=== PATIENT | male | born 1945 | race Caucasian/White ===

== ENCOUNTER 2021-12-12 13:26 | Outpatient (CLI) | payer BC, SELFPAY ==
--- OUTSIDE RECORDS SUMMARY | 2021-12-12 13:30 | XMS_ITS | Encounter Summary ---
:1945 Author Organization [facility] Address [address] [place] [address] Care Team Providers Name Role Phone Unavailable Primary Care Provider Unavailable Reason for Visit Reason Comments Triage Encounter Details Date Type Department Care Team Description 05/30/2020 Clinical Communication Division of General [facility] in [place], [place] [address] [facility] [address] [place] [id number] [phone] Social History Tobacco Use Types Packs/Day Years Used Date Smoking Tobacco: Never Assessed Sex Assigned at Date Recorded Not on file documented as of this encounter Miscellaneous Notes Telephone Encounter - Enzo Barnes M.D. - 05/30/2020 10:24 AM CDT GI CONSULTATIVE MEDICINE TRIAGE Decision: Deny - Patient not here. Reason: Very likely not able to meet patient expectations. Lack of Downstream Appointment Access. Subspecialty GI Triage does not establish a relationship with the patient. For any questions, please contact the patient's primary provider or the [facility]. [id number] Telephone Encounter - Marsha Castillo - 05/30/2020 8:52 AM CDT CATHERINE VALDOVINOS 1945 [id number] years Gender: Male Who filled out ARF: Patient?? Request: I have medical symptoms without a clear diagnosis TOP THREE SYMPTOMS: MAIN SYMPTOM debilitating pain in upper stomach. Dizzy,nausea. Description: sharp pain in upper stomach, comes and goes. Dizziness. Nausea Duration: 6 to 12 months Previous Eval: Yes Institution: [facility] Have had: Images (X-Rays, CT scan, MRI scan, etc.), Blood or urine tests Diagnosis: Outcome: no diagnoses Expectations: treat medical problems I have. ADDITIONAL - 1 Description: Duration: Previous Eval: Institution: Have had: Diagnosis: Outcome: Expectations: ADDITIONAL - 2 Description: Duration: Previous Eval: Institution: Have had: Diagnosis: Outcome: Expectations: ADDITIONAL - 3 Description: Duration: Previous Eval: Institution: Have had: Diagnosis: Outcome: Expectations: ADDITIONAL - 4 Description: Duration: Previous Eval: Institution: Have had: Diagnosis: Outcome: Expectations: ADDITIONAL CONCERNS: ? CONDITIONS: Depression, Anxiety, Pain, Fatigue BOTHERED BY: Feeling nervous, anxious or on edge - Several days Not being able to control or stop worrying - Not at all Little interest or pleasure in doing things - Several days Feeling down, depressed, or helpless - Not at all Willing to speak to a mental health professional - PAIN LONGER THAN 3 MONTHS: Yes CARE PROVIDERS TO DATE: 1 LOWEST PAIN LAST 7 DAYS (0 to 10): 2 PAIN INTERFERENCE PAST 3 MONTHS (0 to 10): 0 - Not at all PAIN AREAS: NECK, ABDOMEN, Lower BACK FATIGUE A MAIN REASON FOR VISIT: Yes FATIGUE/HOW LON to 12 months PROBLEMS WITH SLEEP: No SLEEP PROBLEMS LAST 2 WEEKS: SLEEP APNEA DIAGNOSIS: No Willing to attend [facility] or [facility] appointments - Definitely not DAILY MEDS: 7 OPIOIDS: No CURRENT DIALYSIS: No CURRENT HEALTH/PAST YEAR: Fair CONFIDENCE: Agree NOT AVAILABLE: I AM AVAILABLE ANY TIME PHONE: [phone] documented in this encounter Plan of Treatment Not on filedocumented as of this encounter Visit Diagnoses Not on filedocumented in this encounter
--- OUTSIDE RECORDS SUMMARY | 2021-12-12 13:30 | XMS_ITS | Clinical Summary ---
:1945 Author Organization [facility] Address [address] [place] [address] Care Team Providers Name Role Phone Unavailable Primary Care Provider Unavailable Source Comments Patient records contain information from all sites at [facility]. For routine questions regarding patient records, call [phone] during business hours, M-F 8:00 AM - 5:00 PM Central Time. Record requests for emergency care only can be directed to [phone] at any time.[facility] Immunizations Name Administration Dates Next Due Influenza Split 01/09/2001 Td, (Adult) Unspecified 03/11/1997 Social History Tobacco Use Types Packs/Day Years Used Date Smoking Tobacco: Never Assessed Sex Assigned at Date Recorded Not on file Plan of Treatment Health Maintenance Due Date Last Done Comments CT Colonography 1945 Cologuard 1945 Colonoscopy 1945 Colorectal Cancer Screening 1945 FIT 1945 Hepatitis C Screening 1945 Zoster Vaccines (2 of 3) 04/08/2008 02/12/2008 DTaP,Tdap,and Td Vaccines (2 - Td 04/11/2019 04/11/2009, , or Tdap) 03/11/1997 Depression Screening (Annual 03/11/2021 PHQ-2) Fall Risk Screen (Annual) 03/11/2021 COVID-19 Vaccine (4 - Booster for 03/22/2021 01/25/2021, , Pfizer series) 05/07/2020 Fasting Glucose for Diabetes 10/14/2021 10/14/2018, 019, Screening 06/24/2018, Additional history exists Influenza Vaccine (#1) 2021 12/22/2020, 11/30/2019, 12/24/2017, Additional history exists Pneumococcal vaccine (65+ years) Completed 04/28/2019, , 01/24/2012, Additional history exists Insurance Payer Benefit Plan / Subscriber ID Effective Dates Phone Addre ss Type Group BLUE CROSS [facility] [id number] 2017-Janessa [phone] [address] [facility] [address] [facility] [place] [address]
--- OUTSIDE RECORDS SUMMARY | 2021-12-12 13:30 | XMS_ITS | Clinical Summary ---
:1945 Author Organization [facility] [place] [address] Care Team Providers Name Role Phone Magan Verdugo MD Primary Care Provider [phone] Allergies Active Allergy Reactions Severity Noted Date Comments Iodinated Contrast Media Hives Medium 09/04/2018 Diatrizoate Meglumine (Iv Contrast Dye) Hives 0 06/09/2018 Medications Medication Sig Dispensed Refills Start Date End Date Status lisinopril (PRINIVIL; Take 1 tablet by 90 tablet 3 12/24/2017 Active ZESTRIL) 20 mg mouth once daily. tabletIndications: Hypertension, unspecified type FLUoxetine (PROZAC) Take 1 capsule by 90 capsule 3 06/24/2018 Active 40 mg mouth every capsuleIndications: morning. Anxiety states metFORMIN (GLUCOPHAGE Take 1 tablet by 90 tablet 3 06/24/2018 Active XR) 500 mg mouth once daily Extended-Release with evening meal. tabletIndications: Diabetes mellitus without complication (HC) cholecalciferol Take 400 Units by 0 Active (VITAMIN D-3) 400 mouth once daily. unit tablet atorvastatin Take 40 mg by mouth 0 Active (LIPITOR) 40 mg at bedtime. tablet omeprazole (PRILOSEC) Take 20 mg by mouth 0 Active 20 mg Delayed-Release 2 times daily if capsule needed. oxyCODONE-acetaminoph Take 1-2 tablets by 30 tablet 0 10/15/19 19 Active en, 5-325 mg, mouth every 4 hours (PERCOCET) 5-325 mg if needed for Pain per (For moderate to tabletIndications: severe pain.) Max Prostate cancer (HC) acetaminophen dose: 4000mg in 24 hrs. Active Problems Problem Noted Date Prostate cancer 10/13/2018 Peptic ulcer disease 2017 Pain management contract terminated 05/14/2017 Overview: Patient no longer taking pain medication chronically. 05/14/17 Chronic ITP (idiopathic thrombocytopenia) 11/11/2015 Overview: Has seen Hematology. Monitoring labs. St able. Gastric ulcer 07/02/2014 Overview: EGD 06/2014 superficial gastric ulcer sec ondary to NSAIDs Benign paroxysmal positional vertigo 12/17/2011 Back pain 10/02/2010 S/P colonoscopy 04/20/2010 Overview: Normal in 2004: due again in 2014 Vitamin D deficiency 02/03/2010 Alcohol abuse, unspecified 08/05/2009 Cataracts, bilateral 08/05/2009 Arthritis 02/23/2008 Neck pain 02/23/2008 Overview: DDD with radiculitis - Responds to predn isone. Fatty liver 02/12/2008 Sensorineural hearing loss, bilateral 01/14/2008 Type II or unspecified type diabetes mellitus without mention of 02/07/2006 complication, not stated as uncontrolled Pure hypercholesterolemia 02/07/2006 Unspecified essential hypertension 02/07/2006 Anxiety state, unspecified 02/07/2006 Resolved Problems Problem Noted Date Resolved Date Pain medication agreement signed 09/08/2011 018 Overview: Controlled substance contract signed 03/[address] Tenorio. Patient takes about 10 per month for chr onic body pain. Toxasure 05/26/15 Last Assessment & Plan: Controlled substance agreement signed 04/19/14 Issue of repeat prescriptions 08/29/2010 05/14/2017 Overview: Vicodin for neck and back pain Encounters Date Type Specialty Care Team Description 10/19/2021 Office Visit [facility], [facility] (Check) 10/19/2021 Travel 09/28/2021 Office Visit Black [facility]gett, [facility] 09/28/2021 Travel from Last 3 Months Immunizations Name Administration Dates Next Due Amb Influenza, Inact (High-dose) (Flu 12/24/2013 Clinic Only) Influenza A (H1N1), Inactivated (Age 0204/11/2009 >=3 Years) Influenza, High-dose Inactivated 11/11/2015, 12/22/2014 Influenza, IIV3 (Age >=3 years) 12/17/2012, 12/12/2011, 04/2010, 01/02/2010, 04/11/2009 Influenza, Inactivated IIV3 (Age 65+ 12/24/2017, 01/08/2017 Years) Preserv Free Pneumococcal Poly,23-Valent 01/24/2012, 04/11/2009 (Pneumovax) Pneumococcal conj 13-Valent (Prevnar 05/26/2015 13) Td (Age >=7 Years) 01/25/1999 Tdap 04/11/2009 Zoster (Zostavax-ZVL, live) 02/12/2008 Family History Medical History Relation Name Comments Hypertension Brother 2 Other Father colon polyps Stroke Father Cancer-breast Mother Diabetes Mother Psychiatric illness Mother Dementia Other Sister 2 Obesity Relation Name Status Comments Brother 1 Alive diabetes Brother 2 Child Jessica Alive Daughter Maile Alive Father (Age 90) stroke Mother (Age 87) Sister 1 Alive Diabetes,Alhz. Sister 2 Son Zacarias Alive Social History Tobacco Use Types Packs/Day Years Used Date Former Smoker Cigarettes, Cigars 0.5 20 Quit: Smokeless Tobacco: Current User Chew Tobacco Cessation: Ready to Quit: No; Co unseling Given: Yes Alcohol Use Standard Drinks/Week Comments Yes 0 (1 standard drink = 0.6 oz pure alcoho l) Happy hour Every other Day Alcohol Habits Answer Date Recorded How often do you have a drink containing 2-3 times a week 06/24/2018 alcohol? How many drinks containing alcohol do you 3 or 4 06/24/2018 have on a typical day when you are drinking? How often do you have six or more drinks on Weekly 06/24/2018 one occasion? Comment: Happy hour Every other Day 12/24/2017 Sex Assigned at Date Recorded Not on file Obstetrics History Last Filed Vital Signs Vital Sign Reading Time Taken Comments Blood Pressure 162/94 07/26/2021 12:26 PM CDT Pulse 74 07/26/2021 3:14 PM CDT Temperature 37.2 ??C (98.9 ??F) 07/26/2021 12:26 PM CDT Respiratory Rate 18 07/26/2021 12:26 PM CDT Oxygen Saturation 97% 07/26/2021 3:14 PM CDT Inhaled Oxygen Concentration - - Weight 96.5 kg (212 lb 11.9 oz) 07/26/2021 12:29 PM CDT Height 177.8 cm (5' 10) 07/26/2021 12:29 PM CDT Body Mass Index 30.53 07/26/2021 12:29 PM CDT Plan of Treatment Upcoming Encounters Date Type Specialty Care Team Description 12/12/2021 Orders Only Health Maintenance Due Date Last Done Comments Zoster (shingles) series for age 0104/08/2008 02/12/2008 50+ (2 of 3) Depression screening for age 12+ 12/26/2018 12/26/2017, , 04/23/2017, Additional history exists Tetanus booster 04/11/2019 04/11/2009, 01/25/1999 BMI (ht and wt on same day) for 06/25/2019 06/24/2018, 0403/2018, age 18+ 03/10/2018, Additional history exists COVID-19 vaccine series (4 - 03/22/2021 01/25/2021, 021, Booster for Pfizer series) 05/07/2020 Colonoscopy through age 75 08/23/2021 08/23/2016, 7, 08/23/2016, Additional history exists Influenza for age 65+ 11/09/2021 12/24/2017, 01/08/2017, 11/11/2015, Additional history exists Lipids for age 45-75 12/24/2022 12/24/2017, 06/10/2017, 05/10/2016, Additional history exists Tdap Completed 04/11/2009 Pneumococcal series for age 65+ Completed 05/26/2015, 01/09, 04/11/2009 Hepatitis C screening for age Completed 12/16/2015, 2004 18-79 Results Not on filefrom Last 3 Months Insurance Payer Benefit Plan / Subscriber ID Effective Dates Phone Addre ss Type Group MEDICARE PART A MEDICARE PART A [id number] 2011-Presen ATTN: CLAIMS - HB USE ONLY HB ONLY t [address] [place] [address] MEDICARE PART A MEDICARE PART A [id number] 2011-Presen ATTN: CLAIMS - HB USE ONLY HB ONLY t [address] [place] [address] PREFERRED ONE PREFERRED [id number] 2015-Presen [address] [place] [address] BLUE CROSS BLUE [employer] [id number] 2017-Presen [address] [place] [address] Edison Valdovinos Personal/Family Self 1945 [address] (Home) [place] [id number] Advance Directives Latest Code Status on File Code Status Date Activated Date Inactivated Comments Full Code 10/13/2018 8:46 AM 10/14/2018 3:18 PM Full Code 09/08/2018 10:16 AM 09/08/2018 5:17 PM Care Teams Silk [employer] Frame Assembler Relationship Specialty Start Date End Date Magan Verdugo MD PCP - General Family Practice 09/04/181999 [place] [address]
--- OUTSIDE RECORDS SUMMARY | 2021-12-12 13:30 | XMS_ITS | Encounter Summary ---
:1945 Author Organization [facility] Address [address] [place] [address] Care Team Providers Name Role Phone Unavailable Primary Care Provider Unavailable Encounter Details Date Type Department Care Team Description 01/19/2021 Orders Only [facility] Sa antwon Sivlerman M.D. [address] [place], [place] [phone] (Wo rk) Social History Tobacco Use Types Packs/Day Years Used Date Smoking Tobacco: Never Assessed Sex Assigned at Date Recorded Not on file documented as of this encounter Plan of Treatment Not on filedocumented as of this encounter Visit Diagnoses Not on filedocumented in this encounter
--- OUTSIDE RECORDS SUMMARY | 2021-12-12 13:31 | XMS_ITS | Encounter Summary ---
:1945 Author Care Team Providers Name Role Phone Magan Verdugo MD Primary Care Provider [phone] Magan Verdugo MD Referring Provider [phone] Reason for Visit Lab/Nursing Visit Assessment and Plan 1. 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 did not get adjuvant rT rising PSA and ? retroperitoneal hayley d isease on monthly firmagon now w good results continue monthly aubrey Would do foundation testing/liquid biops y in future when psa rises again - but he prefers to wait on taking any additional meds given side effects w/ previous meds cont. monthly Firmagon ? PSA, total, serum or plasma ? testosterone, total, serum Discussion Note: None recorded.Patient educational handouts: No information available. Plan of Care Reminders Provider Appointments Return to Office on or around Corey Beyer, 06/11/2022 Lab PSA, Total, Serum or 12/04/2021 [facility] ? Testosterone, Total, 12/04/2021 [facility] Referral None recorded. ? ? Procedures None recorded. ? ? Surgeries None recorded. ? ? Imaging None recorded. ? ? Medications Name Start Date ? ? Accu-Chek Guide Me Glucose Meter ? TEST DIRECTED Accu-Chek Guide test strips ? TEST ONCE DAILY Accu-Chek Softclix Lancets ? TEST ONCE DAILY amlodipine 5 mg tablet ? TAKE 1 TABLET BY MOUTH DAILY atorvastatin 40 mg tablet ? TAKE 1 TABLET BY MOUTH AT BEDTIME azithromycin 250 mg tablet ? BinaxNOW COVID-19 Ag Self Test kit ? TEST DIRECTED TODAY bupropion HCl XL 150 mg 24 hr tablet, extended release ? TAKE 1 TABLET BY MOUTH DAILY duloxetine 30 mg capsule,delayed release ? TAKE ONE CAPSULE BY MOUTH DAILY duloxetine 60 mg capsule,delayed release ? TAKE 1 CAPSULE BY MOUTH EVERY DAY Eligard 30 mg (4 month) subcutaneous syringe ? Inject 30 mg by subcutaneous route. Erleada 60 mg tablet ? Take 4 tablets daily famotidine 20 mg tablet ? TAKE 1 TABLET BY MOUTH TWICE DAILY Firmagon kit with diluent syringe 80 mg subcutaneous s olution ? Inject 80 mg by subcutaneous route. fluoxetine 40 mg capsule ? TAKE 1 CAPSULE BY MOUTH DAILY hydrocodone 5 mg-acetaminophen 325 mg tablet ? TAKE 1 TABLET BY MOUTH EVERY 6 HOURS NEEDED FOR PA IN lisinopril 40 mg tablet ? TAKE 1 TABLET BY MOUTH DAILY lorazepam 1 mg tablet ? TAKE 1 TABLET BY MOUTH TWICE DAILY NEEDED FOR ANXI ETY metformin ER 500 mg tablet,extended release 24 hr ? TAKE 3 TABLETS BY MOUTH DAILY metoprolol succinate ER 50 mg tablet,extended release 24 hr ? TAKE 1 TABLET BY MOUTH DAILY omeprazole 20 mg capsule,delayed release ? TK 1 C PO BID Orgovyx 120 mg tablet ? Take 1 tablet every day by oral route. prednisone 20 mg tablet ? TAKE 1 TABLET BY MOUTH EVERY DAY prednisone 5 mg tablet ? Take 1 tablet every day by oral route. prednisone 50 mg tablet ? TAKE 1 TABLET BY MOUTH EVERY DAY valacyclovir 1 gram tablet ? TK 1 T PO TID Xtandi 40 mg tablet ? Take 4 tablets every day by oral route. Medications Administered None recorded. Vitals None recorded. Results Lab Results Date Name Specimen Result Interpretation Description Value Range Status Address ? 12/04/2021 PSA, BLDV ? PSA, Total <0.10 <4.[address] [facility] Total, NG/mL NG/mL [facility] - Serum or [facility]: Plasma [address] 12/04/2021 Testostero BLDV ? Testosterone <10 [phone] [facility] ne, Total, NG/dL NG/dL Urolog [facility] - [facility] [place]: [address] Allergies Code Code System Name Reaction Severity Onset NKDA ? ? ? Problems Name Status Onset Date Source ? Raised Prostate Specific Antigen Active 06/26/2018 History Malignant Tumor of Prostate Active 08/20/2018 Hist ory Procedures Date Name Performed by ? 10/13/2018 Laparo Radical Prostatectomy Information not available Notes: 10/13/2018 - LAPARO RADICAL PRO STATECTOMY 07/29/2018 Biopsy of Prostate Information not doyle valenzuela Notes: 07/29/2018 - BIOPSY OF PROSTATE 07/29/2018 N Block Other Peripheral Information not available Notes: 07/29/2018 - N BLOCK OTHER CONY PHERAL 01/29/2017 Colonoscopy Thru [facility] Spx Information n ot available Notes: 01/29/2017 - COLONOSCOPY THRU S [facility] SPX ? Removal of Prostate Information not avai lable Notes: Prostate Removal ? Removal of Sperm Duct(s) Information not available Notes: Vasectomy Notes: Other surgeries: Laparo radical prostatectomy, Biopsy of prostate, N block other peripheral and Colonoscopy thru [facility] spx Vaccine List Vaccine Type COVID-19 (SARS-COV-2) vaccine, unspecifi ed 07/24/2019 07/20/2020 01/25/2021 COVID-19, mRNA, LNP-S, PF, 30 mcg/0.3 mL dose (RocketPlay) 05/07/2020 05/28/2020 01/25/2021 influenza, high dose seasonal 12/24/2013 12/22/2014 11/11/2015 influenza, high-dose, quadrivalent 12/22/2020 influenza, seasonal, injectable 01/09/2001 01/26/2003 01/16/2005 01/02/2010 12/12/2011 12/17/2012 influenza, seasonal, injectable, preserv ative free 04/11/2009 01/10/2011 11/30/2019 influenza, trivalent, adjuvanted 01/08/2017 12/24/2017 influenza, unspecified formulation 12/20/2020 12/30/2020 novel [id number], all formulation s 04/11/2009 pneumococcal conjugate PCV 13 05/26/2015 pneumococcal polysaccharide [id number] 04/11/2009 01/24/2012 04/28/2019 pneumococcal, unspecified formulation 03/11/2018 03/12/2019 11/23/2020 Td (adult), adsorbed 03/11/1997 Tdap 04/11/2009 zoster live 02/12/2008 Social History Tobacco Smoking Status Never Smoker Marital status Has tobacco cessation counseling N been provided? Could you be ? N Preferred Language Citizen Of [place] How much tobacco do you chew? 1/day What was the date of your most 12/11/2021 recent tobacco screening? Do you or have you ever used Never used electronic e-cigarettes or vape? cigarettes Have you or anyone in your house N been exposed to COVID-19 in the past 14 days? Do you use any illicit or Y recreational drugs? Have you or anyone in your house N tested positive for COVID-19 in the past 14 days? When did you quit smoking? 1-5yearssincelastcigarette How many years have you smoked 10 tobacco? What is your relationship status? What is your level of alcohol Heavy consumption? Have you or anyone in your home N experienced symptoms of COVID 19 such as fever >100.4, shortness of breath, difficulty breathing, or a cough? Do you or have you ever used Former smokeless tobacco user smokeless tobacco? Which illicit or recreational marijuanna Notes: o nce in a while drugs have you used? Have you traveled outside of [facility] [place] in the past 30 days? What is your level of caffeine Moderate consumption? Do you or have you ever used any Y other forms of tobacco or nicotine? Race White Recreational Drug Use Y Family History Relation Problem Onset Age of Age Notes Unspecified Relation Family history of (No N/A (N o Notes) Hypertension Information) Functional Status Unknown. Past Encounters 12/04/2021 Malignant Tumor of Prostate Corey Beyer MD: [address], [address] [address], Ph. 11/09/2021 Malignant Tumor of Prostate Corey Beyer MD: [address], [address], [place] [address], Ph. History of Present Illness None recorded. Review of Systems None recorded. Physical Exam None recorded.
--- OUTSIDE RECORDS SUMMARY | 2021-12-12 13:31 | XMS_ITS | Encounter Summary ---
:1945 Author Care Team Providers Name Role Phone Magan Verdugo MD Primary Care Provider [phone] Magan Verdugo MD Referring Provider [phone] Reason for Visit None recorded. Assessment and Plan 1. Malignant tumor of [...] effects w/ previous meds cont. monthly Firmagon -05-30 PATIENT WITH HORMONE SENSITIVE PROSTATE CANCER PSA IS UNDETECTABLE TAKES MONTHLY FIRMAGON HAD PSMA SCAN LAST YEAR WHICH SHOWED JUS T SMALL ? RP NODES CONTINUE FIRMAGON CHECK PSA IN 3MONTHS COULDN'T TOLERATE XTANDI OR ORAL ANTIAND ROGENS GIVEN SIDE EFFECTS. Discussion Note: None recorded.Patient educational handouts: No information available. Plan of Care Reminders Provider Appointments Return to Office on or around 06/11/2022 Jose Beyer MD Lab None recorded. ? ? Referral None recorded. ? ? Procedures None [...] oral route. Medications Administered None recorded. Vitals Height Weight BMI 6 ft 209 lbs 28.3 kg/m2 Results Lab Results None recorded. Allergies Code Code System Name Reaction Severity Onset NKDA ? ? ? Problems Name Status Onset Date Source ? Raised Prostate Specific Antigen Active 06/26/2018 History Malignant Tumor of Prostate Active 08/20/2018 Hist ory Procedures Date Name Performed by ? 10/13/2018 [facility] Radical Prostatectomy Information not available Notes: 10/13/2018 - LAPARO RADICAL PRO STATECTOMY 07/29/2018 Biopsy of Prostate Information not avai lable Notes: 07/29/2018 - BIOPSY OF PROSTATE 07/29/2018 [...] mRNA, LNP-S, PF, 30 mcg/0.3 mL dose (House Party) 05/07/2020 05/28/2020 01/25/2021 influenza, high dose seasonal 12/24/2013 12/22/2014 11/11/2015 influenza, high-dose, quadrivalent 12/22/2020 influenza, seasonal, injectable 01/09/2001 01/26/2003 01/16/2005 01/02/2010 12/12/2011 12/17/2012 influenza, seasonal, injectable, preserv ative free 04/11/2009 01/10/2011 11/30/2019 influenza, trivalent, adjuvanted 01/08/2017 12/24/2017 influenza, unspecified formulation 12/20/2020 12/30/2020 novel [id number], all formulation s 04/11/2009 pneumococcal conjugate PCV 13 05/26/2015 pneumococcal polysaccharide [id number] 04/11/2009 01/24/2012 04/28/2019 pneumococcal, unspecified formulation 03/11/2018 03/12/2019 11/23/2020 Td (adult), adsorbed 03/11/1997 Tdap 04/11/2009 zoster live 02/12/2008 Social History Tobacco Smoking Status Never Smoker Marital status Has tobacco cessation counseling N been provided? Could you be ? N Preferred Language Iraqi How much tobacco do you chew? 1/day [...] you used? Have you traveled outside of [facility] in the past 30 days? What is your level of caffeine Moderate consumption? Do you or have you ever used any Y other forms of tobacco or nicotine? Race White Recreational Drug Use Y Family History Relation Problem Onset Age of Age Notes Unspecified Relation Family history of (No N/A (N o Notes) Hypertension Information) Functional Status Unknown. Past Encounters 12/11/2021 Malignant Tumor of Prostate Corey Beyer MD: [id number], [address] [address], Ph. 12/04/2021 Malignant Tumor of Prostate Corey Beyer MD: [id number], [address], [place] [address], Ph. History of Present Illness Note: <div>patient here for prostate cancer</div><div>s/p prostatectomy in 2019</div>Review of Systems: ROS as noted in the HPI Review of Systems ? Comprehensive General Adult ROS Reported By: Patient Cardiovascular: Cardiovascular: no chest mine n, no palpitations Respiratory: Respiratory: no cough, no sh ortness of breath Gastrointestinal: Gastrointestinal: no vomitin g, no constipation, no GERD, abdominal pain, nausea; no frequent di arrhea, Genitourinary: Genitourinary: no incontinen ce, no difficulty urinating; no testicular: pain, no testicu lar: lump, no penile: lesion, no dysuria, no change in urinar y stream, no hematuria Physical Exam None recorded.
--- OUTSIDE RECORDS SUMMARY | 2021-12-12 13:31 | XMS_ITS | Encounter Summary ---
:1945 Author Organization [facility] Address [address] [place] [id number] Care Team Providers Name Role Phone Unavailable Primary Care Provider Unavailable Encounter Details Date Type Department Care Team Description 02/25/2020 Admin Visit Department of Family Medicine, [address] [address] [facility] [phone] Social History Tobacco Use Types Packs/Day Years Used Date Smoking Tobacco: Never Assessed Sex Assigned at Date Recorded Not on file documented as of this encounter Plan of Treatment Not on filedocumented as of this encounter Visit Diagnoses Not on filedocumented in this encounter Additional Health Concerns Infection Onset Date Last Indicated Resolved Time COVID19 Pending 02/25/2020 02/25/2020 02/26/2020 3:05 AM [employer] documented as of this encounter
--- OUTSIDE RECORDS SUMMARY | 2021-12-12 13:31 | XMS_ITS | Encounter Summary ---
:1945 Author Organization [facility] Address [address] [place] [address] Care Team Providers Name Role Phone Unavailable Primary Care Provider Unavailable Reason for Visit Reason Onset Date Comments Testing For Upper Respiratory Virus Symptoms 02/25/2020 Encounter Details Date Type Department Care Team Description 02/25/2020 External Outreach Department of Kevin Cadena [facility] Medicine, [facility] Eneida Ramos Respiratory (Primary Building, in [address] [place], [place] [address] [facility] [address] [place], [place] [phone] [address] (Work) [phone] Social History Tobacco Use Types Packs/Day Years Used Date Smoking Tobacco: Never Assessed Sex Assigned at Date Recorded Not on file documented as of this encounter Progress Notes Nila Garza R.N. - 02/25/2020 11:33 AM CST Encounter created for symptomatic infectious disease screening with possible COVID, Influenza, and RSV testing. PATIONAL THERAPY ASSIST documented in this encounter Plan of Treatment Not on filedocumented as of this encounter Procedures Procedure Name Priority Date/Time Associated Diagnosis Comme nts INFLUENZA A/B AND Routine 02/25/2020 1:02 PM Infection Upper R esults for this RSV, PCR, VARIES OCCUPATIONAL THERAPY ASSIST Respiratory procedure a re in the results section. SARS CORONAVIRUS-2 Routine 02/25/2020 1:02 PM Infection Upper Results for this RNA, V OCCUPATIONAL THERAPY ASSIST Respiratory procedure are i n the results section. documented in this encounter Results Influenza A/B and RSV, PCR, Varies (02/25/2020 1:02 PM OCCUPATIONAL THERAPY ASSIST) [facility] Method Time Signature Influenza A/B Swab, 02/26/2020 DTL and RSV, Nasopharynx 2:10 PM OCCUPATIONAL THERAPY ASSIST Source Influenza A, Undetected Undetected 02/26/2020 DTL PCR 2:10 PM OCCUPATIONAL THERAPY ASSIST Comment: Influenza A RNA absent. Influenza B, PCR Undetected Undetected 02/26/2020 2:10 PM CS T DTL Comment: Influenza B RNA absent. Respiratory Syncytial Virus, PCR Undetected Undetected 2:10 PM OCCUPATIONAL THERAPY ASSIST DTL Comment: RSV RNA absent. ----ADDITIONAL INFORMATION---- This test has been modified from the man ufacturer's instructions. Its performance characteristics were determi dylan by [facility] in a manner consistent with CLIA requirements. This test has not been cleared or approved by the U.S. Food and Drug Administration . Specimen Anatomical Collection Method Collection Time Receive d Time (Source) Location / / Volume Laterality Varies 02/25/2020 1:02 PM 0 7:12 (Nasopharynx) OCCUPATIONAL THERAPY ASSIST AM OCCUPATIONAL THERAPY ASSIST Kevin Worley D.O. LAB MICROBIOLOGY - GENERAL O RDERABLES Performing Organization Address City/State/ZIP Code Phon e Number [facility] - [address] [place] [phone] [facility] [place] [address] [facility] [address] [facility] SARS Coronavirus-2 RNA, V Symptomatic (02/25/2020 1:02 PM OCCUPATIONAL THERAPY ASSIST) [facility] Method Time Signature SARS-CoV-2 Swab, 02/26/2020 [facility] Specimen Nasopharynx 3:04 AM OCCUPATIONAL THERAPY ASSIST Source SARS CoV-2 Undetected Undetected 02/26/2020 [facility] RNA, TMA 3:04 AM OCCUPATIONAL THERAPY ASSIST Comment: SARS-CoV-2 RNA absent. This result does not rule out COVID-19 in the patient, as the sensitivity of the test depends o n the timing of the specimen collection and the quality of the specim en. Result should be correlated with patient's history and clinical presentat ion. ----ADDITIONAL INFORMATION---- This test is performed using the Aptima SARS-CoV-2 assay ([employer] which has received Emergency Use Authori zation (EUA) by the U.S. Food and Drug Administration. Fact sheets for this Emergency Use Autho rization (EUA) assay can be found at the following links: For Healthcare Providers: https://www.fd a.gov/media/388063/download For Patients: https://www.fda.gov/media/ 249439/download Specimen Anatomical Collection Method Collection Time Receive d Time (Source) Location / / Volume Laterality Varies 02/25/2020 1:02 PM 0 9:46 (Nasopharynx) OCCUPATIONAL THERAPY ASSIST PM OCCUPATIONAL THERAPY ASSIST Kevin Worley D.O. LAB MICROBIOLOGY - GENERAL O RDERABLES Performing Organization Address City/State/[facility] Code Phon e Number [facility]- [address] [place] [address] [place] [address] [address] documented in this encounter Visit Diagnoses Diagnosis Infection Upper Respiratory - Primary documented in this encounter Additional Health Concerns Infection Onset Date Last Indicated Resolved Time COVID19 Pending 02/25/2020 02/25/2020 02/26/2020 3:05 AM OCCUPATIONAL THERAPY ASSIST documented as of this encounter
--- OUTSIDE RECORDS SUMMARY | 2021-12-12 13:31 | XMS_ITS ---
:1945 Author Care Team Providers Name Role Phone ARTURO WHITEHEAD MD Primary Care Provider [phone] ARTURO WHITEHEAD MD Referring Provider [phone] Allergies Code Code System Name Reaction Severity Status Onset NKDA ? Medications Name Status Start Date Stop Date ? ? abiraterone 250 mg tablet Completed ? 2021 Accu-Chek Guide Me Glucose Meter Active ? Not available TEST DIRECTED Accu-Chek Guide test strips Active ? Not available TEST ONCE DAILY Accu-Chek Softclix Lancets Active ? Not a vailable TEST ONCE DAILY amlodipine 5 mg tablet Active ? Not avail able TAKE 1 TABLET BY MOUTH DAILY atorvastatin 40 mg tablet Active ? Not av ailable TAKE 1 TABLET BY MOUTH AT BEDTIME azithromycin 250 mg tablet Active ? Not a vailable BinaxNOW COVID-19 Ag Self Test kit Active ? Not available TEST DIRECTED TODAY bupropion HCl XL 150 mg 24 hr tablet, extended release Active ? Not available TAKE 1 TABLET BY MOUTH DAILY bupropion HCl XL 300 mg 24 hr tablet, extended release Completed ? 11/10/2020 TAKE 1 TABLET BY MOUTH DAILY duloxetine 30 mg capsule,delayed release Active ? Not available TAKE ONE CAPSULE BY MOUTH DAILY duloxetine 60 mg capsule,delayed release Active ? Not available TAKE 1 CAPSULE BY MOUTH EVERY DAY Eligard 30 mg (4 month) subcutaneous syringe Active ? Not available Inject 30 mg by subcutaneous route. Erleada 60 mg tablet Active ? Not availab le famotidine 20 mg tablet Active ? Not avai lable TAKE 1 TABLET BY MOUTH TWICE DAILY Firmagon kit with diluent syringe 80 mg subcutaneous solution Ac tive ? Not available Inject 80 mg by subcutaneous route. fluoxetine 40 mg capsule Active ? Not krysta ilable TAKE 1 CAPSULE BY MOUTH DAILY hydrocodone 5 mg-acetaminophen 325 mg tablet Active ? Not available TAKE 1 TABLET BY MOUTH EVERY 6 HOURS NEEDED FOR PAIN lisinopril 40 mg tablet Active ? Not avai lable TAKE 1 TABLET BY MOUTH DAILY lorazepam 1 mg tablet Active ? Not availa ble TAKE 1 TABLET BY MOUTH TWICE DAILY NEEDED FOR ANXIETY metformin ER 500 mg tablet,extended release 24 hr Active ? Not available TAKE 3 TABLETS BY MOUTH DAILY metoprolol succinate ER 50 mg tablet,extended release 24 hr Acti ve ? Not available TAKE 1 TABLET BY MOUTH DAILY omeprazole 20 mg capsule,delayed release Active ? Not available TK 1 C PO BID Orgovyx 120 mg tablet Active ? Not availa ble Take 1 tablet every day by oral route. prednisone 20 mg tablet Active ? Not avai lable TAKE 1 TABLET BY MOUTH EVERY DAY prednisone 5 mg tablet Active ? Not avail able prednisone 50 mg tablet Active ? Not avai lable TAKE 1 TABLET BY MOUTH EVERY DAY valacyclovir 1 gram tablet Active ? Not a vailable TK 1 T PO TID Xtandi 40 mg tablet Active ? Not availabl e Problems Name Status Onset Date Source ? [...] peripheral and Colonoscopy thru st [facility] spx Results Lab Results Date Name Specimen Result Interpretation Description Value Range Status Address ? 12/04/2021 PSA, Total, BLDV ? PSA, Total <0.10 <4.0 Fin al [place] Serum or NG/mL NG/mL [facility] - [facility]: [address] 12/04/2021 Testosteron BLDV ? Testosterone <10 175-781 [facility] e, Total, NG/dL NG/dL [facility]rology - Serum [facility]: [address] [facility] [address], [place] 06/23/2021 PSA, Total, BLDV ? PSA, Total <0.10 <4.0 Fin [facility] Serum or NG/mL NG/mL Urology - Plasma [facility]: [address] [place] [address] 04/06/2021 PSA, Total, BLDV ? PSA, Total <0.10 <4.0 Fin heather [place] Serum or NG/mL NG/mL [facility]rology - Plasma [facility]: [address] [place] [address] 04/06/2021 Testosteron BLDV Low Testosterone 23.72 175.00- Final [place] e, Total, NG/dL 781.00 Urology - Serum NG/dL [facility]: [address] [place] [address] 02/06/2021 BMP, Serum BLDV High Glu 122.40 70.00-1 Final [place] or Plasma mg/dL 05.00 Urology - mg/dL [facility]: [address] [place] [address] ? ? BLDV ? Ca 8.8 8.4-10. Final [place] mg/dL 2 mg/dL [facility] - [facility]: [address] [place] [address] ? ? BLDV ? Na 135.0 135.0-1 Final [place] mmol/L 45.0 Urology - mmol/L [facility]: [address] [place] [address] ? ? BLDV ? Potassium 4.3 3.6-5.0 Final [place] mmol/L mmol/L [facility] - [facility]: [address] [place] [address] ? ? 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 ? BLDV ? Co2 25.0 21.0-31 Final [place] mmol/L .0 Urology - mmol/L [facility]: [address] [place] [address] ? ? BLDV ? Aniongap 11.00 0.00-16 Final [place] operator .00 [facility]rology - [facility]: [address] [place] [address] ? ? BLDV ? Bun 15.0 7.0-18. Final [place] mg/dL 0 mg/dL [facility] - [facility]: [address] [place] [address] ? ? BLDV ? BUN/creat 15.3 9.0-20. Final [place] ratio 0 ratio [facility]rology - [facility]: [address], [place] ? ? BLDV ? Creatinine 1.0 0.6-1.3 Final [place] mg/dL mg/dL [facility] - [facility]: [address], [place] ? ? BLDV ? Egfr >60 90-120 Final [place] mL/min mL/min [facility]rology - per per [facility] 1.73 1.73 [facility]: [address], [place] 02/01/2021 CBC W/ Diff BLDV ? Wbc 6.00 3.80-10 Final [place] 10*3/uL .80 Urology - 10*3/uL [facility]: [address] [facility] [address], [place] ? ? BLDV ? Ne% 49.50 % 42.00-8 Final [place] 2.00 % [facility]rology - [facility]: [address] [facility] [address], [place] ? ? BLDV High Ly% 36.00 % 15.00-3 Final [place] 5.00 % [facility]rology - [facility]: [address] [facility] [address], [place] ? ? BLDV ? Mo% 10.20 % 4.00-12 Final [place] .00 % [facility] - [facility]: [address] [facility] [address], [place] ? ? BLDV ? Eo% 3.40 % 1.00-6. Final [place] 00 % [facility] - [facility]: [address] [facility] [address], [place] ? ? BLDV ? Ba% 0.90 % 0.00-2. Final [place] 00 % [facility] - [facility]: [address] [facility] [address], [place] ? ? BLDV ? Ne# 3.00 1.50-7. Final [place] 10*3/uL 80 Urology - 10*3/uL [facility]: [address] [facility] [address], [place] ? ? BLDV ? Ly# 2.20 0.85-3. Final [place] 10*3/uL 90 Urology - 10*3/uL [facility]: [address] [facility] [address], [place] ? ? BLDV ? Mo# 0.60 0.20-0. Final [place] 10*3/uL 95 Urology - 10*3/uL [facility]: [address], [place] ? ? BLDV ? Eo# 0.20 0.02-0. Final [place] 10*3/uL 50 Urology - 10*3/uL [facility]: [address], [place] ? ? BLDV ? Ba# 0.10 0.00-0. Final [place] 10*3/uL 20 Urology - 10*3/uL [facility]: [address], [place] ? ? BLDV ? Rbc 4.64 4.20-5. Final [place] 10*6/uL 80 Urology - 10*6/uL [facility]: [address], [place] ? ? BLDV ? Hgb 14.20 13.20-1 Final [place] g/dL 7.10 [facility]rology - g/dL [facility]: [address], [place] ? ? BLDV ? Hct 42.30 % 38.50-5 Final [place] 0.00 % [facility]rology - [facility]: [address], [place] ? ? BLDV ? Mcv 91.20 80.00-1 Final [place] fL 00.00 Urology - PR [facility]: [address], [place] ? ? BLDV ? Mch 30.60 27.00-3 Final [place] pg 3.00 pg [facility] - [facility]: [address], [place] ? ? BLDV ? Mchc 33.50 32.00-3 Final [place] g/dL 6.00 [facility]rology - g/dL [facility]: [address], [place] ? ? BLDV ? Rdw 13.70 % 11.00-1 Final [place] 5.00 % [facility]rology - [facility]: [address], [place] ? ? BLDV Low Plt 54.00 140.00- Final [place] 10*3/uL 400.00 Urology - 10*3/uL [facility]: [address], [place] ? ? BLDV ? Mpv 10.70 ? Final [facility] Urology - [facility]: [address], [place] 02/01/2021 Hepatic BLDV ? Albumin-olympu 4.4 3.5-5.0 Fi nal [place] Function s g/dL g/dL Urology - Panel, [facility]: [address] [place] [address] ? ? BLDV ? ALP-olympus 48.0 24.0-10 Final [place] [IU]/L 6.0 Urology - [IU]/L [facility]: [address] [place] [address], [place] ? ? BLDV ? ALT-olympus 32.0 10.0-40 Final [place] IU/L .0 IU/L [facility] - [facility]: [address] [place] [address], [place] ? ? BLDV ? AST-olympus 37.0 10.0-42 Final [place] IU/L .0 IU/L [facility] - [facility]: [address] [place] [address], [place] ? ? BLDV ? D 0.1 0.0-0.2 Final [place] Bilirubin-olymp mg/dL mg/dL U [facility]: [address] [place] [address] ? ? BLDV ? T 0.5 0.2-1.0 Final [place] Bilirubin-olymp mg/dL mg/dL U [facility]: [address] [place] [address] ? ? BLDV ? T 7.0 6.5-8.1 Final [place] Protein-olympus g/dL [facility] [address] [place] [address] 02/01/2021 BMP, Serum BLDV High Glu 134.50 70.00-1 Final [place] or Plasma mg/dL 05.00 Urology - mg/dL [facility]: [address] [place] [address] ? ? BLDV ? Ca 9.1 8.4-10. Final [place] mg/dL 2 mg/dL [facility] - [facility]: [address] [place] [address] ? ? BLDV Low Na 134.0 135.0-1 Final [place] mmol/L 45.0 Urology - mmol/L [facility]: [address] [place] [address] ? ? BLDV High Potassium 5.5 3.6-5.0 Final [place] mmol/L mmol/L [facility] - [facility]: [address] [place] [address] ? ? BLDV Low Chloride 99.0 101.0-1 Final [place] mmol/L 11.0 Urology - mmol/L [facility]: [address] [place] [address] [address], [place] ? ? BLDV ? Co2 25.0 21.0-31 Final [place] mmol/L .0 Urology - mmol/L [facility]: [address] [place] [address], [place] ? ? BLDV ? Aniongap 10.00 0.00-16 Final [place] .00 [facility] - [facility]: [address] [place] [address] [address], [place] ? ? BLDV ? Bun 16.0 7.0-18. Final [place] mg/dL 0 mg/dL [facility] - [facility]: [address] [place] [address], [place] ? ? BLDV ? BUN/creat 15.0 9.0-20. Final [place] ratio 0 ratio [facility] - [facility]: [address] [place] [address], [place] ? ? BLDV ? Creatinine 1.1 0.6-1.3 Final [place] mg/dL mg/dL [facility] - [facility]: [address] [place] [address], [place] ? ? BLDV ? Egfr >60 90-120 Final [place] mL/min mL/min Urology - per per [facility] 1.73 1.73 Lab: [address] [place] [address] 02/01/2021 Testosteron BLDV ? Testosterone 494.96 175.00- Final [place] e, Total, NG/dL 781.00 Urology - Serum NG/dL [facility]: [address] [place] [address] 02/01/2021 PSA, Total, BLDV ? PSA, Total <0.10 <4.0 Fin al [place] Serum or NG/mL NG/mL [facility]rology - Plasma [facility]: [address] [place] [address] 11/10/2020 PSA, Total, BLDV ? PSA, Total 0.55 0.00-4. Fi nal [place] Serum or NG/mL 00 Urology - Plasma NG/mL [facility]: [address] [place] [address] Past Encounters 12/11/2021 Malignant Tumor of Prostate Corey Beyer MD: [address] [facility], [address], [place] [address], Ph. 12/04/2021 Malignant Tumor of Prostate Corey Wilburn MD Kayleen: [address] [place] [address] [address], [address], [place] [address], Ph. 11/09/2021 Malignant Tumor of Prostate Corey Wilburn MD Kayleen: [address] [place] [address] [address], [address], [place] [address], Ph. 10/09/2021 Malignant Tumor of Prostate Corey Wilburn MD Kayleen: [address] [place] [address] [address], [address], [place] [address], Ph. 09/07/2021 Malignant Tumor of Prostate Corey Wilburn MD Kayleen: [address] [place] [address] [address], [address], [place] [address], Ph. 08/08/2021 Malignant Tumor of Prostate Corey Millantoni Beyer MD: [address] [place] [address] [address], [address], [place] [address], Ph. 06/23/2021 Malignant Tumor of Prostate Yaneth Janice Velez, PA: [address] [place] [address], [address] [address], Ph. 05/22/2021 Malignant Tumor of Prostate Yaneth Janice Velez, PA: [address] [place] [address], [address] [address], Ph. 04/18/2021 Malignant Tumor of Prostate Corey Wilburn MD Kayleen: [address] [place] [address] [address] , [address], [place] [address], Ph. 04/06/2021 Malignant Tumor of Prostate Walt Morfin MD: [address] [place] [address], [address], [place] [address], Ph. 02/09/2021 Malignant Tumor of Prostate Walt Morfin MD: [address] [place] [address], [place] [address], [place] [address], Ph. 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 02/01/2021 Malignant Tumor of Prostate Walt Morfin MD: [address] [facility], [place] [address], [place] [address], Ph. 12/13/2020 Malignant Tumor of Prostate Walt Morfin MD: [address] [facility], [address], [place] [address], Ph. 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 Social History Tobacco Smoking Status Never Smoker Vaccine List Vaccine Type COVID-19 (SARS-COV-2) vaccine, unspecifi ed 07/24/2019 07/20/2020 01/25/2021 COVID-19, mRNA, LNP-S, PF, 30 mcg/0.3 mL dose (GenAudio) 05/07/2020 05/28/2020 01/25/2021 influenza, high dose seasonal 12/24/2013 12/22/2014 11/11/2015 influenza, high-dose, quadrivalent 12/22/2020 influenza, seasonal, injectable 01/09/2001 01/26/2003 01/16/2005 01/02/2010 12/12/2011 12/17/2012 influenza, seasonal, injectable, preserv ative free 04/11/2009 01/10/2011 11/30/2019 influenza, trivalent, adjuvanted 01/08/2017 12/24/2017 influenza, unspecified formulation 12/20/2020 12/30/2020 novel [id number], all formulation s 04/11/2009 pneumococcal conjugate PCV 13 05/26/2015 pneumococcal polysaccharide [id number] 04/11/2009 01/24/2012 04/28/2019 pneumococcal, unspecified formulation 03/11/2018 03/12/2019 11/23/2020 Td (adult), adsorbed 03/11/1997 Tdap 04/11/2009 zoster live 02/12/2008 Plan of Care Reminders Provider Appointments None recorded. ? ? Lab None recorded. ? ? Referral None recorded. ? ? Procedures None recorded. ? ? Surgeries None recorded. ? ? Imaging None recorded. ? ? Vitals 12/11/2021 11:25AM ESTABLISHED 15 Height Weight BMI 6 ft 209 lbs 28.3 kg/m2 08/08/2021 10:10AM ESTABLISHED 15 Height Weight BMI 6 ft 209 lbs 28.3 kg/m2 06/23/2021 10:00AM ESTABLISHED 30 Height Weight BMI 6 ft 219 lbs 29.7 kg/m2 05/22/2021 02:30PM ESTABLISHED 30 Height Weight BMI (1) 6 ft 219 lbs 29.7 kg/m2 (2) 6 ft 02/09/2021 02:40PM ESTABLISHED 10 Height Weight BMI 6 ft 219 lbs 29.7 kg/m2 12/13/2020 09:10AM ESTABLISHED 10 Height Weight BMI 6 ft 224 lbs 30.4 kg/m2 11/10/2020 11:05AM ESTABLISHED 10 Height Weight BMI 6 ft 220 lbs 29.8 kg/m2
--- OUTSIDE RECORDS SUMMARY | 2021-12-12 13:31 | XMS_ITS | Encounter Summary ---
:1945 Author Organization [facility] Address [address] [place] [address] Care Team Providers Name Role Phone Unavailable Primary Care Provider Unavailable Reason for Visit Reason Comments PUSH[facility] Nurse Line Encounter Details Date Type Department Care Team Description 05/04/2020 Clinical Communication Division of Regla Smith Nurse [facility] [phone] [facility] [place] (Work) [place], [place] [address] [place] [address] Social History Tobacco Use Types Packs/Day Years Used Date Smoking Tobacco: Never Assessed Sex Assigned at Date Recorded Not on file documented as of this encounter Miscellaneous Notes Telephone Encounter - Regla Smith, R.NTrace - 05/04/2020 9:16 AM CST fCOVID-19 Nurse Line Screening Patient did not want to speak with triage nurse he has a doctors appointment on saturday ASSESSMENT Patient did not want to talk to triage regarding chest pain. Knows to go to ER if symptoms gets worse has a Drs appointment on saturday Region Select appropriate region: : [place] Age Pathway Select approprite pathway: : Adult Have you had close contact* with a person who has a LABORATORY CONFIRMED case of COVID-19 in the past 14 days?: No (Continue Screening) In the last 48 hours, have you had a fever* OR symptoms that are unrelated to a preexisting illness?: Fever, New headache, New sore throat, New nausea, New diarrhea, New muscle aches, New loss of smell, New change or loss of taste sensation Have you received a COVID-19 vaccine in the last 72 hours? : No vaccine received (Continue Screening) Do you have any of the following urgent symptoms?: Pain, pressure or tightness unrelated to coughingin chest, jaw, or arm. Have you tested positive for COVID-19 in the last 45 days?: No (Continue Screening) Are ALL the following criteria met: age between 18 to 75 yrs, main symptom is a sore throat with duration of 24 hrs to 7 days, onset of sore throat not associated with new upper respiratory symptoms*? : Yes, COVID + Strep testing is recommended (End Screening) Symptom Onset Date of symptom onset: 05/01/20 Testing Recommendation Endpoint Is testing recommended? : Recommended to test PLAN Endpoint recommendation: Screening positive, testing indicated, advised to be swabbed for COVID-19 and Group A Strep (age 3 - 75 only), sent to [facility] located at [address] [place] [address]. The entrance is on the north side of the building. You must call [phone] during the hours of 7am to 6 pm (M-F) or 8am to 4 pm (Sat and Sun) for an appointment time. You can also schedule via your Patient Online Services account. Testing hours are 9 am to 5 pm (M-F) and 9 am to 1 pm (Sat and Sun).When you arrive at the testing site: Remain in your vehicle and check-in by calling the number listed on the signage at the testing site or provided to you at the time you schedule your testing appointment. and Please avoid using public transportation per CDC recommendation. If you do not have personal transportation please self-quarantine until a personal transportation option is available. Care Points: -Wash hands frequently with soap and water for at least 20 seconds -If soap and water are not available, use a hand manager code -Avoid touching your eyes, nose and mouth. -Clean and disinfect high-touch surfaces routinely. -Wear a mask over your nose and mouth. A cloth face cover is not a substitute for social distancing -Continue to keep about 6 feet between yourself and others. -Avoid public areas and public transportation. -Find new ways to connect with family and friends, get support and share feelings. -Seek emergent care if any of the following occur Trouble breathing Bluish lips or face Persistent pain or pressure in the chest New confusion or inability to rouse. -Notify your regular care provider of any new or worsening symptoms. Symptomatic Carepoints: Separate yourself from others and stay in a specific sick room if able. Avoid sharing personal or household items. Rest. Hydrate. Take Acetaminophen/Ibuprofen as needed to control fever and muscles aches. Use over the counter medications as needed for other symptoms. Education: Patient/caregiver able to teach back Patient agreeable to plan of care: Yes The following references were used: [facility] novel coronavirus (COVID- 19) resources COVID-19Nurse Line Screening ASSESSMENT Region Select appropriate region: : [place] Age Pathway Select approprite pathway: : Adult Have you had close contact* with a person who has a LABORATORY CONFIRMED case of COVID-19 in the past 14 days?: No (Continue Screening) In the last 48 hours, have you had a fever* OR symptoms that are unrelated to a preexisting illness?: Fever, New headache, New sore throat, New nausea, New diarrhea, New muscle aches, New loss of smell, New change or loss of taste sensation Have you received a COVID-19 vaccine in the last 72 hours? : No vaccine received (Continue Screening) Do you have any of the following urgent symptoms?: Pain, pressure or tightness unrelated to coughingin chest, jaw, or arm. Have you tested positive for COVID-19 in the last 45 days?: No (Continue Screening) Are ALL the following criteria met: age between 18 to 75 yrs, main symptom is a sore throat with duration of 24 hrs to 7 days, onset of sore throat not associated with new upper respiratory symptoms*? : Yes, COVID + Strep testing is recommended (End Screening) Symptom Onset Date of symptom onset: 05/01/20 Testing Recommendation Endpoint Is testing recommended? : Recommended to test PLAN Endpoint recommendation: Screening positive, testing indicated, advised to be swabbed for COVID-19 and Group A Strep (age 3 - 75 only), sent to [facility] located at [address] [place] [address]. The entrance is on the north side of the building. You must call [phone] during the hours of 7am to 6 pm (M-F) or 8am to 4 pm (Sat and Sun) for an appointment time. You can also schedule via your Patient Online Services account. Testing hours are 9 am to 5 pm (M-F) and 9 am to 1 pm (Sat and Sun).When you arrive at the testing site: Remain in your vehicle and check-in by calling the number listed on the signage at the testing site or provided to you at the time you schedule your testing appointment. and Please avoid using public transportation per CDC recommendation. If you do not have personal transportation please self-quarantine until a personal transportation option is available. Care Points: -Wash hands frequently with soap and water for at least 20 seconds -If soap and water are not available, use a hand manager code -Avoid touching your eyes, nose and mouth. -Clean and disinfect high-touch surfaces routinely. -Wear a mask over your nose and mouth. A cloth face cover is not a substitute for social distancing -Continue to keep about 6 feet between yourself and others. -Avoid public areas and public transportation. -Find new ways to connect with family and friends, get support and share feelings. -Seek emergent care if any of the following occur Trouble breathing Bluish lips or face Persistent pain or pressure in the chest New confusion or inability to rouse. -Notify your regular care provider of any new or worsening symptoms. Symptomatic Carepoints: Separate yourself from others and stay in a specific sick room if able. Avoid sharing personal or household items. Rest. Hydrate. Take Acetaminophen/Ibuprofen as needed to control fever and muscles aches. Use over the counter medications as needed for other symptoms. Education: Patient/caregiver able to teach back Patient agreeable to plan of care: Yes The following references were used: [facility] novel coronavirus (COVID- 19) resources Nursing judgement WORKER documented in this encounter Plan of Treatment Not on filedocumented as of this encounter Visit Diagnoses Not on filedocumented in this encounter
--- OUTSIDE RECORDS SUMMARY | 2021-12-12 13:31 | XMS_ITS | Encounter Summary ---
:1945 Author Care Team Providers Name Role Phone Magan Verdugo MD Primary Care Provider [phone] Magan Verdugo MD Referring Provider [phone] Reason for Visit Injection Assessment and Plan 1. 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 did not get adjuvant rT rising PSA and ? retroperitoneal hayley d isease on monthly firmagon now w good results continue monthly neftalymariela Would do foundation testing/liquid biops y in future when psa rises again - but he prefers to wait on taking any additional meds given side effects w/ previous meds cont. monthly Firmagon ? Firmagon kit with diluent syringe 80 mg subcutaneous solution Discussion Note: None recorded.Patient educational handouts: No [...] every day by oral route. Medications Administered Name Date ? ? Firmagon kit with diluent syringe 80 mg subcutaneous solution [id number] Inject 80 mg by subcutaneous route. Vitals None recorded. Results Lab Results None recorded. Allergies Code [...] mRNA, LNP-S, PF, 30 mcg/0.3 mL dose ([employer]ia) 05/07/2020 05/28/2020 01/25/2021 influenza, high dose seasonal 12/24/2013 12/22/2014 11/11/2015 influenza, high-dose, quadrivalent 12/22/2020 influenza, seasonal, injectable 01/09/2001 01/26/2003 01/16/2005 01/02/2010 12/12/2011 12/17/2012 influenza, seasonal, injectable, preserv ative free 04/11/2009 01/10/2011 11/30/2019 influenza, trivalent, adjuvanted 01/08/2017 12/24/2017 influenza, unspecified formulation 12/20/2020 12/30/2020 novel [id number], all formulation s 04/11/2009 pneumococcal conjugate PCV 13 05/26/2015 pneumococcal polysaccharide [id number] 04/11/2009 01/24/2012 04/28/2019 pneumococcal, unspecified formulation 03/11/2018 03/12/2019 11/23/2020 Td (adult), adsorbed 03/11/1997 Tdap 04/11/2009 zoster live 02/12/2008 Social History Tobacco Smoking Status Never Smoker Marital status Has tobacco cessation counseling N been provided? Could you be ? N Preferred Language Wallisian How much tobacco do you chew? 1/day [...] you used? Have you traveled outside of [facility] in the past 30 days? What is your level of caffeine Moderate consumption? Do you or have you ever used any Y other forms of tobacco or nicotine? Race White Recreational Drug Use Y Family History Relation Problem Onset Age of Age Notes Unspecified Relation Family history of (No N/A (N o Notes) Hypertension Information) Functional Status Unknown. Past Encounters 11/09/2021 Malignant Tumor of Prostate Corey Beyer MD: [id number], [address] [address], Ph. 10/09/2021 Malignant Tumor of Prostate Corey Beyer MD: [id number], [address], [place] [address], Ph. History of Present Illness None recorded. Review of Systems None recorded. Physical Exam None recorded.
--- OUTSIDE RECORDS SUMMARY | 2021-12-12 13:31 | XMS_ITS | Encounter Summary ---
:1945 Author Organization [facility] Address [address] [place] [address] Care Team Providers Name Role Phone Unavailable Primary Care Provider Unavailable Encounter Details Date Type Department Care Team Description 05/04/2020 Admin Visit Department of Family Medicine, [address] [address] [facility] [phone] Social History Tobacco Use Types Packs/Day Years Used Date Smoking Tobacco: Never Assessed Sex Assigned at Date Recorded Not on file documented as of this encounter Plan of Treatment Not on filedocumented as of this encounter Visit Diagnoses Not on filedocumented in this encounter Additional Health Concerns Infection Onset Date Last Indicated Resolved Time COVID19 Pending 05/04/2020 05/04/2020 05/04/2020 9:21 PM ONCOLOGY RN documented as of this encounter
--- OUTSIDE RECORDS SUMMARY | 2021-12-12 13:31 | XMS_ITS | Encounter Summary ---
:1945 Author Organization [facility] Address [address] [place] [address] Care Team Providers Name Role Phone Unavailable Primary Care Provider Unavailable Reason for Visit Reason Comments [facility] Nurse Angela Encounter Details Date Type Department Care Team Description 05/04/2020 Clinical Communication Division of [facility] [place] Nurse Angela [facility] Emy Babin R.N. [facility] [phone] [facility], in (Work) [place], [place] [address] [place] [address] Social History Tobacco Use Types Packs/Day Years Used Date Smoking Tobacco: Never Assessed Sex Assigned at Date Recorded Not on file documented as of this encounter Miscellaneous Notes Telephone Encounter - Emy Bradford R.N. - 05/04/2020 9:03 AM CST COVID-19 Nurse Line Screening ASSESSMENT Region Select appropriate region: : [place] Age Pathway Select approprite pathway: : Adult Have you had close contact* with a person who has a LABORATORY CONFIRMED case of COVID-19 in the past 14 days?: No (Continue Screening) In the last 48 hours, have you had a fever* OR symptoms that are unrelated to a preexisting illness?: New muscle aches, New nausea, New headache, New diarrhea Have you received a COVID-19 vaccine in the last 72 hours? : No vaccine received (Continue Screening) Do you have any of the following urgent symptoms?: No urgent symptoms noted (Continue Screening) Have you tested positive for COVID-19 in the last 45 days?: No (Continue Screening) Are ALL the following criteria met: age between 18 to 75 yrs, main symptom is a sore throat with duration of 24 hrs to 7 days, onset of sore throat not associated with new upper respiratory symptoms*? : No, COVID testing is recommended (End Screening) Symptom Onset Date of symptom onset: 05/01/20 Testing Recommendation Endpoint Is testing recommended? : Recommended to test PLAN Endpoint recommendation: Screening positive, testing indicated, advised to be swabbed for COVID-19 Only , sent to [facility] located at [address] [place] [address]. The entrance is on the north side of the building. You must call [phone] during the hours of 7am to 6 pm (M-F) or 8am to 4 pm (Sat and Sun) for an appointment time. You can also schedule via your Patient Online Services account. Testing hours are9 am to 5 pm (M-F) and 9 am to 1 pm (Sat and Sun).When you arrive at the testing site: Remain in your vehicle and check-in by calling the number listed on the signage at the testing site or provided toyou at the time you schedule your testing appointment. and Please avoid using public transportation per CDC recommendation. If you do not have personal transportation please self- quarantine until a personal transportation option is available. Care Points: -Wash hands frequently with soap and water for at least 20 seconds -If soap and water are not available, use a hand application packager -Avoid touching your eyes, nose and mouth. [...] care: Yes The following references were used: [facility] novel coronavirus (COVID- 19) resources CDC web site https://www.cdc.gov/coronavirus/2019-ncov/summary.html Nursing judgement ER AND TRIMMER documented in this encounter Plan of Treatment Not on filedocumented as of this encounter Visit Diagnoses Not on filedocumented in this encounter
--- OUTSIDE RECORDS SUMMARY | 2021-12-12 13:31 | XMS_ITS | Encounter Summary ---
:1945 Author Organization [facility] Address [address] [place] [address] Care Team Providers Name Role Phone Unavailable Primary Care Provider Unavailable Reason for Visit Reason Onset Date Comments Testing For Upper Respiratory Virus Symptoms 05/04/2020 Encounter Details Date Type Department Care Team Description 05/04/2020 External Outreach Department of [facility] Gerardosiddharthondina Kevin Contact With And (Suspected) Exposure To COVID-19; [facility] Eneida Ramos Infection Upper Respiratory [facility], in [address] [place], [place] [address] [facility] [address] [place], [place] [phone] [address] (Work) [phone] Social History Tobacco Use Types Packs/Day Years Used Date Smoking Tobacco: Never Assessed Sex Assigned at Date Recorded Not on file documented as of this encounter Progress Notes Jannet Dominguez R.N. - 05/04/2020 9:45 AM CST Encounter created for symptomatic infectious disease screening with possible COVID, Influenza, RSV, and/or Group A Strep testing. ULA MIXER documented in this encounter Plan of Treatment Not on filedocumented as of this encounter Procedures Procedure Name Priority Date/Time Associated Diagnosis Comme nts SARS CORONAVIRUS-2 Routine 05/04/2020 9:57 AM Contact With And Results for this RNA, V FORMULA MIXER (Suspected) Exposure procedu re are in To COVID-19 the results section. documented in this encounter Results SARS Coronavirus-2 RNA, V Symptomatic (05/04/2020 9:57 AM FORMULA MIXER) [facility] Method Time Signature SARS-CoV-2 Swab, 05/04/2020 MKTO Specimen Nasopharynx 9:20 PM FORMULA MIXER Source SARS CoV-2 Undetected Undetected 05/04/2020 MKTO RNA, TMA 9:20 PM FORMULA MIXER Comment: SARS-CoV-2 RNA absent. This result does not rule out COVID-19 in the patient, as the sensitivity of the test depends o n the timing of the specimen collection and the quality of the specim en. Result should be correlated with patient's history and clinical presentat ion. ----ADDITIONAL INFORMATION---- This molecular amplification test was pe rformed using the Aptima SARS-CoV-2 assay ([employer] on the [employer] tem under emergency use authorization (EUA) by the U.S. Food and Drug Administ ration. Fact sheets for this EUA assay can be fo und at the following links: For Healthcare Providers: https://www.Mirada a.gov/media/907310/download For Patients: https://www.fda.gov/media/ 852644/download Specimen Anatomical Collection Method Collection Time Receive d Time (Source) Location / / Volume Laterality Varies 05/04/2020 9:57 AM 3:22 (Nasopharynx) FORMULA MIXER PM FORMULA MIXER Kevin Worley D.O. LAB MICROBIOLOGY - GENERAL O RDERABLES Performing Organization Address City/State/ZIP Code Phon e Number [facility]- [address] [place] [address] [place] [address] [address] documented in this encounter Visit Diagnoses Diagnosis Contact With And (Suspected) Exposure To COVID-19 Infection Upper Respiratory documented in this encounter Additional Health Concerns Infection Onset Date Last Indicated Resolved Time COVID19 Pending 05/04/2020 05/04/2020 05/04/2020 9:21 PM FORMULA MIXER documented as of this encounter
--- OUTSIDE RECORDS SUMMARY | 2021-12-12 13:31 | XMS_ITS | Encounter Summary ---
:1945 Author Care Team Providers Name Role Phone Magan Verdugo MD Primary Care Provider [phone] Magan Verdugo MD Referring Provider [phone] Reason for Visit Injection Assessment and Plan [...] with diluent syringe 80 mg subcutaneous solution [id number] Inject 80 mg by subcutaneous route. Vitals [...] mRNA, LNP-S, PF, 30 mcg/0.3 mL dose ([employer]brain) 05/07/2020 05/28/2020 01/25/2021 influenza, high dose seasonal 12/24/2013 12/22/2014 11/11/2015 influenza, high-dose, quadrivalent 12/22/2020 influenza, seasonal, injectable 01/09/2001 01/26/2003 01/16/2005 01/02/2010 12/12/2011 12/17/2012 influenza, seasonal, injectable, preserv ative free 04/11/2009 01/10/2011 11/30/2019 influenza, trivalent, adjuvanted 01/08/2017 12/24/2017 influenza, unspecified formulation 12/20/2020 12/30/2020 novel [id number], all formulation s 04/11/2009 pneumococcal conjugate PCV 13 05/26/2015 pneumococcal polysaccharide PPV23 04/11/2009 01/24/2012 04/28/2019 pneumococcal, unspecified formulation 03/11/2018 03/12/2019 11/23/2020 Td (adult), adsorbed 03/11/1997 Tdap 04/11/2009 zoster live 02/12/2008 Social History Tobacco Smoking Status Never Smoker Marital status Could you be ? N How much tobacco do you chew? 1/day Have you or anyone in your house N tested positive for COVID-19 in the past 14 days? What is your relationship status? What is your level of alcohol Heavy consumption? Have you or anyone in your home N experienced symptoms of COVID 19 such as fever >100.4, shortness of breath, difficulty breathing, or a cough? Which illicit or recreational [facility] Notes: o nce in a while drugs have you used? Have you traveled outside of [facility] in the past 30 days? Do you or have you ever used any Y other forms of tobacco or nicotine? Has tobacco cessation counseling N been provided? Preferred Language East Timorese What was the date of your most 12/11/2021 recent tobacco screening? Do you or have you ever used Never used electronic e-cigarettes or vape? cigarettes Have you or anyone in your house N been exposed to COVID-19 in the past 14 days? Do you use any illicit or Y recreational drugs? When did you quit smoking? 1-5yearssincelastcigarette How many years have you smoked 10 tobacco? Do you or have you ever used Former smokeless tobacco user smokeless tobacco? What is your level of caffeine Moderate consumption? Race White Recreational Drug Use Y Family History Relation Problem Onset Age of Age Notes Unspecified Relation Family history of (No N/A (N o Notes) Hypertension Information) Functional Status Unknown. Past Encounters 10/09/2021 Malignant Tumor of Prostate Corey Beyer MD: [id number] [facility], [address], [place] [address], Ph. History of Present Illness None recorded. Review of Systems None recorded. Physical Exam None recorded.
--- OUTSIDE RECORDS SUMMARY | 2021-12-12 13:31 | XMS_ITS | Encounter Summary ---
:1945 Author Organization [facility] Address [address] [place] [address] Care Team Providers Name Role Phone Unavailable Primary Care Provider Unavailable Reason for Visit Reason Comments COVID Inquiry Encounter Details Date Type Department Care Team Description 05/04/2020 Clinical Communication Department of [facility], COVID Inquiry [facility], [facility], in [address] [address] Social History Tobacco Use Types Packs/Day Years Used Date Smoking Tobacco: Never Assessed Sex Assigned at Date Recorded Not on file documented as of this encounter Miscellaneous Notes Telephone Encounter - Prema Hernandez - 05/04/2020 8:58 AM CST What is the purpose of the call?: Symptomatic (Calling PCP Office) Calling [employer] PCP Office What region is the patient calling from? : [place] Have you tested positive for COVID-19 in the last 20 days? : No In the past 14 days are any of the following symptoms new to you and not related to an existing health condition?: New headache, New cough, New diarrhea, New nausea, New chills, New myalgias (muscle aches), New loss of smell, New change or loss of taste sensation Because of symptoms, transfer patient to: : [place] COVID Nurse Line (End Screening) Symptom Onset Date of symptom onset: 05/01/20 Testing Recommendation Endpoint Is testing recommended? : Transferred to nursing call line Plan: Endpoint recommendation: Transferred to Nursing/COVID Line/Care Team *Reminder if sending patient for testing in [facility] or [facility], route encounter to the correct testing pool. [employer] documented in this encounter Plan of Treatment Not on filedocumented as of this encounter Visit Diagnoses Not on filedocumented in this encounter
--- OUTSIDE RECORDS SUMMARY | 2021-12-12 13:31 | XMS_ITS | Encounter Summary ---
:1945 Author Organization [facility] Address [address] [place] [address] Care Team Providers Name Role Phone Unavailable Primary Care Provider Unavailable Reason for Visit Reason Comments COVID Inquiry Encounter Details Date Type Department Care Team Description 02/25/2020 Clinical Communication Central Appointment [facility] in [facility] [address] [place], [place] [id number] Social History Tobacco Use Types Packs/Day Years Used Date Smoking Tobacco: Never Assessed Sex Assigned at Date Recorded Not on file documented as of this encounter Miscellaneous Notes Telephone Encounter - Valentine Morris Alex - 02/25/2020 11:13 AM CST COVID-19 Nurse Line Screening ASSESSMENT Combo COVID + Upper Respiratory Infection (URI) Screening Select the most appropriate pathway: : Adult Have you had close contact* with a person who has a LABORATORY CONFIRMED case of COVID-19 in the past 14 days?: No (Continue Screening) In the last 48 hours, have you had a fever* OR symptoms that are unrelated to a preexisting illness?: New nausea Do you have any of the following urgent symptoms?: No urgent symptoms noted (Continue Screening) Do you have any of the following respiratory syntonical virus (RSV) complications? : No complications noted (Continue Screening) Are all the following symptoms present: temperature of 100.0 degrees Fahrenheit or greater, muscle aches or headache AND a cough?: No all symptoms are not present (End Screening) PLAN Endpoint recommendation: Screening positive, testing indicated, advised to be swabbed for COVID-19 and Influenza, sent to [facility] located at [address] [place] [address]. The entrance is on the north side of the building. You must call [phone] for an appointment time.Testing hours are Daily 9 am to 7 pm.When you arrive at the testing site: Remain in your vehicle and check-in by phone using the same appointment line number. and Please avoid using public transportation per CDC recommendation. If you do not have personal transportation please self-quarantine until a personal transportation option is available. Care Points: -Wash hands frequently with soap and water for at least 20 seconds -If soap and water are not available, use a hand grocery sacker -Avoid touching your eyes, nose and mouth. [...] medications as needed for other symptoms. Education: Not applicable Patient agreeable to plan of care: Yes The following references were used: [facility] novel coronavirus (COVID- 19) resources ER PRINTER documented in this encounter Plan of Treatment Not on filedocumented as of this encounter Visit Diagnoses Not on filedocumented in this encounter
[2021-12-12] MEDS: PERFLUTREN LIPID MICROSPHERES 2 ML VIAL IV (14:49)
[2021-12-12 15:23] VITALS: BP 149/82; PULSE 99
--- NOTE | 2021-12-12 17:12 | P.STN_ITS ---
Stress Test Note Date Date Seen: 12/12/21 Date of test: 12/12/21 Providers Referring provider: Guerrero Viear Primary care provider: Magan Verdugo Stress test physician: Cordell Soriano Stress Test Note Stress test ordered: Stress Echo Indication for test: Dyspnea on exertion Stress test medicine: Definity Results discussion: Patient is a very nice gentleman is seen for the above test after discussion the risks benefits side effects he would like to proceed, cardiac stress test medical history form is reviewed, pretest EKG shows normal sinus rhythm with a ventricular rate of 82, his right bundle branch block configuration, some ST wave changes noted the across the precordium. Standard Carlos protocol is employed over a time course of 5 minutes 40 seconds, achieved a metabolic equivalent of 7.1 Mets, with a maximum heart rate of 142, which is 115% of the t arget, is terminated because of fulfillment of protocol, during this test there was no appreciable ST wave changes suggestive of ischemia, he recovered normally in the recovery period. Impression: Negative electrographic portion of stress echo Follow up suggested: Await echo images clinical correlation with these will be needed, patient exercised to a good level, and left this testing facility in excellent condition. At baseline.
--- NOTE | 2021-12-12 17:15 | PM.ST ---
Stress Test Note Date Date Seen: 12/12/21 Date of test: 12/12/21 Providers Referring provider: Gina Worthington Primary care provider: Magan Verdugo Stress test physician: Cordell Soriano Stress Test Note Stress test ordered: Stress Echo Indication for test: Chest pain Stress test medicine: Definity Results discussion: Patient is a very nice 57-year-old gentleman who presents for the above test after discussion the risks benefits and side effects he would like to proceed pretest EKG shows normal sinus rhythm, there is no acute ST wave changes in the ventricular rate is 74. Blood pressure is 145/93. X-rays test medical history form is reviewed. Following standard Carlos protocol patient is exercised for a total time of 8 minutes 2nd and achieved a metabolic equivalent of 9.7 Mets, his maximum heart rate was 145 which is 104% of the target. Test is terminated because of fulfillment of protocol, and fatigue. During this test there is no dysrhythmias, there is no ST wave changes suggestive of ischemia, should be noted the computer did think that there was. But I disagree. Impression: Impression negative electrographic portion of stress echo Follow up suggested: Await echo images clinical correlation with these will be needed, patient left this testing facility entirely back to baseline, did not have any anginal equivalents, during the test,.
== END 2021-12-12 13:27 | disposition home or self-care (01) ==
PROVIDERS: PCP Family Medicine; Visit Provider Family Medicine
DX: R06.09 Other forms of dyspnea (principal)
CPT/HCPCS: 93016; 93325; 93351; Q9957

== ENCOUNTER 2022-01-15 10:01 | Outpatient (CLI) | payer BC, SELFPAY ==
--- OUTSIDE RECORDS SUMMARY | 2022-01-15 10:05 | XMS_ITS | Continuity of Care Document ---
:1945 Author Organization [facility] Address [address] [address] [place] [address] Phone Care Team Providers Name Role Phone No Information Unavailable Unavailable Advance Directives Directive Yes / No Effective Date File Name No Information Encounters Encounter Practice Location Reason(s) Diagnoses Date Provider Provide rs Description For Visit Copied on Encounter [facility] No No Referring Digestive Information Information Provid er: Magan Kern [address] Kartik Balbuena MD, [address] [place] [id number] [id number]. tel:[phone] tel:[phone] Family History Family Member Type Diagnosis Age At Onset No Information Payers Payer name Insurance type Covered green party ID Authorization(s ) No Information Social History Type Description Quantity Date Captured Comments Sex Male Smoking Status No Information Chief Complaint And Reason For Visit No Information Reason For Referral Reason For Referral No Information Plan Of Treatment Date Type Action Status No Information History Of Present Illness Encounter Date Complaint History Of Present I llness No Information Functional Status Date Functional Assessment No Information Instructions Date Instruction Additional Informati on No Information Assessments Type Assessment Date No Information Patient Care Teams Name Effective Dates (start - stop) Status M embers No Information
--- OUTSIDE RECORDS SUMMARY | 2022-01-15 10:05 | XMS_ITS | Clinical Summary ---
:1945 Author Organization [employer] [facility] [employer] [facility] [place] [address] Care Team Providers Name Role Phone Magan Verdugo MD Primary Care Provider [phone] Allergies Active Allergy Reactions Severity Noted [...] 24 hrs. 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 Prostate cancer 10/13/2018 Peptic ulcer disease 2017 [...] Encounters Date Type Specialty Care Team Description 01/03/[address]use AuD Hearing d (Consultation) 01/03/2022 Travel 12/29/2021 Office Visit [facility] Hearing Aid (Drop Off) 12/12/2021 Orders Only <No scans attac hed> 10/19/2021 Office Visit [facility] Hearing [facility] (Check) 10/19/2021 Travel from Last 3 Months Immunizations Name [...] Assigned at Date Recorded Not on file COVID-19 Exposure Response Date Recorded In the last 10 days, have you been in contact No / Unsure 01/03/2022 10:28 AM CDT with someone who was confirmed or suspected to have Coronavirus/COVID-19? Obstetrics History Last Filed Vital Signs Vital [...] Encounters Date Type Specialty Care Team Description 01/24/[address] Krause, Au D [address] [place], [place] [address] (Wo rk) 02/05/2022 Office Visit Black Padgett, AuD [address] [place], [place] [phone] (Wo rk) Health Maintenance Due Date Last Done Comments Zoster (shingles) series for age 0104/08/2008 02/12/2008 50+ (2 of 3) Depression screening for age 12+ 12/26/2018 12/26/2017, , 04/23/2017, Additional history exists Tetanus booster 04/11/2019 04/11/2009, 01/25/1999 BMI (ht and wt on same day) for 06/25/2019 06/24/2018, 0403/2018, age 18+ 03/10/2018, Additional history exists Colonoscopy through age 75 08/23/2021 08/23/2016, 7, 08/23/2016, Additional history exists Influenza for age 65+ 11/09/2021 12/24/2017, 01/08/2017, 11/11/2015, Additional history exists Lipids for age 45-75 12/24/2022 12/24/2017, 06/10/2017, 05/10/2016, Additional history exists Tdap Completed 04/11/2009 Pneumococcal series for age 65+ Completed 05/26/2015, 01/09, 04/11/2009 Hepatitis C screening for age Completed 12/16/2015, 2004 18-79 COVID-19 vaccine series Completed 12/18/2021, 01/25/2021, 05/28/2020, Additional history exists Procedures Procedure Name Priority Date/Time Associated Diagnosis Comme nts ECHO STRESS W Routine 12/12/2021 3:20 PM SHAH (dyspnea on Resul ts for this CONTRAST CDT exertion) procedure are i n the results section. from Last 3 Months Results ECHO STRESS W CONTRAST (12/12/2021 3:20 PM CDT) P athologist Signature AORTIC VALVE 2 mmHg MEAN PG LVEDD 4.2 cm EJECTION 55 - 60% FRACTION Anatomical Region Laterality Modality HEART Ultrasound Specimen (Source) Anatomical Collection Method Collection Time Re ceived Time Location / / Volume Laterality 12/12/2021 2:19 PM CDT Narrative 12/12/2021 3:53 PM CDT STRESS ECHOCARDIOGRAM CATHERINE TATUM ? Accessi on#: ?? [id number] : ?1945 76 years Study Date: ?? 12/12/2021 2:19:12 PM Gender: M ?BP: ? 127/77 mmHg Height: 178.00 cm ?BSA: ?2.14 m? ?? Weight: 96.00 kg ? Tech: ? MCK ? Referring MD: GUERRERO BARLOW Site: ? [facility] Reading Location: [place] Procedure: Stress Echo, Contrast, Color Doppler and Limited Spectral Doppler. Carlos stress echo. Indication for study: SHAH Cardiac Rhythm: Regular.Study quality: T echnically limited. Imaging limitations: This study was subj ect to imaging limitations due to a prominent lung artifact. Final Impressions: 1. Technically limited exam. 2. Negative stress echo for ischemia. 3. Post stress, decreased left ventricu lar size, increased global systolic function with an estimated EF of 65 to 70%. 4. Maximum stress test with 98.0% of ag e predicted maximum heart rate achieved. 5. Fair exercise duration and workload. 6. During stress exam the patient devel oped no significant symptoms. 7. The mitral valve is sclerotic, trace mitral regurgitation. 8. Echo contrast was administrered to e nhance visualization of all left ventricular segments. 9. See separate report for EKG interpre tation. Stress Data: ? HR ?Systolic Diastolic Time Duration Minutes Seconds Baseline 8 5 bpm ?127 ?77 mmHg ?5 :40 ? Peak ? 142 bpm ?? 145 ?88 mmHg Max Pred HR ?145 % of Max ? 98% ?? Reynoso Treadmill Score 6 Double Product Echo Findings:This is a negative stress echo test for ischemia. Post stress, decreased left ventricular size, increased global systolic function with an estimated EF of 65 to 70%. LV regional wall motion abnormalities are not present post exercise. EKG:See separate report for EKG interpre tation. Exam Protocol:The patient presents with no significant symptoms at baseline. The patient exercised 5 min 40 sec to stage II according to the Carlos stress echo protocol. Test terminated due to shortness of breath. 7.0 METS were achieved. The p atient achieved a heart rate of 142 bpm which is 98.0% of maximum predicted heart rate. Maximum systolic blood pressure was 145 [place] [address]. Maximum stress test with 98.0% of age predicted maximum heart rate achieved. The blood pressure response was normal. Exercise duration and workload were fair. The patient developed no signific ant symptoms during the stress exam. Low (less than 1% annual mortality rate) non invasive risk stratification. Exercise stress test Reynoso Treadmill Score of 6. Chamber Sizes and Function Normal left ventricular size, normal maury bal systolic function with an estimated EF of 55 - 60%. LV regional wall motion abnormalities are not present. Valves, RV Pressures and Diastolic Funct ion The aortic valve is not well visualized , no stenosis and no regurgitation. The mitral valve is sclerotic, trace mitral regurgitation. Mitral annular calcification is present. MEASUREMENTS AND CALCULATIONS 2-D Measurements and LV Function: LVID (d) 4.2 cm LV FS% (2D) ?? 37 % LVID (s) 2.6 cm LVOT diameter 2.5 cm IVS (d) ??1.4 cm HR ?85 bpm LVPW (d) 1.2 cm RV Max 4C (d) 3.5 cm Ao Sinus 3.6 cm Asc Ao ?? 3.8 cm LA ? 2.8 cm Diastology: Mitral E Peak 0.60 m/s A Peak 0.92 m/s E/A ?0.7 DT ? 328 msec Aortic Valve: Vmax ? 1.1 m/s ??DYLAN (V) ?? 4.70 cm? ?? VTI ?0.20 m ?? DYLAN (I) ?? 5.59 cm? ?? LVOT V max 1.0 m/s ??Max PG ?5 mmHg LVOT VTI ?? 0.23 m ?? Mean PG ?? 2 mmHg SV ? 114 ml ?? Dim Index 1.11 SV index ?? 53 ml/m? ?? Mitral Valve: MVA ?2.3 cm? ?? MV P 1/2 95 msec Contrast documentation: 4 ml diluted Def inity, lot #[id number], was administered peripherally to enhance visualization of all left ventricular segments. . This study [facility] interpreted [facility]. CC: [facility]. ??Final ?? Procedure Note Rosalva Talamantes MD - 12/12/2021 STRESS ECHOCARDIOGRAM CATHERINE TATUM : 1945 76 years Study Date: 12/12 2:19:12 PM Gender: M BP: 127/77 mmHg Height: 178.00 cm BSA: 2.14 m? ?? Weight: 96.00 kg Tech: JOE Referring MD: GUERRERO BARLOW Site: [facility] Reading Location: [place] Procedure: Stress Echo, Contrast, Color Doppler and Limited Spectral Doppler. Carlos stress echo. Indication for study: SHAH Cardiac Rhythm: Regular.Study quality: T echnically limited. Imaging limitations: This study was subj ect to imaging limitations due to a prominent lung artifact. Final Impressions: 1. Technically limited exam. 2. Negative stress echo for ischemia. 3. Post stress, decreased left ventricu lar size, increased global systolic function with an estimated EF of 65 to 70%. 4. Maximum stress test with 98.0% of ag e predicted maximum heart rate achieved. 5. Fair exercise duration and workload. 6. During stress exam the patient devel oped no significant symptoms. 7. The mitral valve is sclerotic, trace mitral regurgitation. 8. Echo contrast was administrered to e nhance visualization of all left ventricular segments. 9. See separate report for EKG interpre tation. Stress Data: HR Systolic Diastolic Time Duration Minutes Seconds Baseline 8 5 bpm 127 77 mmHg 5 :40 Peak 142 bpm 145 88 mmHg Max Pred HR 145 % of Max 98% Reynoso Treadmill Score 6 Double Product Echo Findings:This is a negative stress echo test for ischemia. Post stress, decreased left ventricular size, increased global systolic function with an estimated EF of 65 to 70%. LV regional wall motion abnormalities are not present post exercise. EKG:See separate report for EKG interpre tation. Exam Protocol:The patient presents with no significant symptoms at baseline. The patient exercised 5 min 40 sec to stage II according to the Carlos stress echo protocol. Test terminated due to shortness of breath. 7.0 METS were achieved. The patient achi eved a heart rate of 142 bpm which is 98.0% of maximum predicted heart rate. Maximum systolic blood pressure was 145 mmHg [place] [address]. Maximum stress test with 98.0% of age predicted maximum hear t rate achieved. The blood pressure response was normal. Exercise duration and workload were fair. The patient developed no significant symptoms during the stress exam. Low (less than 1% annual mortality rate) non invasive risk stratification. Exercise stress test Reynoso Treadmill Score of 6. Chamber Sizes and Function Normal left ventricular size, normal maury bal systolic function with an estimated EF of 55 - 60%. LV regional wall motion abnormalities are not present. Valves, RV Pressures and Diastolic Funct ion The aortic valve is not well visualized , no stenosis and no regurgitation. The mitral valve is sclerotic, trace mitral regurgitation. Mitral annular calcification is present. MEASUREMENTS AND CALCULATIONS 2-D Measurements and LV Function: LVID (d) 4.2 cm LV FS% (2D) 37 % LVID (s) 2.6 cm LVOT diameter 2.5 cm IVS (d) 1.4 cm HR 85 bpm LVPW (d) 1.2 cm RV Max 4C (d) 3.5 cm Ao Sinus 3.6 cm Asc Ao 3.8 cm LA 2.8 cm Diastology: Mitral E Peak 0.60 m/s A Peak 0.92 m/s E/A 0.7 DT 328 msec Aortic Valve: Vmax 1.1 m/s DYLAN (V) 4.70 cm? ?? VTI 0.20 m DYLAN (I) 5.59 cm? ?? LVOT V max 1.0 m/s Max PG 5 mmHg LVOT VTI 0.23 m Mean PG 2 mmHg SV 114 ml Dim Index 1.11 SV index 53 ml/m? ?? Mitral Valve: MVA 2.3 cm? ?? MV P 1/2 95 msec Contrast documentation: 4 ml diluted Def inity, lot #[id number], was administered peripherally to enhance visualization of all left ventricular segments. . This study was interpreted by an [facility] acc redited facility. CC: [facility]. Final Guerrero Barlow MD ECHO ORD from Last 3 Months Insurance Payer Benefit Plan / Subscriber ID Effective Dates Phone Addre ss Type Group MEDICARE PART A MEDICARE PART A [id number] 2011-Presen ATTN: CLAIMS - HB USE ONLY HB ONLY t [address] [place] [address] MEDICARE PART A MEDICARE PART A [id number] 2011-Presen ATTN: CLAIMS - HB USE ONLY HB ONLY t [address] [place] [address] PREFERRED ONE PREFERRED [id number] 2015-Presen [address] [place] [address] [place] [id number] 2017-Presen [address] [place] [address] Catherine Tatum Personal/Family Self 1945 [address] [place] (Home) [place] [address] Advance Directives Latest Code Status on File Code Status Date Activated Date Inactivated Comments Full Code 10/13/2018 8:46 AM 10/14/2018 3:18 PM Full Code 09/08/2018 10:16 AM 09/08/2018 5:17 PM 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
--- OUTSIDE RECORDS SUMMARY | 2022-01-15 10:06 | XMS_ITS | Encounter Summary ---
:1945 Author Organization [facility] Address [address] [place] [address] Care Team Providers Name Role Phone Unavailable Primary Care Provider Unavailable Encounter Details Date Type Department Care Team Description 01/19/2021 Orders Only [facility] PCP TH Sa antwon Silverman M.D. [address] [place], [place] [phone] (Wo rk) Social History Tobacco Use Types Packs/Day Years Used Date Smoking Tobacco: Never Assessed Sex Assigned at Date Recorded Not on file documented as of this encounter Plan of Treatment Not on filedocumented as of this encounter Visit Diagnoses Not on filedocumented in this encounter
--- OUTSIDE RECORDS SUMMARY | 2022-01-15 10:06 | XMS_ITS | Encounter Summary ---
:1945 Author Organization [facility] Address [address] [place] [address] Care Team Providers Name Role Phone Unavailable Primary Care Provider Unavailable Encounter Details Date Type Department Care Team Description 02/25/2020 Admin Visit Department of Family Medicine, [address] [address] [facility] [phone] Social History Tobacco Use Types Packs/Day Years Used Date Smoking Tobacco: Never Assessed Sex Assigned at Date Recorded Not on file documented as of this encounter Plan of Treatment Not on filedocumented as of this encounter Visit Diagnoses Not on filedocumented in this encounter Additional Health Concerns Infection Onset Date Last Indicated Resolved Time COVID19 Pending 02/25/2020 02/25/2020 02/26/2020 3:05 AM STUDIO GRIP documented as of this encounter
--- OUTSIDE RECORDS SUMMARY | 2022-01-15 10:06 | XMS_ITS | Clinical Summary ---
:1945 Author Organization [facility] Address [address] [place] [address] Care Team Providers Name Role Phone Unavailable Primary Care Provider Unavailable Source Comments Patient records contain information from all sites at [facility]. For routine questions regarding patient records, call [phone] during business hours, M-F 8:00 AM - 5:00 PM Central Time. Record requests for emergency care only can be directed to [phone] at any time.[facility] Immunizations Name Administration Dates Next Due Influenza [...] 03/11/2021 PHQ-2) Fall Risk Screen (Annual) 03/11/2021 Fasting Glucose for Diabetes 10/14/2021 10/14/2018, 019, Screening 06/24/2018, Additional history exists Influenza Vaccine (#1) 2021 12/22/2020, 11/30/2019, 12/24/2017, Additional history exists Abdominal Aortic Aneurysm (AAA) Discontinued 03/13/2001 Screen Pneumococcal vaccine (65+ years) Completed 04/28/2019, , 01/24/2012, Additional history exists COVID-19 Vaccine Completed 12/18/2021, 01/25/2021, 05/28/2020, Additional history exists Insurance Payer Benefit Plan / Subscriber ID Effective Dates Phone Addre ss Type Group [employer] [facility] [id number] 2017-Janessa [phone] [id number] [facility] t [address] [facility] [place] [address]
--- OUTSIDE RECORDS SUMMARY | 2022-01-15 10:06 | XMS_ITS | Encounter Summary ---
:1945 Author Organization [facility] Address [address] [place] [address] Care Team Providers Name Role Phone Unavailable Primary Care Provider Unavailable Reason for Visit Reason Comments Triage Encounter Details Date Type Department Care Team Description 05/30/2020 Clinical Communication Division of General [facility] in [place], [place] [address] [facility] [address] [place] [phone] [phone] Social History Tobacco Use Types Packs/Day Years [...] contact the patient's primary provider or the [facility]. [id number] Telephone Encounter - Marsha Castillo - 05/30/2020 8:52 AM CDT CATHERINE VALDOVINOS 1945 [id number] years Gender: Male Who filled out ARF: Patient?? Request: I have medical symptoms without a clear diagnosis TOP THREE SYMPTOMS: MAIN SYMPTOM debilitating pain in upper stomach. Dizzy,nausea. Description: sharp pain in upper stomach, comes and goes. Dizziness. Nausea Duration: 6 to 12 months Previous Eval: Yes Institution: [facility] Have had: Images (X-Rays, CT scan, MRI [...] DIAGNOSIS: No Willing to attend [facility] or [facility] appointments - Definitely not DAILY MEDS: 7 OPIOIDS: No CURRENT DIALYSIS: No CURRENT HEALTH/PAST YEAR: Fair CONFIDENCE: Agree NOT AVAILABLE: I AM AVAILABLE ANY TIME PHONE: [phone] documented in this encounter Plan of Treatment Not on filedocumented as of this encounter Visit Diagnoses Not on filedocumented in this encounter
--- OUTSIDE RECORDS SUMMARY | 2022-01-15 10:06 | XMS_ITS | Encounter Summary ---
:1945 Author Care Team Providers Name Role Phone Magan Verdugo MD Primary Care Provider [phone] Magan Verdugo MD Referring Provider [phone] Reason for Visit None recorded. Assessment and [...] effects w/ previous meds cont. 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 RP NODES CONTINUE FIRMAGON CHECK PSA IN 3MONTHS COULDN'T TOLERATE XTANDI OR ORAL ANTIAND ROGENS GIVEN SIDE EFFECTS. Discussion Note: None recorded.Patient educational handouts: No information available. Plan of Care Reminders Provider Appointments Lab Injection 01/18/2022 2:40PM [facility] ? Return to Office on or around 06/11/2022 [...] Procedures Date Name Performed by ? 10/13/2018 [facility] [id number] Rpbic Rad Information not available Notes: 10/13/2018 - LAPARO [...] mRNA, LNP-S, PF, 30 mcg/0.3 mL dose (Entrec) 05/07/2020 05/28/2020 01/25/2021 influenza, high dose seasonal 12/24/2013 12/22/2014 11/11/2015 influenza, high-dose, quadrivalent 12/22/2020 influenza, seasonal, injectable 01/09/2001 01/26/2003 01/16/2005 01/02/2010 12/12/2011 12/17/2012 influenza, seasonal, injectable, preserv ative free 04/11/2009 01/10/2011 11/30/2019 influenza, trivalent, adjuvanted 01/08/2017 12/24/2017 influenza, unspecified formulation 12/20/2020 12/30/2020 novel [id number], all formulation s 04/11/2009 pneumococcal conjugate PCV 13 05/26/2015 pneumococcal polysaccharide [id number] 04/11/2009 01/24/2012 04/28/2019 pneumococcal, unspecified formulation 03/11/2018 03/12/2019 11/23/2020 Td (adult), adsorbed 03/11/1997 Tdap 04/11/2009 zoster live 02/12/2008 Social History Tobacco Smoking Status Never Smoker Marital status Has tobacco cessation counseling N been provided? Could you be ? N Preferred Language [place] How much tobacco do you chew? 1/day [...] you used? Have you traveled outside of [facility] in the past 30 days? [...] Prostate Corey Beyer MD: [address], [facility] [address], [place] [address], Ph. 12/04/2021 Malignant Tumor of Prostate Corey Beyer MD: [address], [address], [place] [address], Ph. History of Present Illness Note: <div>patient [...]
--- OUTSIDE RECORDS SUMMARY | 2022-01-15 10:06 | XMS_ITS | Encounter Summary ---
:1945 Author Organization [facility] Address [address] [place] [address] Care Team Providers Name Role Phone Unavailable Primary Care Provider Unavailable Encounter Details Date Type Department Care Team Description 05/04/2020 Admin Visit Department of Family Medicine, [address] [address] [facility] [phone] Social History Tobacco Use Types Packs/Day Years Used Date Smoking Tobacco: Never Assessed Sex Assigned at Date Recorded Not on file documented as of this encounter Plan of Treatment Not on filedocumented as of this encounter Visit Diagnoses Not on filedocumented in this encounter Additional Health Concerns Infection Onset Date Last Indicated Resolved Time COVID19 Pending 05/04/2020 05/04/2020 05/04/2020 9:21 PM BOBBIN WASHER documented as of this encounter
--- OUTSIDE RECORDS SUMMARY | 2022-01-15 10:06 | XMS_ITS | Encounter Summary ---
:1945 Author Organization [facility] Address [address] [place] [address] Care Team Providers Name Role Phone Unavailable Primary Care Provider Unavailable Reason for Visit Reason Comments COVID Inquiry Encounter Details Date Type Department Care Team Description 05/04/2020 Clinical Communication Department of [facility] Presched abril, COVID Inquiry Medicine, [facility], in [address] [address] Social History Tobacco Use Types Packs/Day Years Used Date Smoking Tobacco: Never Assessed Sex Assigned at Date Recorded Not on file documented as of this encounter Miscellaneous Notes Telephone Encounter - Prema Hernandez - 05/04/2020 8:58 AM CST What is the purpose of the call?: Symptomatic (Calling PCP Office) Calling [facility] PCP Office What region is the patient calling from? : [place] Have you tested positive for COVID-19 in [...] Because of symptoms, transfer patient to: : [place] COVID Nurse Line (End Screening) Symptom Onset Date of symptom onset: 05/01/20 Testing Recommendation Endpoint Is testing recommended? : Transferred to nursing call line Plan: Endpoint recommendation: Transferred to Nursing/COVID Line/Care Team *Reminder if sending patient for testing in [facility] or [facility], route encounter to the correct testing pool. CARE AIDE documented in this encounter Plan of Treatment Not on filedocumented as of this encounter Visit Diagnoses Not on filedocumented in this encounter
--- OUTSIDE RECORDS SUMMARY | 2022-01-15 10:06 | XMS_ITS | Encounter Summary ---
:1945 Author Care Team Providers Name Role Phone Magan Verdugo MD Primary Care Provider [phone] Magan Verdugo MD Referring Provider [phone] Reason for Visit Lab/Nursing Visit Assessment and [...] Reminders Provider Appointments Lab Injection 01/18/2022 2:40PM [facility] ? Return to Office on or around Corey Beyer, 06/11/2022 Lab PSA, Total, Serum or 12/04/2021 [facility] ? Testosterone, Total, 12/04/2021 [facility] Referral None [...] BLDV ? PSA, Total <0.10 <4.0 Final [facility] Total, NG/mL NG/mL Urology - Serum or [facility]: Plasma [address] 12/04/2021 [facility] BLDV ? Testosterone <10 [phone] [facility] ne, Total, NG/dL NG/dL Urolog y - Serum [facility]: 60[address] [facility] 200, [place] Allergies Code Code System Name Reaction Severity Onset NKDA ? ? ? Problems Name Status Onset Date Source ? Raised Prostate Specific Antigen Active 06/26/2018 History Malignant Tumor of Prostate Active 08/20/2018 Hist ory Procedures Date Name Performed by ? 10/13/2018 [facility] [id number] Rpbic Rad Information not available Notes: 10/13/2018 [...] mRNA, LNP-S, PF, 30 mcg/0.3 mL dose ([employer]) 05/07/2020 05/28/2020 01/25/2021 influenza, high dose seasonal 12/24/2013 12/22/2014 11/11/2015 influenza, high-dose, quadrivalent 12/22/2020 influenza, seasonal, injectable 01/09/2001 01/26/2003 01/16/2005 01/02/2010 12/12/2011 12/17/2012 influenza, seasonal, injectable, preserv ative free 04/11/2009 01/10/2011 11/30/2019 influenza, trivalent, adjuvanted 01/08/2017 12/24/2017 influenza, unspecified formulation 12/20/2020 12/30/2020 novel [id number], all formulation s 04/11/2009 pneumococcal conjugate PCV 13 05/26/2015 pneumococcal polysaccharide [id number] 04/11/2009 01/24/2012 04/28/2019 pneumococcal, unspecified formulation 03/11/2018 03/12/2019 11/23/2020 Td (adult), adsorbed 03/11/1997 Tdap 04/11/2009 zoster live 02/12/2008 Social History Tobacco Smoking Status Never Smoker Marital status Has tobacco cessation counseling N been provided? Could you be ? N Preferred Language Colombian How much tobacco do you chew? 1/day [...] you used? Have you traveled outside of [facility] in the past 30 days? What is [...] Corey Beyer MD: [address], [address] [address], Ph. 11/09/2021 Malignant Tumor of Prostate Corey Beyer MD: [address], [address], [place] [address], Ph. History of Present Illness None recorded. Review of Systems None recorded. Physical Exam None recorded.
--- OUTSIDE RECORDS SUMMARY | 2022-01-15 10:06 | XMS_ITS ---
:1945 Author Care Team Providers Name Role Phone ARTURO WHITEHEAD MD Primary Care Provider [phone] ARTURO WHITEHEAD MD Referring Provider [phone] Allergies Code Code System Name Reaction Severity [...] Name Performed by ? 10/13/2018 L[facility] Surg [id number] Rpbic Rad Information not available Notes: 10/13/2018 [...] BLDV ? PSA, Total <0.10 <4.0 Fin [facility] Serum or NG/mL NG/mL [facility] - [facility]: [address] 12/04/2021 Testosteron BLDV ? Testosterone <10 175-781 Final [place] e, Total, NG/dL NG/dL Urology - Serum [facility]: [address] [facility] e 200, [place] 06/23/2021 PSA, Total, BLDV ? PSA, Total <0.10 <4.0 Fin [place] Serum or NG/mL NG/mL Urology - Plasma [facility]: [address] [place] [address] 04/06/2021 PSA, Total, BLDV ? PSA, Total <0.10 <4.0 Fin [place] Serum or NG/mL NG/mL Urology - [facility]: [address] [place] [address] 04/06/2021 Testosteron BLDV Low Testosterone 23.72 175.00- Final [place] e, Total, NG/dL 781.00 Urology - Serum NG/dL [facility]: [address] [place] [address] 02/06/2021 BMP, Serum BLDV High Glu 122.40 70.00-1 Final [place] or Plasma mg/dL 05.00 Urology - mg/dL [facility]: [address] [place] [address] ? ? BLDV ? Ca 8.8 8.4-10. Final [place] mg/dL 2 mg/dL [facility] - [facility]: [address] [place] [address] ? ? BLDV ? Na 135.0 135.0-1 Final [place] mmol/L 45.0 Urology - mmol/L [facility]: [address] [place] [address] ? ? BLDV ? Potassium 4.3 3.6-5.0 Final [place] mmol/L mmol/L [facility]rology - [facility]: [address] [place] [address] ? ? BLDV Low Chloride 99.0 101.0-1 Final [place] loader mmol/L 11.0 Urology - mmol/L [facility]: [address] [place] [address] ? ? BLDV ? Co2 25.0 21.0-31 Final [place] mmol/L .0 Urology - mmol/L [facility]: [address] [place] [address] ? ? BLDV ? Aniongap 11.00 0.00-16 Final [place] .00 Urology - [facility]: [address] [place] [address] ? ? BLDV ? Bun 15.0 7.0-18. Final [place] mg/dL 0 mg/dL [facility]rology - [facility]: [address] [place] [address] 200, [place] ? ? BLDV ? BUN/creat 15.3 9.0-20. Final [place] ratio 0 ratio [facility]rology - [facility]: [address], [place] ? ? BLDV ? Creatinine 1.0 0.6-1.[address] [facility] [place] mg/dL mg/dL Urology - [facility]: [address] [facility] [address] 200, [place] ? ? BLDV ? Egfr >60 90-120 Final [place] mL/min mL/min Urology - per per [facility] 1.73 1.73 Lab: [address] [facility] [address], [place] 02/01/2021 CBC W/ Diff BLDV ? Wbc 6.00 3.80-10 Final [place] 10*3/uL .80 Urology - 10*3/uL [facility]: [address] [facility] [address] 200, [place] ? ? BLDV ? Ne% 49.50 % 42.00-8 Final [place] 2.00 % Urology - [facility]: [address] [facility] [address] 200, [place] ? ? BLDV High Ly% 36.00 % 15.00-3 Final [place] 5.00 % Urology - [facility]: [address] [facility] [address] 200, [place] ? ? BLDV ? Mo% 10.20 % 4.00-12 Final [place] .00 % Urology - [facility]: [address] [facility] [address], [place] ? ? BLDV ? Eo% 3.40 % 1.00-6. Final [place] 00 % Urology - [facility]: [address] [facility] [address], [place] ? ? BLDV ? Ba% 0.90 % 0.00-2. Final [place] 00 % Urology - [facility]: [address] [facility] [address] 200, [place] ? ? BLDV ? Ne# 3.00 1.50-7. Final [place] 10*3/uL 80 Urology - 10*3/uL [facility]: [address] [facility] [address] 200, [place] ? ? BLDV ? Ly# 2.20 0.85-3. Final [place] 10*3/uL 90 Urology - 10*3/uL [facility]: [address] [facility] [address] 200, [place] ? ? BLDV ? Mo# 0.60 0.20-0. Final [place] 10*3/uL 95 Urology - 10*3/uL [facility]: [address], [place] ? ? BLDV ? Eo# 0.20 0.02-0. Final [place] 10*3/uL 50 Urology - 10*3/uL [facility]: [address], [place] ? ? BLDV ? Ba# 0.10 0.00-0. Final [place] 10*3/uL 20 Urology - 10*3/uL [facility]: [address], [place] ? ? BLDV ? Rbc 4.64 4.20-5. Final [place] 10*6/uL 80 Urology - 10*6/uL [facility]: [address], [place] ? ? BLDV ? Hgb 14.20 13.20-1 Final [place] g/dL 7.10 Urology - g/dL [facility]: [address] [facility] [address] 200, [place] ? ? BLDV ? Hct 42.30 % 38.50-5 Final [place] 0.00 % Urology - [facility]: [address] [facility] [address], [place] ? ? BLDV ? Mcv 91.20 80.00-1 Final [place] fL 00.00 Urology - fL [facility]: [address] [facility] [address] 200, [place] ? ? BLDV ? Mch 30.60 27.00-3 Final [place] pg 3.00 pg [facility]rology - [facility]: [address] [facility] [address], [place] ? ? BLDV ? Mchc 33.50 32.00-3 Final [place] g/dL 6.00 Urology - g/dL [facility]: [address] [facility] [address], [place] ? ? BLDV ? Rdw 13.70 % 11.00-1 Final [place] 5.00 % Urology - [facility]: [address] [facility] [address], [place] ? ? BLDV Low Plt 54.00 140.00- Final [place] 10*3/uL 400.00 Urology - 10*3/uL [facility]: [address] [facility] [address], [place] ? ? BLDV ? Mpv 10.70 ? Final [facility] Urology - [facility]: [address], [place] 02/01/2021 Hepatic BLDV ? Albumin-olympu 4.4 3.5-5.0 Fi nal [place] Function s g/dL g/dL Urology - Panel, [facility]: [address] [place] [address], [place] ? ? BLDV ? ALP-olympus 48.0 24.0-10 Final [place] [IU]/L 6.0 Urology - [IU]/L [facility]: [address] [place] [address] 200, [place] ? ? BLDV ? ALT-olympus 32.0 10.0-40 Final [place] IU/L .0 IU/L Urology - [facility]: [address] [place] [address], [place] ? ? BLDV ? AST-olympus 37.0 10.0-42 Final [place] IU/L .0 IU/L Urology - [facility]: [address] [place] [address], [place] ? ? BLDV ? D 0.1 0.0-0.2 Final [place] Bilirubin-olymp mg/dL mg/dL U [facility] - [facility]: [address] [place] [address] ? ? BLDV ? T 0.5 0.2-1.0 Final [place] Bilirubin-olymp mg/dL mg/dL U [facility]: [address] [place] [address] ? ? BLDV ? T 7.0 6.5-8.1 Final [place] Protein-olympus g/dL g/dL U [facility] - [facility]: [address] [place] [address] 02/01/2021 BMP, Serum BLDV High Glu 134.50 70.00-1 Final [place] or Plasma mg/dL 05.00 Urology - mg/dL [facility]: [address] [place] [address] ? ? BLDV ? Ca 9.1 8.4-10. Final [place] mg/dL 2 mg/dL Urology - [facility]: [address] [place] [address] ? ? BLDV Low Na 134.0 135.0-1 Final [place] mmol/L 45.0 Urology - mmol/L [facility]: [address] [place] [address], [place] ? ? BLDV High Potassium 5.5 3.6-5.0 Final [place] mmol/L mmol/L [facility] - [facility]: [address] [place] [address], [place] ? ? BLDV Low Chloride 99.0 101.0-1 Final [place] mmol/L 11.0 Urology - mmol/L [facility]: [address] [place] [address] 200, [place] ? ? BLDV ? Co2 25.0 21.0-31 Final [place] mmol/L .0 Urology - mmol/L [facility]: [address] [place] [address], [place] ? ? BLDV ? Aniongap 10.00 0.00-16 Final [place] .00 Urology - [facility]: [address] [place] [address], [place] ? ? BLDV ? Bun 16.0 7.0-18. Final [place] mg/dL 0 mg/dL [facility] - [facility]: [address] [place] [address], [place] ? ? BLDV ? BUN/creat 15.0 9.0-20. Final [place] ratio 0 ratio [facility]rology - [facility]: [address] [place] [address], [place] ? ? BLDV ? Creatinine 1.1 0.6-1.3 Final [place] mg/dL mg/dL [facility] - [facility]: [address] [place] [address], [place] ? ? BLDV ? Egfr >60 90-120 Final [place] mL/min mL/min Urology - per per [facility] 1.73 1.73 Lab: [address] [place] [address] 02/01/2021 Testosteron BLDV ? Testosterone 494.96 175.00- Final [place] e, Total, NG/dL 781.00 Urology - Serum NG/dL [facility]: [address] [place] [address] 02/01/2021 PSA, Total, BLDV ? PSA, Total <0.10 <4.0 Fin al [place] Serum or NG/mL NG/mL Urology - Plasma [facility]: [address] [place] [address] 11/10/2020 PSA, Total, BLDV ? PSA, Total 0.55 0.00-4. Fi nal [place] Serum or NG/mL 00 Urology - Plasma NG/mL [facility]: [address] [place] [address] Past Encounters 12/11/2021 Malignant Tumor of Prostate Corey Beyer MD: [address] [facility], [address] [address], Ph. 12/04/2021 Malignant Tumor of Prostate Corey Wilburn MD Kayleen: [address] [place] [address] [address], [address], [place] [address], Ph. 11/09/2021 Malignant Tumor of Prostate Corey Millantoni Beyer MD: [address] [place] [address] [address], [address], [place] [address], Ph. 10/09/2021 Malignant Tumor of Prostate Corey Wilburn MD Kayleen: [address] [place] [address] [address], [address], [place] [address], Ph. 09/07/2021 Malignant Tumor of Prostate Corey Wilburn MD Kayleen: [address] [place] [address] [address], [address], [place] [address], Ph. 08/08/2021 Malignant Tumor of Prostate Corey Millantoni Beyer MD: [address] [place] [address] [address], [address] [address], Ph. 06/23/2021 Malignant Tumor of Prostate Yaneth Janice Velez, PA: [address] [place] [address], [address] [address], Ph. 05/22/2021 Malignant Tumor of Prostate Yaneth Janice Velez, PA: [address] [place] [address], [address] [address], Ph. 04/18/2021 Malignant Tumor of Prostate Corey Wilburn MD Kayleen: [address] [place] [address] [address], [address] [address], Ph. 04/06/2021 Malignant Tumor of Prostate Walt Morfin MD: [address] [place] [address], [place] [address] [address], Ph. 02/09/2021 Malignant Tumor of Prostate Walt Morfin MD: [address] [place] [address], [place] [address] [address], Ph. 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 02/01/2021 Malignant Tumor of Prostate Walt Morfin MD: [address] [facility], [place], [place] [address], Ph. 12/13/2020 Malignant Tumor of Prostate Walt Morfin MD: [address] [facility] [address] [address], Ph. 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 Social History Tobacco Smoking Status Never Smoker Vaccine List Vaccine Type COVID-19 (SARS-COV-2) vaccine, unspecifi ed 07/24/2019 07/20/2020 01/25/2021 COVID-19, mRNA, LNP-S, PF, 30 mcg/0.3 mL dose ([facility]Channel) 05/07/2020 05/28/2020 01/25/2021 influenza, high dose seasonal 12/24/2013 12/22/2014 11/11/2015 influenza, high-dose, quadrivalent 12/22/2020 influenza, seasonal, injectable 01/09/2001 01/26/2003 01/16/2005 01/02/2010 12/12/2011 12/17/2012 influenza, seasonal, injectable, preserv ative free 04/11/2009 01/10/2011 11/30/2019 influenza, trivalent, adjuvanted 01/08/2017 12/24/2017 influenza, unspecified formulation 12/20/2020 12/30/2020 novel [id number], all formulation s 04/11/2009 pneumococcal conjugate PCV [...]
--- OUTSIDE RECORDS SUMMARY | 2022-01-15 10:06 | XMS_ITS | Encounter Summary ---
:1945 Author Organization [facility] Address [address] [place] [address] Care Team Providers Name Role Phone Unavailable Primary Care Provider Unavailable Reason for Visit Reason Comments COVID Inquiry Encounter Details Date Type Department Care Team Description 02/25/2020 Clinical Communication Central Appointment [facility] Office in [facility] [address] [place], [place] [id number] Social History Tobacco Use Types Packs/Day Years [...] swabbed for COVID-19 and Influenza, sent to [facility] located at [address] [place] [address]. The entrance is on the north side of the building. You must call [phone] for an appointment time.Testing hours are Daily [...] water are not available, use a hand ornamental rail installer -Avoid touching your eyes, nose and mouth. [...] care: Yes The following references were used: [facility] novel coronavirus (COVID- 19) resources ECTION TECHNICIAN documented in this encounter Plan of Treatment Not on filedocumented as of this encounter Visit Diagnoses Not on filedocumented in this encounter
--- OUTSIDE RECORDS SUMMARY | 2022-01-15 10:06 | XMS_ITS | Encounter Summary ---
:1945 Author Organization [facility] Address [address] [place] [address] Care Team Providers Name Role Phone Unavailable Primary Care Provider Unavailable Reason for Visit Reason Comments [facility] Nurse Line Encounter Details Date Type Department Care Team Description 05/04/2020 Clinical Communication Division of [facility] [place] Nurse Angela [facility] Internal Emy Babin R.N. [facility] [phone] [place], in (Work) [place], [place] [address] [place] [address] Social History Tobacco Use Types Packs/Day Years Used Date Smoking Tobacco: Never Assessed Sex Assigned at Date Recorded Not on file documented as of this encounter Miscellaneous Notes Telephone Encounter - Emy [place] R.N. - 05/04/2020 9:03 AM CST COVID-19 Nurse Line Screening ASSESSMENT Region Select appropriate region: : [place] Age Pathway Select approprite pathway: : Adult [...] swabbed for COVID-19 Only , sent to [facility] located at [address] [place] [address]. The entrance is on the north side of the building. You must call [phone] during the hours of 7am to 6 [...] water are not available, use a hand blood bank assistant -Avoid touching your eyes, nose and mouth. [...] The following references were used: [facility] novel coronavirus (COVID- 19) resources CDC web site https://www.cdc.gov/coronavirus/2019-ncov/summary.html Nursing judgement STITCHER documented in this encounter Plan of Treatment Not on filedocumented as of this encounter Visit Diagnoses Not on filedocumented in this encounter
--- OUTSIDE RECORDS SUMMARY | 2022-01-15 10:06 | XMS_ITS | Encounter Summary ---
:1945 Author Organization [facility] Address [address] [place] [address] Care Team Providers Name Role Phone Unavailable Primary Care Provider Unavailable Reason for Visit Reason Comments [facility] Nurse Line Encounter Details Date Type Department Care Team Description 05/04/2020 Clinical Communication Division of Regla Smith Nurse Angela [facility] Internal B, R.N. [place] [phone] [place], in (Work) [place], [place] [address] [place] [address] Social History Tobacco Use Types Packs/Day Years Used Date Smoking Tobacco: Never Assessed Sex Assigned at Date Recorded Not on file documented as of this encounter Miscellaneous Notes Telephone Encounter - Regla Smith, R.N. - 05/04/2020 9:16 AM CST fCOVID-19 Nurse Line Screening Patient did not want to speak with triage nurse he has a doctors appointment on saturday ASSESSMENT Patient did not want to talk to triage regarding chest pain. Knows to go to ER if symptoms gets worse has a Drs appointment on saturday Region Select appropriate region: : [place] Age Pathway Select approprite pathway: : Adult [...] (age 3 - 75 only), sent to [facility] located at [address] [place] [address]. The entrance is on the north side of the building. You must call [phone] during the hours of 7am to 6 [...] water are not available, use a hand enterostomal therapy nurse -Avoid touching your eyes, nose and mouth. [...] The following references were used: [facility] novel coronavirus (COVID- 19) resources COVID-19Nurse Line Screening ASSESSMENT Region Select appropriate region: : [place] Age Pathway Select approprite pathway: : Adult [...] (age 3 - 75 only), sent to [facility] located at [address] [place] [address]. The entrance is on the north side of the building. You must call [phone] during the hours of 7am to 6 [...] water are not available, use a hand enterostomal therapy nurse -Avoid touching your eyes, nose and mouth. [...] The following references were used: [facility] novel coronavirus (COVID- 19) resources Nursing judgement OR DOT NET DEVELOPER documented in this encounter Plan of Treatment Not on filedocumented as of this encounter Visit Diagnoses Not on filedocumented in this encounter
--- OUTSIDE RECORDS SUMMARY | 2022-01-15 10:06 | XMS_ITS | Encounter Summary ---
:1945 Author Care Team Providers Name Role Phone Mgaan Verdugo MD Primary Care Provider [phone] Magan Verdugo MD Referring Provider [phone] Reason for Visit Injection Assessment and Plan [...] Reminders Provider Appointments Lab Injection 01/18/2022 2:40PM [facility] ? Return to Office on or around [...] with diluent syringe 80 mg subcutaneous solution [id number] Inject 80 mg by subcutaneous route. Vitals None recorded. Results Lab Results None recorded. Allergies Code Code System Name Reaction Severity Onset NKDA ? ? ? Problems Name Status Onset Date Source ? Raised Prostate Specific Antigen Active 06/26/2018 History Malignant Tumor of Prostate Active 08/20/2018 Hist ory Procedures Date Name Performed by ? 10/13/2018 Laps Surg [id number] Rpbic Rad Information not available Notes: 10/13/2018 [...] mRNA, LNP-S, PF, 30 mcg/0.3 mL dose ([facility]) 05/07/2020 05/28/2020 01/25/2021 influenza, high dose seasonal 12/24/2013 12/22/2014 11/11/2015 influenza, high-dose, quadrivalent 12/22/2020 influenza, seasonal, injectable 01/09/2001 01/26/2003 01/16/2005 01/02/2010 12/12/2011 12/17/2012 influenza, seasonal, injectable, preserv ative free 04/11/2009 01/10/2011 11/30/2019 influenza, trivalent, adjuvanted 01/08/2017 12/24/2017 influenza, unspecified formulation 12/20/2020 12/30/2020 novel [id number], all formulation s 04/11/2009 pneumococcal conjugate PCV 13 05/26/2015 pneumococcal polysaccharide [id number] 04/11/2009 01/24/2012 04/28/2019 pneumococcal, unspecified formulation 03/11/2018 03/12/2019 11/23/2020 Td (adult), adsorbed 03/11/1997 Tdap 04/11/2009 zoster live 02/12/2008 Social History Tobacco Smoking Status Never Smoker Marital status Has tobacco cessation counseling N been provided? Could you be ? N Preferred Language Dutch How much tobacco do you chew? 1/day [...] you used? Have you traveled outside of [facility] in the past 30 days? What is [...] Corey Beyer MD: [address], [address] [address], Ph. 10/09/2021 Malignant Tumor of Prostate Corey Beyer MD: [address], [address], [place] [address], Ph. History of Present Illness None recorded. Review of Systems None recorded. Physical Exam None recorded.
[2022-01-15 13:54] LABS: Basophils Absolute Auto 0.05 K/uL (0.00-0.30); Eosinophils Absolute Auto 0.13 K/uL (0.00-0.50); Eosinophils Percent Auto 2.7 % (0.0-7.0); Hematocrit 27.8 % (37.0-53.0); Hemoglobin* 8.5 gm/dL (13.5-17.5); Immature Granulocytes Abs Auto 0.01 K/uL (0.00-0.30); Immature Granulocytes Pct Auto 0.2 %; Lymphocytes Percent Auto 24.9 % (20-44); Mean Corpuscular HGB Conc 31 gm/dL (32-36); Mean Corpuscular Hemoglobin 25 pg (26-34); Mean Corpuscular Volume 81 fL (80-100); Monocytes Percent Auto 9.5 % (0.0-11.0); Neutrophils Absolute Auto 2.97 K/uL (1.7-7.0); Neutrophils Percent Auto 61.7 % (42.0-72.0); Platelet Count* 63 K/uL (140-440); RDW Coefficient of Variation % 16.7 % (11.5-15.5); Red Blood Count 3.43 m/uL (4.30-5.90); White Blood Count* 4.82 K/uL (4.50-11.00)
[2022-01-15 14:04] LABS: Albumin* 4.2 g/dL (3.3-5.0); Chloride* 103 mmol/L (96-114); Sodium* 135 mmol/L (135-149)
[2022-01-15 14:07] LABS: Alanine Aminotransferase* 26 U/L (4-50); Alkaline Phosphatase* 54 U/L (40-150); Aspartate Amino Transferase* 32 U/L (12-35); Bilirubin Total* 0.3 mg/dL (0.1-1.5); Blood Urea Nitrogen* 12 mg/dL (7-30); Carbon Dioxide* 22 mmol/L (20-32); Creatinine* 0.8 mg/dL (0.5-1.5); Estimated Glomerular Filt Rate 92 ml/min; Glucose* 109 mg/dL (60-115); Lipase* 171 U/L (23-300); Potassium* 5.1 mmol/L (3.6-5.1); Total Protein* 6.3 g/dL (6.0-8.3)
[2022-01-15 14:08] LABS: Calcium* 8.7 mg/dL (8.4-10.6)
[2022-01-15 14:37] LABS: Slide Review Reflex No
[2022-01-18 10:02] LABS: Ferritin* 11.1 ng/mL (17.9-464.0)
== END 2022-01-15 10:02 | disposition home or self-care (01) ==
PROVIDERS: PCP Family Medicine; Visit Provider Family Medicine
DX: R10.9 Unspecified abdominal pain (principal); E78.00 Pure hypercholesterolemia, unspecified; I10 Essential (primary) hypertension; E11.9 Type 2 diabetes mellitus without complications; D69.3 Immune thrombocytopenic purpura
CPT/HCPCS: 80053; 82728; 83690; 84443; 85025

== ENCOUNTER 2022-01-24 15:40 | Outpatient (CLI) | payer BC, SELFPAY ==
--- OUTSIDE RECORDS SUMMARY | 2022-01-24 15:42 | XMS_ITS | Clinical Summary ---
:1945 Author Organization [facility] [place] [address] Care Team Providers Name Role Phone Magan Verdugo MD Primary Care Provider [phone] Allergies Active Allergy Reactions Severity Noted [...] 12/12/2021 Orders Only <No scans attac hed> from Last 3 Months Immunizations Name Administration [...] Encounters Date Type Specialty Care Team Description 02/05/2022 Office Visit [place], AuD [address] [place], [place] [address] (Wo rk) Health Maintenance [...] ECHOCARDIOGRAM CATHERINE TATUM ? Accessi on#: ?? [id number] : ?1945 76 years Study Date: ?? 12/12/2021 2:19:12 PM Gender: M ?BP: ? 127/77 mmHg Height: 178.00 cm ?BSA: ?2.14 m? ?? Weight: 96.00 kg ? Tech: ? MCK ? Referring MD: GUERRERO BARLOW Site: ? [facility] Reading Location: [facility] Procedure: Stress Echo, Contrast, [...] ?? Reynoso Treadmill Score 6 Double Product 78708 Echo Findings:This is a negative stress echo [...] [place] [address]. Maximum stress test with 98.0% of age [...] documentation: 4 ml diluted Def inity, lot #[id number], was administered peripherally to enhance visualization of all left ventricular segments. . This study was interpreted by an [facility] facility. CC: [facility] and [facility]. ??Final ?? Procedure Note Rosalva Talamantes MD - 12/12/2021 STRESS ECHOCARDIOGRAM CATHERINE TATUM : 1945 76 years Study Date: 12/12 2:19:12 PM Gender: M BP: 127/77 mmHg Height: 178.00 cm BSA: 2.14 m? ?? Weight: 96.00 kg Tech: [facility] Referring MD: GUERRERO BARLOW Site: [facility] Reading Location: [facility] Procedure: Stress Echo, Contrast, [...] 98% Reynoso Treadmill Score 6 Double Product 81200 Echo Findings:This is a negative stress echo [...] [place] [address]. Maximum stress test with 98.0% of age [...] . This study was interpreted by an [facility] facility. CC: [facility] and [facility]. Final Guerrero Barlow MD ECHO ORD from Last 3 Months Insurance Payer Benefit Plan / Subscriber ID Effective Dates Phone Addre ss Type Group MEDICARE PART A MEDICARE PART A [id number] 2011-Presen ATTN: CLAIMS - HB USE ONLY HB ONLY t [address] [place] [address] MEDICARE PART A MEDICARE PART A [id number] 2011-Presen ATTN: CLAIMS - HB USE ONLY HB ONLY t [address] [place] [address] PREFERRED ONE PREFERRED [id number] 2015-Presen [address] [place] [address] BLUE CROSS BLUE CROSS [place] [id number] 2017-Presen [address] [place] [address] Catherine Tatum Personal/Family Self 1945 [address] (Home) [place] [address] Advance Directives Latest Code Status on File Code Status Date Activated Date Inactivated Comments Full Code 10/13/2018 8:46 AM 10/14/2018 3:18 PM Full Code 09/08/2018 10:16 AM 09/08/2018 5:17 PM Care Teams Label Folder Relationship Specialty Start Date End Date Magan Verdugo MD PCP - General Family Practice 09/04/181999 [place] [address]
--- OUTSIDE RECORDS SUMMARY | 2022-01-24 15:43 | XMS_ITS | Encounter Summary ---
:1945 Author Care Team Providers Name Role Phone Magan Verdugo MD Primary Care Provider [phone] Magan Verdugo MD Referring Provider [phone] Reason for Visit Lab/Nursing Visit Assessment and [...] of Care Reminders Provider Appointments [facility] 02/25/20[facility] ? Lab Blood Draw & on or around [facility] Injection 03/28/2022 ? Lab Injection on or around [facility] 04/28/2022 ? Lab Injection [facility] 05/26/2022 ? Return to Office on or around Corey Beyer, 06/11/2022 ? Lab Blood Draw & [facility] Injection 06/26/2022 Lab PSA, Total, Serum or 12/04/2021 [facility] ? Testosterone, Total, 12/04/2021 [facility] Referral None [...] TAKE 1 TABLET BY MOUTH EVERY DAY lorazepam 1 mg tablet ? TAKE 1 [...] 1 tablet every day by oral route. pantoprazole 40 mg tablet,delayed release ? polyethylene glycol 3350 17 gram/dose oral powder ? prednisone 20 mg tablet ? TAKE 1 TABLET BY MOUTH EVERY DAY prednisone 5 mg tablet ? Take 1 tablet every day by oral route. prednisone 50 mg tablet ? TAKE 1 TABLET BY MOUTH EVERY DAY Stimulant Laxative Plus 8.6 mg-50 mg tablet ? valacyclovir 1 gram tablet ? TK 1 T PO TID Xtandi 40 mg tablet ? Take 4 tablets every day by oral route. Medications Administered None recorded. Vitals None recorded. Results Lab Results Date Name Specimen Result Interpretation Description Value Range Status Address ? 12/04/2021 PSA, BLDV ? PSA, Total <0.10 <4.0 Final M [place]ina Total, NG/mL NG/mL [facility] - Serum or [facility]: Plasma [address] 12/04/2021 Testostero BLDV ? Testosterone <10 [phone] Total, NG/dL NG/dL Urolog [facility] - [facility] b: [address] [address], [place] Allergies Code Code System Name Reaction Severity Onset NKDA ? ? ? Problems Name Status Onset Date Source ? Raised Prostate Specific Antigen Active 06/26/2018 History Malignant Tumor of Prostate Active 08/20/2018 Hist ory Procedures Date Name Performed by ? 10/13/2018 L[facility] Surg [id number] Rpbic Rad Information not available Notes: 10/13/2018 [...] mRNA, LNP-S, PF, 30 mcg/0.3 mL dose (ThermoAura) 05/07/2020 05/28/2020 01/25/2021 influenza, high dose seasonal 12/24/2013 12/22/2014 11/11/2015 influenza, high-dose, quadrivalent 12/22/2020 influenza, seasonal, injectable 01/09/2001 01/26/2003 01/16/2005 01/02/2010 12/12/2011 12/17/2012 influenza, seasonal, injectable, preserv ative free 04/11/2009 01/10/2011 11/30/2019 influenza, trivalent, adjuvanted 01/08/2017 12/24/2017 influenza, unspecified formulation 12/20/2020 12/30/2020 novel [id number], all formulation s 04/11/2009 pneumococcal conjugate PCV 13 05/26/2015 pneumococcal polysaccharide PPV23 04/11/2009 01/24/2012 04/28/2019 pneumococcal, unspecified formulation 03/11/2018 03/12/2019 11/23/2020 Td (adult), adsorbed 03/11/1997 Tdap 04/11/2009 zoster live 02/12/2008 Social History Tobacco Smoking Status Never Smoker Marital status Has tobacco cessation counseling N been provided? Could you be ? N Preferred Language Tuvaluan How much tobacco do you chew? 1/day [...] you used? Have you traveled outside of [facility] in the past 30 days? What [...] Corey Beyer MD: [address], [address] [address], Ph. 11/09/2021 Malignant Tumor of Prostate Corey Beyer MD: [address], [address], [place] [address], Ph. History of Present Illness None recorded. Review of Systems None recorded. Physical Exam None recorded.
--- OUTSIDE RECORDS SUMMARY | 2022-01-24 15:43 | XMS_ITS | Encounter Summary ---
:1945 Author Organization [facility] Address [address] [place] [address] Care Team Providers Name Role Phone Unavailable Primary Care Provider Unavailable Encounter Details Date Type Department Care Team Description 05/04/2020 Admin Visit Department of Family Medicine, [address] [address] [facility] Social History Tobacco Use Types Packs/Day Years Used Date Smoking Tobacco: Never Assessed Sex Assigned at Date Recorded Not on file documented as of this encounter Plan of Treatment Not on filedocumented as of this encounter Visit Diagnoses Not on filedocumented in this encounter Additional Health Concerns Infection Onset Date Last Indicated Resolved Time COVID19 Pending 05/04/2020 05/04/2020 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
--- OUTSIDE RECORDS SUMMARY | 2022-01-24 15:43 | XMS_ITS | Encounter Summary ---
:1945 Author Care Team Providers Name Role Phone Magan Verdugo MD Primary Care Provider [phone] Magan Verdugo MD Referring Provider [phone] Reason for Visit Injection Assessment and Plan 1. Malignant tumor of prostate ? Firmagon kit with diluent syringe 80 mg subcutaneous solution Discussion Note: None recorded.Patient educational handouts: No information available. Plan of Care Reminders Provider Appointments Lab Injection on or around [facility] 02/25/2022 ? Lab Blood Draw & on or around [facility] Injection 03/28/2022 ? Lab Injection on or around [facility] 04/28/2022 ? Lab Injection on or around [facility] 05/26/2022 ? Return to Office on or around Corey Beyer, 06/11/2022 ? Lab Blood Draw & on or around [facility] Injection 06/26/2022 Lab None recorded. ? ? Referral None [...] with diluent syringe 80 mg subcutaneous solution [id number] Inject 80 mg by subcutaneous route. Vitals None recorded. Results Lab Results None recorded. Allergies Code Code System Name Reaction Severity Onset NKDA ? ? ? Problems Name Status Onset Date Source ? Raised Prostate Specific Antigen Active 06/26/2018 History Malignant Tumor of Prostate Active 08/20/2018 Hist ory Procedures Date Name Performed by ? 10/13/2018 L[facility] Surg [id number] Rpbic Rad Information not available Notes: 10/13/2018 [...] mRNA, LNP-S, PF, 30 mcg/0.3 mL dose (VocoMD) 05/07/2020 05/28/2020 01/25/2021 influenza, high dose seasonal 12/24/2013 12/22/2014 11/11/2015 influenza, high-dose, quadrivalent 12/22/2020 influenza, seasonal, injectable 01/09/2001 01/26/2003 01/16/2005 01/02/2010 12/12/2011 12/17/2012 influenza, seasonal, injectable, preserv ative free 04/11/2009 01/10/2011 11/30/2019 influenza, trivalent, adjuvanted 01/08/2017 12/24/2017 influenza, unspecified formulation 12/20/2020 12/30/2020 novel [id number], all formulation s 04/11/2009 pneumococcal conjugate PCV 13 05/26/2015 pneumococcal polysaccharide PPV23 04/11/2009 01/24/2012 04/28/2019 pneumococcal, unspecified formulation 03/11/2018 03/12/2019 11/23/2020 Td (adult), adsorbed 03/11/1997 Tdap 04/11/2009 zoster live 02/12/2008 Social History Tobacco Smoking Status Never Smoker Marital status Has tobacco cessation counseling N been provided? Could you be ? N Preferred Language Malian How much tobacco do you chew? 1/day [...] you used? Have you traveled outside of [facility] in the past 30 days? What is your level of caffeine Moderate consumption? Do you or have you ever used any Y other forms of tobacco or nicotine? Race White Recreational Drug Use Y Family History Relation Problem Onset Age of Age Notes Unspecified Relation Family history of (No N/A (N o Notes) Hypertension Information) Functional Status Unknown. Past Encounters 01/24/2022 Malignant Tumor of Prostate Yaneth Velez, KACI: [address] [facility], [address], [place] [address], Ph. History of Present Illness None recorded. Review of Systems None recorded. Physical Exam None recorded.
--- OUTSIDE RECORDS SUMMARY | 2022-01-24 15:43 | XMS_ITS | Encounter Summary ---
:1945 Author Organization [facility] Address [address] [place] [address] Care Team Providers Name Role Phone Unavailable Primary Care Provider Unavailable Reason for Visit Reason Comments COVID Inquiry Encounter Details Date Type Department Care Team Description 05/04/2020 Clinical Communication Department of [facility] Presched abril, COVID Inquiry Medicine, [facility], in [address] [address] Social History Tobacco Use Types Packs/Day Years Used Date Smoking Tobacco: Never Assessed Sex Assigned at Date Recorded Not on file documented as of this encounter Miscellaneous Notes Telephone Encounter - Prema Hernandez - 05/04/2020 8:58 AM CST What is the purpose of the call?: Symptomatic (Calling PCP Office) Calling [place] [facility] What region is the patient calling from? : [place] Have you tested positive for COVID-19 in [...] Because of symptoms, transfer patient to: : [place] COVID Nurse Line (End Screening) Symptom Onset Date of symptom onset: 05/01/20 Testing Recommendation Endpoint Is testing recommended? : Transferred to nursing call line Plan: Endpoint recommendation: Transferred to Nursing/COVID Line/Care Team *Reminder if sending patient for testing in [facility] or [facility], route encounter to the correct testing pool. D & ADOLESCENT PSYCHIATRIST documented in this encounter Plan of Treatment Not on filedocumented as of this encounter Visit Diagnoses Not on filedocumented in this encounter
--- OUTSIDE RECORDS SUMMARY | 2022-01-24 15:43 | XMS_ITS | Encounter Summary ---
:1945 Author Organization [facility] Address [address] [place] [address] Care Team Providers Name Role Phone Unavailable Primary Care Provider Unavailable Encounter Details Date Type Department Care Team Description 02/25/2020 Admin Visit Department of Family Medicine, [address] [address] [facility] [phone] Social History Tobacco Use Types Packs/Day Years Used Date Smoking Tobacco: Never Assessed Sex Assigned at Date Recorded Not on file documented as of this encounter Plan of Treatment Not on filedocumented as of this encounter Visit Diagnoses Not on filedocumented in this encounter Additional Health Concerns Infection Onset Date Last Indicated Resolved Time COVID19 Pending 02/25/2020 02/25/2020 02/26/2020 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
--- OUTSIDE RECORDS SUMMARY | 2022-01-24 15:43 | XMS_ITS | Encounter Summary ---
:1945 Author Organization [facility] Address [address] [place] [address] Care Team Providers Name Role Phone Unavailable Primary Care Provider Unavailable Reason for Visit Reason Comments [facility] Nurse Line Encounter Details Date Type Department Care Team Description 05/04/2020 Clinical Communication Division of [facility] [place] Nurse Angela [facility] Internal Emy Babin R.N. [facility] [phone] [place], in (Work) [place], [place] [address] [place] [address] Social History Tobacco Use Types Packs/Day Years Used Date Smoking Tobacco: Never Assessed Sex Assigned at Date Recorded Not on file documented as of this encounter Miscellaneous Notes Telephone Encounter - Emy Bradford R.N. - 05/04/2020 9:03 AM CST COVID-19 Nurse Line Screening ASSESSMENT Region Select appropriate region: : [place] Age Pathway Select approprite pathway: : Adult [...] swabbed for COVID-19 Only , sent to [facility] located at [address] [place] [address]. The entrance is on the north side of the building. You must call [phone] during the hours of 7am to 6 [...] water are not available, use a hand information receptionist -Avoid touching your eyes, nose and mouth. 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
--- OUTSIDE RECORDS SUMMARY | 2022-01-24 15:43 | XMS_ITS | Encounter Summary ---
:[address] [facility] Address [address] [place] [address] Care Team Providers Name Role Phone Unavailable Primary Care Provider Unavailable Encounter Details Date Type Department Care Team Description 01/19/2021 Orders Only [facility] PCP TH Sa antwon Silverman M.D. [address] [place], [place] [phone] (Wo rk) Social History Tobacco Use Types Packs/Day Years Used Date Smoking Tobacco: Never Assessed Sex Assigned at Date Recorded Not on file documented as of this encounter Plan of Treatment Not on filedocumented as of this encounter Visit Diagnoses Not on filedocumented in this encounter
--- OUTSIDE RECORDS SUMMARY | 2022-01-24 15:43 | XMS_ITS | Encounter Summary ---
:1945 Author Organization [facility] Address [address] [place] [address] Care Team Providers Name Role Phone Unavailable Primary Care Provider Unavailable Reason for Visit Reason Comments [facility] Nurse Line Encounter Details Date Type Department Care Team Description 05/04/2020 Clinical Communication Division of [facility] Nurse Angela [facility] Internal B, R.N. [place] [phone] [place], in (Work) [place], [place] [address] [place] [address] Social History Tobacco Use Types Packs/Day Years [...] on saturday Region Select appropriate region: : [place] Age Pathway Select approprite pathway: : Adult [...] (age 3 - 75 only), sent to [facility] located at [address] [place] [address]. The entrance is on the north side of the building. You must call [phone] during the hours of 7am to 6 [...] water are not available, use a hand imposer -Avoid touching your eyes, nose and mouth. [...] care: Yes The following references were used: [facility] novel coronavirus (COVID- 19) resources COVID-19Nurse Line Screening ASSESSMENT Region Select appropriate region: : [place] Age Pathway Select approprite pathway: : Adult [...] (age 3 - 75 only), sent to [place] located at [address] [place] [address]. The entrance is on the north side of the building. You must call [phone] during the hours of 7am to 6 [...] water are not available, use a hand imposer -Avoid touching your eyes, nose and mouth. [...] care: Yes The following references were used: [facility] novel coronavirus (COVID- 19) resources Nursing judgement GER PRESENTATION documented in this encounter Plan of Treatment Not on filedocumented as of this encounter Visit Diagnoses Not on filedocumented in this encounter
--- OUTSIDE RECORDS SUMMARY | 2022-01-24 15:43 | XMS_ITS | Encounter Summary ---
:1945 Author Organization [facility] Address [address] [place] [address] Care Team Providers Name Role Phone Unavailable Primary Care Provider Unavailable Reason for Visit Reason Comments COVID Inquiry Encounter Details Date Type Department Care Team Description 02/25/2020 Clinical Communication Central Appointment [facility] in [facility] [address] [place], [place] [address] Social History Tobacco Use Types Packs/Day Years [...] swabbed for COVID-19 and Influenza, sent to [facility] located at [address] [place] [address]. The entrance is on the north side of the building. You must call [phone] for an appointment time.Testing hours are Daily [...] water are not available, use a hand launch steward -Avoid touching your eyes, nose and mouth. 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
--- OUTSIDE RECORDS SUMMARY | 2022-01-24 15:43 | XMS_ITS | Clinical Summary ---
:1945 Author Organization [facility] Address [address] [place] [address] Care Team Providers Name Role Phone Unavailable Primary Care Provider Unavailable Source Comments Patient records contain information from all sites at [facility]. For routine questions regarding patient records, call [phone] during business hours, M-F 8:00 AM - 5:00 PM Central Time. Record requests for emergency care only can be directed to [phone] at any time.[facility] Immunizations Name Administration Dates Next Due Influenza [...] Phone Addre ss Type Group [facility] [id number] 2017-Janessa [phone] [address] [address] [facility] [address] [place] [address]
--- OUTSIDE RECORDS SUMMARY | 2022-01-24 15:43 | XMS_ITS | Encounter Summary ---
:1945 Author Organization [facility] Address [address] [place] [address] Care Team Providers Name Role Phone Unavailable Primary Care Provider Unavailable Reason for Visit Reason Onset Date Comments Testing For Upper Respiratory Virus Symptoms 02/25/2020 Encounter Details Date Type Department Care Team Description 02/25/2020 External Outreach Department of [facility] Kevin Worley [facility] Medicine, [facility] Eneida Ramos Respiratory (Primary Building, in [address] [place], [place] [address] [facility] [address] [place], [place] [phone] [address] (Work) [phone] Social History Tobacco Use Types Packs/Day Years Used Date Smoking Tobacco: Never Assessed Sex Assigned at Date Recorded Not on file documented as of this encounter Progress Notes Nila Garza R.N. - 02/25/2020 11:33 AM CST Encounter created for symptomatic infectious disease screening with possible COVID, Influenza, and RSV testing. 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 SARS CORONAVIRUS-2 Routine 02/25/2020 1:02 PM Infection Upper Results for this RNA, V TUMBLING AND ROLLING SUPERVISOR Respiratory procedure are i n the results section. documented in this encounter Results Influenza A/B and RSV, PCR, Varies (02/25/2020 1:02 PM TUMBLING AND ROLLING SUPERVISOR) [facility] Method Time Signature Influenza A/B Swab, 02/26/2020 DTL and RSV, Nasopharynx 2:10 PM TUMBLING AND ROLLING SUPERVISOR Source Influenza A, Undetected Undetected 02/26/2020 DTL PCR 2:10 PM TUMBLING AND ROLLING SUPERVISOR Comment: Influenza A RNA absent. Influenza B, PCR Undetected Undetected 02/26/2020 2:10 PM CS T DTL Comment: Influenza B RNA absent. Respiratory Syncytial Virus, PCR Undetected Undetected 2:10 PM TUMBLING AND ROLLING SUPERVISOR DTL Comment: RSV RNA absent. ----ADDITIONAL INFORMATION---- This test has been modified from the man ufacturer's instructions. Its performance characteristics were determi dylan by [facility] in a manner consistent with CLIA requirements. This test has not been cleared or approved by the U.S. Food and Drug Administration . Specimen Anatomical Collection Method Collection Time Receive d Time (Source) Location / / Volume Laterality Varies 02/25/2020 1:02 PM 0 7:12 (Nasopharynx) TUMBLING AND ROLLING SUPERVISOR AM TUMBLING AND ROLLING SUPERVISOR Kevin Worley D.O. LAB MICROBIOLOGY - GENERAL O RDERABLES Performing Organization Address City/State/ZIP Code Phon e Number [facility] - [address] [place] [phone] [facility] [place] [address] Laboratories-[facility] [address] [facility] SARS Coronavirus-2 RNA, V Symptomatic (02/25/2020 1:02 PM TUMBLING AND ROLLING SUPERVISOR) [facility] Method Time Signature SARS-CoV-2 Swab, 02/26/2020 [facility] Specimen Nasopharynx 3:04 AM TUMBLING AND ROLLING SUPERVISOR Source SARS CoV-2 Undetected Undetected 02/26/2020 [facility] RNA, TMA 3:04 AM TUMBLING AND ROLLING SUPERVISOR Comment: SARS-CoV-2 RNA absent. This result does not rule out COVID-19 in the patient, as the sensitivity of the test depends o n the timing of the specimen collection and the quality of the specim en. Result should be correlated with patient's history and clinical presentat ion. ----ADDITIONAL INFORMATION---- This test is performed using the Aptima SARS-CoV-2 assay ([employer] which has received Emergency Use Authori zation (EUA) by the U.S. Food and Drug Administration. Fact sheets for this Emergency Use Autho rization (EUA) assay can be found at the following links: For Healthcare Providers: https://www.fd a.gov/media/147189/download For Patients: https://www.fda.gov/media/ 382031/download Specimen Anatomical Collection Method Collection Time Receive d Time (Source) Location / / Volume Laterality Varies 02/25/2020 1:02 PM 0 9:46 (Nasopharynx) TUMBLING AND ROLLING SUPERVISOR PM TUMBLING AND ROLLING SUPERVISOR Kevin Worley D.O. LAB MICROBIOLOGY - GENERAL O RDERABLES Performing Organization Address City/State/[facility] Code Phon e Number [facility]- [address] [place] [address] [place] [address] [address] documented in this encounter Visit Diagnoses Diagnosis Infection Upper Respiratory - Primary documented in this encounter Additional Health Concerns Infection Onset Date Last Indicated Resolved Time COVID19 Pending 02/25/2020 02/25/2020 02/26/2020 3:05 AM TUMBLING AND ROLLING SUPERVISOR documented as of this encounter
--- OUTSIDE RECORDS SUMMARY | 2022-01-24 15:43 | XMS_ITS | Encounter Summary ---
:1945 Author Care Team Providers Name Role Phone Magan Verdugo MD Primary Care Provider [phone] Magan Verdugo MD Referring Provider [phone] Reason for Visit None recorded. Assessment and [...] Provider Appointments [facility] ? Lab Blood Draw & on or around [facility] Injection 03/28/2022 ? Lab Injection on or around [facility] 04/28/2022 ? Lab Injection on or around [facility] 05/26/2022 ? Return to Office on or around Corey Beyer, 06/11/2022 ? Lab Blood Draw & on or around [facility] Injection 06/26/2022 Lab None recorded. ? ? [...] AT BEDTIME azithromycin 250 mg tablet ? Chana COVID-19 Ag Self Test kit ? TEST [...] Name Performed by ? 10/13/2018 L[facility] Surg [id number] Rpbic Rad Information not available Notes: 10/13/2018 [...] mRNA, LNP-S, PF, 30 mcg/0.3 mL dose (Q-go) 05/07/2020 05/28/2020 01/25/2021 influenza, high dose seasonal 12/24/2013 12/22/2014 11/11/2015 influenza, high-dose, quadrivalent 12/22/2020 influenza, seasonal, injectable 01/09/2001 01/26/2003 01/16/2005 01/02/2010 12/12/2011 12/17/2012 influenza, seasonal, injectable, preserv ative free 04/11/2009 01/10/2011 11/30/2019 influenza, trivalent, adjuvanted 01/08/2017 12/24/2017 influenza, unspecified formulation 12/20/2020 12/30/2020 novel [id number], all formulation s 04/11/2009 pneumococcal conjugate PCV 13 05/26/2015 pneumococcal polysaccharide PPV23 04/11/2009 01/24/2012 04/28/2019 pneumococcal, unspecified formulation 03/11/2018 03/12/2019 11/23/2020 Td (adult), adsorbed 03/11/1997 Tdap 04/11/2009 zoster live 02/12/2008 Social History Tobacco Smoking Status Never Smoker Marital status Has tobacco cessation counseling N been provided? Could you be ? N Preferred Language Yemeni How much tobacco do you chew? 1/day [...] you used? Have you traveled outside of [facility] in the past 30 days? [...] Corey Beyer MD: [address], [address], [place] [address], Ph. 12/04/2021 Malignant Tumor of Prostate Corey Beyer MD: [address], [address], [place] [address], Ph. History of Present Illness Note: <div>patient [...]
--- OUTSIDE RECORDS SUMMARY | 2022-01-24 15:43 | XMS_ITS | Encounter Summary ---
:1945 Author Organization [facility] Address [address] [place] [address] Care Team Providers Name Role Phone Unavailable Primary Care Provider Unavailable Reason for Visit Reason Comments Triage Encounter Details Date Type Department Care Team Description 05/30/2020 Clinical Communication Division of General [facility] in [place], [place] [address] [facility] [address] [place] [phone] [phone] Social History Tobacco Use Types Packs/Day Years [...] contact the patient's primary provider or the [facility]. [id number] Telephone Encounter - Marsha Castillo - 05/30/2020 8:52 AM CDT CATHERINE VALDOVINOS 1945 [id number] years Gender: Male Who filled out ARF: Patient?? Request: I have medical symptoms without a clear diagnosis TOP THREE SYMPTOMS: MAIN SYMPTOM debilitating pain in upper stomach. Dizzy,nausea. Description: sharp pain in upper stomach, comes and goes. Dizziness. Nausea Duration: 6 to 12 months Previous Eval: Yes Institution: [facility] Have had: Images (X-Rays, CT scan, MRI [...] DIAGNOSIS: No Willing to attend [facility] or [facility] appointments - Definitely not DAILY MEDS: 7 OPIOIDS: No CURRENT DIALYSIS: No CURRENT HEALTH/PAST YEAR: Fair CONFIDENCE: Agree NOT AVAILABLE: I AM AVAILABLE ANY TIME PHONE: [phone] documented in this encounter Plan of Treatment Not on filedocumented as of this encounter Visit Diagnoses Not on filedocumented in this encounter
--- OUTSIDE RECORDS SUMMARY | 2022-01-24 15:43 | XMS_ITS ---
:1945 Author Care Team Providers Name Role Phone ARTURO WHITEHEAD MD Primary Care Provider [phone] ARTURO WHITEHEAD MD Referring Provider [phone] Allergies Code Code System Name Reaction Severity [...] MOUTH EVERY DAY lorazepam 1 mg tablet Active ? Not availa ble TAKE 1 TABLET BY MOUTH TWICE DAILY NEEDED FOR ANXIETY metformin ER 500 mg tablet,extended release 24 hr Active ? Not available metoprolol succinate ER 50 mg tablet,extended release 24 hr Acti ve ? Not available TAKE 1 TABLET BY MOUTH DAILY omeprazole 20 mg capsule,delayed release Active ? Not available TK 1 C PO BID Orgovyx 120 mg tablet Active ? Not availa ble Take 1 tablet every day by oral route. pantoprazole 40 mg tablet,delayed release Active ? Not available polyethylene glycol 3350 17 gram/dose oral powder Active ? Not available prednisone 20 mg tablet Active ? Not avai lable TAKE 1 TABLET BY MOUTH EVERY DAY prednisone 5 mg tablet Active ? Not avail able prednisone 50 mg tablet Active ? Not avai lable TAKE 1 TABLET BY MOUTH EVERY DAY Stimulant Laxative Plus 8.6 mg-50 mg tablet Active ? Not available valacyclovir 1 gram tablet Active ? Not a vailable TK 1 T PO TID Xtandi 40 mg tablet Active ? Not availabl e Problems Name Status Onset Date Source ? Raised Prostate Specific Antigen Active 06/26/2018 History Malignant Tumor of Prostate Active 08/20/2018 Hist ory Procedures Date Name Performed by ? 10/13/2018 Laps Surg [id number] Rpbic Rad Information not available Notes: 10/13/2018 [...] BLDV ? PSA, Total <0.10 <4.0 Fin [facility] Serum or NG/mL NG/mL Urology - [facility]: [address] 12/04/2021 Testosteron BLDV ? Testosterone <10 175-781 Final [place] e, Total, NG/dL NG/dL Urology - Serum [facility]: [address] [place] [address] 06/23/2021 PSA, Total, BLDV ? PSA, Total <0.10 <4.0 [facility] Serum or NG/mL NG/mL Urology - Plasma [facility]: [address] [place] [address] 04/06/2021 PSA, Total, BLDV ? PSA, Total <0.[address] [facility] heather [place] Serum or NG/mL NG/mL Urology - Plasma [facility]: [address] [place] [address] 04/06/2021 Testosteron BLDV Low Testosterone 23.72 175.00- Final [place] e, Total, NG/dL 781.00 Urology - Serum NG/dL [facility]: [address] [place] [address] 02/06/2021 BMP, Serum BLDV High Glu 122.40 70.00-1 Final [place] or Plasma mg/dL 05.00 Urology - mg/dL [facility]: [address] [place] [address] ? ? BLDV ? Ca 8.8 8.4-10. Final [place] mg/dL 2 mg/dL [facility]rology - [facility]: [address] [place] [address] ? ? BLDV ? Na 135.0 135.0-1 Final [place] mmol/L 45.0 Urology - mmol/L [facility]: [address] [place] [address] ? ? BLDV ? Potassium 4.3 3.6-5.0 Final [place] mmol/L mmol/L Urology - [facility]: [address] [place] [address] ? ? BLDV Low Chloride 99.0 101.0-1 Final [place] mmol/L 11.0 Urology - mmol/L [facility]: [address] [place] [address] ? ? BLDV ? Co2 25.0 21.0-31 Final [place] mmol/L .0 Urology - mmol/L [facility]: [address] [place] [address] ? ? BLDV ? Aniongap 11.00 0.00-16 Final [place] videotape sales representative .00 Urology - [facility]: [address] [place], [place] [address] ? ? BLDV ? Bun 15.0 7.0-18. Final [place] mg/dL 0 mg/dL Urology - [facility]: [address] [facility] e 200, [place] ? ? BLDV ? BUN/creat 15.3 9.0-20. Final [facility] sota ratio 0 ratio Urology - [facility]: [address] [facility] [address] e [address], [place] ? ? BLDV ? Creatinine 1.0 0.6-1.3 Final [place] mg/dL mg/dL Urology - [facility]: [address] [facility] [address], [place] ? ? BLDV ? Egfr >60 90-120 Final [place] mL/min mL/min Urology - per per [facility] 1.73 1.73 Lab: [address] [place] [address] St e [address], [place] 02/01/2021 CBC W/ Diff BLDV ? Wbc 6.00 3.80-10 Final [place] 10*3/uL .80 Urology - 10*3/uL [facility]: 60[address] [facility] 200, [place] ? ? BLDV ? Ne% 49.50 % 42.00-8 Final [place] 2.00 % Urology - [facility]: [address] [place] [address] 200, [place] ? ? BLDV High Ly% 36.00 % 15.00-3 Final [place] 5.00 % Urology - [facility]: 60[address] [facility] 200, [place] ? ? BLDV ? Mo% 10.20 % 4.00-12 Final [place] .00 % Urology - [facility]: 25 [facility] 200, [place] ? ? BLDV ? Eo% 3.40 % 1.00-6. Final [place] 00 % Urology - [facility]: 60[address] [facility] 200, [place] ? ? BLDV ? Ba% 0.90 % 0.00-2. Final [place] 00 % Urology - [facility]: 60[address] [facility] 200, [place] ? ? BLDV ? Ne# 3.00 1.50-7. Final [place] 10*3/uL 80 Urology - 10*3/uL [facility]: 60[address] [facility] 200, [place] ? ? BLDV ? Ly# 2.20 0.85-3. Final [place] 10*3/uL 90 Urology - 10*3/uL [facility]: [address], [place] ? ? BLDV ? Mo# 0.60 0.20-0. Final [place] 10*3/uL 95 Urology - 10*3/uL [facility]: [address], [place] ? ? BLDV ? Eo# 0.20 0.02-0. Final [place] 10*3/uL 50 Urology - 10*3/uL [facility]: [address], [place] ? ? BLDV ? Ba# 0.10 0.00-0. Final [place] 10*3/uL 20 Urology - 10*3/uL [facility]: [address], [place] ? ? BLDV ? Rbc 4.64 4.20-5. Final [place] 10*6/uL 80 Urology - 10*6/uL [facility]: [address], [place] ? ? BLDV ? Hgb 14.20 13.20-1 Final [place] g/dL 7.10 Urology - g/dL [facility]: [address], [place] ? ? BLDV ? Hct 42.30 % 38.50-5 Final [place] 0.00 % Urology - [facility]: [address], [place] ? ? BLDV ? Mcv 91.20 80.00-1 Final [place] fL 00.00 Urology - fL [facility]: [address], [place] ? ? BLDV ? Mch 30.60 27.00-3 Final [place] pg 3.00 pg [facility]rology - [facility]: [address], [place] ? ? BLDV ? Mchc 33.50 32.00-3 Final [place] g/dL 6.00 Urology - g/dL [facility]: [address], [place] ? ? BLDV ? Rdw 13.70 % 11.00-1 Final [place] 5.00 % Urology - [facility]: [address], [place] ? ? BLDV Low Plt 54.00 140.00- Final [place] 10*3/uL 400.00 Urology - 10*3/uL [facility]: [address], [place] ? ? BLDV ? Mpv 10.70 ? Final [place] fL Urology - [facility]: 60[address] [facility] 200, [place] 02/01/2021 Hepatic BLDV ? Albumin-olympu 4.4 3.5-5.0 Fi nal [place] Function s g/dL g/dL Urology - Panel, [facility]: 60[address] [facility] 200, [place] ? ? BLDV ? ALP-olympus 48.0 24.0-10 Final [place] [IU]/L 6.0 Urology - [IU]/L [facility]: 60[address] [facility] 200, [place] ? ? BLDV ? ALT-olympus 32.0 10.0-40 Final [place] IU/L .0 IU/L Urology - [facility]: [address] [place] [address], [place] ? ? BLDV ? AST-olympus 37.0 10.0-42 Final [place] IU/L .0 IU/L Urology - [facility]: [address] [place] [address], [place] ? ? BLDV ? D 0.1 0.0-0.2 Final [place] Bilirubin-olymp mg/dL mg/dL U [facility] - [facility]: [address] [place] [address], [place] ? ? BLDV ? T 0.5 0.2-1.0 Final [place] Bilirubin-olymp mg/dL mg/dL U [facility]: [address] [place] [address], [place] ? ? BLDV ? T 7.0 6.5-8.1 Final [place] Protein-olympus g/dL g/dL [facility]: 60[address] [facility] 200, [place] 02/01/2021 BMP, Serum BLDV High Glu 134.50 70.00-1 Final [place] or Plasma mg/dL 05.00 Urology - mg/dL [facility]: [address] ? ? BLDV ? Ca 9.1 8.4-10. Final [place] mg/dL 2 mg/dL Urology - [facility]: [address] [place] [address], [place] ? ? BLDV Low Na 134.0 135.0-1 Final [place] mmol/L 45.0 Urology - mmol/L [facility]: 60[address] [facility] 200, [place] ? ? BLDV High Potassium 5.5 3.6-5.0 Final [place] mmol/L mmol/L Urology - [facility]: 60[address] [facility] 200, [place] ? ? BLDV Low Chloride 99.0 101.0-1 Final [place] videotape sales representative mmol/L 11.0 Urology - mmol/L [facility]: [address] [place] [address], [place] ? ? BLDV ? Co2 25.0 21.0-31 Final [place] mmol/L .0 Urology - mmol/L [facility]: [address] [place] [address], [place] ? ? BLDV ? Aniongap 10.00 0.00-16 Final [place] videot[place] sales representative .00 Urology - [facility]: [address] [place] [address], [place] ? ? BLDV ? Bun 16.0 7.0-18. Final [place] mg/dL 0 mg/dL Urology - [facility]: [address] [place] [address], [place] ? ? BLDV ? BUN/creat 15.0 9.0-20. Final [place] ratio 0 ratio Urology - [facility]: [address] [place] [address], [place] ? ? BLDV ? Creatinine 1.1 0.6-1.3 Final [place] mg/dL mg/dL [facility]rology - [facility]: [address] [place] [address], [place] ? ? BLDV ? Egfr >60 90-120 Final [place] mL/min mL/min Urology - per per [facility] 1.73 1.73 Lab: [address] [place] [address] 02/01/2021 Testosteron BLDV ? Testosterone 494.96 175.00- Final [place] e, Total, NG/dL 781.00 Urology - Serum NG/dL [facility]: [address] [place] [address] 02/01/2021 PSA, Total, BLDV ? PSA, Total <0.10 <4.0 Fin al [place] Serum or NG/mL NG/mL [facility]rology - Plasma [facility]: [address] [place] [address] 11/10/2020 PSA, Total, BLDV ? PSA, Total 0.55 0.00-4. Fi nal [place] Serum or NG/mL 00 Urology - Plasma NG/mL [facility]: [address] [place] [address] Past Encounters 01/24/2022 Malignant Tumor of Prostate Yaneth Janice Velez, PA: [address] [place] [address], [address] [address], Ph. 12/11/2021 Malignant Tumor of Prostate Corey Wilburn Kayleen, : [address], [address], [place] [address], Ph. 12/04/2021 Malignant Tumor of Prostate Corey Millantoni Beyer MD: [address], [address], [place] [address], Ph. 11/09/2021 Malignant Tumor of Prostate Corey Wilburn MD Kayleen: [address], [facility] [address], [place] [address], Ph. 10/09/2021 Malignant Tumor of Prostate Corey Millantoni Beyer MD: [address], [facility] [address], [place] [address], Ph. 09/07/2021 Malignant Tumor of Prostate Corey Millantoni Beyer MD: [address], [address] [place] [address], Ph. 08/08/2021 Malignant Tumor of Prostate Corey Wilburn MD Kayleen: [address], [address], [place] [address], Ph. 06/23/2021 Malignant Tumor of Prostate Yaneth Janice Velez, PA: [address] [facility], [facility] [address], [place] [address], Ph. 05/22/2021 Malignant Tumor of Prostate Yaneth Janice Velez, PA: [address] [place] [address], [facility] [address], [place] [address], Ph. 04/18/2021 Malignant Tumor of Prostate Corey Wilburn MD Kayleen: [address], [place] [address], Ph. 04/06/2021 Malignant Tumor of Prostate Walt Mrofin MD: [address] [facility], [address], [place] [address], Ph. 02/09/2021 Malignant Tumor of Prostate Walt Morfin MD: [address] [place] [address], [place] [address], [place] [address], Ph. 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 02/01/2021 Malignant Tumor of Prostate Walt Morfin MD: [address] [place] [address], [address], [place] [address], Ph. 12/13/2020 Malignant Tumor of Prostate Walt Morfin MD: [address] [facility], [address] [address], Ph. 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 Social History Tobacco Smoking Status Never Smoker Vaccine List Vaccine Type COVID-19 (SARS-COV-2) vaccine, unspecifi ed 07/24/2019 07/20/2020 01/25/2021 COVID-19, mRNA, LNP-S, PF, 30 mcg/0.3 mL dose ([facility]) 05/07/2020 05/28/2020 01/25/2021 influenza, high dose seasonal 12/24/2013 12/22/2014 11/11/2015 influenza, high-dose, quadrivalent 12/22/2020 influenza, seasonal, injectable 01/09/2001 01/26/2003 01/16/2005 01/02/2010 12/12/2011 12/17/2012 influenza, seasonal, injectable, preserv ative free 04/11/2009 01/10/2011 11/30/2019 influenza, trivalent, adjuvanted 01/08/2017 12/24/2017 influenza, unspecified formulation 12/20/2020 12/30/2020 novel [id number], all formulation s 04/11/2009 pneumococcal conjugate PCV [...]
--- OUTSIDE RECORDS SUMMARY | 2022-01-24 15:43 | XMS_ITS | Encounter Summary ---
:1945 [facility] Address [address] [place] [address] Care Team Providers Name Role Phone Unavailable Primary Care Provider Unavailable Reason for Visit Reason Onset Date Comments Testing For Upper Respiratory Virus Symptoms 05/04/2020 Encounter Details Date Type Department Care Team Description 05/04/2020 External Outreach Department of [facility] Savannaaideedarrius Kevin Contact With And (Suspected) Exposure To COVID-19; Medicine, [facility] Eneida Ramos Infection Upper Respiratory [facility], in [address] [address] [place], [place] [phone] [address] (Work) [phone] Social History Tobacco Use Types Packs/Day Years Used Date Smoking Tobacco: Never Assessed Sex Assigned at Date Recorded Not on file documented as of this encounter Progress Notes Jannet Dominguez R.N. - 05/04/2020 9:45 AM CST Encounter created for symptomatic infectious disease screening with possible COVID, Influenza, RSV, and/or Group A Strep testing. TH INFORMATION DIRECTOR documented in this encounter Plan of Treatment Not on filedocumented as of this encounter Procedures Procedure Name Priority Date/Time Associated Diagnosis Comme nts SARS CORONAVIRUS-2 Routine 05/04/2020 9:57 AM Contact With And Results for this RNA, V HEALTH INFORMATION DIRECTOR (Suspected) Exposure procedu re are in To COVID-19 the results section. documented in this encounter Results SARS Coronavirus-2 RNA, V Symptomatic (05/04/2020 9:57 AM HEALTH INFORMATION DIRECTOR) [facility] Method Time Signature SARS-CoV-2 Swab, 05/04/2020 MKTO Specimen Nasopharynx 9:20 PM HEALTH INFORMATION DIRECTOR Source SARS CoV-2 Undetected Undetected 05/04/2020 MKTO RNA, TMA 9:20 PM HEALTH INFORMATION DIRECTOR Comment: SARS-CoV-2 RNA absent. This result does not rule out COVID-19 in the patient, as the sensitivity of the test depends o n the timing of the specimen collection and the quality of the specim en. Result should be correlated with patient's history and clinical presentat ion. ----ADDITIONAL INFORMATION---- This molecular amplification test was pe rformed using the Aptima SARS-CoV-2 assay ([employer] on the Interactive Fates tem under emergency use authorization (EUA) by the U.S. Food and Drug Administ ration. Fact sheets for this EUA assay can be fo und at the following links: For Healthcare Providers: https://www.TUNJI a.gov/media/277990/download For Patients: https://www.fda.gov/media/ 052645/download Specimen Anatomical Collection Method Collection Time Receive d Time (Source) Location / / Volume Laterality Varies 05/04/2020 9:57 AM 3:22 (Nasopharynx) HEALTH INFORMATION DIRECTOR PM HEALTH INFORMATION DIRECTOR Kevin Worley D.O. LAB MICROBIOLOGY - GENERAL O GABRIELA Performing Organization Address City/State/ZIP Code Phon e Number [facility]- [address] [place] [address] [address] [place] [address] [address] documented in this encounter Visit Diagnoses Diagnosis Contact With And (Suspected) Exposure To COVID-19 Infection Upper Respiratory documented in this encounter Additional Health Concerns Infection Onset Date Last Indicated Resolved Time COVID19 Pending 05/04/2020 05/04/2020 05/04/2020 9:21 PM HEALTH INFORMATION DIRECTOR documented as of this encounter
--- OUTSIDE RECORDS SUMMARY | 2022-01-24 15:43 | XMS_ITS | Encounter Summary ---
:1945 Author Care Team Providers Name Role Phone Magan Verdugo MD Primary Care Provider [phone] Magan Verdugo MD Referring Provider [phone] Reason for Visit Injection Assessment and Plan [...] Provider Appointments Lab Injection on or around [facility] 02/25/2022 ? Lab Blood Draw & on or around [facility] Injection 03/28/2022 ? Lab Injection on or around [facility] 04/28/2022 ? Lab Injection on or around [facility] 05/26/2022 ? Return to Office on or around Corey Beyer, 06/11/2022 ? Lab Blood Draw & on or around [facility] Injection 06/26/2022 Lab None recorded. ? ? [...] with diluent syringe 80 mg subcutaneous solution [id number] Inject 80 mg by subcutaneous route. Vitals None recorded. Results Lab Results None recorded. Allergies Code Code System Name Reaction Severity Onset NKDA ? ? ? Problems Name Status Onset Date Source ? Raised Prostate Specific Antigen Active 06/26/2018 History Malignant Tumor of Prostate Active 08/20/2018 Hist ory Procedures Date Name Performed by ? 10/13/2018 Laps Surg [id number] Rpbic Rad Information not available Notes: 10/13/2018 [...] mRNA, LNP-S, PF, 30 mcg/0.3 mL dose ([employer]) 05/07/2020 05/28/2020 01/25/2021 influenza, high dose seasonal 12/24/2013 12/22/2014 11/11/2015 influenza, high-dose, quadrivalent 12/22/2020 influenza, seasonal, injectable 01/09/2001 01/26/2003 01/16/2005 01/02/2010 12/12/2011 12/17/2012 influenza, seasonal, injectable, preserv ative free 04/11/2009 01/10/2011 11/30/2019 influenza, trivalent, adjuvanted 01/08/2017 12/24/2017 influenza, unspecified formulation 12/20/2020 12/30/2020 novel [id number], all formulation s 04/11/2009 pneumococcal conjugate PCV 13 05/26/2015 pneumococcal polysaccharide [id number] 04/11/2009 01/24/2012 04/28/2019 pneumococcal, unspecified formulation 03/11/2018 03/12/2019 11/23/2020 Td (adult), adsorbed 03/11/1997 Tdap 04/11/2009 zoster live 02/12/2008 Social History Tobacco Smoking Status Never Smoker Marital status Has tobacco cessation counseling N been provided? Could you be ? N Preferred Language Nauruan How much tobacco do you chew? 1/day [...] user smokeless tobacco? Which illicit or recreational marijuakron Notes: o nce in a while drugs have you used? Have you traveled outside of [facility] in the past 30 days? [...] Corey Beyer MD: [address], [place] [address], Ph. 10/09/2021 Malignant Tumor of Prostate Corey Beyer MD: [address], [address], [place] [address], Ph. History of Present Illness None recorded. Review of Systems None recorded. Physical Exam None recorded.
--- NOTE | 2022-01-24 16:00 | CRLHL7_ITS ---
For Patients: As a result of the Century Cures Act, medical imaging exams and procedure reports are released immediately into your electronic medical record. You may view this report before your referring provider. If you have questions, please contact your health care provider. INDICATION: Abdominal pain. History of diverticulitis. Prior prostatectomy. TECHNIQUE: Noncontrast CT of the abdomen and pelvis. COMPARISON: October 28, 2020. FINDINGS: Pleural plaques with calcification at the lung bases. No pulmonary nodules, pleural, or pericardial effusions at either lung base. Coronary artery calcifications. Nonobstructing 4 mm stone right renal collecting system image 54 series 2 unchanged. No left renal stones. No hydronephrosis or hydroureter. The unenhanced liver, spleen, pancreas, gallbladder, and adrenal glands are normal. Vascular calcification within a normal caliber abdominal aorta and iliac arteries. Normal appendix. Sigmoid diverticulosis without diverticulitis. The urinary bladder is unremarkable. Surgically absent prostate gland and seminal vesicles. Small left santo pelvic lymphocele measuring 2.4 x 2.0 cm previously 3.2 x 2.8 cm. No ascites. No abdominopelvic or inguinal lymphadenopathy. The stomach is grossly unremarkable. Incidental note is made of increased attenuation of fat within the right mid to lower abdominal wall with few small dots of air, see for example image 10 series 4 and image 96 series 2. This could reflect a localized panniculitis. The small dots of air could reflect a gas forming organism in the absence of any recent interventional procedure such as incision and drainage for hernia repair. Please correlate clinically regarding any new or ongoing infection. Degenerative and hypertrophic change of the included spine with a lumbar curve convex towards the left. Multilevel degenerative disc disease. Exuberant hypertrophic spurring of the lower thoracic and lumbar spine. IMPRESSION: 1. New increased attenuation of subcutaneous fat with a few small dots of air in the subcutaneous fat within the right lower quadrant near the umbilicus. This may explain the patient`s pain. Please correlate with any history of interventional procedure or known infection. 2. Sigmoid diverticulosis without diverticulitis. 3. Surgically absent prostate gland and seminal vesicles. Small decrease in the size of the left santo pelvic lymphocele. 4. Stable 4 mm nonobstructing right renal stone. Please note that all CT scans at this facility use dose modulation, iterative reconstruction, and/or weight-based dosing when appropriate to reduce radiation dose to as low as reasonably achievable. Dictated by Young Aaron MD @ 01/25/2022 8:50:29 AM (Electronically Signed)
== END 2022-01-24 15:41 | disposition home or self-care (01) ==
LOC: CT 15:41
PROVIDERS: PCP Family Medicine; Visit Provider Family Medicine
DX: R10.9 Unspecified abdominal pain (principal); K57.30 Diverticulosis of large intestine without perforation or abscess without bleeding; N20.0 Calculus of kidney
CPT/HCPCS: 74176

== ENCOUNTER 2022-05-28 09:52 | Outpatient (CLI) | payer BC, SELFPAY ==
--- OUTSIDE RECORDS SUMMARY | 2022-05-29 19:57 | XMS_ITS | Continuity of Care Document ---
:1945 Author Organization [facility] Address [address] [address] [place] [address] Phone Care Team Providers Name Role Phone No Information Unavailable Unavailable Advance Directives Directive Yes / No Effective Date File Name No Information Encounters Encounter Practice Location Reason(s) Diagnoses Date Provider Provide rs Description For Visit Copied on Encounter [facility] No No Referring Digestive Information Information Provid er: Magan Kern [address] Kartik Balbuena MD, [address] [place] [id number] [id number]. tel:[phone] tel:[phone] Family History Family Member Type Diagnosis Age At Onset No Information Payers Payer name Insurance type Covered democrat ID Authorization(s ) No Information Social History [...]
== END 2022-05-28 09:53 | disposition home or self-care (01) ==
LOC: NFLDREF 05-29 19:55
PROVIDERS: PCP Family Medicine; Referring Provider Family Medicine; Visit Provider Family Medicine
DX: E11.9 Type 2 diabetes mellitus without complications (principal); C61 Malignant neoplasm of prostate
CPT/HCPCS: 84153

== ENCOUNTER 2022-11-05 08:43 | Outpatient (CLI) | payer BC, SELFPAY ==
[2022-11-05 13:49] LABS: Basophils Absolute Auto 0.03 K/uL (0.00-0.30); Basophils Percent Auto 0.4 % (0.0-3.0); Eosinophils Absolute Auto 0.18 K/uL (0.00-0.50); Eosinophils Percent Auto 2.2 % (0.0-7.0); Hematocrit 44.3 % (37.0-53.0); Hemoglobin* 15.2 gm/dL (13.5-17.5); Immature Granulocytes Abs Auto 0.02 K/uL (0.00-0.30); Immature Granulocytes Pct Auto 0.2 %; Lymphocytes Percent Auto 18.9 % (20-44); Mean Corpuscular HGB Conc 34 gm/dL (32-36); Mean Corpuscular Hemoglobin 32 pg (26-34); Mean Corpuscular Volume 94 fL (80-100); Monocytes Percent Auto 8.6 % (0.0-11.0); Neutrophils Absolute Auto 5.59 K/uL (1.7-7.0); Neutrophils Percent Auto 69.7 % (42.0-72.0); RDW Coefficient of Variation % 12.3 % (11.5-15.5); White Blood Count* 8.03 K/uL (4.50-11.00)
[2022-11-05 14:14] LABS: Slide Review Reflex Yes
[2022-11-05 15:00] LABS: Anion Gap 9 mEq/L (7-15); Blood Urea Nitrogen* 17 mg/dL (7-30); Carbon Dioxide* 27 mmol/L (20-32); Chloride* 99 mmol/L (96-114); Creatinine* 0.7 mg/dL (0.5-1.5); Estimated Glomerular Filt Rate 95 ml/min; Potassium* 4.6 mmol/L (3.6-5.1); Sodium* 135 mmol/L (135-149)
[2022-11-05 15:01] LABS: Alanine Aminotransferase* 52 U/L (4-50); Glucose* 151 mg/dL (60-115)
[2022-11-05 15:02] LABS: Cholesterol* 250 mg/dL (90-199); HDL Cholesterol* 50 mg/dL (>=40); LDL Cholesterol Calculated 64 mg/dL (<100); Triglycerides* 681 mg/dL (40-149)
[2022-11-05 15:24] LABS: Slide Review Acceptable Review (Acceptable)
[2022-11-05 15:25] LABS: Platelet Count* 60 K/uL (140-440)
== END 2022-11-05 08:44 | disposition home or self-care (01) ==
PROVIDERS: PCP Family Medicine; Visit Provider Family Medicine
DX: E78.5 Hyperlipidemia, unspecified (principal); I10 Essential (primary) hypertension; D50.9 Iron deficiency anemia, unspecified; E11.9 Type 2 diabetes mellitus without complications
CPT/HCPCS: 80048; 80061; 84460; 85025

== ENCOUNTER 2023-03-07 10:17 | Outpatient (CLI) | payer BC, SELFPAY | END 2023-03-07 10:18 | disposition home or self-care (01) | PROVIDERS: PCP Family Medicine; Visit Provider Family Medicine | DX: D50.9 Iron deficiency anemia, unspecified (principal); R25.1 Tremor, unspecified; E78.2 Mixed hyperlipidemia; E55.9 Vitamin D deficiency, unspecified; E11.9 Type 2 diabetes mellitus without complications | CPT/HCPCS: 80048; 82306; 82607; 82728; 84443; 85025 ==

== ENCOUNTER 2023-03-26 13:28 | Outpatient (CLI) | payer BC, SELFPAY ==
--- NOTE | 2023-03-26 13:45 | CRLHL7_ITS ---
For Patients: As a result of the Century Cures Act, medical imaging exams and procedure reports are released immediately into your electronic medical record. You may view this report before your referring provider. If you have questions, please contact your health care provider. Indication: Tremor. Technique: Multiplanar, multisequence MRI of the brain was performed without intravenous contrast. Comparison: MR brain 09/23/2019. Findings: Slight thinning of the corpus callosum. The pituitary gland and clivus appear intact. Moderate degenerative change visualized upper cervical spine. There is no restricted diffusion. No intracranial hemorrhage. The ventricles are proportionate to the cerebral sulci. The 4th ventricle appears midline. The basal cisterns appear patent. No abnormal extra-axial fluid collection identified. Mild parenchymal volume loss. Progressed [id number] T2 FLAIR hyperintense foci within the subcortical and periventricular white matter, favored to represent chronic ischemic microvascular disease. There is no intracranial mass, abnormal mass-effect or midline shift identified. Major intracranial vascular flow voids appear grossly intact. Thinning of the ocular lenses. Impression: 1. No acute/subacute infarct. 2. Progressed mild to moderate chronic ischemic microvascular disease. Dictated by Jacob Landon MD @ 03/26/2023 3:06:03 PM (Electronically Signed)
== END 2023-03-26 13:29 | disposition home or self-care (01) ==
PROVIDERS: PCP Family Medicine; Visit Provider Family Medicine
DX: R25.1 Tremor, unspecified (principal); I67.82 Cerebral ischemia
CPT/HCPCS: 70551

== ENCOUNTER 2023-06-23 11:30 | Emergency (ER) | payer BC, SELFPAY ==
[2023-06-23] VITALS (12 sets, daily range): BP systolic 122–145; BP diastolic 79–108; PULSE 68–78; RESP 16; TEMP 35.8; O2SAT 94–99; BMI 28.5
--- NOTE | 2023-06-23 12:11 | ED_ITS ---
HPI - General Adult General Chief complaint: Abdominal Pain Stated complaint: Hyperventilating, abdominal pain Time Seen by Provider: 06/23/23 11:33 History of Present Illness HPI narrative: This 77-year-old male comes in reporting intermittent abdominal discomfort with nausea but no vomiting. He also has a resting tremor suspicious for Parkinson disease. He has seen a neurologist and is in the process of diagnosis. He also has been to his primary physician about a month and half ago and had his Rexulti discontinued. He does report anxiety symptoms and states that he did take a tablet of his 's Ativan once in the past which brought significant relief of those symptoms. He comes in today stating that he has an appointment with his primary physician in a few days but could not wait any longer because of how miserable he was feeling. His tremor symptoms started about a month ago and have been progressively worsening through this time. He arrives here with normal vital signs and reports no abdominal pain. Related Data Home Medications Medication Instructions Recorded Confirmed cholecalciferol (vitamin D3) 25 1,000 unit PO DAILY 11/21/21 05/07/23 mcg (1,000 unit) tablet Marijuana inhalation 12/05/21 05/07/23 aspirin 81 mg tablet,delayed 81 mg PO QDAY 01/15/22 05/07/23 release psyllium seed (sugar) oral powder 1 tbsp PO QDAY 02/26/22 05/07/23 (Metamucil (sugar) oral powder) leuprolide (4 month) 30 mg (4 30 mg subcut [id number] 03/07/23 05/07/23 month) subcutaneous syringe (Stir) Previous Rx's Medication Instructions Recorded celecoxib 200 mg capsule (Celebrex) 200 mg PO BID #60 caps 05/07/22 sennosides 8.6 mg-docusate sodium 2 tab-cap (2 x 8.6-50 mg) PO QHS 06/11/22 50 mg tablet (Senna-S) #60 tabs pantoprazole 40 mg tablet,delayed 40 mg PO QDAY #90 tabs 11/09/22 release (Protonix) lisinopril 40 mg tablet 40 mg PO QDAY #90 tabs 01/11/23 clobetasol 0.05 % topical cream 1 applic topical BID #60 grams 03/07/23 metoprolol succinate 100 mg 100 mg PO QDAY #90 tabs 03/11/23 tablet,extended release 24 hr famotidine 20 mg tablet 20 mg PO BID #180 tabs 04/10/23 metformin 500 mg tablet,extended 1,500 mg (3 x 500 mg) PO QDAY #270 04/11/23 release 24 hr tabs atorvastatin 40 mg tablet 40 mg PO QPM #90 tabs 04/30/23 brexpiprazole 4 mg tablet 4 mg PO QDAY #30 tabs 05/03/23 fluoxetine 40 mg capsule (Prozac) 40 mg PO QDAY #90 caps 05/20/23 bupropion HCl 150 mg 24 hr tablet, 150 mg PO QAM #30 tabs 06/10/23 extended release (Wellbutrin XL) carbidopa 25 mg-levodopa 100 mg 1 tab PO TID #90 tabs 06/23/23 tablet (Sinemet) lorazepam 0.5 mg tablet (Ativan) 0.5 mg PO BID PRN #12 tabs 06/23/23 ondansetron HCl 4 mg tablet 4 mg PO Q6H #20 tabs 06/23/23 Allergies Allergy/AdvReac Type Severity Reaction Status Date / Time diatrizoate meglumine Allergy Severe Hives Verified 06/23/23 11:35 Iodinated Contrast Media Allergy Severe Hives Verified 06/23/23 11:35 Review of Systems Status of ROS: Reports: 10 or more systems reviewed and unremarkable except as noted in History and below Narrative: Constitutional: No fevers, no weight gain or loss. Eyes: No discharge. No vision changes. HENT: No congestion, no sore throat, no ear pain. Cardiovascular: No chest pain, no palpitations. Respiratory: No shortness of breath, no wheezes, no cough. Gastrointestinal: No abdominal pain, no vomiting, no diarrhea. He reports nausea symptoms intermittently. Genitourinary: No dysuria, no hematuria. Musculoskeletal: Normal range of motion. Skin: No rashes, no pruritis. Neurological: No dizziness, weakness, sensory change, speech change. Resting tremor involving the right upper extremity and lips primarily. He has not had any falls. Endo/Heme/Allergies: No bruising or bleeding. No polydipsia. Pysch: no suicidality, no insomnia. He does report some anxiety symptoms. All other systems reviewed and are negative. [facility] Medical History (Updated 06/23/23 @ 13:39 by Guerrero Michelle MD) Mixed hyperlipidemia ?E78.2 - Mixed hyperlipidemia (ICD-10) Psoriasis ?L40.9 - Psoriasis, unspecified (ICD-10) Primary hypertension ?I10 - Essential (primary) hypertension (ICD-10) DJD (degenerative joint disease), lumbar ?M47.816 - Spondylosis without myelopathy or radiculopathy, lumbar region (ICD-10) Type 2 diabetes mellitus without complication, with no history of insulin use ?E11.9 - Type 2 diabetes mellitus without complications (ICD-10) Generalized anxiety disorder ?F41.1 - Generalized anxiety disorder (ICD-10) Iron deficiency anemia ?D50.9 - Iron deficiency anemia, unspecified (ICD-10) Chronic constipation ?K59.09 - Other constipation (ICD-10) COVID-19 virus infection ?U07.1 - COVID-19 (ICD-10) Sensorineural hearing loss (SNHL) of both ears ?H90.3 - Sensorineural hearing loss, bilateral (ICD-10) Malignant neoplasm of prostate ?C61 - Malignant neoplasm of prostate (ICD-10) History of vitamin D deficiency ?Z86.39 - Personal history of other endocrine, nutritional and metabolic disease (ICD-10) History of peptic ulcer ?Z87.11 - Personal history of peptic ulcer disease (ICD-10) History of diverticulitis ?Z87.19 - Personal history of other diseases of the digestive system (ICD-10) History of alcohol abuse ?F10.11 - Alcohol abuse, in remission (ICD-10) Herpes zoster (01/09/20) ?B02.9 - Zoster without complications (ICD-10) Gastroesophageal reflux disease with hiatal hernia ?K21.9 - Gastro-esophageal reflux disease without esophagitis (ICD-10) ?K44.9 - Diaphragmatic hernia without obstruction or gangrene (ICD-10) Chronic idiopathic thrombocytopenic purpura (2016) ?D69.3 - Immune thrombocytopenic purpura (ICD-10) Cataract of both eyes ?H26.9 - Unspecified cataract (ICD-10) Alcoholic fatty liver ?K70.0 - Alcoholic fatty liver (ICD-10) Chronic low back pain ?M54.50 - Low back pain, unspecified (ICD-10) ?G89.29 - Other chronic pain (ICD-10) Surgical History History of vasectomy ?Z98.52 - Vasectomy status (ICD-10) History of tonsillectomy and adenoidectomy ?Z90.89 - Acquired absence of other organs (ICD-10) History of radical prostatectomy (10/13/18) ?Z90.79 - Acquired absence of other genital organ(s) (ICD-10) History of hemorrhoidectomy (1993) ?Z98.890 - Other specified postprocedural states (ICD-10) History of esophagogastroduodenoscopy (EGD) (07/01/14) ?Z98.890 - Other specified postprocedural states (ICD-10) Family History Son Thyroid cancer Social History (Updated 03/08/23 @ 13:55 by Marion Montilla ~ [facility], [facility]) Narrative: - [place], two sons, THC, Moderate EtOH, 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 What is your current living situation?: I presently have a place to live Problems where you live: no known problems In the past 12 months, utilities in danger of being shut off: no In past 12 months, lack of transportation kept you from medical appts, meetings, work, or getting things needed for daily living: no In the past 12 mos, have been you worried that your food would run out before you had money to buy more?: never true In the past 12 mos, the food you bought just didn't last and you didn't have money to buy more?: never true Smoking Status: Current some day smoker How often do you have a drink containing alcohol: 2-3 times a week AUDIT-C Alcohol total score: 3 Non-prescribed substance use: marijuana (any form) How often does anyone, including family, friends and others, physically hurt you : never How often does anyone, including family, friends and others, insult or talk down to you: never How often does anyone, including family, friends and others, threaten you with harm: never How often does anyone, including family, friends and others, scream or curse at you: never Little interest or pleasure in doing things: several days Feeling down, depressed, or hopeless: not at all Exam Narrative: Exam Narrative: Constitutional: Well-developed, well-nourished, no acute distress. HEENT: Normocephalic, atraumatic. Neck: Normal range of motion. Nontender. Supple. Heart: Regular. No murmurs. Normal rate. Intact distal pulses. Lungs: Clear to auscultation. No chest discomfort. No wheezes, rhonchi, or rales. Abdomen: Normal bowel sounds. Nontender. No rebound tenderness. Genitalia: Deferred. Back: No midline tenderness. Normal range of motion. Extremities: Normal range of motion. No injury. Skin: Intact. No rash. Warm. No erythema or pallor. Neurologic: No altered sensation. No weakness. Alert and oriented. Resting tremor involving the mouth and right arm primarily. No cogwheel rigidity. Psychiatric: No suicidality. No anxiety or depression. No insomnia. Nursing notes and vitals signs are reviewed. Const: Vital Signs, click to edit/add: Vital Signs - 24 hr 06/23/23 11:35 06/23/23 11:49 06/23/23 12:00 Temperature 96.4 F L Pulse Rate 78 78 Pulse Rate [Pulse Oximeter] 76 Respiratory Rate 16 Blood Pressure Blood Pressure [Ri ght Upper Arm] 127/108 H Pulse Oximetry 99 98 97 Oxygen Delivery Me thod Room Air 06/23/23 12:02 06/23/23 12:30 06/23/23 12:31 Temperature Pulse Rate 78 70 72 Pulse Rate [Pulse Oximeter] Respiratory Rate Blood Pressure 141/79 H 144/89 H Blood Pressure [Ri ght Upper Arm] Pulse Oximetry 96 96 96 Oxygen Delivery Me thod 06/23/23 12:32 06/23/23 13:00 06/23/23 13:02 Temperature Pulse Rate 71 69 68 Pulse Rate [Pulse Oximeter] Respiratory Rate Blood Pressure 145/86 H Blood Pressure [Ri ght Upper Arm] Pulse Oximetry 96 97 97 Oxygen Delivery Me thod Course Vital Signs Vital signs: Initial Vital Signs Temperature 96.4 F L 06/23/23 11:35 Temperature Source Temporal Artery Scan 06/23/23 11:35 Pulse Rate 76 06/23/23 11:35 Respiratory Rate 16 06/23/23 11:35 Blood Pressure 127/108 H 06/23/23 11:35 Blood Pressure Mean 114 H 06/23/23 11:35 Blood Pressure Position Semi-Fowlers 06/23/23 11:35 Pulse Oximetry 99 06/23/23 11:35 Oxygen Delivery Method Room Air 06/23/23 11:35 Vital Signs Temperature 96.4 F L 06/23/23 11:35 Pulse Rate 76 06/23/23 11:35 Respiratory Rate 16 06/23/23 11:35 Blood Pressure 127/108 H 06/23/23 11:35 Pulse Oximetry 99 06/23/23 11:35 Oxygen Delivery Method Room Air 06/23/23 11:35 Temperature 96.4 F L 06/23/23 11:35 Pulse Rate 68 06/23/23 13:02 Respiratory Rate 16 06/23/23 11:35 Blood Pressure 145/86 H 06/23/23 13:02 Pulse Oximetry 97 06/23/23 13:02 Oxygen Delivery Method Room Air 06/23/23 11:35 Medications Administered Medications: Discontinued Medications Generic Name Dose Route Start Last Admin Trade Name Pastora PRN Reason Stop Dose Admin Lorazepam 1 mg 06/23/23 12:11 06/23/23 12:37 Lorazepam 1 Mg Tablet PO 06/23/23 12:12 1 mg ONCE ONE Administration Medical Decision Making MDM Narrative Medical decision making narrative: This patient has symptoms typical of Parkinson's disease but has not had an official established diagnosis of this. He also reports some anxiety and nausea symptoms. He was on Rexulti and had that discontinued but his symptoms are worsening. He arrives here with normal vital signs. He states that his anxiety seemed better just to be able to talk about his symptoms. I did prescribe a tablet of Ativan 1 mg to be given here and he states that this helped him feel better. He continues with his tremor involving the right upper extremity and his lips. I did speak with the neurologist on-call, Dr. Ferro, who was able to evaluate him by means of tele stroke. He did recommend starting a low dose of Sinemet 25/100 3 times daily and follow up with primary physician scheduled in 4 days. The patient has not had any hallucinations and is not showing signs of hypotension. He is taking antihypertensive medicines. I did provide prescription for Sinemet and stated if feeling lightheaded that he should continue with the Sinemet and it would be okay to hold blood pressure meds until that follow-up appointment. Discharge Plan Discharge Clinical Impression: Anxiety, Nausea, Parkinson's disease Patient Disposition: Home w/ Parent or Adult Condition: Stable Additional Instructions: Take medications as prescribed. Follow up with primary physician as scheduled. Return if worsening. Prescriptions: New ondansetron HCl 4 mg tablet 4 mg PO Q6H Qty: 20 0RF lorazepam [Ativan] 0.5 mg tablet 0.5 mg PO BID PRNQty: 12 0RF carbidopa-levodopa [Sinemet] 25-100 mg tablet 1 tab PO TID Qty: 90 2RF No Action aspirin 81 mg tablet,delayed release (DR/EC) 81 mg PO QDAY clobetasol 0.05 % cream 1 applic topical BID Qty: 60 1RF cholecalciferol (vitamin D3) 25 mcg (1,000 unit) tablet 1,000 unit PO DAILY Marijuana inhalation Metamucil (sugar) Powder 1 tbsp PO QDAY celecoxib [Celebrex] 200 mg capsule 200 mg PO BID Qty: 60 5RF sennosides-docusate sodium [Senna-S] 8.6-50 mg tablet 2 tab-cap PO QHS Qty: 60 5RF pantoprazole [Protonix] 40 mg tablet,delayed release (DR/EC) 40 mg PO QDAY Qty: 90 3RF lisinopril 40 mg tablet 40 mg PO QDAY Qty: 90 2RF Eligard (4 month) 30 mg syringe 30 mg subcut [id number] metoprolol succinate 100 mg tablet extended release 24 hr 100 mg PO QDAY Qty: 90 3RF famotidine 20 mg tablet 20 mg PO BID Qty: 180 0RF metformin 500 mg tablet extended release 24 hr 1,500 mg PO QDAY Qty: 270 3RF atorvastatin 40 mg tablet 40 mg PO QPM Qty: 90 0RF brexpiprazole 4 mg tablet 4 mg PO QDAY Qty: 30 1RF fluoxetine [Prozac] 40 mg capsule 40 mg PO QDAY Qty: 90 1RF bupropion HCl [Wellbutrin XL] 150 mg tablet extended release 24 hr 150 mg PO QAM Qty: 30 0RF Follow Up/Referrals: Magan Verdugo MD [Primary Care Provider] - Stand Alone Forms: [facility] Info Instructions
--- OUTSIDE RECORDS SUMMARY | 2023-06-23 12:20 | XMS_ITS | Data Portability ---
Author Name Unknown Address [address] [place] [address] Phone [phone] Organization [facility], [facility] Address [address] [place] [address] Care Team Providers Care Jewel Waxer Name Role Phone ARTURO WHITEHEAD Primary Care Provider [facility] (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 Morfin. He was initially treated with eligard, but this unfortunately did not improve his testosterone levels. He was transitioned to monthly Firmagon. He was also stared on Abiraterone Acetate and Prednisone. Unfortunelty, due to side effects (anxiety) he stopped taking this at the end of April 2021 [email or web address] Not available 05/22/2021 16:03:22 06/23/2021 06/23/2021 75 y/o male with metastic hormone sensitive prostate cancer who was previously followed by Dr. Morfin. [email or web address] Not available 06/23/2021 11:41:15 Plan of Treatment Reminders Order Date Submit Date Provider Last Modified By Organization Details Last Modified Time Details Appointments ESTABLISH ED 15 2023 12:45P Olaf Beyer MD Not available Not available Not available Lab PSA, total, serum or plasma 2023 024 [facility], [address], [place], [address], 04/16/2023 14:31:06 PSA, total, serum or plasma 2022 023 [facility], [address], [place], [address], 10/16/2022 16:36:06 PSA, total, serum or plasma 2022 023 [facility], [address], [place], [address], 03/28/2022 14:45:18 testoster one, total, serum 2022 023 [facility], [address], [place], [address], 03/28/2022 14:45:20 PSA, total, serum or plasma 2021 022 [facility], [address], [place], [address], 12/05/2021 11:45:16 testoster one, total, serum 2021 022 [facility], [address], [place], [address], 12/05/2021 11:45:31 PSA, total, serum or plasma 2021 022 [facility], [address], [place], [address], 06/23/2021 12:40:08 PSA, total, serum or plasma 2021 022 [facility], [address], [place], [address], 04/06/2021 11:39:34 testoster one, total, serum 2021 022 [facility], [address], [place], [address], 04/06/2021 11:39:36 BMP, serum or plasma 2020 [facility], [address], [place], [address], 02/06/2021 16:03:02 PSA, total, serum or plasma 2020 021 [facility], [address], [place], [address], 02/01/2021 14:45:50 testoster one, total, serum 2020 021 [facility], [address], [place], [address], 02/01/2021 13:18:44 BMP, serum or plasma 2020 021 [facility], [address], [place], [address], 02/01/2021 13:01:39 CBC w/ diff 2020 021 [facility], [address], [place], [address], 02/01/2021 11:59:22 hepatic function panel, serum 2020 021 [facility], [address], [place], [address], 02/01/2021 13:00:34 PSA, total, serum or plasma 2020 021 [facility], [address] [facility], [place], [address], 11/10/2020 15:35:35 Referral cancer support services 2020 022 [email or web address] Not available 03/13/2021 15:36:38 Procedures None recorded. Surgeries None recorded. Imaging None recorded. Medication Orders Eligard 45 mg (6 month) subcutane ous syringe 2022 023 API-685 [facility], [address], [place], [address], 05/26/2023 14:51:34 Firmagon kit with diluent syringe 80 mg subcutane ous solution 2022 023 [facility]77186, [address] [place], [place], [id number], 05/26/2023 14:51:34 Firmagon kit with diluent syringe 120 mg subcutane ous solution 2022 023 [facility]01258, [address] [place], [place], [id number], 05/26/2023 14:51:34 Firmagon kit with diluent syringe 80 mg subcutane ous solution 2022 023 [facility]12224, [address] [place], [place], [id number], 05/26/2023 14:51:34 Firmagon kit with diluent syringe 80 mg subcutane ous solution 2022 023 [facility]44264, [address] [place], [place], [id number], 05/26/2023 14:51:34 Firmagon kit with diluent syringe 80 mg subcutane ous solution 2022 023 API-685 [facility]25733, [address] , [place], [place], [id number], 05/26/2023 14:51:34 Firmagon kit with diluent syringe 80 mg subcutane ous solution 2022 023 API-685 [facility] #42858, [address], [place], [place], [id number], 05/26/2023 14:51:34 Firmagon kit with diluent syringe 80 mg subcutane ous solution 2022 023 API-685 [facility]17620, [address] , [place], [place], [id number], 05/26/2023 14:51:34 Firmagon kit with diluent syringe 80 mg subcutane ous solution 2021 022 API-685 [facility] #75671, [address] , [place], [place], [id number], 05/26/2023 14:51:34 Firmagon kit with diluent syringe 80 mg subcutane ous solution 2021 022 API-685 [facility] #69949, [address] [place], [place], [id number], 05/26/2023 14:51:34 Firmagon kit with diluent syringe 80 mg subcutane ous solution 2021 022 API-685 [facility] #33832, [address] [place], [place], [id number], 05/26/2023 14:51:34 Firmagon kit with diluent syringe 80 mg subcutane ous solution 2021 022 API-685 [facility] #54427, [address], [place], [place], [id number], 05/26/2023 14:51:34 Firmagon kit with diluent syringe 80 mg subcutane ous solution 2021 022 [facility], [address], [place], [place], [id number], 05/26/2023 14:51:34 Firmagon kit with diluent syringe 80 mg subcutane ous solution 2021 022 [facility], [address] , [place], [place], [id number], 05/26/2023 14:51:34 Firmagon kit with diluent syringe 80 mg subcutane ous solution 2021 022 [email or web address] Not available 05/26/2023 14:51:34 Xtandi 40 mg tablet 2021 022 API-[address], [address], 05/26/2023 14:51:34 Firmagon kit with diluent syringe 80 mg subcutane ous solution 2021 022 [facility], [address] , [place], [place], [id number], 05/26/2023 14:51:34 Firmagon kit with diluent syringe 80 mg subcutane ous solution 2021 022 [facility], [address] , [place], [place], [id number], 05/26/2023 14:51:34 Eligard 30 mg (4 month) subcutane ous syringe 2020 021 [email or web address] Not available 05/26/2023 14:51:34 Erleada 60 mg tablet [address] [facility], [address] [place] [address], [address], 05/26/2023 14:51:34 Patient TargetsNo targets recorded. 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 Morfin. - Due for PSA recheck today - Firmagon given today. Will continue getting this monthly - Plan to see Dr. Beyer in 1 month with firmagon injection - Pharmacy team continues to work on getting xtandi 40mg daily approved for him [email or web address] Not available 06/23/2021 11:42:14 Reason for Referral Cancer Support Services for Malignant tumor of prostate Referring Physician: Tawny Daugherty, Encounter Date: 11/10/2020 psa recurrence after prostat ectomy. Please contact patient to schedule at [phone]. Referring Physician: Tawny Daugherty, Encounter Date: 11/16/2020 Cancer Support Services for Malignant tumor of prostate abiraterone + prednisone lab protocol Referring Physician: Tawny Daugherty, Encounter Date: 03/13/2021 Cancer Support Services for History of malignant neoplasm of prostate Monthly Firmagon injection per Dr. Beyer Referring Physician: Kasey Cardozoy, Encounter Date: 06/25/2022 Authorization Request for Ma lignant tumor of prostate Referring Physician: Kasey Cardozoy, Encounter Date: 10/15/2022 Results Created Date Observation Date Name Description Value Unit Range Abnormal Flag LastModifiedBy Organization Detail LastModifiedTime 11/11/19 21 11/10/2020 PSA, TOTAL PSA, total 0.55 NG/mL 0.00-4 .00 Not Available [facility] [address] [place] [address] [address], [place], [address], 11/10/2020 15:35:35 02/02/20 21 02/01/2021 CBC AND DIFFE RENTI AL WBC 6.00 10*3/ uL 3.80-1 0.80 Not Available [facility] [address] [facility] [facility] [address], [place], [address], 02/01/2021 11:59:22 02/02/20 21 02/01/2021 CBC AND DIFFE RENTI AL ne% 49.50 % 42.00- 82.00 Not Available [facility] [address] [facility] [facility] [address], [place], [address], 02/01/2021 11:59:22 02/02/20 21 02/01/2021 CBC AND DIFFE RENTI AL ly% 36.00 % 15.00- 35.00 high Not Available [facility] [address] [facility] [address], [place], [address], 02/01/2021 11:59:22 02/02/20 21 02/01/2021 CBC AND DIFFE RENTI AL MO% 10.20 % 4.00-1 2.00 Not Available [facility] [address], [place], [address], 02/01/2021 11:59:22 02/02/20 21 02/01/2021 CBC AND DIFFE RENTI AL eo% 3.40 % 1.00-6 .00 Not Available [facility] [address] [facility], [place], [address], 02/01/2021 11:59:22 02/02/20 21 02/01/2021 CBC AND DIFFE RENTI AL ba% 0.90 % 0.00-2 .00 Not Available [facility] [address] [facility], [place], [address], 02/01/2021 11:59:22 02/02/20 21 02/01/2021 CBC AND DIFFE RENTI AL ne# 3.00 10*3/ uL 1.50-7 .80 Not Available [facility] [address] [facility] [address], [place], [address], 02/01/2021 11:59:22 02/02/20 21 02/01/2021 CBC AND DIFFE RENTI AL ly# 2.20 10*3/ uL 0.85-3 .90 Not Available [facility] [address] [facility] [address], [place], [address], 02/01/2021 11:59:22 02/02/20 21 02/01/2021 CBC AND DIFFE RENTI AL MO# 0.60 10*3/ uL 0.20-0 .95 Not Available [facility] [address] [facility] [address], [place], [address], 02/01/2021 11:59:22 02/02/20 21 02/01/2021 CBC AND DIFFE RENTI AL eo# 0.20 10*3/ uL 0.02-0 .50 Not Available [facility] [address] [facility] [address], [place], [address], 02/01/2021 11:59:22 02/02/20 21 02/01/2021 CBC AND DIFFE RENTI AL ba# 0.10 10*3/ uL 0.00-0 .20 Not Available [facility] [address] [place] [address] [address], [place], [address], 02/01/2021 11:59:22 02/02/20 21 02/01/2021 CBC AND DIFFE RENTI AL RBC 4.64 10*6/ uL 4.20-5 .80 Not Available [facility] [address] [place] [address] [address], [place], [address], 02/01/2021 11:59:22 02/02/20 21 02/01/2021 CBC AND DIFFE RENTI AL HGB 14.20 g/dL 13.20- 17.10 Not Available [facility] [address] [place] [address] [address], [place], [address], 02/01/2021 11:59:22 02/02/20 21 02/01/2021 CBC AND DIFFE RENTI AL HCT 42.30 % 38.50- 50.00 Not Available [facility] [address] [facility] [address], [place], [address], 02/01/2021 11:59:22 02/02/20 21 02/01/2021 CBC AND DIFFE RENTI AL MCV 91.20 fL 80.00- 100.00 Not Available [facility] [address] [facility] [address], [place], [address], 02/01/2021 11:59:22 02/02/20 21 02/01/2021 CBC AND DIFFE RENTI AL MCH 30.60 pg 27.00- 33.00 Not Available [facility] [address] [facility] [address], [place], [address], 02/01/2021 11:59:22 02/02/20 21 02/01/2021 CBC AND DIFFE RENTI AL MCHC 33.50 g/dL 32.00- 36.00 Not Available [facility] [address] [facility] [facility] [address], [place], [address], 02/01/2021 11:59:22 02/02/20 21 02/01/2021 CBC AND DIFFE RENTI AL RDW 13.70 % 11.00- 15.00 Not Available [facility] [address] [facility] [facility] [address], [place], [address], 02/01/2021 11:59:22 02/02/20 21 02/01/2021 CBC AND DIFFE RENTI AL plt 54.00 10*3/ uL 140.00 -400.0 0 low Not Available [facility] [address], [place], [address], 02/01/2021 11:59:22 02/02/20 21 02/01/2021 CBC AND DIFFE RENTI AL MPV 10.70 fL Not Available [facility] [address], [place], [address], 02/01/2021 11:59:22 02/02/20 21 02/01/2021 LIVER PANEL albumin-olym pus 4.4 g/dL 3.5-5. 0 Not Available [facility] [address] [place] [address] [address], [place], [address], 02/01/2021 13:00:34 02/02/20 21 02/01/2021 LIVER PANEL ALP-olympus 48.0 [IU]/ L 24.0-1 06.0 Not Available [facility] [address] [place] [address] [address], [place], [address], 02/01/2021 13:00:34 02/02/20 21 02/01/2021 LIVER PANEL ALT-olympus 32.0 IU/L 10.0-4 0.0 Not Available [facility] [address] [place] [address] [address], [place], [address], 02/01/2021 13:00:34 02/02/20 21 02/01/2021 LIVER PANEL AST-olympus 37.0 IU/L 10.0-4 2.0 Not Available [facility] [address] [place] [address], [place], [address], 02/01/2021 13:00:34 02/02/20 21 02/01/2021 LIVER PANEL D bilirubin-ol ympus 0.1 mg/dL 0.0-0. 2 Not Available [facility] [address] [place] [address], [place], [address], 02/01/2021 13:00:34 02/02/20 21 02/01/2021 LIVER PANEL T bilirubin-ol ympus 0.5 mg/dL 0.2-1. 0 Not Available [facility] [address] [place] [address], [place], [address], 02/01/2021 13:00:34 02/02/20 21 02/01/2021 LIVER PANEL T protein-olym pus 7.0 g/dL 6.5-8. 1 Not Available [facility] [address] [facility] [address], [place], [address], 02/01/2021 13:00:34 02/02/20 21 02/01/2021 CHEM 8 glu 134.50 mg/dL 70.00- 105.00 high Not Available [facility] [address] [facility] [address], [place], [address], 02/01/2021 13:01:39 02/02/20 21 02/01/2021 CHEM 8 Ca 9.1 mg/dL 8.4-10 .2 Not Available [facility] [address] [place] [address], [place], [address], 02/01/2021 13:01:39 02/02/20 21 02/01/2021 CHEM 8 Na 134.0 mmol/ L 135.0- 145.0 low Not Available [facility] [address] [facility] [address], [place], [address], 02/01/2021 13:01:39 02/02/20 21 02/01/2021 CHEM 8 potassium 5.5 mmol/ L 3.6-5. 0 high Not Available [facility] [address] [facility] [address], [place], [address], 02/01/2021 13:01:39 02/02/20 21 02/01/2021 CHEM 8 chloride 99.0 mmol/ L 101.0- 111.0 low Not Available [facility] [address] [place] [address], [place], [address], 02/01/2021 13:01:39 02/02/20 21 02/01/2021 CHEM 8 CO2 25.0 mmol/ L 21.0-3 1.0 Not Available [facility] [address] [place] [address], [place], [address], 02/01/2021 13:01:39 02/02/20 21 02/01/2021 CHEM 8 aniongap 10.00 0.00-1 6.00 Not Available [facility] [address] [facility] [address], [place], [address], 02/01/2021 13:01:39 02/02/20 21 02/01/2021 CHEM 8 BUN 16.0 mg/dL 7.0-18 .0 Not Available [facility] [address] [facility] [address], [place], [address], 02/01/2021 13:01:39 02/02/20 21 02/01/2021 CHEM 8 BUN/creat 15.0 ratio 9.0-20 .0 Not Available [facility] [address] [place] [address], [place], [address], 02/01/2021 13:01:39 02/02/20 21 02/01/2021 CHEM 8 creatinine 1.1 mg/dL 0.6-1. 3 Not Available [facility] [address] [place] [address], [place], [address], 02/01/2021 13:01:39 02/02/20 21 02/01/2021 CHEM 8 eGFR >60 mL/mi n_per _1.73 90-120 Not Available [facility] [address] [place] [address] [address], [place], [address], 02/01/2021 13:01:39 02/02/20 21 02/01/2021 TESTO STERO NE testosterone 494.96 NG/dL 175.00 -781.0 0 Not Available [facility] [address] [place] [address] [address], [place], [address], 02/01/2021 13:18:44 02/02/20 21 02/01/2021 PSA, TOTAL PSA, total <0.10 NG/mL <4.0 Not Available [facility] [address] [facility] [address], [place], [address], 02/01/2021 14:45:49 02/07/20 21 02/06/2021 CHEM 8 glu 122.40 mg/dL 70.00- 105.00 high Not Available [facility] [address] [place] [address] [address], [place], [address], 02/06/2021 16:03:01 02/07/20 21 02/06/2021 CHEM 8 Ca 8.8 mg/dL 8.4-10 .2 Not Available [facility] [address] [place] [address] [address], [place], [address], 02/06/2021 16:03:01 02/07/20 21 02/06/2021 CHEM 8 Na 135.0 mmol/ L 135.0- 145.0 Not Available [facility] [address] [place] [address] [address], [place], [address], 02/06/2021 16:03:01 02/07/20 21 02/06/2021 CHEM 8 potassium 4.3 mmol/ L 3.6-5. 0 Not Available [facility] [address] [place] [address] [address], [place], [address], 02/06/2021 16:03:01 02/07/20 21 02/06/2021 CHEM 8 chloride 99.0 mmol/ L 101.0- 111.0 low Not Available [facility] [address] [place] [address] [address], [place], [address], 02/06/2021 16:03:01 02/07/20 21 02/06/2021 CHEM 8 CO2 25.0 mmol/ L 21.0-3 1.0 Not Available [facility] [address] [place] [address] [address], [place], [address], 02/06/2021 16:03:01 02/07/20 21 02/06/2021 CHEM 8 aniongap 11.00 0.00-1 6.00 Not Available [facility] [address] [facility] [address], [place], [address], 02/06/2021 16:03:01 02/07/20 21 02/06/2021 CHEM 8 BUN 15.0 mg/dL 7.0-18 .0 Not Available [facility] [address] [place] [address] [address], [place], [address], 02/06/2021 16:03:01 02/07/20 21 02/06/2021 CHEM 8 BUN/creat 15.3 ratio 9.0-20 .0 Not Available [facility] [address] [place] [address] [address], [place], [address], 02/06/2021 16:03:01 02/07/20 21 02/06/2021 CHEM 8 creatinine 1.0 mg/dL 0.6-1. 3 Not Available [facility] [address] [place] [address] [address], [place], [address], 02/06/2021 16:03:01 02/07/20 21 02/06/2021 CHEM 8 eGFR >60 mL/mi n_per _1.73 90-120 Not Available [facility] [address] [place] [address], [place], [address], 02/06/2021 16:03:01 04/06/19 22 04/06/2021 PSA, TOTAL PSA, total <0.10 NG/mL <4.0 Not Available [facility] [address] [place] [address] [address], [place], [address], 04/06/2021 11:39:34 04/06/19 22 04/06/2021 TESTO STERO NE testosterone 23.72 NG/dL 175.00 -781.0 0 low Not Available [facility] [address] [place] [address] [address], [place], [address], 04/06/2021 11:39:36 06/24/19 22 06/23/2021 PSA, TOTAL PSA, total <0.10 NG/mL <4.0 Not Available [facility] [address] [place] [address] [address], [place], [address], 06/23/2021 12:40:08 12/05/19 22 12/04/2021 PSA, TOTAL PSA, total <0.10 NG/mL <4.0 Not Available [facility] [address] [place] [address] [address], [place], [address], 12/05/2021 11:45:15 12/05/19 22 12/04/2021 TESTO STERO NE testosterone <10 NG/dL 175-78 1 Not Available [facility] [address] [place] [address], [place], [address], 12/05/2021 11:45:31 03/28/19 23 03/28/2022 PSA, TOTAL PSA, total <0.10 NG/mL <4.0 Not Available [facility] [address] [place] [address] [address], [place], [address], 03/28/2022 14:45:18 03/28/19 23 03/28/2022 TESTO STERO NE testosterone <10 NG/dL 175-78 1 Not Available [facility] [address] [place] [address], [place], [address], 03/28/2022 14:45:20 10/16/19 23 10/15/2022 PSA, TOTAL PSA, total <0.10 NG/mL <4.0 Not Available [facility] [address] [place] [address] [address], [place], [address], 10/16/2022 16:36:06 04/16/19 24 04/16/2023 PSA, TOTAL PSA, total <0.10 NG/mL <4.0 Not Available [facility] [address] [place] [address], [place], [address], 04/16/2023 14:31:06 12/01/19 21 11/30/2020 PET-C T, whole body scan No observ ation record ed. [email or web address] Not Available 12/29/2020 19:15:33 Result Notes None recorded. Problems Name Status Onset Date Resolution Date Notes Provider Name and Address Organization Details Recorded Time Prostate specific antigen above reference range Active 06/27/19 19 R97.20 : Raised prostate specific antigen Not Available [facility] 08/19/2019 23:54:14 Malignant tumor of prostate Active 08/21/19 19 C61 : Malignant tumor of prostate Not Available [facility] 08/19/2019 23:54:14 Problem Notes None recorded. Procedures Surgical History Date Name Laterality Status Provider Name and Address Organization Details Recorded Time 04/16/19 24 Blood Draw/DIRECT CARE SUPERVISOR/PSA RESULTS completed Mery Christensen null, [facility] 04/16/2023 12:37:16 10/16/19 23 Blood Draw/DIRECT CARE SUPERVISOR/PSA RESULTS completed Arleen Segura null, [facility] 10/15/2022 12:46:25 10/16/19 23 Elimariela completed Arleen Segura null, [facility] 10/15/2022 12:46:56 09/28/19 23 Firmagon completed Bucky Roundup null, [facility] 09/27/2022 10:13:16 08/30/19 23 Firmagon completed Arleen Segura null, [facility] 08/29/2022 12:54:05 07/28/[address] [facility] null, [facility] 07/27/2022 10:58:45 06/29/19 23 Firmagon completed Bucky Roundup null, [facility] 06/28/2022 10:39:47 05/30/19 23 Firmagon completed Arleen Segura null, [facility] 05/29/2022 10:36:15 04/30/19 23 Firmagon completed Mery Christensen null, [facility] 04/30/2022 12:10:20 03/28/19 23 Blood Draw/DIRECT CARE SUPERVISOR/PSA RESULTS completed Mery Christensen null, [facility] 03/28/2022 11:34:37 03/28/19 23 Firmagon completed Mery Christensen null, [facility] 03/28/2022 11:35:59 02/24/20 22 Firmagon completed Lola Briceno null, [facility] 02/23/2022 13:06:57 01/25/20 22 Firmagon completed Mery Christensen null, [facility] 01/24/2022 10:21:06 12/05/19 22 Blood Draw/DIRECT CARE SUPERVISOR/PSA RESULTS completed Mery Christensen null, [facility] 12/04/2021 09:55:45 11/10/19 22 Firmagon completed Mery Christensen null, [facility] 11/09/2021 10:52:30 10/10/19 22 Firmagon completed Annette Martinong null, [facility] 10/09/2021 11:03:14 09/08/19 22 Firmagon completed Mery Christensen null, [facility] 09/07/2021 15:38:52 08/09/19 22 Firmagon completed Mery Christensen null, [facility] 08/08/2021 11:27:04 06/24/19 22 Bladder Scan completed Joshua Reyes null, [facility] 06/23/2021 11:13:27 06/24/19 22 Blood Draw/DIRECT CARE SUPERVISOR/PSA RESULTS completed Martha Ho null, [facility] 06/23/2021 11:38:51 06/24/19 22 Firmagon completed Martha Walker null, [facility] 06/23/2021 11:40:02 05/23/19 22 Firmagon completed Mery Christensen null, [facility] 05/22/2021 16:07:39 04/18/19 22 Firmagon completed Mery Christensen null, [facility] 04/18/2021 10:20:52 04/06/19 22 Blood Draw/DIRECT CARE SUPERVISOR/PSA RESULTS completed Emry Christensen null, [facility] 04/06/2021 09:47:08 02/07/20 21 Blood Draw/DIRECT CARE SUPERVISOR/PSA RESULTS completed Mery Christensen null, [facility] 02/06/2021 14:44:40 02/02/20 21 Blood Draw/DIRECT CARE SUPERVISOR/PSA RESULTS completed Martha Walker null, [facility] 02/01/2021 09:26:30 12/14/19 21 Faye completed Adelina Evelio null, [facility] 12/13/2020 11:29:12 11/11/19 21 Past Data Reviewed completed Walt Morfin null, [facility] 11/10/2020 12:30:43 11/11/19 21 Blood Draw/DIRECT CARE SUPERVISOR/PSA RESULTS completed Mery Christensen null, [facility] 11/10/2020 12:31:00 10/14/19 19 Laps surg [id number] rpbic rad completed Not Available Health Note 08/08/2021 09:59:19 07/30/19 19 Biopsy of prostate completed Not Available Health Note 08/08/2021 09:59:19 07/30/19 19 Njx aa&/strd other pn/branch completed Not Available Health Note 08/08/2021 09:59:19 01/30/20 17 Colonoscopy thru stoma spx completed Not Available Health Note 08/08/2021 09:59:19 Removal of prostate completed Not Available Health Note 08/08/2021 09:59:19 Removal of sperm duct(s) completed Not Available Health Note 08/08/2021 09:59:19 Imaging Results Imaging Date Name Status LastModified by Organiz ation Details LastModified Time 11/30/2020 PET-CT, whole body scan completed [facility] Information not available 12/29/2020 19:15:33 Procedure Notes None recorded. Medical Equipment None Reported. Allergies No known drug allergies Medications Name Sig Start Date Stop Date Status Note LastModified by Organization Details LastModified Time celecoxib 200 mg capsule TAKE 1 CAPSULE BY MOUTH TWICE DAILY active Not Available Not Available No t Available fluoxetin e 40 mg capsule TAKE 1 CAPSULE BY MOUTH EVERY DAY active Not Available Not Available No t Available atorvasta tin 40 mg tablet TAKE 1 TABLET BY MOUTH EVERY EVENING active Not Available Not Available No t Available azithromy taisha 250 mg tablet 04/16 completed Not Available Not Available Not Available metoprolo l succinate ER 50 mg tablet,ex tended release 24 hr TAKE 1 TABLET BY MOUTH DAILY active Not Available Not Available No t Available valacyclo vir 1 gram tablet TK 1 T PO TID active HN: Patient reports taking HN: Patient reports taking HN: Patient reports no longer taking Not Available Not Available Not Available hydrocodo ne 5 mg-acetam inophen 325 mg tablet TAKE 1 TABLET BY MOUTH EVERY 6 HOURS NEEDED FOR PAIN 04/16 completed Not Available Not Available Not Available prednison e 20 mg tablet TAKE 1 TABLET BY MOUTH EVERY DAY 04/16 completed Not Available Not Available Not Available metoprolo l succinate ER 100 mg tablet,ex tended release 24 hr TAKE 1 TABLET BY MOUTH EVERY DAY active Not Available Not Available No t Available prednison e 5 mg tablet Take 1 tablet every day by oral route. active Not Available Not Available No t Available clobetaso l 0.05 % topical cream APPLY TOPICALL Y TO THE AFFECTED AREA TWICE DAILY active HN: Patient reports no longer taking Not Available Not Available Not Available Accu-Chek Softclix Lancets TEST ONCE DAILY 04/16 completed Not Available Not Available Not Available amlodipin e 5 mg tablet TAKE 1 TABLET BY MOUTH DAILY active Not Available Not Available No t Available famotidin e 20 mg tablet TAKE 1 TABLET BY MOUTH TWICE DAILY active HN: Patient reports no longer taking Not Available Not Available Not Available pantopraz ole 40 mg tablet,de layed release TAKE 1 TABLET BY MOUTH EVERY DAY active Not Available Not Available No t Available prednison e 50 mg tablet TAKE 1 TABLET BY MOUTH EVERY DAY 04/16 completed Not Available Not Available Not Available omeprazol e 20 mg capsule,d elayed release TK 1 C PO BID active HN: Patient reports taking HN: Patient reports taking Not Available Not Available Not Available lorazepam 1 mg tablet TAKE 1 TABLET BY MOUTH TWICE DAILY NEEDED FOR ANXIETY active HN: Patient reports taking HN: Patient reports taking HN: Patient reports no longer taking Not Available Not Available Not Available polyethyl alejandra glycol 3350 17 gram/dose oral powder 04/16 completed Not Available Not Available Not Available lisinopri l 40 mg tablet TAKE 1 TABLET BY MOUTH EVERY DAY active HN: Patient reports no longer taking Not Available Not Available Not Available metformin ER 500 mg tablet,ex tended release 24 hr TAKE 3 TABLETS BY MOUTH EVERY DAY active Not Available Not Available No t Available Eligard 30 mg (4 month) subcutane ous syringe Inject 30 mg by subcutan eous route. 2020 active HN: Patient reports taking HN: Patient reports no longer taking Not Available Not Available Not Available bupropion HCl XL 300 mg 24 hr tablet, extended release TAKE 1 TABLET BY MOUTH DAILY 11/10 completed Not Available Not Available Not Available bupropion HCl XL 150 mg 24 hr tablet, extended release TAKE 1 TABLET BY MOUTH EVERY MORNING active Not Available Not Available No t Available duloxetin e 30 mg capsule,d elayed release TAKE 1 CAPSULE BY MOUTH EVERY DAY FOR 14 DAYS active HN: Patient reports no longer taking Not Available Not Available Not Available duloxetin e 60 mg capsule,d elayed release TAKE 1 CAPSULE BY MOUTH EVERY DAY active HN: Patient reports no longer taking Not Available Not Available Not Available Eligard 45 mg (6 month) subcutane ous syringe Inject 45 mg by subcutan eous route. 2022 active HN: Patient reports no longer taking Not Available Not Available Not Available abiratero ne 250 mg tablet Take 4 tablets every day by oral route. 06/23 completed Not Available Not Available Not Available Firmagon kit with diluent syringe 120 mg subcutane ous solution Inject 240 mg by subcutan eous route. 2022 active HN: Patient reports no longer taking Not Available Not Available Not Available Firmagon kit with diluent syringe 80 mg subcutane ous solution Inject 80 mg by subcutan eous route. 2022 active HN: Patient reports no longer taking Not Available Not Available Not Available Vitron-C 65 mg iron-125 mg tablet,de layed release TAKE 1 TABLET BY MOUTH ONCE A DAY active HN: Patient reports no longer taking Not Available Not Available Not Available Stimulant Laxative Plus 8.6 mg-50 mg tablet TAKE 2 TABLETS BY MOUTH EVERY NIGHT AT BEDTIME active Not Available Not Available No t Available Rexulti 4 mg tablet TAKE 1 TABLET BY MOUTH EVERY DAY active Not Available Not Available No t Available Rexulti 2 mg tablet TAKE 1 TABLET BY MOUTH EVERY DAY active Not Available Not Available No t Available Accu-Chek Guide test strips TEST ONCE DAILY 04/16 completed Not Available Not Available Not Available Erleada 60 mg tablet active Not Available Not Available Not Available Accu-Chek Guide Me Glucose Meter TEST DIRECTED 04/16 completed Not Available Not Available Not Available Orgovyx 120 mg tablet Take 1 tablet every day by oral route. 2020 active Not Available Not Available Not Avai lable Xtandi 40 mg tablet 4 tabs po daily 2022 active HN: Patient reports no longer taking Not Available Not Available Not Available BinaxNOW COVID-19 Ag Self Test kit TEST DIRECTED TODAY active HN: Patient reports no longer taking Not Available Not Available Not Available Vitals Date Recorded Body height Body mass index (BMI) Body weight Provider Name and Address Organization Details Last Updated DateTime 12/11/2021 182.88 cm 28.3 kg/m2 21783.81 g Thor bonilla [facility] 12/11/2021 12:22:03 Date Recorded Body height Body height Body mass index (BMI) Body weight Provider Name and Address Organization Details Last Updated DateTime 04/16/2022 182.88 cm 182.88 cm 28.3 kg/m2 83599.81 g Svetlana bonilla [facility] 04/16/2022 10:59:06 Date Recorded Body height Provider Name an d Address Organization Details Last Updated DateTime 07/27/2022 182.88 cm Arleen bonilla [facility] 07/27/2022 10:58:20 Date Recorded Body height Provider Name an d Address Organization Details Last Updated DateTime 10/15/2022 182.88 cm Thor Solorzano [facility] 10/15/2022 11:57:14 Date Recorded Body height Body mass index (BMI) Body weight Provider Name and Address Organization Details Last Updated DateTime 11/10/2020 182.88 cm 29.8 kg/m2 78584.32 g Elizabeth bonilla [facility] 11/10/2020 12:15:03 Date Recorded Body mass index (BMI) Body weight Body height Provider Name and Address Organization Details Last Updated DateTime 12/13/2020 30.4 kg/m2 568587.9443 17094 g 182.88 cm Not Available Health Note 12/13/2020 10:23:55 Date Recorded Body weight Body height Body mass index (BMI) Provider Name and Address Organization Details Last Updated DateTime 02/09/2021 84642.86679 66225 g 182.88 cm 29.7 kg/m2 Not Available Health Note 02/09/2021 15:31:09 Date Recorded Body height Body mass index (BMI) Body weight Body height Provider Name and Address Organization Details Last Updated DateTime 05/22/2021 182.88 cm 29.7 kg/m2 08481.73 g 182.88 cm Svetlana bonilla [facility] 05/22/2021 15:29:30 Date Recorded Body height Body mass index (BMI) Body weight Provider Name and Address Organization Details Last Updated DateTime 06/23/2021 182.88 cm 29.7 kg/m2 46175.73 g Sherlyn bonilla [facility] 06/23/2021 10:49:11 Date Recorded Body weight Body mass index (BMI) Body height Provider Name and Address Organization Details Last Updated DateTime 08/08/2021 54938.29877 87802 g 28.3 kg/m2 182.88 cm Not Available Health Note 08/08/2021 10:47:00 Social History Question Answer Notes LastModified by Organizat ion Details LastModified Time Tobacco Smoking Status Current Every Day Smoker Not Available Health Note 05/26/2023 14:51:31 What Is Your Level Of Alcohol Consumption? Occasional [email or web address] Information not available 05/26/2023 What Is Your Level Of Caffeine Consumption? Occasional [email or web address] Information not available 05/26/2023 How Much Tobacco Do You Chew? None [email or web address] Information not available 05/26/2023 Which Illicit Or Recreational Drugs Have You Used? Saul Once In A While Information not available 11/10/2020 Do You Or Have You Ever Used E-cigarettes Or Vape? Never Used Electronic Cigarettes [email or web address] Information not available 05/26/2023 When Did You Quit Smoking? 16+[email or web address] penn Information not available 11/09/2022 Have You Or Anyone In Your House Tested Positive For COVID-19 In The Past 14 Days? No [email or web address] Information not available 12/09/2020 Have You Or Anyone In Your House Been Exposed To COVID-19 In The Past 14 Days? No [email or web address] Information not available 08/08/2021 Have You Or Anyone In Your Home Experienced Symptoms Of COVID 19 Such As Fever >100.4, Shortness Of Breath, Difficulty Breathing, Or A Cough? No [email or web address] Information not available 12/09/2020 Have You Traveled Outside Of [place] In The Past 30 Days? No [email or web address] Information not available 12/09/2020 Race White Information n ot available 08/20/2019 Preferred Language Georgian Information not available 11/10/2020 Recreational Drug Use Yes Information not available 11/10/2020 Could You Be ? No Information not available 11/10/2020 Marital Status Informati on not available 08/20/2019 What Was The Date Of Your Most Recent Tobacco Screening? 05/27/2023 [email or web address] Information not available 05/26/2023 Have You Ever Been Counseled For Unhealthy Alcohol Use? Yes Information not available 11/09/2022 What Is Your Relationship Status? [email or web address] Information not available 05/26/2023 Are You Sexually Active? No [email or web address] Information not available 05/26/2023 Do You Or Have You Ever Used Smokeless Tobacco? Never Used Smokeless Tobacco [email or web address] Information not available 05/26/2023 How Much Tobacco Do You Smoke? 1 PPW [email or web address] Information not available 05/26/2023 Do You Use Any Illicit Or Recreational Drugs? Yes [email or web address] Information not available 05/26/2023 Has Tobacco Cessation Counseling Been Provided? Yes [email or web address] Information not available 04/16/2022 On What Date Was Tobacco Cessation Counseling Provided? 04/16/2022 [email or web address] Information not available 04/16/2022 How Many Years Have You Smoked Tobacco? 15 [email or web address] Information not available 05/26/2023 Do You Or Have You Ever Used Any Other Forms Of Tobacco Or Nicotine? Yes Information not available 11/10/2020 How Many Days In The Past Year Have You Consumed 5 Or More Drinks? 15 [email or web address] Information not available 05/26/2023 Sex: Male Functional Status None recorded. Mental Status None recorded. Family History Relationship Description Onset Age of this Age Resolved Age Notes Unspecified Relation Family history of Hypertension Notes:Unspecified Relation h as sister lung, liver cancer Medical History Condition Response Diabetes Y Sexually Transmitted Infection N Other N Bleeding Disorder N High Blood Pressure Y Kidney Stones N Cancer N Lung Disease N Depression N High Cholesterol Y GERD/Acid Reflux N Heart Disease N Immunizations Vaccine Type Date Status Provider Name and Address Organization Details Recorded Time SARS-COV-2 (COVID-19) vaccine, UNSPECIFIED 11/02/2022 completed Not Available Health Note 05/26/2023 14:51:35 influenza, unspecified formulation 2022 completed Not Available Health Note 05/26/2023 14:51:35 Influenza, seasonal, injectable 01/09/2001 completed Svetlana bonilla [facility] 05/22/2021 15:27:32 Influenza, seasonal, injectable, preservative free 04/11/2009 completed Svetlana bonilla [facility] 05/22/2021 15:27:32 Pneumococcal conjugate PCV 13 05/26/[facility] 15:27:32 COVID-19, mRNA, LNP-S, PF, 30 mcg/0.3 mL dose 01/25/2021 completed Svetlana bonilla [facility] 05/22/2021 15:27:32 Influenza, seasonal, injectable 01/26/2003 completed Svetlana bonilla [facility] 05/22/2021 15:27:32 influenza, high-dose, quadrivalent 12/22/2020 completed Svetlana bonilla [facility] 05/22/2021 15:27:32 zoster live 02/12/2008 completed Svetlana bonilla [facility] 05/22/2021 15:27:32 Influenza, high dose seasonal 12/22/2014 completed Svetlana bonilla [facility] 05/22/2021 15:27:32 influenza, trivalent, adjuvanted 12/24/2017 completed Svetlana Rodriguez null, [facility] 05/22/2021 15:27:32 Influenza, high dose seasonal 12/24/2013 completed Svetlana Rodriguez null, [facility] 05/22/2021 15:27:32 Influenza, high dose seasonal 11/11/2015 completed Svetlana Rodriguez null, [facility] 05/22/2021 15:27:32 Influenza, seasonal, injectable 12/17/2012 completed Svetlana Rodriguez null, [facility] 05/22/2021 15:27:32 Influenza, seasonal, injectable 01/02/2010 completed Svetlana Rodriguez null, [facility] 05/22/2021 15:27:32 Influenza, seasonal, injectable, preservative free 11/30/2019 completed Svetlana Rodriguez null, [facility] 05/22/2021 15:27:32 Influenza, seasonal, injectable 12/12/2011 completed Svetlana Rodriguez null, [facility] 05/22/2021 15:27:32 Influenza, seasonal, injectable 01/16/2005 completed Svetlana Rodriguez null, [facility] 05/22/2021 15:27:32 Td (adult), 2 Lf tetanus toxoid, preservative free, adsorbed 03/11/1997 completed Svetlana Rodriguez null, [facility] 05/22/2021 15:27:32 Novel [id number], all formulations 04/11/2009 completed Svetlana Rodriguez null, [facility] 05/22/2021 15:27:32 influenza, trivalent, adjuvanted 01/08/2017 completed Svetlana Rodriguez null, [facility] 05/22/2021 15:27:32 pneumococcal polysaccharide PPV23 04/28/2019 completed Svetlana Rodriguez null, [facility] 05/22/2021 15:27:32 COVID-19, mRNA, LNP-S, PF, 30 mcg/0.3 mL dose 05/28/2020 completed Svetlana Rodriguez null, [facility] 05/22/2021 15:27:32 Influenza, seasonal, injectable, preservative free 01/10/2011 completed Svetlana Rodriguez null, [facility] 05/22/2021 15:27:32 pneumococcal polysaccharide PPV23 04/11/2009 completed Svetlana Rodriguez null, [facility] 05/22/2021 15:27:32 pneumococcal polysaccharide PPV23 01/24/2012 completed Svetlana Rodriguez null, [facility] 05/22/2021 15:27:32 Tdap 04/11/2009 completed Svetlana Rodriguez null, [facility] 05/22/2021 15:27:32 COVID-19, mRNA, LNP-S, PF, 30 mcg/0.3 mL dose 05/07/2020 completed Svetlana Rodriguez null, [facility] 05/22/2021 15:27:32 influenza, unspecified formulation 12/20/2020 completed Not Available [facility] 12/11/2021 12:18:13 SARS-COV-2 (COVID-19) vaccine, UNSPECIFIED 07/20/2020 completed Not Available [facility] 12/11/2021 12:18:13 pneumococcal, unspecified formulation 11/23/2020 completed Not Available [facility] 12/11/2021 12:18:13 pneumococcal, unspecified formulation 03/11/2018 completed Not Available [facility] 12/11/2021 12:18:13 SARS-COV-2 (COVID-19) vaccine, UNSPECIFIED 07/24/2019 completed Not Available [facility] 12/11/2021 12:18:13 pneumococcal, unspecified formulation 03/12/2019 completed Not Available [facility] 12/11/2021 12:18:13 influenza, unspecified formulation 12/30/2020 completed Not Available [facility] 12/11/2021 12:18:13 SARS-COV-2 (COVID-19) vaccine, UNSPECIFIED 01/25/2021 completed Not Available [facility] 12/11/2021 12:18:13 Past Encounters Encounter ID Performer Location Encounter Start Date Encounter Closed Date Diagnosis/Indication Diagnosis SNOMED-CT Code [id number] Walt BalderasSha coto [address] [address] 11/10/2020 12:04:48 11/10/2020 12:36:45 Malignant tumor of prostate [id number] Stress inc ontinence after prostatectomy 739303943 Erectile d ysfunction following radical prostatectomy [id number] [facility] [address] [facility],[address] [place] [address] 12/13/2020 10:23:50 12/28/2020 14:26:30 Malignant tumor of prostate [id number] Martha coto [address] [facility],[address] [place] [address] 02/01/2021 09:00:51 02/01/2021 09:40:06 Malignant tumor of prostate [id number] Mery coto [address] [place] [address],[address] [place] [id number] 02/06/2021 14:41:54 02/06/2021 14:46:32 Idiopathic hypercalcemia [id number] Walt coto [address] [place] [address],[address] [place] [address] 02/09/2021 15:31:05 02/23/2021 15:38:20 Malignant tumor of prostate [id number] Mery coto [address] [place] [address],[address] [place] [phone] 04/06/2021 09:39:04 04/06/2021 09:50:27 Malignant tumor of prostate [id number] Mery coto [address] [place] [address],[address] [place] [id number] 04/18/2021 10:10:55 04/18/2021 10:24:01 Malignant tumor of prostate [id number] Mery coto [address] [place] [address],[address] [place] [address] 05/22/2021 15:21:45 05/24/2021 08:19:32 Malignant tumor of prostate [id number] KACI Hawk Ben coto [address] [place] [address],[address] [place] [address] 06/23/2021 10:31:42 06/23/2021 11:58:06 Malignant tumor of prostate [id number] Mery CerdaMyriam c[address] [address] 08/08/2021 10:46:55 08/08/2021 11:15:24 Malignant tumor of prostate [id number] Mery BalderasSha [address] [address] 09/07/2021 15:25:52 09/07/2021 15:51:02 Malignant tumor of prostate [id number] [facility] [address] [address] 10/09/2021 10:34:49 10/09/2021 11:12:35 Malignant tumor of prostate [id number] [facility] [address] 11/09/2021 10:46:13 11/09/2021 10:59:39 Malignant tumor of prostate [id number] [facility] [address] 12/04/2021 09:53:57 12/04/2021 09:57:04 Malignant tumor of prostate [id number] [facility] [address] [address] 12/11/2021 12:16:24 12/11/2021 13:29:55 Malignant tumor of prostate [id number] [facility] [address] 01/24/2022 10:14:24 01/24/2022 10:23:34 Malignant tumor of prostate [id number] Lola Briceno [address] [address] 02/23/2022 10:52:19 02/23/2022 13:13:54 Malignant tumor of prostate [id number] Mery Christensen [address] [address] 03/28/2022 11:23:22 03/28/2022 11:54:03 Malignant tumor of prostate [id number] Corey Beyer MD Ben evans [address] [place] [address],[address] [address] 04/16/2022 10:54:28 04/16/2022 12:06:38 Malignant tumor of prostate [id number] History of malignant neoplasm of prostate [id number] Mery evans [address] [place] [address],[address] [address] 04/30/2022 11:58:53 04/30/2022 12:11:37 Malignant tumor of prostate [id number] Arleen evans [address] [place] [id number] 05/29/2022 10:07:01 05/29/2022 10:42:18 Malignant tumor of prostate [id number] Bucky evans [address] [place] [id number] 06/28/2022 10:32:02 06/28/2022 10:40:15 Malignant tumor of prostate [id number] Arleen evans [address] [place] [address] 07/27/2022 10:29:49 07/27/2022 10:48:10 Malignant tumor of prostate [id number] Arleen evans [address] [place] [address] 08/29/2022 12:44:56 08/29/2022 12:59:00 Malignant tumor of prostate [id number] Bucky evans [address] [place] [address] 09/27/2022 10:08:55 09/27/2022 10:14:40 Malignant tumor of prostate [id number] Arleen coto[address] [address] 10/15/2022 11:49:42 10/15/2022 12:41:56 Malignant tumor of prostate [id number] Mery evans [address] [facility],[address] [place] [id number] 04/16/2023 12:35:06 04/16/2023 12:38:09 Malignant tumor of prostate [id number] Health Concerns Section Related Observation LastModified by Organization Detai ls LastModified Time None Recorded Concern Status LastModified by Organization Details LastModified Time None Recorded Advance Directives Directive None Recorded Payers Encounter Date Sequence Insurance Name Policy Number Policy Duff Covered Member ID Duff Member ID Guarantor Name 04/16/2023 1 [employer] [id number] Ruchi Babin Akemann [id number] Edison Olaf Akemann 10/15/2022 1 [employer] [id number] Ruchi Olaf Akemann [id number] Edison Babin Akemann 09/27/2022 1 [employer] [id number] Ruchi Babin Akemann [id number] Edison Olaf Akemann 08/29/2022 1 [employer] [id number] Ruchi Olaf Akemann [id number] Edison Babin Akemann 07/27/2022 1 [employer] [id number] Ruchi Olaf Akemann [id number] Edison Babin Akemann 06/28/2022 1 [employer] [id number] Ruchi Olaf Akemann [id number] Edison Babin Akemann 05/29/2022 1 [employer] [id number] Ruchi Olaf Akemann [id number] Edison Babin Akemann 04/30/2022 1 [employer] [id number] Ruchi M Akemann [id number] Edison Babin Akemann 04/16/2022 1 [employer] [id number] Ruchi M Akemann [id number] Edison Olaf Akemann 03/28/2022 1 [employer] [id number] Ruchi M Akemann [id number] Edison Olaf Akemann 02/23/2022 1 [employer] [id number] Ruchi Babin Akemann [id number] Edison Olaf Akemann 01/24/2022 1 [place] [id number] Ruchi Babin Akemann [id number] Edison Olaf Akemann 12/11/2021 1 [place] [id number] Ruchi Babin Akemann [id number] Edison Babin Akemann 12/04/2021 1 [place] [id number] Ruchi Babin Akemann [id number] Edison Babin Akemann 11/09/2021 1 [place] [id number] Ruchi Babin Akemann [id number] Edison Babin Akemann 10/09/2021 1 [place] [id number] Ruchi Babin Akemann [id number] Edison Babin Akemann 09/07/2021 1 [place] [id number] Ruchi Babin Akemann [id number] Edison Babin Akemann 08/08/2021 1 [place] [id number] Ruchi Babin Akemann [id number] Edison Babin Akemann 06/23/2021 1 [place] [id number] Ruchi Babin Akemann [id number] Edison Babin Akemann 05/22/2021 1 [place] [id number] Ruchi Babin Akemann [id number] Edison Babin Akemann 04/18/2021 1 [place] [id number] Ruchi Babin Akemann [id number] Edison Babin Akemann 04/06/2021 1 [place] [id number] Ruchi Babin Akemann [id number] Edison Babin Akemann 02/09/2021 1 [place] [id number] Ruchi Babin Akemann [id number] Edison Babin Akemann 02/06/2021 1 [place] [id number] Ruchi Babin Akemann [id number] Edison Babin Akemann 02/01/2021 1 [place] [id number] Ruchi Babin Akemann [id number] Edison Babin Akemann 12/13/2020 1 [place] [id number] Ruchi Babin Akemann [id number] Edison Babin Akemann 11/10/2020 1 [place] [id number] Ruchi Babin Akemann [id number] Edison Babin Akemann 11/10/2020 2 [place] [employer] Edison Carvajalquentin [id number] 1 Edison Olaf Aruna Notes Date Note Type Note Provider Name and Address Organization Details Recorded Time 11/10/2020 text/html HPI Notes: s/p prostatectomy t3b negative nodes negative margins tertiary 5 doing well occasional leak no erections ( not bothered Walt bonilla [facility] 11/10/2020 12:31:34 12/13/2020 text/html HPI Notes: Yancy nence Function Questionnaire: [1] Urinary control: Total control [2] Leaked urine: About once a week or less often [2] How big of a problem urinary function has been: Very small problem 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 here to discuss therapy not symptomatic his first psa was undetectable Walt bonilla [facility] 12/27/2020 18:34:34 02/09/2021 text/html HPI Notes: Yancy nence Function Questionnaire: [1] Urinary control: Total control [2] Leaked urine: About once a week or less often [2] How big of a problem urinary function has been: Very small problem 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 Morfin. He was initially treated with eligard, but this unfortunately did not improve his testosterone levels. He was transitioned to monthly Firmagon. He was also stared on Abiraterone Acetate and Prednisone. Unfortunelty, due to side effects (anxiety) he stopped taking this at the end of April 2021 Last testosterone - 23.72 (04/06/2021) Last PSA - <0.10 (04/06/2021) He denies any new symptoms such as bone pain or blood in his urine. Mery bonilla [facility] 05/22/2021 16:08:46 06/23/2021 text/html HPI Notes: 75 y/ o male with metastic hormone sensitive prostate cancer who was previously followed by Dr. Morfin. He was initially treated with eligard, but this unfortunately did not improve his testosterone levels. Current treatment plan: monthly Firmagon injections, Recommended to start xtandi 40 daily - currently working with his insurance to get this taken care of. Until then, he will continue monthly firmagon injections Last testosterone - 23.72 (04/06/2021) Last PSA - <0.10 (04/06/2021) KACI Da Silva [address] [place] [address],[address], [address], [facility] 06/23/2021 11:42:47 08/08/2021 text/html HPI Notes: patijoe nt w hormone sensitive prostate cancer. psa is undetecdtable had bad side effects from both Xtandi and zytiga currently on monthly Eligard Mery bonilla [facility] 08/09/2021 10:21:50 12/11/2021 text/html HPI Notes: candis nt here for prostate cancer s/p prostatectomy in 2019 Corey Beyer MD [address] [place] [address],[address], [place], [address], [facility] 12/11/2021 12:32:27 04/16/2022 text/html HPI Notes: candis nt w advanced prostate cancer Corey Beyer MD [address] [place] [address],[address], [place], [address], [facility] 04/16/2022 11:11:24 10/15/2022 text/html HPI Notes: candis nt with prostate cancer and hormone sensitive metastatic disease. due for psa today Arleen bonilla [facility] 10/15/2022 13:07:20
--- OUTSIDE RECORDS SUMMARY | 2023-06-23 12:20 | XMS_ITS | Continuity of Care Document ---
Author Name Unknown Organization [facility] Address [address] [address] [place] [address] Phone Care Team Providers Care Assisted Living Housekeeper Name Role Phone No Information Unavailable Unavailable Advance Directives Directive Yes / No Effective Date File Name No Information Encounters Encounter Description Practice Location Reason(s) For Visit Diagnoses Date Provider Providers Copied on Encounter [facility], [address] [address], [place], [place], [id number], tel:[phone] No Information No Information Referring Provider: Magan Verdugo MD, [address] [place], [address]. tel:[phone] Family History Family Member Type Diagnosis Age At Onset No Information Payers Payer name Insurance type Covered alliance party ID Authoriza tion(s) No Information Social History Type Description Quantity Date Captured Comments Sex Male Smoking Status No Information Chief Complaint And Reason For Visit No Information Reason For Referral Reason For Referral No Information History Of Present Illness Encounter Date Complaint History Of Prese nt Illness No Information Functional Status Date Functional Assessmen t No Information Instructions Date Instruction Additional Infor mation No Information Assessments Type Assessment Date No Information Patient Care Teams Name Effective Dates (start - stop) Status Members No Information
--- OUTSIDE RECORDS SUMMARY | 2023-06-23 12:20 | XMS_ITS | Continuity of Care Document ---
Author Name Unknown Address [address] [place] [address] Phone [phone] Organization [facility] [place] Address [address] [place] [address] Care Team Providers Care Alcoholic Counselor Name Role Phone ARTURO WHITEHEAD Primary Care Provider [phone] [facility] ([facility]) Referring Provider Assessment No assessment recorded. Plan of Treatment Reminders Order Date Submit Date Provider Last Modified By Organization Details Last Modified Time Details Appointments ESTABLISH ED 15 2023 12:45P Olaf Beyer MD Not available Not available Not available Lab PSA, total, serum or plasma 2023 024 [facility], [address], [place], [address], 04/16/2023 14:31:06 Referral None recorded. Procedures None recorded. Surgeries None recorded. Imaging None recorded. Medication Orders None recorded. Patient TargetsNo targets recorded. Patient InstructionsNo instructions recorded. Reason for Referral [facility] Support Services for Malignant tumor of prostate Referring Physician: Tawny Daugherty, Encounter Date: 11/10/2020 psa recurrence after prostat ectomy. Please contact patient to schedule at [phone]. Referring Physician: Tawny Daugherty, Encounter Date: 11/16/2020 [facility] for Malignant tumor of prostate abiraterone + prednisone lab protocol Referring Physician: Tawny Daugherty, Encounter Date: 03/13/2021 Cancer Support Services for History of malignant neoplasm of prostate Monthly Firmagon injection per Dr. Beyer Referring Physician: Corey Beyer [facility], Encounter Date: 06/25/2022 Authorization Request for Ma lignant tumor of prostate Referring Physician: Corey Beyer [facility], Encounter Date: 10/15/2022 Problems Name Status Onset Date Resolution Date Notes Provider Name and Address Organization Details Recorded Time Prostate specific antigen above reference range Active 06/27/19 19 R97.20 : Raised prostate specific antigen Not Available [facility] 08/19/2019 23:54:14 Malignant tumor of prostate Active 08/21/19 19 C61 : Malignant tumor of prostate Not Available [facility] 08/19/2019 23:54:14 Problem Notes None recorded. Procedures Surgical History Date Name Laterality Status Provider Name and Address Organization Details Recorded Time 04/16/19 24 Blood Draw/AGED OR DISABLED CARE WORKER/PSA RESULTS completed Mery Christensen null, [facility] 04/16/2023 12:37:16 10/16/19 23 Blood Draw/AGED OR DISABLED CARE WORKER/PSA RESULTS completed Arleen Segura null, [facility] 10/15/2022 12:46:25 10/16/19 23 Eligard completed Arleen Segura null, [facility] 10/15/2022 12:46:56 09/28/19 23 Firmagon completed Bucky Woods null, [facility] 09/27/2022 10:13:16 08/30/19 23 Firmagon completed Arleen Segura null, [facility] 08/29/2022 12:54:05 07/28/19 23 Firmagon completed Arleen Segura null, [facility] 07/27/2022 10:58:45 06/29/19 23 Firmagon completed Bucky Woods null, [facility] 06/28/2022 10:39:47 05/30/19 23 Firmagon completed Arleen Segura null, [facility] 05/29/2022 10:36:15 04/30/19 23 Firmagon completed Mery Christensen null, [facility] 04/30/2022 12:10:20 03/28/19 23 Blood Draw/AGED OR DISABLED CARE WORKER/PSA RESULTS completed Mery Christensen null, [facility] 03/28/2022 11:34:37 03/28/19 23 Firmagon completed Mery Christensen null, [facility] 03/28/2022 11:35:59 02/24/20 22 Firmagon completed Lola Briceno null, [facility] 02/23/2022 13:06:57 01/25/20 22 Firmagon completed Mery Christnesen null, [facility] 01/24/2022 10:21:06 12/05/19 22 Blood Draw/AGED OR DISABLED CARE WORKER/PSA RESULTS completed Mery Christensen null, [facility] 12/04/2021 09:55:45 11/10/19 22 Firmagon completed Mery Christensen null, [facility] 11/09/2021 10:52:30 10/10/19 22 Firmagon completed Annette Sanders null, [facility] 10/09/2021 11:03:14 09/08/19 22 Firmagon completed Mery Christensen null, [facility] 09/07/2021 15:38:52 08/09/19 22 Firmagon completed Mery Christensen null, [facility] 08/08/2021 11:27:04 06/24/19 22 Bladder Scan completed Joshua Reyes null, [facility] 06/23/2021 11:13:27 06/24/19 22 Blood Draw/AGED OR DISABLED CARE WORKER/PSA RESULTS completed Martha Ho null, [facility] 06/23/2021 11:38:51 06/24/19 22 Firmagon completed Martha Walker null, [facility] 06/23/2021 11:40:02 05/23/19 22 Firmagon completed Mery Christensen null, [facility] 05/22/2021 16:07:39 04/18/19 22 Firmagon completed Mery Christensen null, [facility] 04/18/2021 10:20:52 04/06/19 22 Blood Draw/AGED OR DISABLED CARE WORKER/PSA RESULTS completed Mery Christensen null, [facility] 04/06/2021 09:47:08 02/07/20 21 Blood Draw/AGED OR DISABLED CARE WORKER/PSA RESULTS completed [facility] null, [facility] 02/06/2021 14:44:40 02/02/20 21 Blood Draw/AGED OR DISABLED CARE WORKER/PSA RESULTS completed Martha Vic null, [facility] 02/01/2021 09:26:30 12/14/19 21 Faye completed Adelina Evelio null, [facility] 12/13/2020 11:29:12 11/11/19 21 Past Data Reviewed completed Walt Morfin null, [facility] 11/10/2020 12:30:43 11/11/19 21 Blood Draw/AGED OR DISABLED CARE WORKER/PSA RESULTS completed Mery Amparo null, [facility] 11/10/2020 12:31:00 10/14/19 19 Laps surg [id number] rpbic rad completed Not Available Health Note [...] Available Health Note 08/08/2021 09:59:19 Imaging Results None recorded. Procedure Notes None recorded. Medical Equipment None [...] Not Available Not Available Not Available Vitals None Recorded Social History Question Answer Notes LastModified by [...] Illicit Or Recreational Drugs Have You Used? Marijeb Once In A While Information not available 11/10/2020 Do You Or Have You Ever Used E-cigarettes Or Vape? Never Used Electronic Cigarettes [email or web address] Information not available 05/26/2023 When Did You Quit Smoking? 16+yearssincel isamar [email or web address] Information not available 11/09/2022 Have You Or [...] available 12/09/2020 Have You Traveled Outside Of [place] In The Past 30 Days? No [email or web address] Information not available 12/09/2020 Race White [email or web address] Information n ot available 08/20/2019 Preferred Language Belarusian Information not available 11/10/2020 Recreational Drug Use Yes Information not available 11/10/2020 Could You Be ? No Information not available 11/10/2020 Marital Status [email or web address] Informati on not available 08/20/2019 What Was [...] Has Tobacco Cessation Counseling Been Provided? Yes [email or web address] Information not available 04/16/2022 On What Date Was Tobacco Cessation Counseling Provided? 04/16/2022 [email or web address] Information not available 04/16/2022 How Many Years [...] lung, liver cancer Medical History Condition Response Other N High Blood Pressure Y Kidney Stones N Depression N Lung Disease N GERD/Acid Reflux N Sexually Transmitted Infection N Cancer N High Cholesterol Y Diabetes Y Bleeding Disorder N Heart Disease N Immunizations Vaccine Type Date Status Provider Name and Address Organization Details Recorded Time SARS-COV-2 (COVID-19) vaccine, UNSPECIFIED 11/02/2022 completed Not Available Health Note 05/26/2023 14:51:35 influenza, unspecified formulation 2022 completed Not Available Health Note 05/26/2023 14:51:35 Influenza, seasonal, injectable [facility]/09/2001 [facility] 15:27:32 Influenza, seasonal, injectable, preservative free 04/11/2009 [facility] 15:27:32 Pneumococcal conjugate PCV 13 05/26/2015 [facility] 15:27:32 COVID-19, mRNA, LNP-S, PF, 30 mcg/0.3 mL dose 01/25/2021 [facility] 15:27:32 Influenza, seasonal, injectable 01/26/2003 [facility] 15:27:32 influenza, high-dose, quadrivalent 12/22/2020 [facility] 15:27:32 zoster live 02/12/2008 [facility] 15:27:32 Influenza, high dose seasonal 12/22/2014 [facility] 15:27:32 influenza, trivalent, adjuvanted 12/24/2017 [facility] 15:27:32 Influenza, high dose seasonal 12/24/2013 [facility] 15:27:32 Influenza, high dose seasonal 11/11/2015 [facility] 15:27:32 Influenza, seasonal, injectable 12/17/2012 [facility] 15:27:32 Influenza, seasonal, injectable 01/02/2010 completed Svetlana Rodriguez null, [facility] 05/22/2021 15:27:32 Influenza, seasonal, injectable, preservative free 11/30/2019 completed Svetlana Rodriguez null, [facility] 05/22/2021 15:27:32 Influenza, seasonal, injectable 12/12/2011 completed Svetlana Rodriguez null, [facility] 05/22/2021 15:27:32 Influenza, seasonal, injectable 01/16/2005 completed Svetlana Rodriguez null, [facility] 05/22/2021 15:27:32 Td (adult), 2 Lf tetanus toxoid, preservative free, adsorbed 03/11/1997 completed Svetlana Rodriguez null, [facility] 05/22/2021 15:27:32 Novel [id number], all formulations 04/11/2009 completed Svetlana Rodriguez null, [facility] 05/22/2021 15:27:32 influenza, trivalent, adjuvanted 01/08/2017 completed Svetlana Rodriguez null, [facility] 05/22/2021 15:27:32 pneumococcal polysaccharide PPV23 04/28/2019 completed Svetlana Rodriguez null, [facility] 05/22/2021 15:27:32 COVID-19, mRNA, LNP-S, PF, 30 mcg/0.3 mL dose 05/28/2020 completed Svetlana Rodriguez null, [facility] 05/22/2021 15:27:32 Influenza, seasonal, injectable, preservative free 01/10/2011 completed Svetlana Rodriguez null, [facility] 05/22/2021 15:27:32 pneumococcal polysaccharide PPV23 04/11/2009 completed Svetlana Rodriguez null, [facility] 05/22/2021 15:27:32 pneumococcal polysaccharide PPV23 01/24/2012 completed Svetlana Rodriguez null, [facility] 05/22/2021 15:27:32 Tdap 04/11/2009 completed Svetlana Rodriguez null, [facility] 05/22/2021 15:27:32 COVID-19, mRNA, LNP-S, PF, 30 mcg/0.3 mL dose 05/07/2020 completed [facility] 05/22/2021 15:27:32 influenza, unspecified formulation 12/20/2020 completed Not Available [facility] 12/11/2021 12:18:13 SARS-COV-2 (COVID-19) vaccine, UNSPECIFIED 07/20/2020 completed Not Available [facility] 12/11/2021 12:18:13 pneumococcal, unspecified formulation 11/23/2020 completed Not Available [facility] 12/11/2021 12:18:13 pneumococcal, unspecified formulation 03/11/2018 completed Not Available [facility] 12/11/2021 12:18:13 SARS-COV-2 (COVID-19) vaccine, UNSPECIFIED 07/24/2019 completed Not Available [facility] 12/11/2021 12:18:13 pneumococcal, unspecified formulation 03/12/2019 completed Not Available [facility] 12/11/2021 12:18:13 influenza, unspecified formulation 12/30/2020 completed Not Available [facility] 12/11/2021 12:18:13 SARS-COV-2 (COVID-19) vaccine, UNSPECIFIED 01/25/2021 completed Not Available [facility] 12/11/2021 12:18:13 Past Encounters Encounter ID Performer Location Encounter Start Date Encounter Closed Date Diagnosis/Indication Diagnosis SNOMED-CT Code [id number] Mery Christensen [address] [address] 04/16/2023 12:35:06 04/16/2023 12:38:09 Malignant tumor of prostate [id number] Health Concerns Section Related Observation LastModified by Organization Detai ls LastModified Time None Recorded Concern Status LastModified by Organization Details LastModified Time None Recorded Payers Encounter Date Sequence Insurance Name Policy Number Policy Duff Covered Member ID Duff Member ID Guarantor Name 04/16/2023 1 [facility] [id number] Ruchi Valdovinos [id number] Edison Valdovinos
--- OUTSIDE RECORDS SUMMARY | 2023-06-23 12:20 | XMS_ITS | Clinical Summary ---
Author Name Unknown Organization [facility] Address [place], [place] [address] Care Team Providers Care Supervisor Machining Name Role Phone Magan Verdugo MD Primary Care Provider + Allergies Active Allergy Reactions Criticality Noted Date Comments Iodinated Contrast Media Hives Medium 09/04/2018 Diatrizoate Allergen Hives 06/09/2018 Medications Medication Sig Dispensed Refills Start Date End Date Status lisinopril (PRINIVIL; ZESTRIL) 20 mg tabletIndications: Hypertension, unspecified type Take 1 tablet by mouth once daily. 90 tablet 3 12/24/2017 Active FLUoxetine (PROZAC) 40 mg capsuleIndications :Anxiety states Take 1 capsule by mouth every morning. 90 capsule 3 06/24/2018 Active metFORMIN (GLUCOPHAGE XR) 500 mg Extended-Release tabletIndications: Diabetes mellitus without complication (HC) Take 1 tablet by mouth once daily with evening meal. 90 tablet 3 06/24/2018 Active Additional Information Patient taking differently:500 mg Oral DAILY WITH EVENING MEAL,Indications: type 2 diabetes mellitus, Informant: Patient's Recall, Reported on 10/10/2018 cholecalciferol (VITAMIN D-3) 400 unit tablet Take 400 Units by mouth once daily. Active atorvastatin (LIPITOR) 40 mg tablet Take 40 mg by mouth at bedtime. Active omeprazole (PRILOSEC) 20 mg Delayed-Release capsule Take 20 mg by mouth 2 times daily if needed. Active oxyCODONE-acetamin ophen, 5-325 mg, (PERCOCET) 5-325 mg per tabletIndications: Prostate cancer (HC) Take 1-2 tablets by mouth every 4 hours if needed for Pain (For moderate to severe pain.) Max acetaminophen dose: 4000mg in 24 hrs. 30 tablet 10/14/2018 Active Active Problems Problem Noted Date Diagnosed Date Sensorineural hearing loss (SNHL) of both ears 1 Impairment of speech discrimination 01/03/2022 Prostate cancer 10/13/2018 Peptic ulcer disease 2017 Pain management contract terminated 05/14/2017 Overview: Patient no longer taking pain medication chronically. 05/14/17 Chronic ITP (idiopathic thrombocytopenia) 2015 Overview: Has seen Hematology. Monitoring labs. Stable. Gastric ulcer 07/02/2014 Overview: EGD 06/2014 superficial gastric ulcer secondary to NSAIDs Benign paroxysmal positional vertigo 12/17/2011 Back pain 10/02/2010 S/P colonoscopy 04/20/2010 Overview: Normal in 2004: due again in 2014 Vitamin D deficiency 02/03/2010 Alcohol abuse, unspecified 08/05/2009 Cataracts, bilateral 08/05/2009 Arthritis 02/23/2008 Neck pain 02/23/2008 Overview: DDD with radiculitis - Responds to prednisone. Fatty liver 02/12/2008 Sensorineural hearing loss, bilateral 01/14/2008 Type II or unspecified type diabetes mellitus without mention of complication, not stated as uncontrolled 02/07/2006 Pure hypercholesterolemia 02/07/2006 Unspecified essential hypertension 02/07/2006 Anxiety state, unspecified 02/07/2006 Resolved Problems Problem Noted Date Diagnosed Date Resolved Date Pain medication agreement signed 09/08/2011 05/14/2017 Overview: Controlled substance contract signed 03/18/[address] Tenorio. Patient takes about 10 per month for chronic body pain. Toxasure 05/26/15 Last Assessment & Plan: Controlled substance agreement signed 04/19/14 Issue of repeat prescriptions 08/29/2010 05/14/2017 Overview: Vicodin for neck and back pain Immunizations Name Administration Dates Next Due Amb Influenza, Inact (High-d ose) (Flu Clinic Only) 12/24/2013 Influenza A (H1N1), Inactiva tomi (Age >=3 Years) 04/11/2009 Influenza, High-dose Inactivated 11/11/2015,12/09 Influenza, IIV3 (Age >=3 years) 12/18/19 13,12/12/2011,01/10/2011,2009,04/11/2009 Influenza, Inactivated IIV3 (Age 65+ Years) Preserv Free 12/24/2017,01/08/2017 Pneumococcal Poly,23-Valent (Pneumovax) 01/24/2012,04/11/2009 Pneumococcal conj 13-Valent (Prevnar 13) 05/26/2015 Td (Age >=7 Years) 01/25/1999 Tdap 04/11/2009 [...] Types Packs/Day Years Used Date Smoking Tobacco: Former Cigarettes 0.5 20 0 03/11/1985 - 03/11/2005 Cigars Smokeless Tobacco: Current Chew Tobacco Cessation:Ready to Q uit: No; Counseling Given: Yes Alcohol Use Standard Drinks/Week Comments Yes 0 (1 standard drink = 0.6 oz pur e alcohol) Happy hour Every other Day PHQ-2 Answer Date Recorded PHQ-2 Score 0 05/10/2018 Social Connections Answer Date Recorded Frequency of Communication with Friends and Fami ly Not on file 03/11/2021 Financial Resource Strain Answer Date R ecorded Difficulty of Paying Living Expenses Not on file 03/11/2021 Difficulty of Paying Living Expenses Not on file 03/11/2021 Sex and Gender Information Value Date Recorded Sex Assigned at Not on file Gender Identity Not on file Sexual Orientation Not on file Obstetrics History Last Filed Vital Signs Vital Sign Reading Time Taken Comments Blood Pressure 162/94 07/26/2021 12:26 PM CDT Pulse 74 07/26/2021 3:14 PM CDT Temperature 37.2 ??C (98.9 ??F) 07/26/2021 1 2:26 PM CDT Respiratory Rate 18 07/26/2021 12:2 6 PM CDT Oxygen Saturation 97% 07/26/2021 3:14 PM CDT Inhaled Oxygen Concentration - - Weight 96.5 kg (212 lb 11.9 oz) 022 12:29 PM CDT Height 177.8 cm (5' 10) 07/26/2021 12: 29 PM CDT Body Mass Index 30.53 07/26/2021 12:29 PM CDT Plan of Treatment Health Maintenance Due Date Last Done Comments Zoster (shingles) series for age 50+ (2 of 3) 04/08/2008 02/12/2008 Depression screening for age 12+ 12/26/2018 12/26/2017, 12/24/2017, 04/23/2017, Additional history exists Tetanus booster 04/11/2019 04/11/2009, 01/25/1999 BMI (ht and wt on same day) for age 18+ 06/25/2019 06/24/2018, 06/09/2018, 03/10/2018, Additional history exists Influenza for age 65+ 11/10/2023 12/24/2017 , 01/08/2017, 11/11/2015, Additional history exists Tdap Completed 04/11/2009 Pneumococcal series for age 65+ Completed 05/26/2015, 01/24/2012, 04/11/2009 Hepatitis C screening for ag e 18-79 Completed 12/16/2015, 01/10/2005 COVID-19 vaccine series Completed 01/04/20 23, 12/18/2021, 01/25/2021, Additional history exists Procedures Procedure Name Priority Date/Time Associated Diagnosis Comments ANTI HCV Routine 12/16/2015 9:04 AM CDT Abdominal pain, RUQ (right upper quadrant) from Last 3 Months or Most Recently Relevant to Health Maintenance Results * ANTI HCV (12/16/2015 9:04 AM CDT) HEPATITIS C ANTIBODY Non-Reacti ve Non-Reacti ve 12/16/2015 5:07 PM CDT [facility] Blood BLOOD SPECIMEN / Unknown Venipuncture / Unknown 12/16/2015 9:04 AM CDT 12/16/2015 9:04 AM CDT Narrative [facility] - 12/16/2015 5:07 PM CDT Antibodies to HCV not detected; does not exclude the possibility of exposure to HCV. Svetlana Tenorio MD SEND OUTS [facility] [address] [place] [place] [address], from Last 3 Months or Most Recently Relevant to Health Maintenance Advance Directives * Full Code (Latest Code Status on File) Date Activated Date Inactivated Comments 10/13/2018 8:46 AM 10/14/2018 3:18 PM * Full Code Date Activated Date Inactivated Comments 09/08/2018 10:16 AM 09/08/2018 5:17 PM Care Teams Supervisor Machining Relationship Specialty Start Date End Date Magan Verdugo MD [address] [place] [address] PCP - General Family Practice 09/04/18
[2023-06-23] MEDS: LORazepam 1 MG TABLET PO (12:37)
== END 2023-06-23 13:50 | disposition home or self-care (01) ==
PROVIDERS: Emergency Provider Emergency Medicine Emergency Medical Services; PCP Family Medicine
DX: F41.9 Anxiety disorder, unspecified (principal); G20.A1 Parkinson's 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, without mention of fluctuations; R11.0 Nausea
CPT/HCPCS: 99284; A9270

== ENCOUNTER 2023-09-25 13:14 | Emergency (ER) | payer BC, SELFPAY ==
[2023-09-25 13:19] VITALS: BP 166/103; PULSE 67; RESP 26; TEMP 36.4; O2SAT 98; BMI 27.4
--- NOTE | 2023-09-25 13:57 | CRLHL7_ITS ---
For Patients: As a result of the Century Cures Act, medical imaging exams and procedure reports are released immediately into your electronic medical record. You may view this report before your referring provider. If you have questions, please contact your health care provider. Indication Breathing problem Technique Two view(s) of the chest Comparison None Findings The cardiomediastinal silhouette and pulmonary vasculature are unremarkable. There is no focal airspace consolidation, pleural effusion, or pneumothorax. Likely nipple shadows bilaterally. There are some ill-defined calcifications projecting over the bilateral mid lung zones favored to represent pleural based calcifications versus calcified granulomas. No displaced fractures. 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 Impression No acute cardiopulmonary process. Dictated by Jose Alberto Chávez MD @ 09/25/2023 3:28:04 PM (Electronically Signed)
--- NOTE | 2023-09-25 13:59 | ED.GENADULT ---
HPI - General Adult General Chief complaint: Anxiety Stated complaint: trouble breathing Time Seen by Provider: 09/25/23 13:18 History of Present Illness HPI narrative: Patient is 77 year white male who has a history of alcohol-related tremor, Parkinson's disease, and dementia , presents with intermittent anxiety spells, transient shortness of breath it happens each day but couple times a day, it is not necessarily associated with activity, he does feel somewhat anxious during that time. He does have Ativan to use at home as well as Wellbutrin and Prozac have been chronic medications for him. His states he uses the Ativan every day. He had a spell that happened today and he took a couple Ativan and he felt much better. He has no chest pain, fevers, nausea vomiting diaphoresis leg swelling edema bleeding or clotting problems. His chart is extensive and was reviewed. Related Data Home Medications ?Medication ?Instructions ?Recorded ?Confirmed cholecalciferol (vitamin D3) 25 1,000 unit PO DAILY 11/21/21 08/16/23 mcg (1,000 unit) tablet Marijuana inhalation 12/05/21 08/16/23 psyllium seed (sugar) oral powder 1 tbsp PO QDAY 02/26/22 08/16/23 (Metamucil (sugar) oral powder) leuprolide (4 month) 30 mg (4 30 mg subcut [id number] 03/07/23 08/16/23 month) subcutaneous syringe (Malenad) aspirin 325 mg tablet See Rx Instructions PO QDAY 07/23/23 08/16/23 donepezil 5 mg tablet 5 mg PO DAILY 08/16/23 08/16/23 Previous Rx's ?Medication ?Instructions ?Recorded sennosides 8.6 mg-docusate sodium 2 tab-cap (2 x 8.6-50 mg) PO QHS 06/11/22 50 mg tablet (Senna-S) #60 tabs lisinopril 40 mg tablet 40 mg PO QDAY #90 tabs 01/11/23 metoprolol succinate 100 mg 100 mg PO QDAY #90 tabs 03/11/23 tablet,extended release 24 hr metformin 500 mg tablet,extended 1,500 mg (3 x 500 mg) PO QDAY #270 04/11/23 release 24 hr tabs fluoxetine 40 mg capsule (Prozac) 40 mg PO QDAY #90 caps 05/20/23 famotidine 20 mg tablet 20 mg PO QHS #90 tabs 07/16/23 pantoprazole 40 mg tablet,delayed 40 mg PO QDAY #90 tabs 07/16/23 release (Protonix) atorvastatin 40 mg tablet 40 mg PO QPM #90 tabs 08/13/23 ondansetron HCl 8 mg tablet 8 mg PO BID #60 tabs 08/16/23 bupropion HCl 300 mg 24 hr tablet, 300 mg PO QAM #30 tabs 09/18/23 extended release (Wellbutrin XL) lorazepam 1 mg tablet 1 mg PO BID PRN anxiety #60 tabs 09/20/23 Allergies Allergy/AdvReac Type Severity Reaction Status Date / Time carbidopa [From Sinemet] Allergy Severe Hallucinati Verified 08/16/23 08:04 ng diatrizoate meglumine Allergy Severe Hives Verified 08/16/23 08:04 Iodinated Contrast Media Allergy Severe Hives Verified 08/16/23 08:04 levodopa [From Sinemet] Allergy Severe Hallucinati Verified 08/16/23 08:04 ng Review of Systems Status of ROS: Reports: 6 or more systems reviewed and unremarkable except as noted in History and below [facility] Medical History Parkinson's disease ?G20.A1 - Parkinson's 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, without mention of fluctuations (ICD-10) Mixed hyperlipidemia ?E78.2 - Mixed hyperlipidemia (ICD-10) Psoriasis ?L40.9 - Psoriasis, unspecified (ICD-10) Primary hypertension ?I10 - Essential (primary) hypertension (ICD-10) DJD (degenerative joint disease), lumbar ?M47.816 - Spondylosis without myelopathy or radiculopathy, lumbar region (ICD-10) Type 2 diabetes mellitus without complication, with no history of insulin use ?E11.9 - Type 2 diabetes mellitus without complications (ICD-10) Generalized anxiety disorder ?F41.1 - Generalized anxiety disorder (ICD-10) Iron deficiency anemia ?D50.9 - Iron deficiency anemia, unspecified (ICD-10) Chronic constipation ?K59.09 - Other constipation (ICD-10) COVID-19 virus infection ?U07.1 - COVID-19 (ICD-10) Sensorineural hearing loss (SNHL) of both ears ?H90.3 - Sensorineural hearing loss, bilateral (ICD-10) Malignant neoplasm of prostate ?C61 - Malignant neoplasm of prostate (ICD-10) History of vitamin D deficiency ?Z86.39 - Personal history of other endocrine, nutritional and metabolic disease (ICD-10) History of peptic ulcer ?Z87.11 - Personal history of peptic ulcer disease (ICD-10) History of diverticulitis ?Z87.19 - Personal history of other diseases of the digestive system (ICD-10) History of alcohol abuse ?F10.11 - Alcohol abuse, in remission (ICD-10) Herpes zoster (01/09/20) ?B02.9 - Zoster without complications (ICD-10) Gastroesophageal reflux disease with hiatal hernia ?K21.9 - Gastro-esophageal reflux disease without esophagitis (ICD-10) ?K44.9 - Diaphragmatic hernia without obstruction or gangrene (ICD-10) Chronic idiopathic thrombocytopenic purpura (2016) ?D69.3 - Immune thrombocytopenic purpura (ICD-10) Cataract of both eyes ?H26.9 - Unspecified cataract (ICD-10) Alcoholic fatty liver ?K70.0 - Alcoholic fatty liver (ICD-10) Chronic low back pain ?M54.50 - Low back pain, unspecified (ICD-10) ?G89.29 - Other chronic pain (ICD-10) Surgical History History of vasectomy ?Z98.52 - Vasectomy status (ICD-10) History of tonsillectomy and adenoidectomy ?Z90.89 - Acquired absence of other organs (ICD-10) History of radical prostatectomy (10/13/18) ?Z90.79 - Acquired absence of other genital organ(s) (ICD-10) History of hemorrhoidectomy (1993) ?Z98.890 - Other specified postprocedural states (ICD-10) History of esophagogastroduodenoscopy (EGD) (07/01/14) ?Z98.890 - Other specified postprocedural states (ICD-10) Family History Son Thyroid cancer Social History Narrative: - [place], two sons, THC, Moderate EtOH, 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 What is your current living situation?: I presently have a place to live Problems where you live: no known problems In the past 12 months, utilities in danger of being shut off: no In past 12 months, lack of transportation kept you from medical appts, meetings, work, or getting things needed for daily living: no In the past 12 mos, have been you worried that your food would run out before you had money to buy more?: never true In the past 12 mos, the food you bought just didn't last and you didn't have money to buy more?: never true Smoking Status: Current some day smoker How often do you have a drink containing alcohol: 2-3 times a week AUDIT-C Alcohol total score: 3 Non-prescribed substance use: marijuana (any form) How often does anyone, including family, friends and others, physically hurt you: never How often does anyone, including family, friends and others, insult or talk down to you: never How often does anyone, including family, friends and others, threaten you with harm: never How often does anyone, including family, friends and others, scream or curse at you: never Little interest or pleasure in doing things: more than half the days Feeling down, depressed, or hopeless: several days Exam Narrative: Exam Narrative: Objective: Vital signs show elevated blood pressure otherwise unremarkable no fever, O2 sat excellent at 90% In general the patient is no apparent distress he is talking in even and labored unlabored sentences, noncyanotic HEENT is unremarkable for facial asymmetry neck is supple chest clear heart rhythm regular heart murmur abdomen benign soft nontender extremities are no edema neurologic nonfocal good peripheral perfusion noted Const: Vital Signs, click to edit/add: Vital Signs - 24 hr 09/25/23 13:19 Temperature 97.6 F Pulse Rate [Pulse Oximeter] 67 Respiratory Rate 26 H Blood Pressure [Ri ght Upper Arm] 166/103 H Pulse Oximetry 98 Oxygen Delivery Me thod Room Air Course Vital Signs Vital signs: Initial Vital Signs Temperature 97.6 F 09/25/23 13:19 Temperature Source Temporal Artery Scan 09/25/23 13:19 Pulse Rate 67 09/25/23 13:19 Respiratory Rate 26 H 09/25/23 13:19 Blood Pressure 166/103 H 09/25/23 13:19 Blood Pressure Mean 124 H 09/25/23 13:19 Blood Pressure Position Sitting 09/25/23 13:19 Pulse Oximetry 98 09/25/23 13:19 Oxygen Delivery Method Room Air 09/25/23 13:19 Vital Signs Temperature 97.6 F 09/25/23 13:19 Pulse Rate 67 09/25/23 13:19 Respiratory Rate 26 H 09/25/23 13:19 Blood Pressure 166/103 H 09/25/23 13:19 Pulse Oximetry 98 09/25/23 13:19 Oxygen Delivery Method Room Air 09/25/23 13:19 Temperature 97.6 F 09/25/23 13:19 Pulse Rate 67 09/25/23 13:19 Respiratory Rate 26 H 09/25/23 13:19 Blood Pressure 166/103 H 09/25/23 13:19 Pulse Oximetry 98 09/25/23 13:19 Oxygen Delivery Method Room Air 09/25/23 13:19 Medical Decision Making MDM Narrative Medical decision making narrative: [age] white male with history of alcohol-related tremor, dementia, Parkinson's disease who apparently is allergic to carbidopa levodopa, presents with transient shortness of breath intermittently. Sounds like an almost an anxiety component. I think however would be reasonable check an EKG, point of care troponin, lab studies. Will get a chest x-ray as well. If these look reassuring I think simply Ativan as needed and then follow up with Dr. Verdugo to be appropriate. At this point this seems more perhaps Parkinson's or dementia related and it sounds like he has been eating drinking had no chest pain and I think we can check the above-mentioned studies and disposition as follows recommend light activity until he sees his primary care. Addendum 2:03 p.m. will also check a viral studies to make sure does have an infection of some sort. Lab Data Labs: Lab Results 09/25/23 09/25/23 Range/Units 13:22 14:16 WBC 7.78 (4.50-11.00) K/uL RBC 4.24 L (4.30-5.90) m/uL Hgb 13.9 (13.5-17.5) gm/dL Hct 39.0 (37.0-53.0) % MCV 92 (80-100) fL MCH 33 (26-34) pg MCHC 36 (32-36) gm/dL RDW Coeff of Floyd 11.9 (11.5-15.5) % Plt Count 37 L* (140-440) K/uL Neut % (Auto) 69.3 (42.0-72.0) % Lymph % (Auto) 22.2 (20-44) % [place] % (Auto) 6.8 (0.0-11.0) % Eos % (Auto) 1.0 (0.0-7.0) % Baso % (Auto) 0.6 (0.0-3.0) % Neut # (Auto) 5.38 (1.7-7.0) K/uL Lymph # (Auto) 1.73 (0.90-2.90) K/uL [place] # (Auto) 0.50 (0.00-0.90) K/UL Eos # (Auto) 0.08 (0.00-0.50) K/uL Baso # (Auto) 0.05 (0.00-0.30) K/uL Abs Immat Gran (auto) 0.01 (0.00-0.30) K/uL Imm/Tot Granulo (auto) 0.1 % Diff Slide Review Acceptable Review (Acceptable) Sodium 136 (135-149) mmol/L Potassium 3.9 (3.6-5.1) mmol/L Chloride 105 (96-114) mmol/L Carbon Dioxide 21 (20-32) mmol/L Anion Gap 10 (7-15) mEq/L BUN 16 (7-30) mg/dL Creatinine 0.7 (0.5-1.5) mg/dL Estimated Creat Clear 68.98 Estimated GFR 95 ml/min Glucose 121 H (60-115) mg/dL Calcium 9.7 (8.4-10.6) mg/dL Total Bilirubin 1.4 (0.1-1.5) mg/dL Direct Bilirubin 0.3 (0.0-0.5) mg/dL AST 31 (12-35) U/L ALT 24 (4-50) U/L Alkaline Phosphatase 62 (40-150) U/L C-Reactive Protein < 0.5 L (0.5-1.0) mg/dL Total Protein 7.0 (6.0-8.3) g/dL Albumin 4.7 (3.3-5.0) g/dL SARS-CoV-2 (PCR) Negative SARS-CoV-2 (Negative) POC Troponin I 0.00 L (0.01-0.04) ng/ml Discharge Plan Discharge Clinical Impression: Parkinson's disease, Acute anxiety, Dementia Patient Disposition: Home w/ Parent or Adult Condition: Stable Additional Instructions: Recheck with Neurology as planned, may try some Ativan intermittently for any kind of panic or anxiety symptom. Discussed with Dr. Verdugo in the next few days as well. Return to ED as needed. Activity Level: Light activity Discharge Diet: Regular Prescriptions: No Action donepezil 5 mg tablet 5 mg PO DAILY ondansetron HCl 8 mg tablet 8 mg PO BID Qty: 60 2RF pantoprazole [Protonix] 40 mg tablet,delayed release (DR/EC) 40 mg PO QDAY Qty: 90 3RF famotidine 20 mg tablet 20 mg PO QHS Qty: 90 3RF cholecalciferol (vitamin D3) 25 mcg (1,000 unit) tablet 1,000 unit PO DAILY Marijuana inhalation Metamucil (sugar) Powder 1 tbsp PO QDAY sennosides-docusate sodium [Senna-S] 8.6-50 mg tablet 2 tab-cap PO QHS Qty: 60 5RF lisinopril 40 mg tablet 40 mg PO QDAY Qty: 90 2RF Eligard (4 month) 30 mg syringe 30 mg subcut [id number] metoprolol succinate 100 mg tablet extended release 24 hr 100 mg PO QDAY Qty: 90 3RF metformin 500 mg tablet extended release 24 hr 1,500 mg PO QDAY Qty: 270 3RF fluoxetine [Prozac] 40 mg capsule 40 mg PO QDAY Qty: 90 1RF aspirin 325 mg tablet See Rx Instructions PO QDAY Rx Instructions: 0.5 tab orally every day; atorvastatin 40 mg tablet 40 mg PO QPM Qty: 90 0RF bupropion HCl [Wellbutrin XL] 300 mg tablet extended release 24 hr 300 mg PO QAM Qty: 30 2RF lorazepam 1 mg tablet 1 mg PO BID PRN (Reason: anxiety) Qty: 60 1RF Rx Instructions: Must last a month. Follow Up/Referrals: Magan Verdugo MD [Primary Care Provider] - Stand Alone Forms: [employer] Info Instructions
[2023-09-25 14:07] LABS: SARS PCR* Negative SARS-CoV-2 (Negative)
[2023-09-25 14:30] LABS: Basophils Absolute Auto 0.05 K/uL (0.00-0.30); Basophils Percent Auto 0.6 % (0.0-3.0); Eosinophils Absolute Auto 0.08 K/uL (0.00-0.50); Hemoglobin* 13.9 gm/dL (13.5-17.5); Immature Granulocytes Abs Auto 0.01 K/uL (0.00-0.30); Immature Granulocytes Pct Auto 0.1 %; Lymphocytes Absolute Auto 1.73 K/uL (0.90-2.90); Lymphocytes Percent Auto 22.2 % (20-44); Mean Corpuscular HGB Conc 36 gm/dL (32-36); Mean Corpuscular Hemoglobin 33 pg (26-34); Mean Corpuscular Volume 92 fL (80-100); Monocytes Percent Auto 6.8 % (0.0-11.0); Neutrophils Absolute Auto 5.38 K/uL (1.7-7.0); Neutrophils Percent Auto 69.3 % (42.0-72.0); RDW Coefficient of Variation % 11.9 % (11.5-15.5); Red Blood Count 4.24 m/uL (4.30-5.90); White Blood Count* 7.78 K/uL (4.50-11.00)
[2023-09-25 14:41] LABS: Albumin* 4.7 g/dL (3.3-5.0); Chloride* 105 mmol/L (96-114)
--- OUTSIDE RECORDS SUMMARY | 2023-09-25 14:41 | XMS_ITS | Encounter Summary ---
Author Organization [facility] Address [address] [place] [id number] Care Team Providers Care Linoleum Tile Floor Layer Name Role Phone Magan Verdugo MD Primary Care Provider Reason for Referral * Consultation (Urgent: 3-5 Days) - Pending Review Specialty Diagnoses / Procedures Referred By Addi grubbs Referred To Contact Diagnoses Parkinson's 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, without mention of fluctuations (H) Magan Verdugo MD [facility] 1978. [place] [address] Referral ID Status Reason Start Date Expiration Date V isits Requested Visits Authorized [id number] Pending Review 07/31/2023 07/30/2024 1 1 Question Answer Reason for Referral: General Neurology Scheduling Instructions: [facility] will call you to coordinate your care as prescribed by your provider. If you don't hear from a outbound call center representative within 2 business days, please call . Comments Referred by Dr Magan Verdugo [facility] will call you to coordinate your care as prescribed by your provider. If you don't hear from a outbound call center representative within 2 business days, please call . Encounter Details Date Type Department Care Team (Late st Contact Info) Description 07/31/2023 Transcribe Orders GENERIC EXTERNAL DATA DEPARTMENT Provider, Generic External Data Parkinson's 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, without mention of fluctuations (H) (Primary Dx) Social History Tobacco Use Types Packs/Day Years Used Date Smoking Tobacco: Never Assessed Sex and Gender Information Value Date Recorded Sex Assigned at Not on file Gender Identity Not on file Sexual Orientation Not on file documented as of this encounter Plan of Treatment Scheduled Referrals Name Type Priority Associated Diagnoses Orde r Schedule Adult Neurology Tie Cutter Referral Referral Urgent: 3-5 Days Parkinson's 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, without mention of fluctuations Expected: 07/31/2023 (Approximate), Expires: 07/30/2024 documented as of this encounter Visit Diagnoses Diagnosis Parkinson's 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, without mention of fluctuations (H)- Primary documented in this encounter Care Teams Linoleum Tile Floor Layer Relationship Specialty Start Date End Date Magan Verdugo MD [facility] [address] [place] [address] PCP - General Family Medicine 06/04/23 documented as of this encounter
--- OUTSIDE RECORDS SUMMARY | 2023-09-25 14:41 | XMS_ITS | Encounter Summary ---
Author Organization [facility] Address [address] [place] [address] Care Team Providers Care Sloop Captain Name Role Phone Magan Verdugo MD Primary Care Provider Encounter Details Date Type Department Care Team (Late st Contact Info) Description 08/26/2023 Telephone [facility] [address] [place] [phone] Pk Schaeffer RN Social History Tobacco Use Types Packs/Day Years Used Date Smoking Tobacco: Never Assessed Adolescent Education Answer Date Record ed Getting School Help Needed Not on file 08/13 Sex and Gender Information Value Date Recorded Sex Assigned at Not on file Gender Identity Not on file Sexual Orientation Not on file documented as of this encounter Miscellaneous Notes * Telephone Encounter - Pk Schaeffer RN - 08/26/2023 2:29 PM CDT Detailed VM to hold Wellbutrin starting on 08/27 until after 09/04 Datscan. Call back requested documented in this encounter Plan of Treatment Not on file documented as of this encounter Visit Diagnoses Not on filedocumented in this encounter Care Teams Sloop Captain Relationship Specialty Start Date End Date Magan Verdugo MD [facility] [address] [place] [address] PCP - General Family Medicine 06/04/23 documented as of this encounter
--- OUTSIDE RECORDS SUMMARY | 2023-09-25 14:41 | XMS_ITS | Clinical Summary ---
Author Organization [facility] Address [address] [place] [address] Care Team Providers Care Tie Hacker Name Role Phone Magan Verdugo MD Primary Care Provider Medications No known medications Encounters Date Type Department Care Team Description 09/10/[address] [phone] No Ref-Primary, Physician 09/05/2023 1:30 PM CDT Ancillary Procedure [facility] [address] [address] [address] 09/05/2023 10:30 AM CDT Ancillary Procedure [facility] [address] [address] [address] 09/05/2023 9:30 AM CDT Ancillary Procedure [facility] [address] [place] [address] Drug-induced tremor 09/05/2023 Travel 08/26/2023 Telephone [facility] [address] [place], [place] [address] [address] Pk Schaeffer RN 08/14/2023 Documentation Only [facility] [address] [address] [address] Pk Schaeffer RN 07/31/2023 Medical Correspondence [facility] Info Mgmt Srvcs [address] [facility] [place] [address] Scan, Non-Provider 07/31/2023 Transcribe Orders GENERIC EXTERNAL DATA DEPARTMENT Provider, Generic External Data Parkinson's 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, without mention of fluctuations (H) (Primary Dx) 07/31/2023 Transcribe Orders GENERIC EXTERNAL DATA DEPARTMENT Provider, Generic External Data Parkinson's 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 or fluctuating manifestations (H) (Primary Dx) from Last 3 Months Social History Tobacco Use Types Packs/Day Years Used Date Smoking Tobacco: Never Assessed Adolescent Education Answer Date Record ed Getting School Help Needed Not on file 09/04 Sex and Gender Information Value Date Recorded Sex Assigned at Not on file Gender Identity Not on file Sexual Orientation Not on file Plan of Treatment Health Maintenance Due Date Last Done Comments ADVANCE CARE PLANNING 1945 ANNUAL REVIEW OF HM ORDERS 1945 GLUCOSE 1945 HEPATITIS C SCREENING 1964 LIPID 1986 RSV VACCINE ( & 60+) (1 - 1-dose 60+ series) 2006 ZOSTER IMMUNIZATION (2 of 3) 04/08/2008 02/12/2008 FALL RISK ASSESSMENT 10/24/2011 MEDICARE ANNUAL WELLNESS VISIT 10/24/2011 DTAP/TDAP/TD IMMUNIZATION (2 - Td or Tdap) 04/11/2019 04/11/2009, 01/25/1999, 03/11/1997 PHQ-2 (once per calendar year) 2023 COVID-19 Vaccine ( season) 2023 01/03/2023, 12/18/2021, 01/25/2021, Additional history exists INFLUENZA VACCINE (#1) 2023 , 2022, 01/15/2022, Additional history exists COLONOSCOPY Discontinued 01/28/2017 COLORECTAL CANCER SCREENING Discontinued Pneumococcal Vaccine: 65+ Years Completed 11/23/2020, 04/28/2019, 03/12/2019, Additional history exists CT COLONOGRAPHY Discontinued FIT Discontinued FLEX SIG Discontinued HPV IMMUNIZATION Aged Out No longer e ligible based on patient's age to complete this topic IPV IMMUNIZATION Aged Out No longer e ligible based on patient's age to complete this topic MENINGITIS IMMUNIZATION Aged Out No l onger eligible based on patient's age to complete this topic RSV MONOCLONAL ANTIBODY Aged Out No l onger eligible based on patient's age to complete this topic sDNA (Cologuard) Discontinued Procedures Procedure Name Priority Date/Time Associated Diagnosis Comments NM BRAIN IMAGING TOMOGRAPHIC (SPECT) DATSCAN Routine 09/05/2023 2:21 PM CDT Drug-induced tremor from Last 3 Months Results * NM Brain Imaging Tomographic (Spect) Datscan (09/05/2023 2:21 PM CDT) Anatomical Region Laterality Modality Nuclear Medicine Impressions 09/05/2023 2:52 PM CDT Impression: Presynaptic dopaminergic deficit is not present. Drug Interactions with DatScan: The following drugs should not significantly interfere with ioflupane binding and do not need to be stopped: ? Cholinesterase inhibitors and neuroleptics ? Anti-parkinsonian drugs (e.g., L-dihydroxyphenylalanine, dopamine agonists, monoamine oxidase-B inhibitors, E-bufjun-M-aspartate receptor blockers, amantadine, and aspwezkp-P-wvgjgnxnliqutcsjt inhibitors in standard dosages) ? Selective serotonin reuptake inhibitors (e.g. Sertraline) may increase binding to the [place] somewhat but should not interfere with visual interpretation Medication that may interfere with Ioflupane binding and therefore should be stopped for at least 5 half-lives prior to scan:[5 half-lives are approximately equal to:] Ephedrine, ketamine, isoflurane 1 days Cocaine, methylphenidate 2 days Methamphetamine, mazindol, modafinil 3 days Benztropine, fentanyl 5 days Amphetamine, dexamphetamine 7 days Bupropion 8 days Phentermine 14 day I have personally reviewed the examination and initial interpretation and I agree with the findings. RAKESH STAPLES MD Narrative 09/05/2023 2:52 PM CDT Examination: Nuclear medicine DATscan for Dopamine Receptor Localization. ?? Examination: NM BRAIN IMAGING TOMOGRAPHIC (SPECT) DATSCAN Date: 09/05/2023 2:32 PM Indication: eval for Parkinson disease versus drug induced tremor; Drug-induced tremor Comparison: None Interfering Medications: None Technique: The patient initially received 1 ml of Lugol's solution orally prior to the injection of 5.0 mCi of I-123 Ioflupane intravenously. After 3 hours of uptake time the patient was imaged on a dual headed SPECT scanner using BRITNEY collimators. The patients head was immobilized prior to scanning to reduce motion. The head was scanned with a FOV of 15 cm at 3 degrees per stop over 360 degrees, 128 x 128 x 16 bit resolution, at 30 seconds per stop to yield greater than 1.5 million counts. Images were reconstructed using a iterative reconstruction technique. Semi-quantitative analysis was performed as a ratio of Putamen to Caudate Nucleus of the right and left brain when the Caudate uptake appeared normal. 2. Technical Quality: Diagnostic Subjective findings: Patient's head is mildly tilted. Relative symmetric striatal uptake without definite foreshortening. Ratio Semi-quantitative analysis to Normalized (Occipital) Region: (Ratios of activity in Caudate, Putamen and Striatum (combined) normalized to background region (occipital cortex) and compared against an age matched normal group. ??Images and graphs are appended to the PACS system. Procedure Note Rakesh Staples MD - 09/05/2023 Examination: Nuclear medicine DATscan for Dopamine Receptor Localization. Examination: NM BRAIN IMAGING TOMOGRAPHIC (SPECT) DATSCAN Date: 09/05/2023 2:32 PM Indication: eval for Parkinson disease versus drug induced tremor; Drug-induced tremor Comparison: None Interfering Medications: None Technique: The patient initially received 1 ml of Lugol's solution orally prior to the injection of 5.0 mCi of I-123 Ioflupane intravenously. After 3 hours of uptake time the patient was imaged on a dual headed SPECT scanner using BRITNEY collimators. The patients head was immobilized prior to scanning to reduce motion. The head was scanned with a FOV of 15 cm at 3 degrees per stop over 360 degrees, 128 x 128 x 16 bit resolution, at 30 seconds per stop to yield greater than 1.5 million counts. Images were reconstructed using a iterative reconstruction technique. Semi-quantitative analysis was performed as a ratio of Putamen to Caudate Nucleus of the right and left brain when the Caudate uptake appeared normal. 2. Technical Quality: Diagnostic Subjective findings: Patient's head is mildly tilted. Relative symmetric striatal uptake without definite foreshortening. Ratio Semi-quantitative analysis to Normalized (Occipital) Region: (Ratios of activity in Caudate, Putamen and Striatum (combined) normalized to background region (occipital cortex) and compared against an age matched normal group. Images and graphs are appended to the PACS system. Impression: Presynaptic dopaminergic deficit is not present. Drug Interactions with DatScan: The following drugs should not significantly interfere with ioflupane binding and do not need to be stopped: ? Cholinesterase inhibitors and neuroleptics ? Anti-parkinsonian drugs (e.g., L-dihydroxyphenylalanine, dopamine agonists, monoamine oxidase-B inhibitors, R-apwtxs-E-aspartate receptor blockers, amantadine, and cndjnwdm-W-uxdkcdmopqaejhfms inhibitors in standard dosages) ? Selective serotonin reuptake inhibitors (e.g. Sertraline) may increase binding to the [place] somewhat but should not interfere with visual interpretation Medication that may interfere with Ioflupane binding and therefore should be stopped for at least 5 half-lives prior to scan:[5 half-lives are approximately equal to:] Ephedrine, ketamine, isoflurane 1 days Cocaine, methylphenidate 2 days Methamphetamine, mazindol, modafinil 3 days Benztropine, fentanyl 5 days Amphetamine, dexamphetamine 7 days Bupropion 8 days Phentermine 14 day I have personally reviewed the examination and initial interpretation and I agree with the findings. RAKESH STAPLES MD Jazmin Branch AVIONICS SYSTEMS TECHNICIAN IMG NM ORDERABLES from Last 3 Months Care Teams Tie Hacker Relationship Specialty Start Date End Date Magan Verdugo MD [facility] [address] [place] [id number] PCP - General Family Medicine 06/04/23
--- OUTSIDE RECORDS SUMMARY | 2023-09-25 14:41 | XMS_ITS | Encounter Summary ---
Author Organization [facility] Address [address] [place] [address] Care Team Providers Care Head Of Transport Logistics Name Role Phone Magan Verdugo MD Primary Care Provider [phone] Encounter Details Date Type Department Care Team (Late st Contact Info) Description 09/10/[address] [phone] No Ref-Primary, Physician Social History Tobacco Use Types Packs/Day Years Used Date Smoking Tobacco: Never Assessed Adolescent Education Answer Date Record ed Getting School Help Needed Not on file 09/04 Sex and Gender Information Value Date Recorded Sex Assigned at Not on file Gender Identity Not on file Sexual Orientation Not on file documented as of this encounter Miscellaneous Notes * Telephone Encounter - Rubi Mosher - 09/10/2023 9:42 AM CDT Pt calling to get 09/04 Datscan result sent to their address. She wasn't on CTC so no information about pt was given. Datscan result mailed to pt's address. documented in this encounter Plan of Treatment Not on file documented as of this encounter Visit Diagnoses Not on filedocumented in this encounter Care Teams Head Of Transport Logistics Relationship Specialty Start Date End Date Magan Verdugo MD [facility] [place] [address] [place] [address] PCP - General Family Medicine 06/04/23 documented as of this encounter
--- OUTSIDE RECORDS SUMMARY | 2023-09-25 14:41 | XMS_ITS | Encounter Summary ---
Author Organization [facility] Address [address] [place] [address] Care Team Providers Care Child Care Worker Name Role Phone Magan Verdugo MD Primary Care Provider [phone] Encounter Details Date Type Department Care Team (Late st Contact Info) Description 08/14/2023 Documentation Only [facility] [address] [place] [phone] Pk Schaeffer RN Social History Tobacco Use [...] encounter Miscellaneous Notes * Telephone Encounter - Silver Viramontes CNMT - 08/15/2023 10:18 AM CDT Dose ordered for 09-04 on 08-14 documented in this encounter Plan of Treatment Not on file documented as of this encounter Visit Diagnoses Not on filedocumented in this encounter Care Teams Child Care Worker Relationship Specialty Start Date End Date Magan Verdugo MD [facility] [address]. [place] [address] PCP - General Family Medicine 06/04/23 documented as of this encounter
--- OUTSIDE RECORDS SUMMARY | 2023-09-25 14:41 | XMS_ITS | Encounter Summary ---
Author Organization [facility] Address [address] [place] [address] Care Team Providers Care Mine Safety Manager Name Role Phone Magan Verdugo MD Primary Care Provider Reason for Visit * Diagnostic Imaging NM (Routine) - Closed Specialty Diagnoses / Procedures Referred By Contac t Referred To Contact Radiology. Diagnoses Drug-induced tremor Procedures NM Brain Imaging Tomographic (Spect) Jazmin Bettencourt NP [address] [place] [address] [address] [place] [address] Nuclear [address] [place] [phone] Referral ID Status Reason Start Date Expiration Date Visits Re quested Visits Authorized [id number] Closed 05/29/2023 05/28/2024 3 3 Encounter Details Date Type Department Care Team (Latest Contact Info) Description 09/05/2023 9:30 AM CDT Ancillary Procedure [address] [address] Drug-induced tremor Social History Tobacco Use Types Packs/Day Years [...] on file documented as of this encounter Procedures Procedure Name Priority Date/Time Associated Diagnosis Comments NM BRAIN IMAGING TOMOGRAPHIC (SPECT) DATSCAN Routine 09/05/2023 2:21 PM CDT Drug-induced tremor documented in this encounter Results * NM Brain Imaging Tomographic (Spect) [...] (e.g., L-dihydroxyphenylalanine, dopamine agonists, monoamine oxidase-B inhibitors, M-fzznku-P-aspartate receptor blockers, amantadine, and legwenii-V-riwfulmbjxiiekuyc inhibitors in standard dosages) ? Selective serotonin [...] (e.g., L-dihydroxyphenylalanine, dopamine agonists, monoamine oxidase-B inhibitors, G-vionof-W-aspartate receptor blockers, amantadine, and yvvlvnmr-Y-wgwwtqqbtsmkwogzr inhibitors in standard dosages) ? Selective serotonin [...] the findings. 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 [place] [address] PCP - General Family Medicine 06/04/23 documented as of this encounter
--- OUTSIDE RECORDS SUMMARY | 2023-09-25 14:41 | XMS_ITS | Encounter Summary ---
Author Organization [facility] Address [address] [place] [address] Care Team Providers Care Hall Monitor Name Role Phone Magan Verdugo MD Primary Care Provider [phone] Encounter Details Date Type Department Care Team (Latest Contact Info) Description 09/05/2023 Travel Social History Tobacco Use Types Packs/Day Years [...] on filedocumented in this encounter Care Teams Hall Monitor Relationship Specialty Start Date End Date Magan Verdugo MD [facility] [address] [address] PCP - General Family Medicine 06/04/23 documented as of this encounter
--- OUTSIDE RECORDS SUMMARY | 2023-09-25 14:41 | XMS_ITS | Encounter Summary ---
Author Organization [facility] Address [address] [place] [address]. [place] [address] Care Team Providers Care Enforcement Safety Officer Name Role Phone Magan Verdugo MD Primary Care Provider Encounter Details Date Type Department Care Team (Late st Contact Info) Description 07/31/2023 Medical Correspondence [facility] Info Mgmt Srvcs [address] [place] [phone] Scan, Non-Provider Social History Tobacco Use Types Packs/Day Years Used Date Smoking Tobacco: Never Assessed Sex and Gender Information Value Date Recorded Sex Assigned at Not on file Gender Identity Not on file Sexual Orientation Not on file documented as of this encounter Plan of Treatment Not on file documented as of this encounter Visit Diagnoses Not on filedocumented in this encounter Care Teams Enforcement Safety Officer Relationship Specialty Start Date End Date Magan Verdugo MD [facility] [address] [place] [address] PCP - General Family Medicine 06/04/23 documented as of this encounter
--- OUTSIDE RECORDS SUMMARY | 2023-09-25 14:41 | XMS_ITS | Encounter Summary ---
Author Organization [facility] Address [address] [place] [address] Care Team Providers Care Rag Cutting Machine Tender Name Role Phone Magan Verdugo MD Primary Care Provider Reason for Visit * Diagnostic Imaging NM (Routine) - Closed Specialty Diagnoses / Procedures Referred By Contac t Referred To Contact Radiology. Diagnoses Drug-induced tremor Procedures NM Brain Imaging Tomographic (Spect) Jazmin Bettencourt NP [address] [place] [address] [address] [place] [address] Nuclear Medicine [address] [place] [phone] Referral ID Status Reason Start Date Expiration Date Visits Re quested Visits Authorized [id number] Closed 05/29/2023 05/28/2024 3 3 Encounter Details Date Type Department Care Team (Late st Contact Info) Description 09/05/2023 10:30 AM CDT Ancillary Procedure [address] [address] Social History Tobacco Use Types Packs/Day Years [...] CDT Drug-induced tremor documented in this encounter Visit Diagnoses Not on filedocumented in this encounter Administered Medications Inactive Administered Medications - up to 3 most recent administrations Medication Order MAR Action Action Date Dose Rate Site ioflupane, iodine I-123 (DaTscan BRAND) radioisotope injection 4-6 millicurie 4-6 millicurie, Intravenous, ONCE, On [place] 09/05/23 at 1030, For 1 dose, Supplied by, and administered by Nuclear Medicine. *HW* $Given 09/05/2023 10:36 AM CDT 5 millicuries documented in this encounter Care Teams Rag Cutting Machine Tender Relationship Specialty Start Date End Date Magan Verdugo MD [facility] [address] [address] PCP - General Family Medicine 06/04/23 documented as of this encounter
--- OUTSIDE RECORDS SUMMARY | 2023-09-25 14:41 | XMS_ITS | Referral Summary ---
Author Organization [facility] Address [address] [place] [address] Care Team Providers Care Sample Book Maker Name Role Phone Magan Verdugo MD Primary Care Provider Encounters Date Type Department Care Team Description 09/10/[address] [phone] No Ref-Primary, Physician 09/05/2023 Travel 09/05/2023 1:30 PM CDT Ancillary Procedure [facility] [address] [place] [phone] 09/05/2023 10:30 AM CDT Ancillary Procedure [facility] [address] [place] [phone] 09/05/2023 9:30 AM CDT Ancillary Procedure [facility] [address] [address], [place] [address] Drug-induced tremor 08/26/2023 Telephone [facility] [address] [place] [address] [place] [address] Pk Schaeffer RN 08/14/2023 Documentation Only [facility] [address] [place], [place] [address] [address] Pk Schaeffer RN 07/31/2023 Medical Correspondence [facility] Info Mgmt Srvcs [address] [place] [address] Scan, Non-Provider 07/31/2023 Transcribe Orders GENERIC EXTERNAL DATA DEPARTMENT Provider, Generic External Data Parkinson's 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, without mention of fluctuations (H) (Primary Dx) 07/31/2023 Transcribe Orders GENERIC EXTERNAL DATA DEPARTMENT Provider, Generic External Data Parkinson's 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 or fluctuating manifestations (H) (Primary Dx) from Last 3 Months Medications No known medications Social History Tobacco Use Types Packs/Day Years Used Date Smoking Tobacco: Never Assessed Adolescent Education Answer Date Record ed Getting School Help Needed Not on file 09/04 Sex and Gender Information Value Date Recorded Sex Assigned at Not on file Gender Identity Not on file Sexual Orientation Not on file Plan of Treatment Not on file Procedures Procedure Name Priority Date/Time Associated Diagnosis [...] (e.g., L-dihydroxyphenylalanine, dopamine agonists, monoamine oxidase-B inhibitors, X-yypyba-X-aspartate receptor blockers, amantadine, and trdpyoos-K-lqiybykkxbksriwfs inhibitors in standard dosages) ? Selective serotonin [...] agree with the findings. RAKESH STAPLES MD [facility] 09/05/2023 2:52 PM CDT Examination: Nuclear medicine [...] (e.g., L-dihydroxyphenylalanine, dopamine agonists, monoamine oxidase-B inhibitors, Y-kvszbr-M-aspartate receptor blockers, amantadine, and tkjibmrw-D-zsnsbvbodtpwxgvtr inhibitors in standard dosages) ? Selective serotonin [...] the findings. RAKESH STAPLES MD Jazmin Branch CLOTH BRUSHING AND SUEDING SUPERVISOR IMG NM ORDERABLES from Last 3 Months Care Teams Sample Book Maker Relationship Specialty Start Date End Date Magan Verdugo MD [facility] [address]. [place] [address] PCP - General Family Medicine 06/04/23
--- OUTSIDE RECORDS SUMMARY | 2023-09-25 14:41 | XMS_ITS | Encounter Summary ---
Author Organization [facility] Address [address] [place] [address] Care Team Providers Care Wood Experimental Mechanic Name Role Phone Magan Verdugo MD Primary Care Provider Reason for Visit * Diagnostic Imaging NM (Routine) - Closed Specialty Diagnoses / Procedures Referred By Contac t Referred To Contact Radiology. Diagnoses Drug-induced tremor Procedures NM Brain Imaging Tomographic (Spect) Jazmin Bettencourt NP [address] [place] [address] [address] [place] [address] Nuclear Medicine [address] [place] [phone] Referral ID Status Reason Start Date Expiration Date Visits Re quested Visits Authorized [id number] Closed 05/29/2023 05/28/2024 3 3 Encounter Details Date Type Department Care Team (Late st Contact Info) Description 09/05/2023 1:30 PM CDT Ancillary Procedure [address] [phone] Social History Tobacco Use Types [...] (e.g., L-dihydroxyphenylalanine, dopamine agonists, monoamine oxidase-B inhibitors, I-gfgczg-C-aspartate receptor blockers, amantadine, and tozdbmlu-A-kiwnetrgvoanyvcck inhibitors in standard dosages) ? Selective serotonin [...] (e.g., L-dihydroxyphenylalanine, dopamine agonists, monoamine oxidase-B inhibitors, D-tcqmok-P-aspartate receptor blockers, amantadine, and txqihapp-U-hazsrveozhppnxnep inhibitors in standard dosages) ? Selective serotonin [...] the findings. RAKESH STAPLES MD Jazmin Branch OUTSIDE PLANT CABLE ENGINEER IMG NM ORDERABLES documented in this encounter Visit Diagnoses Not on filedocumented in this encounter Care Teams Wood Experimental Mechanic Relationship Specialty Start Date End Date Magan Verdugo MD [facility] [address] [place] [address] PCP - General Family Medicine 06/04/23 documented as of this encounter
[2023-09-25 14:42] LABS: Potassium* 3.9 mmol/L (3.6-5.1); Sodium* 136 mmol/L (135-149)
--- OUTSIDE RECORDS SUMMARY | 2023-09-25 14:42 | XMS_ITS | Clinical Summary ---
Author Organization [facility] Address [place], [place] [address] Care Team Providers Care Chemical Manager Name Role Phone Magan Verdugo MD [...] neck and back pain Encounters Date Type Department Care Team Description 06/28/2023 Telephone [facility] [address] [place] [address] Yue Topete, MARCO Referral from Last 3 Months Immunizations Name Administration [...] 06/25/2019 06/24/2018, 06/09/2018, 03/10/2018, Additional history exists COVID-19 vaccine series (2022- season) 2023 01/03/2023, 12/18/2021, 01/25/2021, Additional history exists Influenza for age 65+ 11/10/2023 12/24/2017 , 01/08/2017, 11/11/2015, Additional history exists Tdap Completed 04/11/2009 Pneumococcal series for age 65+ Completed 05/26/2015, 01/24/2012, 04/11/2009 Hepatitis C screening for ag e 18-79 Completed 12/16/2015, 01/10/2005 Procedures Procedure Name Priority Date/Time Associated Diagnosis Comments ANTI HCV Routine 12/16/2015 9:04 AM CDT Abdominal pain, RUQ (right upper quadrant) from Last 3 Months or Most Recently Relevant to Health Maintenance Results * ANTI HCV (12/16/2015 9:04 AM CDT) HEPATITIS C ANTIBODY Non-Reacti ve Non-Reacti ve 12/16/2015 5:07 PM CDT [facility] Blood BLOOD SPECIMEN / Unknown Venipuncture / Unknown 12/16/2015 9:04 AM CDT 12/16/2015 9:04 AM CDT Narrative [facility] - 12/16/2015 5:07 PM CDT Antibodies to HCV not detected; does not exclude the possibility of exposure to HCV. Svetlana Tenorio MD SEND OUTS [facility] [address] [place] [address], from Last 3 Months or Most Recently Relevant to Health Maintenance Advance Directives * Full Code (Latest Code Status on File) Date Activated Date Inactivated Comments 10/13/2018 8:46 AM 10/14/2018 3:18 PM * Full Code Date Activated Date Inactivated Comments 09/08/2018 10:16 AM 09/08/2018 5:17 PM Care Teams Chemical Manager Relationship Specialty Start Date End Date Magan Verdugo MD [address] [place] [id number] PCP - General Family Practice 09/04/18
--- OUTSIDE RECORDS SUMMARY | 2023-09-25 14:42 | XMS_ITS | Continuity of Care Document ---
Author Organization [facility], [facility] Address [address] [place] [id number] Care Team Providers Care Actuarial Consultant Name Role Phone ARTURO WHITEHEAD Primary Care Provider [phone] [facility] ([facility]) Referring Provider Assessment No assessment recorded. Plan of Treatment Reminders Order Date Submit Date Provider Last Modified By Organization Details Last Modified Time Details Appointments None recorded. Lab None recorded. Referral None recorded. Procedures None recorded. Surgeries None recorded. Imaging PET-CT, skull base to mid-thigh scan - PSMA scan; Eyes to thighs 2023 024 [email or web address] Not available 14:54:17 Medication Orders Eligard 45 mg (6 month) subcutaneou s syringe 2023 024 [email or web address] [id number], [address] [facility] NAZ [place], [id number], 14:10:15 Patient TargetsNo targets recorded. Patient InstructionsNo instructions recorded. Reason for Referral Cancer Support Services for Malignant tumor of prostate Referring Physician: Tawny Daugherty, Encounter Date: 11/10/2020 psa recurrence after prostat ectomy. Please contact patient to schedule at [phone]. Referring Physician: Tawny Daugherty, Encounter Date: 11/16/2020 [...] : Raised prostate specific antigen Not Available [facility] 08/19/2019 23:54:14 Malignant tumor of prostate Active 08/21/19 19 C61 : Malignant tumor of prostate Not Available [facility] 08/19/2019 23:54:14 Problem Notes None recorded. Procedures Surgical History Date Name Laterality Status Provider Name and Address Organization Details Recorded Time 07/08/19 24 Faye completed Bucky Armstrong null, [facility] 07/08/2023 14:09:48 04/16/19 24 Blood Draw/SYSTEMS PROJECT MANAGER/PSA RESULTS completed Mery Christensen null, [facility] 04/16/2023 12:37:16 10/16/19 23 Blood Draw/SYSTEMS PROJECT MANAGER/PSA RESULTS completed Arleen Meehanh null, [facility] 10/15/2022 12:46:25 10/16/19 23 Faye completed Arleen Segura null, [facility] 10/15/2022 12:46:56 09/28/19 23 Firmagon completed Bucky Armstrong null, [facility] 09/27/2022 10:13:16 08/30/19 23 Firmagon completed Arleen Segura null, [facility] 08/29/2022 12:54:05 07/28/19 23 Firmagon completed Arleen Segura null, [facility] 07/27/2022 10:58:45 06/29/19 23 Firmagon completed Bucky Patti null, [facility] 06/28/2022 10:39:47 05/30/19 23 Firmagon completed Arleen Segura null, [facility] 05/29/2022 10:36:15 04/30/19 23 Firmagon completed Mery Christensen null, [facility] 04/30/2022 12:10:20 03/28/19 23 Blood Draw/SYSTEMS PROJECT MANAGER/PSA RESULTS completed Mery Christensen null, [facility] 03/28/2022 11:34:37 03/28/19 23 Firmagon completed Mery Christensen null, [facility] 03/28/2022 11:35:59 02/24/20 22 Firmagon completed Lola Briceno null, [facility] 02/23/2022 13:06:57 01/25/20 22 Firmagon completed Mery Christensen null, [facility] 01/24/2022 10:21:06 12/05/19 22 Blood Draw/SYSTEMS PROJECT MANAGER/PSA RESULTS completed Mery Christensen null, [facility] 12/04/2021 09:55:45 11/10/19 22 Firmagon completed Mery Christensen null, [facility] 11/09/2021 10:52:30 10/10/19 22 Firmagon completed Annette Martinong null, [facility] 10/09/2021 11:03:14 09/08/19 22 Firmagon completed Mery Christensen null, [facility] 09/07/2021 15:38:52 08/09/19 22 Firmagon completed Mery Christensen null, [facility] 08/08/2021 11:27:04 06/24/19 22 Bladder Scan completed Joshua Reyes null, [facility] 06/23/2021 11:13:27 06/24/19 22 Blood Draw/SYSTEMS PROJECT MANAGER/PSA RESULTS completed Martha Ho null, [facility] 06/23/2021 11:38:51 06/24/19 22 Firmagon completed Martha Ho null, [facility] 06/23/2021 11:40:02 05/23/19 22 Firmagon completed Mery Christensen null, [facility] 05/22/2021 16:07:39 04/18/19 22 Firmagon completed Mery Christensen null, [facility] 04/18/2021 10:20:52 04/06/19 22 Blood Draw/SYSTEMS PROJECT MANAGER/PSA RESULTS completed Mery Christensen null, [facility] 04/06/2021 09:47:08 02/07/20 21 Blood Draw/SYSTEMS PROJECT MANAGER/PSA RESULTS completed Mery Christensen null, [facility] 02/06/2021 14:44:40 02/02/20 21 Blood Draw/SYSTEMS PROJECT MANAGER/PSA RESULTS completed Martha Ho null, [facility] 02/01/2021 09:26:30 12/14/19 21 Faye completed Adelina Fraser null, [facility] 12/13/2020 11:29:12 11/11/19 21 Past Data Reviewed completed Walt Morfin null, [facility] 11/10/2020 12:30:43 11/11/19 21 Blood Draw/SYSTEMS PROJECT MANAGER/PSA RESULTS completed Mery Christensen null, [facility] 11/10/2020 12:31:00 10/14/19 19 Laps surg [id number] rpbic rad completed Not Available Health Note [...] gram tablet TK 1 T PO TID 07/07 completed HN: Patient reports taking HN: Patient reports taking HN: Patient reports no longer taking Not Available Not Available Not Available hydrocodo ne 5 mg-acetam inophen 325 mg tablet TAKE 1 TABLET BY MOUTH EVERY 6 HOURS NEEDED FOR PAIN 04/16 completed Not Available Not Available Not Available ondansetr on HCl 4 mg tablet TAKE 1 TABLET BY MOUTH EVERY 6 HOURS active Not Available Not Available No t Available prednison e 20 mg tablet TAKE 1 TABLET BY MOUTH EVERY DAY 04/16 completed Not Available Not Available Not Available metoprolo l succinate ER 100 mg tablet,ex tended release 24 hr TAKE 1 TABLET BY MOUTH EVERY DAY active Not Available Not Available No t Available prednison e 5 mg tablet Take 1 tablet every day by oral route. 07/14 completed Not Available Not Available Not Available clobetaso l 0.05 % topical cream APPLY TOPICALL Y TO THE AFFECTED AREA TWICE DAILY 07/07 completed HN: Patient reports no longer taking Not Available Not Available Not Available Accu-Chek Softclix Lancets TEST ONCE DAILY 04/16 completed Not Available Not Available Not Available amlodipin e 5 mg tablet TAKE 1 TABLET BY MOUTH DAILY active Not Available Not Available No t Available famotidin e 20 mg tablet TAKE 1 TABLET BY MOUTH TWICE DAILY 07/07 completed HN: Patient reports no longer taking Not Available Not Available Not Available lorazepam 0.5 mg tablet TAKE 1 TABLET BY MOUTH TWICE DAILY NEEDED active Not Available Not Available No t Available pantopraz ole 40 mg tablet,de layed [...] MOUTH TWICE DAILY NEEDED FOR ANXIETY active Not Available Not Available No t Available polyethyl alejanrda glycol 3350 17 gram/dose oral powder 04/16 completed Not Available Not Available Not Available carbidopa 25 mg-levodo pa 100 mg tablet TAKE 1 TABLET BY MOUTH THREE TIMES DAILY active Not Available Not Available No t Available lisinopri l 40 mg tablet TAKE 1 TABLET BY MOUTH EVERY DAY active Not Available Not Available No t Available metformin ER 500 mg tablet,ex tended release 24 hr TAKE 3 TABLETS BY MOUTH EVERY DAY active Not Available Not Available No t Available Eligard 30 mg (4 month) subcutane ous syringe Inject 30 mg by subcutan eous route. 07/07 completed HN: Patient reports taking HN: Patient reports no longer taking Not Available Not Available Not Available bupropion HCl XL 300 mg 24 hr tablet, extended release TAKE 1 TABLET BY MOUTH EVERY MORNING active Not Available Not Available No t Available bupropion HCl XL 150 mg 24 hr tablet, extended release TAKE 1 TABLET BY MOUTH EVERY MORNING active Not Available Not Available No t Available duloxetin e 30 mg capsule,d elayed release TAKE 1 CAPSULE BY MOUTH EVERY DAY FOR 14 DAYS 07/07 completed HN: Patient reports no longer taking Not Available Not Available Not Available duloxetin e 60 mg capsule,d elayed release TAKE 1 CAPSULE BY MOUTH EVERY DAY 07/07 completed HN: Patient reports no longer taking Not Available Not Available Not Available Eligard 45 mg (6 month) subcutane ous syringe Inject 45 mg by subcutan eous route. 2023 active Not Available Not Available Not Avai lable abiratero ne 250 mg tablet Take 4 tablets every day by oral route. 06/23 completed Not Available Not Available Not Available Firmagon kit with diluent syringe 120 mg subcutane ous solution Inject 240 mg by subcutan eous route. 07/07 completed HN: Patient reports no longer taking Not Available Not Available Not Available Firmagon kit with diluent syringe 80 mg subcutane ous solution Inject 80 mg by subcutan eous route. 07/07 completed HN: Patient reports no longer taking Not Available Not Available Not Available Vitron-C 65 mg iron-125 mg tablet,de layed release TAKE 1 TABLET BY MOUTH ONCE A DAY 07/07 completed HN: Patient reports no longer taking Not [...] TAKE 1 TABLET BY MOUTH EVERY DAY 07/14 completed Not Available Not Available Not Available Accu-Chek Guide test strips TEST ONCE [...] 40 mg tablet 4 tabs po daily 07/07 completed HN: Patient reports no longer taking Not Available Not Available Not Available BinaxNOW COVID-19 Ag Self Test kit TEST DIRECTED TODAY 07/07 completed HN: Patient reports no longer taking Not Available Not Available Not Available Vitals Date Recorded Body height Body mass index (BMI) Body weight Provider Name and Address Organization Details Last Updated DateTime 07/08/2023 182.88 cm 28.3 kg/m2 74108.81 g Jacqueline Beasley [place] [facility] 07/08/2023 13:35:15 Social History Question Answer Notes LastModified by [...] When Did You Quit Smoking? 16+yearssincel isamar Information not available 11/09/2022 Have You Or [...] Information n ot available 08/20/2019 Preferred Language Sudanese Information not available 11/10/2020 Recreational Drug Use [...] Has Tobacco Cessation Counseling Been Provided? Yes [email or web address] Information not available 04/16/2022 On What Date Was Tobacco Cessation Counseling Provided? 04/16/2022 [email or web address] Information not available 04/16/2022 How Many Years [...] lung, liver cancer Medical History Condition Response Sexually Transmitted Infection N Diabetes Y Other N Bleeding Disorder N High Blood Pressure Y Kidney Stones N Cancer N Depression N Lung Disease N High Cholesterol Y GERD/Acid Reflux N Heart Disease N Immunizations Vaccine Type Date Status Provider Name and Address Organization Details Recorded Time SARS-COV-2 (COVID-19) vaccine, UNSPECIFIED 11/02/2022 completed Arturo Meath null, [facility] 07/15/2023 14:43:05 influenza, unspecified formulation 2022 completed Arturo Meat null, [facility] 07/15/2023 14:43:05 Influenza, high-dose, quadrivalent, PF [facility]03[facility]2023 [facility] 14:43:05 Influenza, high-dose, quadrivalent, PF 01/15/2022 completed Arturo Meath null, [facility] 07/15/2023 14:43:05 COVID-19, mRNA, LNP-S, bivalent, PF, 30 mcg/0.3 mL dose 12/18/2021 completed Arturo Meath null, [facility] 07/15/2023 14:43:05 COVID-19, mRNA, LNP-S, PF, liz-sucrose, 30 mcg/0.3 mL 01/03/2023 completed Arturo Meath null, [facility] 07/15/2023 14:43:05 Influenza, split virus, trivalent, preservative 01/09/2001 completed Svetlana Rodriguez null, [facility] 05/22/2021 15:27:32 Influenza, split virus, trivalent, PF 04/11/2009 completed Svetlana Rodriguez null, [facility] 05/22/2021 15:27:32 Pneumococcal conjugate PCV 13 05/26/2015 completed Svetlana Rodriguez null, [facility] 05/22/2021 15:27:32 COVID-19, mRNA, LNP-S, PF, 30 mcg/0.3 mL dose 01/25/2021 completed Svetlana Rodriguez null, [facility] 05/22/2021 15:27:32 Influenza, split virus, trivalent, preservative 01/26/2003 completed Svetlana Rodriguez null, [facility] 05/22/2021 15:27:32 Influenza, high-dose, quadrivalent, PF 12/22/2020 completed Svetlana Rodriguez null, [facility] 05/22/2021 15:27:32 zoster live 02/12/2008 completed Svetlana Rodriguez null, [facility] 05/22/2021 15:27:32 Influenza, high-dose, trivalent, PF 12/22/2014 completed Svetlana Rodriguez null, [facility] 05/22/2021 15:27:32 Influenza, adjuvanted, trivalent, PF 12/24/2017 completed Svetlana Rodriguez null, [facility] 05/22/2021 15:27:32 Influenza, high-dose, trivalent, PF 12/24/2013 completed Svetlana Rodriguez null, [facility] 05/22/2021 15:27:32 Influenza, high-dose, trivalent, PF 11/11/2015 completed Svetlana Rodriguez null, [facility] 05/22/2021 15:27:32 Influenza, split virus, trivalent, preservative 12/17/2012 completed Svetlana Rodriguez null, [facility] 05/22/2021 15:27:32 Influenza, split virus, trivalent, preservative 01/02/2010 completed Svetlana Rodriguez null, [facility] 05/22/2021 15:27:32 Influenza, split virus, trivalent, PF 11/30/2019 completed Svetlana Rodriguez null, [facility] 05/22/2021 15:27:32 Influenza, split virus, trivalent, preservative 12/12/2011 completed Svetlana Rodriguez null, [facility] 05/22/2021 15:27:32 Influenza, split virus, trivalent, preservative 01/16/2005 completed Svetlana Rodriguez null, [facility] 05/22/2021 15:27:32 Td (adult), 2 Lf tetanus toxoid, preservative free, adsorbed 03/11/1997 completed Svetlana Rodriguez null, [facility] 05/22/2021 15:27:32 Novel [id number], all formulations 04/11/2009 completed Svetlana Rodriguez null, [facility] 05/22/2021 15:27:32 Influenza, adjuvanted, trivalent, PF 01/08/2017 completed Svetlana bonilla, [facility] 05/22/2021 15:27:32 pneumococcal polysaccharide PPV23 04/28/2019 completed Svetlana bonilla, [facility] 05/22/2021 15:27:32 COVID-19, mRNA, LNP-S, PF, 30 mcg/0.3 mL dose 05/28/2020 completed Svetlana bonilla, [facility] 05/22/2021 15:27:32 Influenza, split virus, trivalent, PF 01/10/2011 completed Svetlana bonilla, [facility] 05/22/2021 15:27:32 pneumococcal polysaccharide PPV23 04/11/2009 completed Svetlana Rodriguez null, [facility] 05/22/2021 15:27:32 pneumococcal polysaccharide PPV23 01/24/2012 completed Svetlana Rodriguez null, [facility] 05/22/2021 15:27:32 Tdap 04/11/2009 completed Svetlana Rodriguez null, [facility] 05/22/2021 15:27:32 COVID-19, mRNA, LNP-S, PF, 30 mcg/0.3 mL dose 05/07/2020 [facility] 15:27:32 influenza, unspecified formulation 12/20/2020 completed Not Available [facility] 12/11/2021 12:18:13 SARS-COV-2 (COVID-19) vaccine, UNSPECIFIED 07/20/2020 completed Not Available [facility] 12/11/2021 12:18:13 pneumococcal, unspecified formulation 11/23/2020 completed Not Available [facility] 12/11/2021 12:18:13 pneumococcal, unspecified formulation 03/11/2018 completed Not Available [facility] 12/11/2021 12:18:13 SARS-COV-2 (COVID-19) vaccine, UNSPECIFIED 07/24/2019 completed Not Available [facility] 12/11/2021 12:18:13 pneumococcal, unspecified formulation 03/12/2019 completed Not Available [facility] 12/11/2021 12:18:13 influenza, unspecified formulation 12/30/2020 completed Not Available [facility] 12/11/2021 12:18:13 SARS-COV-2 (COVID-19) vaccine, UNSPECIFIED 01/25/2021 completed Not Available [facility] 12/11/2021 12:18:13 Past Encounters Encounter ID Performer Location Encounter Start Date Encounter Closed Date Diagnosis/Indication Diagnosis SNOMED-CT Code [id number] Corey Beyer MD [facility] [address] [facility],[address] [address] 07/08/2023 13:21:30 07/08/2023 14:54:17 Malignant tumor of prostate [id number] Health Concerns Section Related Observation LastModified by Organization Detai ls LastModified Time None Recorded Concern Status LastModified by Organization Details LastModified Time None Recorded Payers Encounter Date Sequence Insurance Name Policy Number Policy Duff Covered Member ID Duff Member ID Guarantor Name 07/08/[address] [facility] [id number] Ruchi [id number] Edison Valdovinos Notes Date Note Type Note Provider Name and Address Organization Details Recorded Time 07/08/2023 text/html HPI Notes: prostate cancer - followup Corey Beyer MD [address] [facility],[place] [address], [place], [address], [facility] 07/08/2023 14:53:52
--- OUTSIDE RECORDS SUMMARY | 2023-09-25 14:42 | XMS_ITS | Encounter Summary ---
Author Organization [facility] Address [address] [place] [address] Care Team Providers Care Deputy Of Counter Intelligence Name Role Phone Magan Verdugo MD Primary Care Provider Reason for Referral * Consultation (Routine) - Pending Review Specialty Diagnoses / Procedures Referred By Contac t Referred To Contact Diagnoses Parkinson's 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 or fluctuating manifestations (H) Magan Verdugo MD [facility] 1978[address] [place] [id number] Referral ID Status Reason Start Date Expiration Date V isits Requested Visits Authorized [id number] Pending Review 07/31/2023 07/30/2024 1 1 Question Answer Reason for Referral: Movement Disorders Scheduling Instructions: [facility] will call you to coordinate your care as prescribed by your provider. If you don't hear from a denial management representative within 2 business days, please call . Movement Disorder: Parkinson's Comments Referral Transcribed by external fax Provider: Magan Verdugo MD affiliated with [facility] clinic at [place]. [place]: No If yes was is the VA Authorization Number: Phone number: [phone] Fax number: [phone] [facility] will call you to coordinate your care as prescribed by your provider. If you don't hear from a denial management representative within 2 business days, please call . Encounter Details Date Type Department Care Team (Latest Contact Info) Description 07/31/2023 Transcribe Orders GENERIC EXTERNAL DATA DEPARTMENT Provider, Generic External Data Parkinson's 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 or fluctuating manifestations (H) (Primary Dx) Social History Tobacco Use Types Packs/Day Years Used Date Smoking Tobacco: Never Assessed Sex and Gender Information Value Date Recorded Sex Assigned at Not on file Gender Identity Not on file Sexual Orientation Not on file documented as of this encounter Plan of Treatment Scheduled Referrals Name Type Priority Associated Diagnoses Orde r Schedule Adult Neurology Applications Analyst Referral Referral Routine Parkinson's 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 or fluctuating manifestations (H) Expected: 07/31/2023 (Approximate), Expires: 07/30/2024 documented as of this encounter Visit Diagnoses Diagnosis Parkinson's 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 or fluctuating manifestations (H)- Primary documented in this encounter Care Teams Deputy Of Counter Intelligence Relationship Specialty Start Date End Date Magan Verdugo MD [facility] [address] [place] [address] PCP - General Family Medicine 06/04/23 documented as of this encounter
--- OUTSIDE RECORDS SUMMARY | 2023-09-25 14:42 | XMS_ITS | Clinical Summary ---
Author Organization [facility] Address [address] [place] [address] Care Team Providers Care Airport Electrician Name Role Phone Needs Pcp, Assignment Primary Care Provider [phone] Source Comments You are receiving this document as you are listed as the primary care provider,follow-up provider, or the patient has been referred to you for consultation.This is in compliance with the Medicare and[facility] EHR Incentive Program,which states Providers who transition their patient to another setting of careor provider of care or refers their patient to another provider of care shouldprovide summary care record for each transition of care or referral. [facility] Allergies No known active allergies Medications Medication Sig Dispensed Refills Start Date End Date Status atorvastatin (LIPITOR) 40 MG tablet Take 1 Tablet (40 mg) by mouth daily. Active buPROPion (WELLBUTRIN XL) 300 MG 24 hour release tablet Take 1 Tablet (300 mg) by mouth every morning. 07/24/2023 Active DULoxetine (CYMBALTA) 30 MG capsule Take 1 Capsule (30 mg) by mouth daily. 03/07/2023 Active famotidine (PEPCID) 20 MG tablet Take 1 Tablet (20 mg) by mouth daily at bedtime. 07/16/2023 Active FLUoxetine (PROZAC) 40 MG capsule Take 1 Capsule (40 mg) by mouth daily. 05/20/2023 Active lisinopril (ZESTRIL) 40 MG tablet Take 1 Tablet (40 mg) by mouth daily. 07/07/2023 Active LORazepam (ATIVAN) 1 MG tablet Take 1 Tablet (1 mg) by mouth two times daily as needed. 07/29/2023 Active metFORMIN XR (GLUCOPHAGE XR) 500 MG 24 hour release tablet Take 3 Tablets (1,500 mg) by mouth daily. 07/07/2023 Active metoprolol succinate (TOPROL XL) 100 MG 24 hour release tablet Take 1 Tablet (100 mg) by mouth daily. 06/10/2023 Active omeprazole (PRILOSEC) 20 MG capsule Take 1 Capsule (20 mg) by mouth two times daily as needed. Active ondansetron (ZOFRAN) 4 MG tablet Take 1 Tablet (4 mg) by mouth every 6 hours. 06/23/[address] (PROTONIX) 40 MG tablet Take 1 Tablet (40 mg) by mouth daily. 07/16/2023 Active donepezil (ARICEPT) 5 MG tablet Take 1 Tablet (5 mg) by mouth daily at bedtime. 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) from Last 3 Months Social History Tobacco Use Types Packs/Day Years Used Date Smoking Tobacco: Never Assessed Sex and Gender Information Value Date Recorded Sex Assigned at Not on file Gender Identity Not on file Sexual Orientation Not on file Last Filed Vital Signs Vital Sign Reading Time Taken Comments Blood Pressure 133/84 08/08/2023 10:52 AM CDT Pulse 74 08/08/2023 10:52 AM CDT Temperature - - Respiratory Rate - - Oxygen Saturation - - Inhaled Oxygen Concentration - - Weight 92.9 kg (204 lb 11.2 oz) 024 10:51 AM CDT shoes on Height 182 cm (5' 11.65) 08/08/2023 10 :51 AM CDT shoes on Body Mass Index 28.03 08/08/2023 10:51 AM CDT Plan of Treatment Upcoming Encounters Date Type Department Care Team (Late st Contact Info) Description 10/10/2023 10:00 AM CDT Appointment [facility] [place] [address] Desirae Cortez PsyD, LP [address] [place] [address] Health Maintenance Due Date Last Done Comments Hep C Screening (Preventive Services) 1945 Adult Preventive Visit 1963 Zoster/Shingles (2 of 3) 04/08/2008 02/12/2008 DTaP/Tdap/Td (2 - Tdap) 04/11/2019 04/11/2009, 01/25 COVID-19 Vaccine ( season) 2023 01/03/2023, 12/18/2021, 01/25/2021, Additional history exists Influenza (#1) 2023 01/03/2023, 10/09, 01/15/2022, Additional history exists Pneumococcal 65+ Yrs Completed 11/23/2020, 04/28/2019, 03/12/2019, Additional history exists HepA Aged Out No longer eligi ble based on patient's age to complete this topic HepB Aged Out No longer eligi ble based on patient's age to complete this topic Hib Aged Out No longer eligi ble based on patient's age to complete this topic IPV (Polio) Aged Out No longer eligi ble based on patient's age to complete this topic MCV4 Aged Out No longer eligi ble based on patient's age to complete this topic Care Teams Airport Electrician Relationship Specialty Start Date End Date Needs Pcp, [place] [address] PCP - General 08/08/23
--- OUTSIDE RECORDS SUMMARY | 2023-09-25 14:42 | XMS_ITS | Encounter Summary ---
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 The recommended service and/or location may not be covered by your insurance plan. Please call the number on your insurance card to find out your specific benefits and coverage for the recommended services and/or location. If you need help scheduling the recommended services, please ask your clinician's staff to assist you. Question Answer Appointment Urgency Patient Convenience The question I need answered is: DLB?, also alcoholic Patient's first language is Lao Yes Comments Dr. 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 You may call [phone] to schedule your appointment. This recommended service/s may not be covered by your health plan (health insurance). To find out your specific benefit coverage, please call the number on your insurance card.?? Please note that in order to maintain access for all patients, [facility] does have a late cancellation policy. In order to avoid being restricted from scheduling future appointments in [facility] you will need to cancel at least 24 hours in advance. We request you that you arrive 30 minutes before your first appointment to complete paperwork. Question Answer Appointment Urgency? Non-Urgent Reason for request? alcoholism, possible DLB, organic psychosis, depression, geriatric psychiatry consultation Requested Services? Medication Management - Psychiatry Pt aware and agrees to this order: Confirmed with patient Patient has received or is currently receiving outside behavioral health services? 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 Two easy ways to stay connected with what is going on at [facility]: If you have not already done so, we encourage you to sign up (for free) to be on our e-mailing list, so that you will receive information about upcoming classes, events, and activities hosted by [facility]! To sign up, simply send an email to [email or web address] indicating that you would like to be included. 2. Follow us on Facebook to learn more about current news and upcoming events. Find us at [facility] [employer] [place]! Learn more about our ongoing [facility] studies here! [email or web address] 1. Start donepezil 5 mg every day. Take with dinner if it causes sleepiness otherwise take with breakfast. 2. Do not start pramipexole. 3. Stop the Wellbutrin 8 days before the LUPILLO scan. Call me once that has been completed so I can request the results. 4. I am placing a request for a geriatric psychiatry consultation. 5. Gradually reduce alcohol intake. 6. Do not drive for now. 7. Neuropsychometric testing at [facility]. documented in this encounter Progress Notes * Aisha Oh MD - 08/08/2023 10:30 AM CDT Neurology consultation. Chief complaint: Possible Parkinson's disease. History of present illness: This is a 77-year-old man who is referred for further evaluation regarding a recent diagnosis of possible Parkinson's disease. He is accompanied by his who provides additional information. It appears that symptoms started about 3-4 months ago with tremor in the right upper extremity. This was in the setting of initiating treatment with Rexulti, which was prescribed by his primary care physician as an augmentation therapy for his previous depression. He has a very longstanding history of depression for which he has been for many years on Prozac. Over the last 6 months or so he experiencedincreased apathy decreased interest in doing things and participate in activities or go out with friends, this was interpreted as worsening depression, so Wellbutrin was added, and subsequently Rexulti was added as an augmentation treatment. In this setting the patient developed tremor in the rightupper extremity. He was seen by a neurologist in [place], and a tentative diagnosis of parkinsonism was made, but the recommendation was to obtain a dopamine transporter scan 1st to rule out drug-induced parkinsonism. This was not scheduled until August. He subsequently was seen in the emergency department locally because of increasing anxiety, and at that time a tele health consultation was done with the stroke specialist who was covering that emergency room, who diagnosed Parkinson's disease, and prescribe carbidopa/levodopa 25/100 1 tablet 3 times a day. The effect on tremor was questionable but within 3 weeks of starting the medication the patient started having visual hallucinations. At the same time he started having cognitive difficulties with increased confusion. Levodopa was promptly discontinued, and pramipexole was prescribed at a low dose. He has just completed the course of low dose and the dose was supposed to be increased, but he started having hallucinations again. His has also noticed that there are fluctuations in his mental status. To complicate things further the patient is a long standing alcohol abuser. He has been drinking heavily alcohol for 40-50 years. He says that he drinks about 4-5 drinks every other day. He has never had issues with alcohol. He did have blood work done over the last year at his primary care clinic but these information was not made available for my review. He had an MRI of the brain which reported some thinning of the corpus callosum and the usual age-related changes, but no explanatory findings. There was no discussion in the report regarding cerebellar atrophy beyond global cerebral atrophy. In the meanwhile he is scheduled for a dopamine transporter scan with the [employer] system for close to a month from now. In addition to hallucinations of people in the home, the patient has been having delusions, thinking that he has on a cruise ship, etcetera. He has poor sense of smell but denies any dream enacting behaviors and his confirms that. He has a strong family history of dementia in both his father and his mother. His mother apparently also had hallucinations with her dementia. 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 He denies any serious head injuries in the past or anysignificant toxic exposures. I have reviewed outside records from the [facility] and [facility]. In addition to alcohol he has a marijuana user, he is on vitamin D3, low intensity aspirin, psyllium, leuprolide for prostate, Wellbutrin, duloxetine, famotidine, fluoxetine, lisinopril, lorazepam, metformin, metoprolol, omeprazole, ondansetron, and pantoprazole. In addition to what has mentioned above he has a history of hyperlipidemia, psoriasis, hypertension, degenerative arthritis, type 2 diabetes, anxiety, iron deficiency anemia, chronic constipation, hearing loss, prostate cancer, vitamin-D deficiency, peptic ulcer disease, diverticulitis, herpes zoster, gastroesophageal reflux, chronic ITP, bilateral cataracts, alcoholic fatty liver, and chronic low back pain. I have reviewed the past medical and family history, social history, surgical history, current medications allergies. 149/96, 68 sitting, 133/84, 74 standing, 204.7 lb, 182 cm. Alert pleasant and cooperative. Hard of hearing. He seems somewhat apathetic and with flat affect. [place]: Memory index score: 12/15 UPDRS ADL: 14 UPDRS motor: 20 He is somewhat decreased facial expression and rather soft voice. He has good strength the 4 extremities. There is moderate rigidity in the neck mild in the upper extremities and non in the lower extremities. He has symmetric reflexes in the upper extremities reduced ankle jerks bilaterally and no abnormal signs. There is reduced vibration sense the lower extremities distally. He has moderate tremor at rest in the right upper extremity and mild action tremor. Uojqgg-[id number] and itvo-nsno-afqk are accurate. There is moderate appendicular bradykinesia worse in the right upper extremity. He can arise from a chair without difficulty but walks with short steps somewhat wide base reduced arm swing, and somewhat flexed posture. He can not tandem walk, and his Romberg test is positive. Impression: 1. Parkinsonism. 2. Cognitive dysfunction most likely major neurocognitive disorder possibly dementia with Lewy bodies. 3. Alcohol with possible contributing to alcoholic dementia. 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 5. 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 6. Family history of dementia. Discussion: Patient certainly would fulfill diagnostic criteria for dementia with Lewy bodies with the presenceof parkinsonism but also the rest of the characteristics of the dementing illness. He does not havea history of REM sleep disorder, but certainly that does not exclude the diagnosis. Does have fluctuations of cognitive function, sensitivity to antiparkinsonian medications, and clinical parkinsonism. Of course what confuses the clinical picture at this point is the comorbid conditions of possiblesuperimposed drug-induced parkinsonism from the Rexulti which may take up to 6 months to resolve, and the possibility of alcoholic dementia with Korsakoff syndrome that might account for the organic p sychosis. Because of these uncertainties, I think that it is reasonable to pursue the dopamine transporter scan at this point before considering dopaminergic medications. Additionally it would make sense to start treatment with a centrally acting cholinesterase inhibitor to see if we can minimize ps ychosis to allow us to initiate treatment with dopaminergic medications, but even in that case if the symptom that we are trying to treat as the tremor then I would prefer to stay off of dopaminergicmedications. I do not expect his balance is going to get any better because of his alcohol intake. We talked extensively today about the negative impact of alcohol intake on the underlying process incase he does have a neurodegenerative process in the importance of discontinuing that. Regarding the antidepressant treatment, he is currently on 3 different antidepressants. I am not sure that he needs all that. He may need some of that for the anxiety treatment, however I am not sure that what was interpreted as depression over the last 6 months was indeed depression or just apathy developing in the setting of developing neurodegenerative disorder. For this reasons I would like him to see a geriatric psychiatry and see if we can minimize the psychoactive medications that he is receiving at this point. A certainly told him not to increase the dose of pramipexole and in fact stop the pramipexole. We talked about the fact that he might not be safe driving at this point in at least until wefigure things out I would like him to abstain from driving. We talked about obtaining a formal neuropsychometric evaluation and he is willing to do that. I will also try to obtain and review the outside MRI of the brain for any salient features that might point in 1 or other direction. I will plan to meet with him in about 3 months' time. Finally I advised him to hold the Wellbutrin for 8 days prior to dopamine transporter scan otherwise it might interfere with the accuracy of the test. Recommendations: 1. Start donepezil 5 mg every day. Take with dinner if it causes sleepiness otherwise take with breakfast. 2. Do not start pramipexole. 3. Stop the Wellbutrin 8 days before the LUPILLO scan. Call me once that has been completed so I can request the results. 4. I am placing a request for a geriatric psychiatry consultation. 5. Gradually reduce alcohol intake. 6. Do not drive for now. 7. Neuropsychometric testing at [facility]. Aisha Oh MD Time spent: 77 min Review of chart (notes, data): 10 min History and examination: 40 min Counselin min Coordination of care: 4 min Documentation: 8 min documented in this encounter Plan of Treatment Upcoming Encounters Date Type Department Care Team (Late st Contact Info) Description 10/10/2023 10:00 AM CDT Appointment [facility] at [facility] [address] [place] [address] Desirae Cortez PsyD, [address] [id number] Scheduled Referrals Name Type Priority Associated Diagnoses Orde r Schedule Behavioral Health Referral Routine Mild dementia with psychotic disturbance, unspecified dementia type (HRC) Alcoholism (HRC) Parkinsonism, unspecified Parkinsonism type (HRC) 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) Ordered: 08/08/2023 Neuropsychological Testing/Consult-Adult Referral Routine Mild dementia with psychotic disturbance, unspecified dementia type (HRC) Alcoholism (HRC) Parkinsonism, unspecified Parkinsonism type (HRC) 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
--- OUTSIDE RECORDS SUMMARY | 2023-09-25 14:42 | XMS_ITS | Data Portability ---
Author Organization [facility], [facility] Address [address] [place] [address] Care Team Providers Care Service Clerk Name Role Phone ARTURO WHITEHEAD Primary Care Provider [facility] RANDALLIA (HandMinder) Referring Provider Assessment No assessment recorded. Plan of Treatment Reminders Order Date Submit Date Provider Last Modified By Organization Details Last Modified Time Details Appointments None recorded. Lab PSA, total, serum or plasma 2022 023 [facility], [address], [place], [address], 3 16:36:06 PSA, total, serum or plasma 2023 024 [facility], [address], [address], [place], [address], 4 14:31:06 Referral None recorded. Procedures None recorded. Surgeries None recorded. Imaging PET-CT, skull base to mid-thigh scan - PSMA scan; Eyes to thighs 2023 024 [email or web address] Not available 14:54:17 Medication Orders Firmagon kit with diluent syringe 120 mg subcutaneou s solution 2022 023 [email or web address] [facility][id number], [address] , [place], [id number], 13:36:25 Firmagon kit with diluent syringe 80 mg subcutaneou s solution 2022 023 [email or web address] [facility] #59370, [address] [place] [address], [id number], 13:36:33 Eligard 45 mg (6 month) subcutaneou s syringe 2022 023 [facility], [address] [place] [address], [address], 13:37:41 Eligard 45 mg (6 month) subcutaneou s syringe 2023 024 [email or web address] [facility] #47380, [address] [place], [place], [id number], 14:10:15 Patient TargetsNo targets recorded. Patient InstructionsNo instructions recorded. Reason for Referral Cancer Support Services for Malignant tumor of prostate Referring Physician: Tawny Daugherty, Encounter Date: 11/10/2020 psa recurrence after prostat ectomy. Please contact patient to schedule at [phone]. Referring Physician: Tawny Daugherty, Encounter Date: 11/16/2020 [facility] Support Services for Malignant tumor of prostate abiraterone + prednisone lab protocol Referring Physician: Tawny Daugherty, Encounter Date: 03/13/2021 Cancer Support Services for History of malignant neoplasm of prostate Monthly Firmagon injection per Dr. Beyer Referring Physician: Tawny Cardozo, Encounter Date: 06/25/2022 Authorization Request for Ma lignant tumor of prostate Referring Physician: Tawny Cardozo, Encounter Date: 10/15/2022 Results Created Date Observation Date Name Description Value Unit Range Abnormal Flag LastModifiedBy Organization Detail LastModifiedTime 10/16/19 23 10/15/2022 PSA, TOTAL PSA, total <0.10 NG/mL <4.0 Not Available [facility] [address] [facility] [address], [place], [address], 10/16/2022 16:36:06 04/16/19 24 04/16/2023 PSA, TOTAL PSA, total <0.10 NG/mL <4.0 Not Available [facility] [address] [facility] [address], [place], [address], 04/16/2023 14:31:06 Result Notes None recorded. Problems Name Status Onset Date Resolution Date Notes Provider Name and Address Organization Details Recorded Time Prostate specific antigen above reference range Active 06/27/19 19 R97.20 : Raised prostate specific antigen Not Available [facility] 08/19/2019 23:54:14 Malignant tumor of prostate Active 08/21/19 19 C61 : Malignant tumor of prostate Not Available [facility] 08/19/2019 23:54:14 Problem Notes None recorded. Procedures Surgical History Date Name Laterality Status Provider Name and Address Organization Details Recorded Time 07/08/19 24 Faye completed Bucky Armstrong null, [facility] 07/08/2023 14:09:48 04/16/19 24 Blood Draw/SCIENTIFIC RESEARCH ASSOCIATE/PSA RESULTS completed Mery Christensen null, [facility] 04/16/2023 12:37:16 10/16/19 23 Blood Draw/SCIENTIFIC RESEARCH ASSOCIATE/PSA RESULTS completed Arleen Meehanh null, [facility] 10/15/2022 12:46:25 10/16/19 23 aFye completed Arleen Segura null, [facility] 10/15/2022 12:46:56 09/28/19 23 Firmjennifer completed Bucky Chisago null, [facility] 09/27/2022 10:13:16 08/30/19 23 Firmagon completed Arleen Segura null, [facility] 08/29/2022 12:54:05 07/28/19 23 Firmagon completed Arleen Segura null, [facility] 07/27/2022 10:58:45 06/29/19 23 Firmagon completed Bucky Chisago null, [facility] 06/28/2022 10:39:47 05/30/19 23 Firmagon completed Arleen Segura null, [facility] 05/29/2022 10:36:15 04/30/19 23 Firmagon completed Mery Chrisetnsen null, [facility] 04/30/2022 12:10:20 03/28/19 23 Blood Draw/SCIENTIFIC RESEARCH ASSOCIATE/PSA RESULTS completed Mery Christensen null, [facility] 03/28/2022 11:34:37 03/28/19 23 Firmagon completed Mery Christensen null, [facility] 03/28/2022 11:35:59 02/24/20 22 Firmagon completed Lola Briceno null, [facility] 02/23/2022 13:06:57 01/25/20 22 Firmagon completed Mery Christensen null, [facility] 01/24/2022 10:21:06 12/05/19 22 Blood Draw/SCIENTIFIC RESEARCH ASSOCIATE/PSA RESULTS completed Mery Christensen null, [facility] 12/04/2021 09:55:45 11/10/19 22 Firmagon completed Mery Christensen null, [facility] 11/09/2021 10:52:30 10/10/19 22 Firmagon completed Annette Sanders null, [facility] 10/09/2021 11:03:14 09/08/19 22 Firmagon completed Mery Christensen null, [facility] 09/07/2021 15:38:52 08/09/19 22 Firmagon completed Mery Christensen null, [facility] 08/08/2021 11:27:04 06/24/19 22 Bladder Scan completed Joshua Reyes null, [facility] 06/23/2021 11:13:27 06/24/19 22 Blood Draw/SCIENTIFIC RESEARCH ASSOCIATE/PSA RESULTS completed Martha Ho null, [facility] 06/23/2021 11:38:51 06/24/19 22 Firmagon completed Martha Ho null, [facility] 06/23/2021 11:40:02 05/23/19 22 Firmagon completed Mery Christensen null, [facility] 05/22/2021 16:07:39 04/18/19 22 Firmagon completed Mery Christensen null, [facility] 04/18/2021 10:20:52 04/06/19 22 Blood Draw/SCIENTIFIC RESEARCH ASSOCIATE/PSA RESULTS completed Mery Christensen null, [facility] 04/06/2021 09:47:08 02/07/20 21 Blood Draw/SCIENTIFIC RESEARCH ASSOCIATE/PSA RESULTS completed Mery Christensen null, [facility] 02/06/2021 14:44:40 02/02/20 21 Blood Draw/SCIENTIFIC RESEARCH ASSOCIATE/PSA RESULTS completed Martha Ho null, [facility] 02/01/2021 09:26:30 12/14/19 21 Faye completed Adelina Fraser null, [facility] 12/13/2020 11:29:12 11/11/19 21 Past Data Reviewed completed Walt Morfin null, [facility] 11/10/2020 12:30:43 11/11/19 21 Blood Draw/SCIENTIFIC RESEARCH ASSOCIATE/PSA RESULTS completed Meryandria Christensen null, [facility] 11/10/2020 12:31:00 10/14/19 19 Laps surg [email or web address] rpbic rad completed Not Available Health Note [...] t Available azithromy taisha 250 mg tablet 02/06 /2023 completed Not Available Not Available Not Available [...] Available Not Available No t Available polyethyl alejandra glycol 3350 17 gram/dose [...] taking Not Available Not Available Not Available [employer] COVID-19 Ag Self Test kit TEST DIRECTED TODAY 07/07 completed HN: Patient reports no longer taking Not Available Not Available Not Available Vitals Date Recorded Body height Provider Name an d Address Organization Details Last Updated DateTime 10/15/2022 182.88 cm Thor Solorzano [facility] 11:57:14 Date Recorded Body height Body mass index (BMI) Body weight Provider Name and Address Organization Details Last Updated DateTime 07/08/2023 182.88 cm 28.3 kg/m2 86468.81 g Jacqueline Beasley [facility] 07/08/2023 13:35:15 Social History Question Answer [...] 05/26/2023 When Did You Quit Smoking? 16+yearssincel [email or web address] Information not available 11/09/2022 Have You Or [...] available 12/09/2020 Have You Traveled Outside Of [place] In The Past 30 Days? No [email or web address] Information not available 12/09/2020 Race White Information n ot available 08/20/2019 Preferred Language Yakut Information not available 11/10/2020 Recreational Drug Use [...] Has Tobacco Cessation Counseling Been Provided? Yes [email or web address] Information not available 04/16/2022 On What Date Was Tobacco Cessation Counseling Provided? 04/16/2022 [email or web address] Information not available 04/16/2022 How Many Years [...] N Lung Disease N GERD/Acid Reflux N Diabetes Y Sexually Transmitted Infection N Bleeding Disorder N Cancer N High Cholesterol Y Heart Disease N Immunizations Vaccine Type Date Status Provider Name and Address Organization Details Recorded Time SARS-COV-2 (COVID-19) vaccine, UNSPECIFIED 11/02/2022 completed Arturo Meath null, [facility] 07/15/2023 14:43:05 influenza, unspecified formulation 2022 completed Arturo Meath null, [facility] 07/15/2023 14:43:05 Influenza, high-dose, quadrivalent, PF 01/03/2023 completed Arturo Meath null, [facility] 07/15/2023 14:43:05 Influenza, high-dose, quadrivalent, PF 01/15/2022 completed Arturo Meath null, [facility] 07/15/2023 14:43:05 COVID-19, mRNA, LNP-S, bivalent, PF, 30 mcg/0.3 mL dose 12/18/2021 completed Arturo Meath null, [facility] 07/15/2023 14:43:05 COVID-19, mRNA, LNP-S, PF, liz-sucrose, 30 mcg/0.3 mL 01/03/2023 completed Arturo Weathers null, [facility] 07/15/2023 14:43:05 Influenza, split virus, trivalent, preservative 01/09/2001 completed Svetlana Rodriguez null, [facility] 05/22/2021 15:27:32 Influenza, split virus, trivalent, PF 04/11/2009 completed Svetlana Rodriguez null, [facility] 05/22/2021 15:27:32 Pneumococcal conjugate PCV 13 05/26/2015 completed Svetlana Rodriguez null, [facility] 05/22/2021 15:27:32 COVID-19, mRNA, LNP-S, PF, 30 mcg/0.3 mL dose 01/25/2021 [facility] 15:27:32 Influenza, split virus, trivalent, preservative 01/26/2003 completed Svetlana Rodriguez null, [facility] 05/22/2021 15:27:32 Influenza, high-dose, quadrivalent, PF 12/22/2020 completed Svetlana bonilla, [facility] 05/22/2021 15:27:32 zoster live 02/12/2008 completed Svetlana Rodriguez null, [facility] 05/22/2021 15:27:32 Influenza, high-dose, trivalent, PF 12/22/2014 completed Svetlana Rodriguez null, [facility] 05/22/2021 15:27:32 Influenza, adjuvanted, trivalent, PF 12/24/2017 completed Svetlana Rodriguez null, [facility] 05/22/2021 15:27:32 Influenza, high-dose, trivalent, PF 12/24/2013 completed Svetlana bonilla, [facility] 05/22/2021 15:27:32 Influenza, high-dose, trivalent, PF 11/11/2015 completed Svetlana bonilla, [facility] 05/22/2021 15:27:32 Influenza, split virus, trivalent, preservative 12/17/2012 completed Svetlana Rodriguez null, [facility] 05/22/2021 15:27:32 Influenza, split virus, trivalent, preservative 01/02/2010 completed Svetlana Rodriguez null, [facility] 05/22/2021 15:27:32 Influenza, split virus, trivalent, PF 11/30/2019 completed Svetlana Rodriguez null, [facility] 05/22/2021 15:27:32 Influenza, split virus, trivalent, preservative 12/12/2011 completed Svetlana Rodriguez null, [facility] 05/22/2021 15:27:32 Influenza, split virus, trivalent, preservative 01/16/2005 completed Svetlana bonilla, [facility] 05/22/2021 15:27:32 Td (adult), 2 Lf tetanus toxoid, preservative free, adsorbed 03/11/1997 completed Svetlana bonilla, [facility] 05/22/2021 15:27:32 Novel Jcyxktoyt-T3T0-23, all formulations 04/11/2009 completed Svetlana Rodriguez null, [facility] 05/22/2021 15:27:32 Influenza, adjuvanted, trivalent, PF 01/08/2017 completed Svetlana bonilla, [facility] 05/22/2021 15:27:32 pneumococcal polysaccharide PPV23 04/28/2019 completed Svetlana bonilla, [facility] 05/22/2021 15:27:32 COVID-19, mRNA, LNP-S, PF, 30 mcg/0.3 mL dose 05/28/2020 completed Svetlana bonilla, [facility] 05/22/2021 15:27:32 Influenza, split virus, trivalent, PF 01/10/2011 completed Svetlana Rodriguez null, [facility] 05/22/2021 15:27:32 pneumococcal polysaccharide PPV23 04/11/2009 completed Svetlana bonilla, [facility] 05/22/2021 15:27:32 pneumococcal polysaccharide PPV23 01/24/2012 completed Svetlana Rodriguez null, [facility] 05/22/2021 15:27:32 Tdap 04/11/2009 completed Svetlana Michael null, [facility] 05/22/2021 15:27:32 COVID-19, mRNA, LNP-S, PF, 30 mcg/0.3 mL dose 05/07/2020 completed [place] [facility] 05/22/2021 15:27:32 influenza, unspecified formulation 12/20/2020 completed Not Available [facility] 12/11/2021 12:18:13 SARS-COV-2 (COVID-19) vaccine, UNSPECIFIED 07/20/2020 completed Not Available [facility] 12/11/2021 12:18:13 pneumococcal, unspecified formulation 11/23/2020 completed Not Available [facility] 12/11/2021 12:18:13 pneumococcal, unspecified formulation 03/11/2018 completed Not Available [facility] 12/11/2021 12:18:13 SARS-COV-2 (COVID-19) vaccine, UNSPECIFIED 07/24/2019 completed Not Available [facility] 12/11/2021 12:18:13 pneumococcal, unspecified formulation 03/12/2019 completed Not Available [facility] 12/11/2021 12:18:13 influenza, unspecified formulation 12/30/2020 completed Not Available [facility] 12/11/2021 12:18:13 SARS-COV-2 (COVID-19) vaccine, UNSPECIFIED 01/25/2021 completed Not Available [facility] 12/11/2021 12:18:13 Past Encounters Encounter ID Performer Location Encounter Start Date Encounter Closed Date Diagnosis/Indication Diagnosis [id number] [facility] [address] [facility] [address] [place] [address] 11/10/2020 12:04:48 11/10/2020 12:36:45 Malignant tumor of prostate [id number] Stress inc ontinence after prostatectomy [id number] Erectile d ysfunction following radical prostatectomy [id number] Walt Morfin [facility] [address] [place] [address] 12/13/2020 10:23:50 12/28/2020 14:26:30 Malignant tumor of prostate [id number] Martha Vic [address] [address] 02/01/2021 09:00:51 02/01/2021 09:40:06 Malignant tumor of prostate [id number] [facility] [address] 02/06/2021 14:41:54 02/06/2021 14:46:32 Idiopathic hypercalcemia [id number] [facility]fin [facility] [address] 02/09/2021 15:31:05 02/23/2021 15:38:20 Malignant tumor of prostate [id number] [facility] [address] 04/06/2021 09:39:04 04/06/2021 09:50:27 Malignant tumor of prostate [id number] [facility] [address] 04/18/2021 10:10:55 04/18/2021 10:24:01 Malignant tumor of prostate [id number] [facility] [address] 05/22/2021 15:21:45 05/24/2021 08:19:32 Malignant tumor of prostate [id number] KACI Hawk [facility] [address] 06/23/2021 10:31:42 06/23/2021 11:58:06 Malignant tumor of prostate [id number] Mrey Christensen [address] [address] 08/08/2021 10:46:55 08/08/2021 11:15:24 Malignant tumor of prostate [id number] Meryandria Christensen [address] [address] 09/07/2021 15:25:52 09/07/2021 15:51:02 Malignant tumor of prostate [id number] Annette Sanders [facility] [address] [place] [address],[address] [address] 10/09/2021 10:34:49 10/09/2021 11:12:35 Malignant tumor of prostate [id number] [facility] Christensen [facility] [address] [address] 11/09/2021 10:46:13 11/09/2021 10:59:39 Malignant tumor of prostate [id number] [facility] Christensen [facility] [address] [address] 12/04/2021 09:53:57 12/04/2021 09:57:04 Malignant tumor of prostate [id number] Corey Beyer MD [address] [address] 12/11/2021 12:16:24 12/11/2021 13:29:55 Malignant tumor of prostate [id number] [facility] Christensen [facility] [address] [address] 01/24/2022 10:14:24 01/24/2022 10:23:34 Malignant tumor of prostate [id number] Lola [facility]riceno [facility] [address] 02/23/2022 10:52:19 02/23/2022 13:13:54 Malignant tumor of prostate [id number] Mery BalderasSha [address] [address] 03/28/2022 11:23:22 03/28/2022 11:54:03 Malignant tumor of prostate [id number] Corey Beyer MD [facility] [address] [address] 04/16/2022 10:54:28 04/16/2022 12:06:38 Malignant tumor of prostate [id number] History of malignant neoplasm of prostate [id number] Mery evans [address] [place] [address],[address] [place] [address] 04/30/2022 11:58:53 04/30/2022 12:11:37 Malignant tumor of prostate [id number] Arleen evans [address] [place] [address],[address] [address] 05/29/2022 10:07:01 05/29/2022 10:42:18 Malignant tumor of prostate [id number] Bucky evans [address] [place] [address],[address] [address] 06/28/2022 10:32:02 06/28/2022 10:40:15 Malignant tumor of prostate [id number] Arleen evans [address] [place] [address],[address] [address] 07/27/2022 10:29:49 07/27/2022 10:48:10 Malignant tumor of prostate [id number] Arleen evans [address] [place] [address],[address] [address] 08/29/2022 12:44:56 08/29/2022 12:59:00 Malignant tumor of prostate [id number] Bucky evans [address] [place] [address],[address] [address] 09/27/2022 10:08:55 09/27/2022 10:14:40 Malignant tumor of prostate [id number] Arleen evans [address] [place] [address],[address] [place] [address] 10/15/2022 11:49:42 10/15/2022 12:41:56 Malignant tumor of prostate [id number] Mery evans [address] [place] [address],[address] [place] [address] 04/16/2023 12:35:06 04/16/2023 12:38:09 Malignant tumor of prostate [id number] Corey Beyer MD Ben cotoy [address] [facility],[address] [place] [address] 07/08/2023 13:21:30 07/08/2023 14:54:17 Malignant tumor of prostate [id number] Health Concerns Section Related Observation LastModified by Organization Detai ls LastModified Time None Recorded Concern Status LastModified by Organization Details LastModified Time None Recorded Advance Directives Directive None Recorded Payers Encounter Date Sequence Insurance Name Policy Number Policy Duff Covered Member ID Duff Member ID Guarantor Name 08/29/2022 1 [employer] [id number] Ruchi Olaf Aruna [id number] Edison Babin Aruna 09/27/2022 1 [place] [id number] Ruchi Valdovinos [id number] Edison Babin Aruna 10/15/2022 1 [place] [id number] Ruchi Olaf Aruna [id number] Edison Olaf Aruna 04/16/2023 1 [place] [id number] Ruchi Olaf Aruna [id number] Edison Babin Aruna 07/08/2023 1 [place] [id number] Ruchi Olaf Aruna [id number] Edison Babin Aruna Notes Date Note Type Note Provider Name and Address Organization Details Recorded Time 10/15/2022 text/html HPI Notes: 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 due for psa today Arleen bonilla [facility] 10/15/2022 13:07:20 07/08/2023 text/html HPI Notes: prostate cancer - followup Corey Beyer MD [address] [facility],[address], [place], [address], [facility] 07/08/2023 14:53:52
[2023-09-25 14:44] LABS: Creatinine* 0.7 mg/dL (0.5-1.5); Est. Creatinine Clearance* 68.98; Estimated Glomerular Filt Rate 95 ml/min
[2023-09-25 14:45] LABS: Alanine Aminotransferase* 24 U/L (4-50); Alkaline Phosphatase* 62 U/L (40-150); Anion Gap 10 mEq/L (7-15); Aspartate Amino Transferase* 31 U/L (12-35); Bilirubin Direct* 0.3 mg/dL (0.0-0.5); Bilirubin Total* 1.4 mg/dL (0.1-1.5); Blood Urea Nitrogen* 16 mg/dL (7-30); Calcium* 9.7 mg/dL (8.4-10.6); Carbon Dioxide* 21 mmol/L (20-32); Glucose* 121 mg/dL (60-115)
[2023-09-25 14:49] LABS: C Reactive Protein* < 0.5 mg/dL (0.5-1.0)
[2023-09-25 14:58] LABS: Platelet Count* 37 K/uL (140-440); Slide Review Reflex Yes
[2023-09-25 14:59] LABS: Slide Review Acceptable Review (Acceptable)
== END 2023-09-25 15:50 | disposition home or self-care (01) ==
PROVIDERS: Emergency Provider Family Medicine; PCP Family Medicine
DX: G20.A1 Parkinson's 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, without mention of fluctuations (principal); F41.9 Anxiety disorder, unspecified; F03.90 Unspecified dementia, unspecified severity, without behavioral disturbance, psychotic disturbance, mood disturbance, and anxiety
CPT/HCPCS: 36415; 71046; 80048; 80076; 84484; 85025; 86140; 87635; 93005; 99284; 99285

== ENCOUNTER 2024-10-04 12:40 | Emergency (ER) | payer MEDICARE, BC, SELFPAY ==
--- OUTSIDE RECORDS SUMMARY | 2024-10-04 12:43 | XMS_ITS | Clinical Summary ---
Author Organization [facility] Address [address] [place] [address] Care Team Providers Care Dental Coordinator Name Role Phone Magan Verdugo MD Primary Care Provider Medications * This document contains information received from the source organization and may not represent a complete record from that organization. 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[employer] Gender Identity Not on file Sexual Orientation Not on file Plan of Treatment Health Maintenance Due Date Last Done Comments ADVANCE CARE PLANNING 1945 ANNUAL REVIEW OF HM ORDERS 1945 LIPID 1986 FALL RISK ASSESSMENT 10/24/2011 MEDICARE ANNUAL WELLNESS VISIT 10/24/2011 DTAP/TDAP/TD VACCINE (2 - Td or Tdap) 04/11/2019 04/11/2009, 01/25/1999, 03/11/1997 RSV VACCINE (1 - 1-dose 75+ series) 2021 COVID-19 VACCINE ( season) 2023 01/03/2023, 12/18/2021, 01/25/2021, Additional history exists PHQ-2 (once per calendar year) 2024 INFLUENZA VACCINE (#1) 2024 , 2022, 01/15/2022, Additional history exists DIABETES SCREENING 12/09/2026 12/10/2023 ZOSTER VACCINE Completed 02/12/2008, 12/13/2007 HEPATITIS C SCREENING Completed 12/16/2015 COLONOSCOPY Discontinued 01/28/2017 COLORECTAL CANCER SCREENING Discontinued PNEUMOCOCCAL VACCINE 50+ YEARS Completed 11/23/2020, 04/28/2019, 03/12/2019, Additional history exists CT COLONOGRAPHY Discontinued FIT Discontinued FLEX SIG Discontinued HPV VACCINE (No Doses Required) Completed MENINGITIS VACCINE Aged Out No longer eligible based on patient's age to complete this topic sDNA (Cologuard) Discontinued Procedures Procedure Name Priority Date/Time Associated Diagnosis Comments HEMOGLOBIN A1C (EXTERNAL RESULT) Routine 12/10/2023 9:31 AM CDT from Last 3 Months or Most Recently Relevant to Health Maintenance Results * (ABNORMAL) Hemoglobin A1c (External Result) (12/10/2023 9:31 AM CDT) Hemoglobin A1C (External) 6.0(A) 0 - 5.6 % EXTERNAL LAB Blood 12/10/2023 9:31 AM CDT Narrative EXTERNAL LAB - 12/10/2023 9:31 AM CDT [facility]- External Lab Results ABRIL + Keren Zaman [address] [place] [address] Phone/ / [phone] us Provider Outside LAB - HIM EXTERNAL RESULT Final Result EXTERNAL LAB External Lab from Last 3 Months or Most Recently Relevant to Health Maintenance Insurance [employer] [place] [id number] [place] [address] Care Teams Dental Coordinator Relationship Specialty Start Date End Date Magan Verdugo MD [facility] 1978. [place] [id number] PCP - General Family Medicine 06/04/23
--- OUTSIDE RECORDS SUMMARY | 2024-10-04 12:43 | XMS_ITS ---
Author Name Interface, [id number] lity Address [address] [place] [address] [address] [place] [address] [facility] Address [facility] [address] [place] [address] Allergies and Adverse Reactions Medication/Group Name Reaction Severity Date No known allergies Plan Date Type Value 12/05/2020 APPOINTMENT CTSIM - 7C/ REVI EW PET/ PROSTATE SIM - 7C/ REVIEW PET/ PROSTATE 12/05/2020 APPOINTMENT CTSIM - 7C/ REVI EW PET/ PROSTATE SIM - 7C/ REVIEW PET/ PROSTATE 12/05/2020 APPOINTMENT EXSM - 7C/ REVIE W PET/ PROSTATE SIM - 7C/ REVIEW PET/ PROSTATE S 11/30/2020 APPOINTMENT PETAX - 7C/ 227 LBS - PROSTATE 11/23/2020 APPOINTMENT NPCON - 7Y- PROS [place] CANCER - 7Y- PROSTATE CANCER 11/23/2020 LABORDER PET/CT scan - F- 18 Axumin (prostate) Reason for Visit EXSM - 7C/ REVIEW PET/ PROSTATE SIM - 7C/ REVIEW PET/ PROSTATE S Encounters Date Name 11/23/2020 Prostate cancer Immunizations Date Name Route Dose Instructions Refusal Reason Stat us Covid-19 vaccine (Pfizer) Completed Covid-19 vaccine (Pfizer) Completed Medications Date Name Route Dose Frequency Instructions Start Date End Date Status Amlodipine Oral 1.0 tablet daily active Atorvastatin Oral 1.0 tablet daily active Cholecalciferol Oral 1.0 tablet daily active Fluoxetine Oral 1.0 tablet daily active Metoprolol Oral (Tartrate) 1.0 tablet daily active Metformin Oral 1.0 tablet BID active Lisinopril Oral 1.0 tablet daily active Omeprazole Oral Delayed Release Capsule 1.0 capsule,de layed release( /EC) BiD active Problems Diagnosis Status Date of Diagnosis Resolution Date Prostate cancer Active 07/2018 Vital Signs Date Type Value 11/23/2020 Body Temperature 97.40 11/23/2020 Heart Beat 65.00 11/23/2020 Respiratory Rate 16.00 11/23/2020 Oxygen Saturation 96.00 11/23/2020 BSA 2.22 11/23/2020 Pain Scale 0.00 11/23/2020 Weight 224.70 11/23/2020 Height 71.00 11/23/2020 BMI 31.34 11/23/2020 Intravascular Systolic 122 11/23/2020 Intravascular Diastolic 76
--- OUTSIDE RECORDS SUMMARY | 2024-10-04 12:43 | XMS_ITS | Clinical Summary ---
Author Organization [facility] Address [address] [place] [address] Care Team Providers Care Bordereau Clerk Name Role Phone Magan Verdugo MD Primary Care Provider + Allergies Active Allergy Reactions Criticality Noted Date Comments Iodinated Contrast Media Hives Medium 09/04/2018 Diatrizoate Allergen Hives 06/09/2018 Medications lisinopril (PRINIVIL; ZESTRIL) 20 mg tabletIndication s:Hypertension, unspecified type Take 1 tablet by mouth once daily. 90 tablet 3 12/25/19 18 Active FLUoxetine (PROZAC) 40 mg capsuleIndicatio ns:Anxiety states Take 1 capsule by mouth every morning. 90 capsule 3 06/25/19 19 Active metFORMIN (GLUCOPHAGE XR) 500 mg Extended-Release tabletIndication s:Diabetes mellitus without complication (HC) Take 1 tablet by mouth once daily with evening meal. 90 tablet 3 06/25/19 19 Active Additional Information Patient taking differently:500 mg [...] mouth 2 times daily if needed. Active oxyCODONE-acetam inophen, 5-325 mg, (PERCOCET) 5-325 mg per tabletIndication s:Prostate cancer (HC) Take 1-2 tablets by mouth every 4 hours if needed for Pain (For moderate to severe pain.) Max acetaminophen dose: 4000mg in 24 hrs. 30 tablet 10/14/2018 12:48 PM CDT 10/15/19 19 Active Active Problems Problem Noted Date Diagnosed Date Sensorineural hearing loss (SNHL) of both ears 1 Impairment of speech discrimination 01/03/2022 Prostate cancer 10/13/2018 Peptic ulcer disease 2017 Pain management contract terminated 05/14/2017 Overview (05/14/2017): Patient no longer taking pain medication chronically. 05/14/17 Chronic ITP (idiopathic thrombocytopenia) 2015 Overview (11/11/2015): Has seen Hematology. Monitoring labs. Stable. Gastric ulcer 07/02/2014 Overview (07/02/2014): EGD 06/2014 superficial gastric ulcer secondary to NSAIDs Benign paroxysmal positional vertigo 12/17/2011 Back pain 10/02/2010 S/P colonoscopy 04/20/2010 Overview (04/20/2010): Normal in 2004: due again in 2014 Vitamin D deficiency 02/03/2010 Alcohol abuse, unspecified 08/05/2009 Cataracts, bilateral 08/05/2009 Arthritis 02/23/2008 Neck pain 02/23/2008 Overview (05/26/2015): DDD with radiculitis - Responds to prednisone. Fatty liver 02/12/2008 Sensorineural hearing loss, bilateral 01/14/2008 Type II or unspecified type diabetes mellitus without mention of complication, not stated as uncontrolled 02/07/2006 Pure hypercholesterolemia 02/07/2006 Unspecified essential hypertension 02/07/2006 Anxiety state, unspecified 02/07/2006 Resolved Problems Problem Noted Date Diagnosed Date Resolved Date Pain medication agreement signed 09/08/2011 05/14/2017 Overview (11/11/2015): Controlled substance contract signed 03/18/[address] Tenorio. Patient takes about 10 per month for chronic body pain. Toxasure 3/17/16 Assessment & Plan (04/20/2014 7:24 AM OPERATIONS DEVELOPER): Controlled substance agreement signed 04/19/14 Assessment & Plan (01/19/2013 10:07 AM OPERATIONS DEVELOPER): Pain contract renewed: chronic neck and back pain. 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 Not on file Not on file Not on file Not on file Not on file Not on file Not on file Obstetrics History Last Filed Vital Signs Vital Sign Reading Time Taken Comments Blood Pressure 162/94 07/26/2021 12:26 PM CDT Pulse 74 07/26/2021 3:14 PM CDT Temperature 37.2 C (98.9 F) 07/26/2021 12:26 PM CDT Respiratory Rate 18 07/26/2021 12:2 [...] 06/25/2019 06/24/2018, 06/09/2018, 03/10/2018, Additional history exists RSV vaccine for adults or (1 - 1-dose 75+ series) 2021 COVID-19 vaccine series ( season) 2024 02/17/2024, 01/03/2023, 12/18/2021, Additional history exists Influenza Vaccine (#1) 2024 8, 01/08/2017, 11/11/2015, Additional history exists Pneumococcal series for age 50+ Completed 05/26/2015, 01/24/2012, 04/11/2009 Hepatitis C screening for age 18-79 Completed 12/16/2015, 01/10/2005 Hepatitis B series for 19+ Aged Out N o longer eligible based on patient's age to complete this topic Procedures Procedure Name Priority Date/Time Associated Diagnosis Comments ANTI HCV Routine 12/16/2015 9:04 AM CDT Abdominal pain, RUQ (right upper quadrant) from Last 3 Months or Most Recently Relevant to Health Maintenance Results * ANTI HCV (12/16/2015 9:04 AM CDT) HEPATITIS C ANTIBODY Non-Reacti ve Non-Reacti ve 12/16/2015 5:07 PM CDT [facility] Blood BLOOD SPECIMEN / Unknown Venipuncture / Unknown 12/16/2015 9:04 AM CDT 12/16/2015 9:04 AM CDT Narrative [facility] - 12/16/2015 5:07 PM CDT Antibodies to HCV not detected; does not exclude the possibility of exposure to HCV. us Svetlana Tenorio MD SEND OUTS Final Re sult [facility] [address] [place] [address], [place] from Last 3 Months or Most Recently Relevant to [place] [address] [facility] ADVANT[facility] MEDICARE PART A HB ONLY [place] [id number] MEDICARE PART A HB ONLY Advance Directives * Full Code (Latest Code Status on File) Date Activated Date Inactivated Comments 10/13/2018 8:46 AM 10/14/2018 3:18 PM * Full Code Date Activated Date Inactivated Comments 09/08/2018 10:16 AM 09/08/2018 5:17 PM Care Teams Bordereau Clerk Relationship Specialty Start Date End Date Magan Verdugo MD [address] [place] [address] PCP - General Family Practice 09/04/18
--- OUTSIDE RECORDS SUMMARY | 2024-10-04 12:43 | XMS_ITS | Clinical Summary ---
Author Organization [facility] Address [address], [place] [address] Care Team Providers Care Cloth Worker Name Role Phone Needs Pcp, Assignment Primary Care Provider [phone] Source Comments You are receiving this document as you are listed as the primary care provider,follow-up provider, or the patient has been referred to you for consultation.This is in compliance with the Medicare and[facility] EHR Incentive Program,which states Providers who transition their patient to another setting of careor provider of care or refers their patient to another provider of care shouldprovide summary care record for each transition of care or referral. [facility] Allergies No known active allergies Medications * This document contains information received from the source organization and may not represent a complete record from that organization. atorvastatin (LIPITOR) 40 MG tablet Take 1 Tablet (40 mg) by mouth daily. Active famotidine (PEPCID) 20 MG tablet Take 1 Tablet (20 mg) by mouth daily at bedtime. 07/16/2023 Active lisinopril (ZESTRIL) 40 MG tablet Take 1 Tablet (40 mg) by mouth daily. 07/07/2023 Active metFORMIN XR (GLUCOPHAGE XR) 500 MG [...] daily at bedtime. 90 Tablet 3 08/08/2023 Active escitalopram (LEXAPRO) 20 MG tablet Take 1 Tablet (20 mg) by mouth daily. 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 Parkinsonism 08/08/2023 Family History Medical History Relation Name Comments Dementia Father Depression Father Anxiety Mother Dementia with hallucinations Mother Depression Mother Anxiety and depression Brother Anxiety and depression Sister Mental breakdown Sister Post Traumatic Stress Disorder Sister Relation Name Status Comments Father Mother Brother Sister Social History Tobacco Use Types Packs/Day Years Used Date Smoking Tobacco: Never Assessed Alcohol Use Standard Drinks/Week Comments Yes 0 (1 standard drink = 0.6 oz pure alcohol) Drinks 3-5 drinks per night, sometimes skipping an evening. AUDIT-C Answer Date Recorded Q1: How often do you have a drink containing alcohol? 4 or more times a week 10/27/2023 Q2: How many drinks containi ng alcohol do you have on a typical day when you are drinking? 3 or 4 Q3: How often do you have si x or more drinks on one occasion? Monthly 10/27/2023 Education Answer Date Recorded What is the highest level of school you have completed or the highest degree you have received? 10th grade 10/27/2023 Sex and Gender Information Value Date Recorded Sex Assigned at Not on file Legal Sex Male 3:28 AM CDT Gender Identity Not on file Sexual Orientation [...] 08/08/2023 10:51 AM CDT Plan of Treatment Health Maintenance Due Date Last Done Comments Hep C Screening (Preventive Services) 1945 Adult Preventive Visit 1963 Zoster/Shingles Vaccine (2 of 3) 04/08/2008 02/12/2008 DTaP/Tdap/Td Vaccine (2 - Tdap) 04/11/2019 04/11/2009, 01/25/1999 RSV Vaccine (1 - 1-dose 75+ series) 2021 COVID-19 Vaccine (6 - season) 2023 01/03/2023, 12/18/2021, 01/25/2021, Additional history exists Influenza Vaccine (#1) 2024 , 2022, 01/15/2022, Additional history exists Pneumococcal Vaccine 50+ Yrs Completed , 04/28/2019, 03/12/2019, Additional history exists HepA Vaccine Aged Out No longer eligi ble based on patient's age to complete this topic HepB Vaccine Aged Out No longer eligi ble based on patient's age to complete this topic Hib Vaccine Aged Out No longer eligi ble based on patient's age to complete this topic MCV4 Vaccine Aged Out No longer eligi ble based on patient's age to complete this topic Meningococcal B Vaccine Aged Out No l onger eligible based on patient's age to complete this topic Insurance [place] [id number] [facility] [place] [place] [id number] MEDICARE PART A [facility] [place] [place] [id number] Care Teams Cloth Worker Relationship Specialty Start Date End Date Needs Pcp, [place] [address] PCP - General 08/08/23
--- OUTSIDE RECORDS SUMMARY | 2024-10-04 12:43 | XMS_ITS | Encounter Summary ---
Author Organization [facility] Address [address] [place] [address] Care Team Providers Care Splicing Technician Name Role Phone Unavailable Primary Care Provider Unavailabl e Encounter Details Date Type Department Care Team (Late st Contact Info) Description 08/11/2024 Orders Only Virtual Review in [place], [place] [address] [place] [address] Regla Guerra Social History Tobacco Use Types Packs/Day Years Used Date Smoking Tobacco: Never Assessed Sex and Gender Information Value Date Recorded Sex Assigned at Not on file Legal Sex Male 6:04 AM JOB HONER Gender Identity Not on file Sexual Orientation Not on file documented as of this encounter Plan of Treatment Not on file documented as of this encounter Visit Diagnoses Not on filedocumented in this encounter
--- OUTSIDE RECORDS SUMMARY | 2024-10-04 12:43 | XMS_ITS | CCD ---
Author Name Interface, [id number] lity Address [address] [place] [address] [address] [address] Organization [facility] Address [address] [facility] [address] [address] Care Team Providers Care Utilization Supervisor Name Role Phone Jama ALONZO, Eladio Unavailable Unavailable Allergies and Adverse Reactions Medication/Group Name Reaction Severity Date No known allergies Reason for Visit EXSM - 7C/ REVIEW PET/ PROSTATE SIM - 7C/ REVIEW PET/ PROSTATE S Medications Date Name Route Dose Frequency Instructions Start Date End Date Status Fluoxetine Oral 1.0 tablet daily active Omeprazole Oral Delayed Release Capsule 1.0 capsule,de layed release(DR /EC) BiD active Cholecalciferol Oral 1.0 tablet daily active Lisinopril Oral 1.0 tablet daily active Atorvastatin Oral 1.0 tablet daily active Amlodipine Oral 1.0 tablet daily active Metformin Oral 1.0 tablet BID active Metoprolol Oral (Tartrate) 1.0 tablet daily active Problems Diagnosis Status Date of Diagnosis Resolution Date Prostate cancer Active 07/2018 Social History Date Name Value 11/23/2020 Sex Male
--- OUTSIDE RECORDS SUMMARY | 2024-10-04 12:44 | XMS_ITS | CCD ---
Author Name Interface, [id number] lity Address [address] [place] [address] [address] [address] Organization [facility] Address [address] [facility] [address] [address] Care Team Providers Care Screen Handler Name Role Phone Jama ALONZO, Eladio Unavailable [...]
--- OUTSIDE RECORDS SUMMARY | 2024-10-04 12:44 | XMS_ITS | Clinical Summary ---
Author Organization [facility] Address [address] [place] [address] Care Team Providers Care Linoleum Layer Apprentice Name Role Phone Unavailable Primary Care Provider Unavailabl e Source Comments Patient records contain information from all sites at [facility]. For routine questions regarding patient records, call [phone] during business hours, M-F 8:00 AM - 5:00 PM Central Time. Record requests for emergency care only can be directed to [phone] at any time.[facility] Allergies Active Allergy Reactions Criticality Noted Date Comments Carbidopa Hallucinations High 02/17/2024 Iodinated Contrast Media Hives (Reselect Reaction) High 06/09/2018 Levodopa Hallucinations High 02/17/2024 Medications amLODIPine (Norvasc) 5 mg tablet Take 5 mg by mouth daily. Active apalutamide (Erleada) 60 mg tablet Take 60 mg by mouth. Active atorvastatin (Lipitor) 40 mg tablet Take 1 tablet by mouth daily. Active brexpiprazole (Rexulti) 4 mg tablet Take 4 mg by mouth daily. Active buPROPion XL (Wellbutrin XL) 150 mg 24 hr tablet Take 150 mg by mouth every morning. Active buPROPion XL (Wellbutrin XL) 300 mg 24 hr tablet Take 300 mg by mouth every morning. Active carbidopa-levod opa (Sinemet) 25-100 mg per tablet Take 1 tablet by mouth 3 (three) times a day. Active celecoxib (CeleBREX) 200 mg capsule Take 200 mg by mouth 2 (two) times a day. Active cholecalciferol , vitamin D3, 25 mcg (1,000 Unit) tablet Take 25 mcg by mouth daily. Active cholecalciferol (Vitamin D3) 10 mcg (400 Unit) tablet Take 400 Units by mouth daily. Active clonazePAM (KlonoPIN) 1 mg tablet Take 1 tablet by mouth 2 (two) times a day. 08/04/2024 Active donepeziL (Aricept) 5 mg tablet Take 5 mg by mouth. 08/08/2023 Active donepeziL (Aricept) 10 mg tablet Take 10 mg by mouth at bedtime. 07/17/2024 Active escitalopram (Lexapro) 10 mg tablet Take 10 mg by mouth. Active escitalopram (Lexapro) 20 mg tablet Take 20 mg by mouth. 11/25/2023 Active escitalopram (Lexapro) 5 mg tablet Take 5 mg by mouth. Active famotidine (Pepcid) 20 mg tablet Take 20 mg by mouth at bedtime. 07/16/2023 Active FLUoxetine (PROzac) 20 mg capsule Take 20 mg by mouth daily. Active FLUoxetine (PROzac) 40 mg capsule Take 40 mg by mouth daily. Active FLUoxetine (PROzac) 20 mg tablet Take 1 tablet by mouth daily. Active FLUoxetine (PROzac) 40 mg capsule Take 1 capsule by mouth every morning. 06/24/2018 Active gabapentin (Neurontin) 300 mg capsule Take 300 mg by mouth 2 (two) times a day. Active leuprolide (Eligard, 6 month,) 45 mg injection Inject 45 mg under the skin every 6 (six) months. 07/08/2023 Active lisinopriL 40 mg tablet Take 40 mg by mouth daily. 07/07/2023 Active lisinopriL 20 mg tablet Take 1 tablet by mouth daily. 12/24/2017 Active LORazepam (Ativan) 0.5 mg tablet Take 0.5 mg by mouth 2 (two) times a day as needed. Active LORazepam (Ativan) 1 mg tablet Take 1 mg by mouth as needed. Active metFORMIN XR (Glucophage-XR) 500 mg 24 hr tablet Take 1,500 mg by mouth daily. 06/24/2018 Active metFORMIN (Glucophage) 500 mg tablet Take 500 mg by mouth 2 (two) times a day. Active metoprolol succinate (Toprol XL) 100 mg 24 hr tablet Take 100 mg by mouth daily. 06/10/2023 Active metoprolol succinate (Toprol XL) 50 mg 24 hr tablet Take 50 mg by mouth daily. Active metoprolol tartrate (Lopressor) 50 mg tablet Take 50 mg by mouth daily. Active OLANZapine (ZyPREXA) 5 mg tablet Take 5 mg by mouth. 08/10/2024 Active omeprazole (PriLOSEC) [address] capsule Take 20 mg by mouth 2 (two) times a day as needed. Active ondansetron (Zofran) 4 mg tablet Take 4 mg by mouth every 6 (six) hours. 06/23/2023 Active ondansetron (Zofran) 8 mg tablet Take 8 mg by mouth 2 (two) times a day. Active oxyCODONE-aceta minophen (Percocet) 5-325 mg per tablet Take 1-2 tablets by mouth every 4 (four) hours as needed. 10/14/2018 Active pantoprazole (Protonix) 40 mg EC tablet Take 40 mg by mouth daily. 07/16/2023 Active pramipexole (Mirapex) 0.75 mg tablet Take 0.75 mg by mouth daily. Active relugolix (Orgovyx) 120 mg tablet Take 120 mg by mouth daily. 02/16/2021 Active sennosides-docu sate sodium (Senokot-S) 8.6-50 mg per tablet Take 2 tablets by mouth at bedtime. Active Encounters Date Type Department Care Team Description 08/11/2024 Orders Only Virtual Review in [address] [address] Regla Guerra 07/16/2024 10:30 AM CDT Diagnostic Department of Otorhinolaryngology in [address] [address] Nick Wu Au.D., C.C.C.-A Loss Hearing Sensorineural Bilateral (Primary Dx) 07/06/2024 10:30 AM CDT Diagnostic Department of Otorhinolaryngology in [address] [address] Nick Wu Au.D., C.C.C.-A Loss Hearing Sensorineural Bilateral (Primary Dx) 07/06/2024 9:30 AM CDT Diagnostic Department of Otorhinolaryngology in [address] [address] Ritika Ma Au.D., M.S. Loss Hearing Sensorineural Bilateral (Primary Dx) from Last 3 Months Immunizations Immunization Administration Dates Next Due Influenza Split 01/09/2001 Td, (Adult) Unspecified 03/11/1997 Social History Tobacco Use Types Packs/Day Years Used Date Smoking Tobacco: Never Assessed Sex and Gender Information Value Date Recorded Sex Assigned at Not on file Legal Sex Male 6:04 AM ELECTROPHYSIOLOGY TECH Gender Identity Not on file Sexual Orientation Not on file Plan of Treatment Health Maintenance Due Date Last Done Comments Hepatitis C Screening 1945 Zoster Vaccines (2 of 2) 04/08/2008 02/12/2008, 06/2007 DTaP,Tdap,and Td Vaccines (2 - Td or Tdap) 04/11/2019 04/11/2009, 03/11/1997 RSV vaccine - (32-36 weeks) or 60+ years (1 - 1-dose 75+ series) 2021 Creatinine Level (Kidney Function Test) 07/26/2022 07/26/2021, 10/14/2018, 09/08/2018, Additional history exists Glucose Test for Med Monitoring 07/26/2022 07/26/2021, 10/14/2018, 10/14/2018, Additional history exists Potassium Level 07/26/2022 07/26/2021, 0808/2018, 09/08/2018, Additional history exists Sodium Level 07/26/2022 07/26/2021, 080 08/2018, 09/08/2018, Additional history exists Depression Screening (Annual PHQ-2) 03/11/2024 Fall Risk Screen (Annual) 03/11/2024 COVID-19 Vaccine (7 - Pfizer risk 2023- season) 2024 02/17/2024, 01/03/2023, 12/18/2021, Additional history exists Influenza Vaccine (#1) 2024 , 01/03/2023, 2022, Additional history exists Abdominal Aortic Aneurysm (AAA) Screen Discontinued 06/04/2018, 08/29/2017, 07/24/2016, Additional history exists Pneumococcal vaccine (50+ years) Completed 11/23/2020, 04/28/2019, 03/12/2019, Additional history exists IPV Vaccines Aged Out No longer eligi ble based on patient's age to complete this topic Procedures Procedure Name Priority Date/Time Associated Diagnosis Comments AUDIOLOGY EVALUATION 07/06/2024 12:00 AM CDT US ABDOMEN LIMITED Routine 03/13/2001 12 :48 PM ELECTROPHYSIOLOGY TECH from Last 3 Months or Most Recently Relevant to Health Maintenance Results * Audiology evaluation (07/06/2024 12:00 AM CDT) 07/06/2024 us Ritika Vences M.S. AUDIOLOGY SERVICES O RDERABLES Final Result * US Abdomen Limited (03/13/2001 12:48 PM ELECTROPHYSIOLOGY TECH) Anatomical Region Laterality Modality Abdomen N/A Ultrasound 03/13/2001 12:4 8 PM ELECTROPHYSIOLOGY TECH Narrative 03/13/2001 1:26 PM ELECTROPHYSIOLOGY TECH 13-Mar-2001 12:48:00 Exam: US Abdomen Limited Indications: Right upper quadrant pain ORIGINAL REPORT - 13-Mar-2001 13:26:00 Ultrasound examination of the gallbladder is negative. The liver is negative for mass or bile duct dilatation, but there is moderately diffuse fatty infiltration of the liver. *ELECTRONIC IMAGES ONLY--NO FILMS MADE* ([id number]) Ind: [phone] Dia.120 Electronically signed by: Abdon Chaudhary MD. [id number] 13-Mar-2001 13:26 Procedure Note Rachel Chaudhary M.D. - 06/14/2017 13-Mar-2001 12:48:00 Exam: US Abdomen Limited Indications: Right upper quadrant pain ORIGINAL REPORT - 13-Mar-2001 13:26:00 Ultrasound examination of the gallbladder is negative. The liver isnegative for mass or bile duct dilatation, but there is moderately diffusefatty infiltration of the liver. *ELECTRONIC IMAGES ONLY--NO FILMS MADE* ([id number]) Ind: [phone] Dia.120 Electronically signed by: Abdon Chaudhary MD. [id number] 13-Mar-2001 13:26 Magan Alexander M.D. [facility] PROCEDURES Final Result from Last 3 Months or Most Recently Relevant to Health [place] [address] MEDICARE
--- OUTSIDE RECORDS SUMMARY | 2024-10-04 12:44 | XMS_ITS | Data Portability ---
Author Organization [facility], [facility] Address [address] [place] [address] Care Team Providers Care Data Deliverables Manager Name Role Phone ARTURO WHITEHEAD Primary Care Provider [phone] [facility] ([employer]) Referring Provider Assessment No assessment recorded. Plan of Treatment Reminders Order Date Submit Date Provider Last Modified By Organization Details Last Modified Time Details Appointments None recorded. Lab PSA, total, serum or plasma 2023 024 [facility], [address], [place], [address], 4 14:31:06 PSA, total, serum or plasma 2022 023 [facility], [address], [address], [place], [address], 3 16:36:06 Referral None recorded. Procedures None recorded. Surgeries None recorded. Imaging PET-CT, skull base to mid-thigh scan - PSMA scan; Eyes to thighs [email or web address] [place] [address] [facility], [address], [place], [address], 4 16:28:25 Medication Orders Eligard 45 mg (6 month) subcutaneou s syringe [address] [id number], [address] [place], [place], [phone], 14:10:15 Eligard 45 mg (6 month) subcutaneou s syringe 2022 023 [facility], [address] [facility], [place], [address], 13:37:41 Firmagon kit with diluent syringe 80 mg subcutaneou s solution 2022 023 [id number], [address] [place], [place], [phone], 13:36:33 Firmagon kit with diluent syringe 120 mg subcutaneou s solution 2022 023 [id number], [address] [place], [place], [phone], 13:36:25 Patient TargetsNo targets recorded. Patient InstructionsNo instructions recorded. Reason for Referral None Reported. Results Created Date Observation Date Name Description Value Unit Range Abnormal Flag Note LastModifiedBy Organization Detail LastModifiedTime 10/16/1910/15/2022 PSA, TOTAL PSA, total <0.10 NG/mL <4.0 This lab resul t is being provi ded to you and your provi coleman at the same time in compl iance with the Centu ry Cures Act. Your provi coleman may not have had time to revie w and make recom menda tions based on the resul t. Plefarheen e allow up to one week for provi coleman revie w. Not Available [facility] [address] [address], [place], [address], 10/16/2022 16:36:06 04/16/19 24 04/16/2023 PSA, TOTAL PSA, total <0.10 NG/mL <4.0 This lab resul t is being provi ded to you and your provi coleman at the same time in compl iance with the Centu ry Cures Act. Your provi coleman may not have had time to revie w and make recom menda tions based on the resul t. Pleas e allow up to one week for provi coleman revie w. 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 Malign ant neopla sm of prosta te. Prior prosta tectom y, positi ve lymph node. Elevat ed PSA consis tent with bioche mical recurr ence. Subseq uent treatm ent strate gy. COMPAR CANDICE: Axumin PET/CT 021 review ed. TECHNI QUE: 60 minute s post intrav enous admini strati on of 9.5 mCi F-18 Pifluf olasta t, PET imagin g was perfor med from the skull vertex to mid thighs utiliz ing attenu ation correc tion with concur rent axial CT and PET/CT image fusion . Dose reduct ion techni ques were used. FINDIN GS: Prosta tectom y. No eviden ce of local recurr ence. No radiot racer avid adenop athy in the pelvis or elsewh ere. A prior promin ent retrop eriton eal aortoc aval lymph node at the at the mid kidney level demons trates no focal radiot racer activi ty above backgr ound level. No suspic ious focal uptake in the liver or skelet on. Mild senesc ent intrac ranial change s. Modera te athero sclero tic calcif icatio ns includ ing the cox ry arteri es. Scatte red thin bilate ral calcif ied pleura l plaque s sugges ting prior asbest os exposu re. Tiny calcif ied granul kera right upper lobe. Mild bandli ke scarri ng or atelec tasis in the lower lungs. Small nonobs tructi ng stone right kidney . Few benign calcif ied spleni c granul omas. Modera te coloni c divert iculos is, greate st in the sigmoi d region . Small bilate ral fat-co ntaini ng inguin al hernia s. Advanc ed hypert rophic degene rative change s in the spine. IMPRES EVELYN: No eviden ce of radiot racer avid recurr ent or metast atic malign anyi. This report was electr onical ly interp reted by: DR. OSORIO Kwong M.D. btareen [facility] [address], [place], [address], 10/24/2023 00:23:52 10/23/1910/22/2023 PET-C T, skull base to mid-t high scan No observ ation record ed. [facility] [address], [place], [address], 10/24/2023 06:57:28 Result Notes Documentation Provider Name and Address Organization Details Recorded Time Pet-ct, Skull Base To Mid-thigh Scan : EXAM: PET CT PROSTATE PSMA SUBSEQUENT LOCATION: [facility] DATE: 10/22/2023 INDICATION: Prostate cancer, restaging. Malignant neoplasm of prostate. Prior prostatectomy, positive lymph node. Elevated PSA consistent with biochemical recurrence. Subsequent treatment strategy. COMPARISON: Axumin PET/CT 11/30/2020 reviewed. TECHNIQUE: 60 minutes post intravenous administration of 9.5 mCi F-18 Piflufolastat, PET imaging was performed from the skull vertex to mid thighs utilizing attenuation correction with concurrent axial CT and PET/CT image fusion. Dose reduction techniques were used. FINDINGS: Prostatectomy. No evidence of local recurrence. No radiotracer avid adenopathy in the pelvis or elsewhere. A prior prominent retroperitoneal aortocaval lymph node at the at the mid kidney level demonstrates no focal radiotracer activity above background level. No suspicious focal uptake in the liver or skeleton. Mild senescent intracranial changes. Moderate atherosclerotic calcifications including the coronary arteries. Scattered thin bilateral calcified pleural plaques suggesting prior asbestos exposure. Tiny calcified granuloma right upper lobe. Mild bandlike scarring or atelectasis in the lower lungs. Small nonobstructing stone right kidney. Few benign calcified splenic granulomas. Moderate colonic diverticulosis, greatest in the sigmoid region. Small bilateral fat-containing inguinal hernias. Advanced hypertrophic degenerative changes in the spine. IMPRESSION: No evidence of radiotracer avid recurrent or metastatic malignancy. This report was electronically interpreted by: DR. OSORIO Beyer MD [address] [facility] [address],[address], [place], [address], [facility] 10/24/2023 00:23:52 Problems Name Problem SNOMED Code Status Onset Date Resolution Date Notes Provider Name and Address Organization Details Recorded Time Prostate specific antigen above reference range 962863682 Active 2018 R97.20 : Raised prostate specific antigen Not Available Replaced by [facility] 0 23:54:14 Malignant neoplasm of prostate 207919022 Active 2018 C61 : Malignant tumor of prostate Not Available Replaced by [facility] 0 23:54:14 Problem Notes None recorded. Procedures Surgical History Date Name Laterality Status Provider Name and Address Organization Details Recorded Time 01/07/20 24 Blood Draw/INVENTORY CONTROL CLERK/PSA RESULTS cancelled Valencia Younger [facility] 01/06/2024 15:27:01 01/07/20 24 Malenad cancelled Valencia Aren [facility] 01/06/2024 15:29:55 07/08/19 24 Eligard completed Bucky Armstrong [facility] 07/08/2023 14:09:48 04/16/19 24 Blood Draw/INVENTORY CONTROL CLERK/PSA RESULTS completed Mery Steinberg [facility] 04/16/2023 12:37:16 10/16/19 23 Blood Draw/INVENTORY CONTROL CLERK/PSA RESULTS completed Arleen Segura [facility] 10/15/2022 12:46:25 10/16/19 23 Malenad completed Arleen Segura [facility] 10/15/2022 12:46:56 09/28/19 23 Firmagon completed Bucky Armstrong [facility] 09/27/2022 10:13:16 08/30/19 23 Noaagon completed Arleen Segura [facility] 08/29/2022 12:54:05 07/28/19 23 Firmagon completed Arleen Segura [facility] 07/27/2022 10:58:45 06/29/19 23 Firmagon completed Bucky Armstrong [facility] 06/28/2022 10:39:47 05/30/19 23 Firmagon completed Arleensra Segura [facility] 05/29/2022 10:36:15 04/30/19 23 Firmagon completed Meryandria Steinberg [facility] 04/30/2022 12:10:20 03/28/19 23 Blood Draw/INVENTORY CONTROL CLERK/PSA RESULTS completed Mery ChristensenMichael [facility] 03/28/2022 11:34:37 03/28/19 23 Firmagon completed Meryandria Steinberg [facility] 03/28/2022 11:35:59 02/24/20 22 Firmagon completed Lola Briceno [facility] 02/23/2022 13:06:57 01/25/20 22 Firmagon completed Mery Steinberg [facility] 01/24/2022 10:21:06 12/05/19 22 Blood Draw/INVENTORY CONTROL CLERK/PSA RESULTS completed Mery Steinberg [facility] 12/04/2021 09:55:45 11/10/19 22 Firmagon completed Meryandria Steinberg [facility] 11/09/2021 10:52:30 10/10/19 22 Firmagon completed Annette Sanders [facility] 10/09/2021 11:03:14 09/08/19 22 Firmagon completed Meryandria Steinberg [facility] 09/07/2021 15:38:52 08/09/19 22 Firmagon completed Mery Steinberg [facility] 08/08/2021 11:27:04 06/24/19 22 Bladder Scan completed Joshua Reyes [facility] 06/23/2021 11:13:27 06/24/19 22 Blood Draw/INVENTORY CONTROL CLERK/PSA RESULTS completed Martha Ho [facility] 06/23/2021 11:38:51 06/24/19 22 Firmagon completed Martha Ho [facility] 06/23/2021 11:40:02 05/23/19 22 [facility] 16:07:39 04/18/19 22 Firmagon [facility]21 10:20:52 04/06/19 22 Blood Draw/INVENTORY CONTROL CLERK/PSA RESULTS [facility]2021 09:47:08 02/07/20 21 Blood Draw/INVENTORY CONTROL CLERK/PSA RESULTS [facility] 14:44:40 02/02/20 21 Blood Draw/INVENTORY CONTROL CLERK/PSA RESULTS completed Martha Ho [facility] 02/01/2021 09:26:30 12/14/19 21 Faye completed Adelina Fraser [facility] 12/13/2020 11:29:12 11/11/19 21 Past Data Reviewed completed Walt oMrfin [facility] 11/10/2020 12:30:43 11/11/19 21 Blood Draw/INVENTORY CONTROL CLERK/PSA RESULTS completed [facility] 11/10/2020 12:31:00 10/14/19 19 Laps surg [email or web address] rpbic rad completed Not Available Health Note [...] Not Available Not Available No t Available donepezil 5 mg tablet active Not Available Not Available Not Available azithromy taisha 250 mg tablet 04/16 [...] Not Available Not Available ondansetr on HCl 8 mg tablet TAKE 1 TABLET BY MOUTH TWICE DAILY active Not Available Not Available No t Available ondansetr on HCl 4 mg tablet [...] TAKE 1 TABLET BY MOUTH EVERY DAY AT BEDTIME active Not Available Not Available No t Available lorazepam 0.5 mg tablet TAKE 1 TABLET BY MOUTH TWICE DAILY NEEDED active Not Available Not Available No t Available pantopraz ole 40 mg tablet,de layed release TAKE 1 TABLET BY MOUTH EVERY DAY active Not Available Not Available No t Available prednison e 50 mg tablet TAKE 1 TABLET BY MOUTH EVERY DAY 04/16 completed Not Available Not Available Not Available gabapenti n 300 mg capsule TAKE 1 CAPSULE BY MOUTH TWICE DAILY active Not Available Not Available No t Available omeprazol e 20 mg capsule,d elayed release TK 1 C PO BID active HN: Patient reports taking HN: Patient reports taking Not Available Not Available Not Available lorazepam 1 mg tablet TAKE 1 TABLET BY MOUTH EVERY 6 HOURS NEEDED FOR ANXIETY OR WITHDRAW ALS. MAY TAKE A 3 RD DOSE IF WITHDRAW ALS IS SEVERE active Not Available Not Available No t [...] Not Available No t Available fluoxetin e 20 mg capsule TAKE 1 CAPSULE BY MOUTH EVERY DAY active Not Available Not Available No t Available metformin ER 500 mg tablet,ex tended release 24 hr TAKE 3 TABLETS BY MOUTH EVERY DAY active Not Available Not Available No t Available escitalop hellen 10 mg tablet active Not Available Not Available Not Available escitalop hellen 20 mg tablet active Not Available Not Available Not Available Eligard 30 mg (4 month) subcutane [...] Not Available Not Available No t Available escitalop hellen 5 mg tablet active Not Available Not Available Not Available duloxetin e 30 mg capsule,d elayed [...] Not Available Not Available Not Avai lable pramipexo le 0.75 mg tablet TAKE 1/2 TABLET BY MOUTH EVERY DAY FOR 7 DAYS THEN 1 TABLET BY MOUTH EVERY DAY THEREAFT ER active Not Available Not Available No t Available abiratero ne 250 mg tablet Take [...] taking Not Available Not Available Not Available Chana COVID-19 Ag Self Test kit TEST DIRECTED TODAY 07/07 completed HN: Patient reports no longer taking Not Available Not Available Not Available Vitals Date Recorded Body height Body mass index (BMI) Body weight Provider Name and Address Organization Details Last Updated DateTime 07/08/2023 182.88 cm 28.3 kg/m2 29132.81 g Jacqueline Beasley [facility] 07/08/2023 13:35:15 Date Recorded Body height Provider Name an d Address Organization Details Last Updated DateTime 10/15/2022 182.88 cm Thor Solorzano [facility] 11:57:14 Social History Question Answer Notes LastModified by Organizat ion Details LastModified Time Tobacco Smoking Status Current Every Day Smoker Not Available Health Note 05/26/2023 14:51:31 What Is Your Level Of Caffeine Consumption? Occasional [email or web address] Information not available 05/26/2023 How Much Tobacco Do You Chew? None [email or web address] Information not available 05/26/2023 Which Illicit Or Recreational Drugs Have You Used? Marijuanna Once In A While Information not available 11/10/2020 When Did You Quit Smoking? 16+yearssincel isamar [...] available 12/09/2020 Have You Traveled Outside Of [place] In The Past 30 Days? No [email or web address] Information not available 12/09/2020 Race White [email or web address] Information n ot available 08/20/2019 Preferred Language Croatian Information not available 11/10/2020 Recreational Drug Use Yes Information not available 11/10/2020 Could You Be ? No Information not available 11/10/2020 Marital Status simeon Informati on not available 08/20/2019 What Was The Date Of Your Most Recent Tobacco Screening? 05/27/2023 [email or web address] Information not available 05/26/2023 Have You Ever Been Counseled For Unhealthy Alcohol Use? Yes Information not available 11/09/2022 What Is Your Relationship Status? [email or web address] Information not available 05/26/2023 Are You Sexually Active? No [email or web address] Information not available 05/26/2023 How Much Tobacco Do You Smoke? 1 PPW [email or web address] Information not available 05/26/2023 Has Tobacco Cessation Counseling Been Provided? Yes [email or web address] Information not available 04/16/2022 On What Date Was Tobacco Cessation Counseling Provided? 04/16/2022 [email or web address] Information not available 04/16/2022 How Many Years Have You Smoked Tobacco? 15 [email or web address] Information not available 05/26/2023 How Many Days In The Past Year Have You Consumed 5 Or More Drinks? 15 [email or web address] Information not available 05/26/2023 Sex: Male Functional Status Question Answer Note LastModified by Organizat ion Details LastModified Time Do you use any illicit or recreational drugs? Yes [email or web address] Information not available 05/26/2023 Do you or have you ever used any other forms of tobacco or nicotine? Yes Information not available 11/10/2020 What is your level of alcohol consumption? Occasional [email or web address] Information not available 05/26/2023 Do you or have you ever used smokeless tobacco? Never used smokeless tobacco [email or web address] Information not available 05/26/2023 Do you or have you ever used e-cigarettes or vape? Never used electronic cigarettes [email or web address] Information not available 05/26/2023 Mental Status None recorded. Family History Relationship Description Onset Age of this Age Resolved Age Notes LastModified by Organization Details LastModified Time Unspecified Relation Family history of Hypertension Not available 11/10/2020 12:16:45 Notes:Unspecified Relation h as sister lung, liver cancer Medical History Condition Response Sexually Transmitted Infection N Diabetes Y Other N Bleeding Disorder N High Blood Pressure Y Kidney Stones N High Cholesterol Y GERD/Acid Reflux N Heart Disease N Cancer N Lung Disease N Depression N Immunizations Vaccine Type Date Status Note Provider Nam e and Address Organization Details Recorded Time SARS-COV-2 (COVID-19) vaccine, UNSPECIFIED 3 completed Arturo Meat null, [facility] 07/15/2023 14:43:05 influenza, unspecified formulation 3 completed Arturo Meath null, [facility] 07/15/2023 14:43:05 Influenza, high-dose, quadrivalent, PF 3 completed Arturo Meath null, [facility] 07/15/2023 14:43:05 Influenza, high-dose, quadrivalent, PF 2 completed Arturo Meat null, [facility] 07/15/2023 14:43:05 COVID-19, mRNA, LNP-S, bivalent, PF, 30 mcg/0.3 mL dose 2 [facility] 07/15/2023 14:43:05 COVID-19, mRNA, LNP-S, PF, liz-sucrose, 30 mcg/0.3 mL 3 completed [facility] 07/15/2023 14:43:05 Influenza, split virus, trivalent, preservative 1 completed Svetlana Rodriguez null, [facility] 05/22/2021 15:27:32 Influenza, split virus, trivalent, PF 0 completed Svetlana Rodriguez null, [facility] 05/22/2021 15:27:32 Pneumococcal conjugate PCV 13 6 completed Svetlana Rodriguez null, [facility] 05/22/2021 15:27:32 COVID-19, mRNA, LNP-S, PF, 30 mcg/0.3 mL dose 1 completed Svetlana Rodriguez null, [facility] 05/22/2021 15:27:32 Influenza, split virus, trivalent, preservative 3 completed Svetlana Rodriguez null, [facility] 05/22/2021 15:27:32 Influenza, high-dose, quadrivalent, PF 1 completed Svetlana Rodriguez null, [facility] 05/22/2021 15:27:32 zoster live 8 completed Svetlana Rodriguez null, [facility] 05/22/2021 15:27:32 Influenza, high-dose, trivalent, PF 5 completed Svetlana Rodriguez null, [facility] 05/22/2021 15:27:32 Influenza, adjuvanted, trivalent, PF 8 completed Svetlana Rodriguez null, [facility] 05/22/2021 15:27:32 Influenza, high-dose, trivalent, PF 4 completed Svetlana Rodriguez null, [facility] 05/22/2021 15:27:32 Influenza, high-dose, trivalent, PF 6 completed Svetlana Rodriguez null, [facility] 05/22/2021 15:27:32 Influenza, split virus, trivalent, preservative 3 completed Svetlana Rodriguez null, [facility] 05/22/2021 15:27:32 Influenza, split virus, trivalent, preservative 0 completed Svetlana bonilla, [facility] 05/22/2021 15:27:32 Influenza, split virus, trivalent, PF 0 completed Svetlana Rodriguez null, [facility] 05/22/2021 15:27:32 Influenza, split virus, trivalent, preservative 2 completed Svetlana Rodriguez null, [facility] 05/22/2021 15:27:32 Influenza, split virus, trivalent, preservative 5 completed Svetlana bonilla, [facility] 05/22/2021 15:27:32 Td (adult), 2 Lf tetanus toxoid, preservative free, adsorbed 8 completed Svetlana bonilla, [facility] 05/22/2021 15:27:32 Novel [id number]-[id number], all formulations 0 completed Svetlana Rodriguez null, [facility] 05/22/2021 15:27:32 Influenza, adjuvanted, trivalent, PF 7 completed Svetlana Rodriguez null, [facility] 05/22/2021 15:27:32 pneumococcal polysaccharide PPV23 0 completed Svetlana Rodriguez null, [facility] 05/22/2021 15:27:32 COVID-19, mRNA, LNP-S, PF, 30 mcg/0.3 mL dose 1 completed Svetlana Rodriguez null, [facility] 05/22/2021 15:27:32 Influenza, split virus, trivalent, PF 1 completed Svetlana Rodriguez null, [facility] 05/22/2021 15:27:32 pneumococcal polysaccharide PPV23 0 completed Svetlana Rodriguez null, [facility] 05/22/2021 15:27:32 pneumococcal polysaccharide PPV23 2 completed Svetlana Rodriguez null, [facility] 05/22/2021 15:27:32 Tdap 0 completed Svetlana Rodriguez null, [facility] 05/22/2021 15:27:32 COVID-19, mRNA, LNP-S, PF, 30 mcg/0.3 mL dose 1 completed [facility] 15:27:32 influenza, unspecified formulation 1 completed Not Available Replaced by [facility] 12/11/2021 12:18:13 SARS-COV-2 (COVID-19) vaccine, UNSPECIFIED 1 completed Not Available Replaced by [facility] 12/11/2021 12:18:13 pneumococcal, unspecified formulation 1 completed Not Available [facility] 12/11/2021 12:18:13 pneumococcal, unspecified formulation 9 completed Not Available [facility] 12/11/2021 12:18:13 SARS-COV-2 (COVID-19) vaccine, UNSPECIFIED 0 completed Not Available [facility] 12/11/2021 12:18:13 pneumococcal, unspecified formulation 0 completed Not Available [facility] 12/11/2021 12:18:13 influenza, unspecified formulation 1 completed Not Available [facility] 12/11/2021 12:18:13 SARS-COV-2 (COVID-19) vaccine, UNSPECIFIED 1 completed Not Available [facility] 12/11/2021 12:18:13 Past Encounters Encounter ID Performer Location Encounter Start Date Encounter Closed Date Diagnosis/Indication Diagnosis SNOMED-CT Code Diagnosis ICD10 Code Diagnosis Note [id number] MD Sherrie Daugherty_Angelo stephens [address] [address] 11/10/2020 12:04:48 11/10/2020 12:36:45 Malignant neoplasm of prostate 038193791 C61 will update psa todayresum e protocol for high risk [id number] disease with negative margins and nodes Stress inc ontinence after prostatectomy 355270935 N39.3 minimalnot wearing pads/depen dscontinue kegels Erectile d ysfunction following radical prostatectomy 5480631931 61670 N52.31 not interested in treatment [id number] Walt Morfin MD [facility] [address] [facility] [address] [place] [address] 12/13/2020 10:23:50 12/28/2020 14:26:30 Malignant neoplasm of prostate 794112777 C61 metastatic , hormone sensitive prostate cancerwill start with eligardwil l also do apalutamid ecalcium/v it D supplement ationwill not likely need radiation to pelvis in this setting given radiograpa hic findings.d iscussed risks of apalutamid esent as a pamphlet to patientdis cussed risks of fall/seizu re/rash/ [place]/ stroke/jude nges in vision [id number] MD Sherrie Daugherty_Angelo dbury [address] [facility] [place] e [address] [place] [phone] 02/01/2021 09:00:51 02/01/2021 09:40:06 Malignant neoplasm of prostate 840510066 C61 [id number] MD [facility] [address] [place] [address],[address] [place] [address] 02/06/2021 14:41:54 02/06/2021 14:46:32 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 [id number] MD Sherrie DaughertyAngelo [address] [place] [phone] 02/09/2021 15:31:05 02/23/2021 15:38:20 Malignant neoplasm of prostate 495965291 C61 metastatic hormone sensitive prostate cancerunfo rtunately testostero ne did not improve with eligardbut his psa is undetectab le now with the androgen blockadewe will look into other antiandrog ens since eligard not effective in his casewe will explore orgovyxwe may need to do monthly firmagon [id number] MD Sherrie DaughertyAngelo [address] [place] [phone] 04/06/2021 09:39:04 04/06/2021 09:50:27 Malignant neoplasm of prostate [id number] C61 [id number] MD Sherrie Cardozo[address] [place] [phone] 0 04/18/2021 10:10:55 04/18/2021 10:24:01 Malignant neoplasm of prostate [id number] C61 [id number] KACI Hawk[address] [place] [phone] 0 05/22/2021 15:21:45 05/24/2021 08:19:32 Malignant neoplasm of prostate [id number] C[address] Beyer.Benjy n to continue monthly Firmagon injections - due for injection todayDue to side effects, will discontinu e Abirateron e/predniso ne.Will transition to Xtandi 40 mg daily Plan to see him back in 1 month to assess for new side effects from XtandiI will also plan to see him in 3 months with a PSA prior [id number] KACI HawkWo[address] [phone] 06/23/2021 10:31:42 06/23/2021 11:58:06 Malignant neoplasm of prostate [id number] C61 [id number] MD Sherrie CardozoAngelo [address] [phone] 08/08/2021 10:46:55 08/08/2021 11:15:24 Malignant neoplasm of prostate [id number] C61 patient s/p robot prostatect donato in 2019.did not get adjuvant rTrising PSA and ? retroperit dhaliwal hayley diseaseon Eilgard now w good resultscon tinue monthly eligardWou ld do foundation testing/li quid biopsy in future when psa rises again - but he prefers to wait on taking any additional meds given side effects w/ previous meds cont. monthly eligard [id number] MD Ashley Cardozo [address] [address] 09/07/2021 15:25:52 09/07/2021 15:51:02 Malignant neoplasm of prostate [id number] C61 patient s/p robot prostatect donato in 2019.did not get adjuvant rTrising PSA and ? retroperit dhaliwal hayley diseaseon monthly firmagon now w good resultscon tinue monthly eligardWou ld do foundation testing/li quid biopsy in future when psa rises again - but he prefers to wait on taking any additional meds given side effects w/ previous meds cont. monthly Firmagon [id number] MD Ashley Cardozo [address] [place] [phone] 0 10/09/2021 10:34:49 10/09/2021 11:12:35 Malignant neoplasm of prostate [id number] C61 patient s/p robot prostatect donato in 2019.did not get adjuvant rTrising PSA and ? retroperit dhaliwal hayley diseaseon monthly firmagon now w good resultscon tinue monthly eligardWou ld do foundation testing/li quid biopsy in future when psa rises again - but he prefers to wait on taking any additional meds given side effects w/ previous meds cont. monthly Firmagon [id number] MD Ashley Cardozo [address] [phone] 11/09/2021 10:46:13 11/09/2021 10:59:39 Malignant neoplasm of prostate [id number] C61 patient s/p robot prostatect donato in 2019.did not get adjuvant rTrising PSA and ? retroperit dhaliwal hayley diseaseon monthly firmagon now w good resultscon tinue monthly eligardWou ld do foundation testing/li quid biopsy in future when psa rises again - but he prefers to wait on taking any additional meds given side effects w/ previous meds cont. monthly Firmagon [id number] MD Ashley Cardozo [address] [phone] 12/04/2021 09:53:57 12/04/2021 09:57:04 Malignant neoplasm of prostate [id number] C61 patient s/p robot prostatect donato in 2018.did not get adjuvant rTrising PSA and ? retroperit dhaliwal hayley diseaseon monthly firmagon now w good resultscon tinue monthly eligardWou ld do foundation testing/li quid biopsy in future when psa rises again - but he prefers to wait on taking any additional meds given side effects w/ previous meds cont. monthly Firmagon [id number] MD Ashley Cardozo [address] [phone] 12/11/2021 12:16:24 12/11/2021 13:29:55 Malignant neoplasm of prostate [id number] C61 patient s/p robot prostatect donato in 2019.did not get adjuvant rTrising PSA and ? retroperit dhaliwal hayley diseaseon monthly firmagon now w good resultscon tinue monthly eligardWou ld do foundation testing/li quid biopsy in future when psa rises again - but he prefers to wait on taking any additional meds given side effects w/ previous meds cont. monthly Firmagon-- ----10-3-2 2PATIENT WITH HORMONE SENSITIVE PROSTATE CANCERPSA IS UNDETECTAB LETAKES MONTHLY FIRMAGONHA D PSMA SCAN LAST YEAR WHICH SHOWED JUST SMALL ? RP NODESCONTI NUE FIRMAGONCH SALVATORE PSA IN 3MONTHSCOU LDN'T TOLERATE XTANDI OR ORAL ANTIANDROG ENS GIVEN SIDE EFFECTS. [id number] Yaneth rai, KACI Balderas[facility] [address] [facility],[address] [place] [address] 01/24/2022 10:14:24 01/24/2022 10:23:34 Malignant neoplasm of prostate [id number] C61 [id number] Yaneth rai, KACI [facility] [address] [facility],[address] [place] [address] 02/23/2022 10:52:19 02/23/2022 13:13:54 Malignant neoplasm of prostate [id number] C61 [id number] MD Sherrie Cardozo_[place] [address] [place] [address],[address] [place] [address] 03/28/2022 11:23:22 03/28/2022 11:54:03 Malignant neoplasm of prostate [id number] C61 [id number] MD Sherrie Cardozo[facility] [address] [place] [address],[address] [place] [phone] 04/16/2022 10:54:28 04/16/2022 12:06:38 Malignant neoplasm of prostate [id number] C61 Patient s/p robot prostatect donato for high risk disease 2017voidin g okpsa is undetectab lehe is only on firmagon nowcould not tolerate xtandi well(PMSA scan showed small hayley disease) History of malignant neoplasm of prostate [id number] Z85.46 [id number] KACI Hawkro[facility] [address] [facility],[address] [place] [address] 04/30/2022 11:58:53 04/30/2022 12:11:37 Malignant neoplasm of prostate [id number] C61 [id number] KACI Hawkro_[place] [address] [facility],[address] [place] [address] 05/29/2022 10:07:01 05/29/2022 10:42:18 Malignant neoplasm of prostate [id number] C61 [id number] MD Ashley Cardozo [address] [place] [address],[address] [place] [address] 06/28/2022 10:32:02 06/28/2022 10:40:15 Malignant neoplasm of prostate [id number] C61 Patient s/p robot prostatect donato for high risk disease 2017voidin g okpsa is undetectab lehe is only on firmagon nowcould not tolerate xtandi well(PMSA scan showed small hayley disease) [id number] MD Ashley Cardozo [address] [place] [address],[address] [place] [address] 07/27/2022 10:29:49 07/27/2022 10:48:10 Malignant neoplasm of prostate [id number] C61 Patient s/p robot prostatect donato for high risk disease 2017voidin g okpsa is undetectab lehe is only on firmagon nowcould not tolerate xtandi well(PMSA scan showed small hayley disease) [id number] MD Ashley Cardozo [address] [place] [address],[address] [place] [phone] 0 08/29/2022 12:44:56 08/29/2022 12:59:00 Malignant neoplasm of prostate [id number] 1 Patient s/p robot prostatect donato for high risk disease 2017voidin g okpsa is undetectab lehe is only on firmagon nowcould not tolerate xtandi well(PMSA scan showed small hayley disease) [id number] MD Ashley Cardozo [address] [place] [address],[address] [place] [phone] 0 09/27/2022 10:08:55 09/27/2022 10:14:40 Malignant neoplasm of prostate [id number] C61 Patient s/p robot prostatect donato for high risk disease 2017voidin g okpsa is undetectab lehe is only on firmagon nowcould not tolerate xtandi well(PMSA scan showed small hayley disease) [id number] [facility] [address] [place] [address],[address] [place] [phone] 0 10/15/2022 11:49:42 10/15/2022 12:41:56 Malignant neoplasm of prostate [id number] C61 Patient s/p robot prostatect donato for high risk disease 2017voidin g okpsa is undetectab lehe is only on firmagon nowcould not tolerate xtandi well(PMSA scan showed small hayley disease)-- --10-15-22do ing welldue for psawill switch over to Eligard(co uld not tolerate oral meds) [id number] MD Sherrie CardozoAngelo [address] [place] [phone] 04/16/2023 12:35:06 04/16/2023 12:38:09 Malignant neoplasm of prostate [id number] C61 [id number] MD Sherrie CardozoAngelo [address] [place] [phone] 0 07/08/2023 13:21:30 07/08/2023 14:54:17 Malignant neoplasm of prostate [id number] C61 Patient w hormone sensitive metastatic prostate cancer. had positive lymph nodecould not tolerate oral anti-luke genon eligard now and psa is undetectab erecently diagnosed Parkinson' spsa <.1plan to do eligard today and then psa in 6 months and f/u w mewill plan to do imaging next visit Health Concerns Section Related Observation LastModified by Organization Detai ls LastModified Time None Recorded Concern Status LastModified by Organization Details LastModified Time None Recorded Advance Directives Directive None Recorded Payers Insurance Date Sequence Insurance Name Policy Number Policy Duff Covered Member ID Duff Member ID Guarantor Name 01/10/2024 1 [facility] [id number] Ruchi Valdovinos [id number] Ediosn Valdovinos 04/16/2023 2 [place] [employer] Edison Valdovinos [id number] 1 Edison Valdovinos Notes Date Note Type Note Provider Name and Address Organization Details Recorded Time 10/15/2022 text/html ROS as noted in the [facility] 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due for psa today Arleen bonilla [facility] 10/15/2022 13:07:20 07/08/2023 text/html ROS as noted in the [facility] prostate cancer - followup Corey Beyer MD [address] [facility] [address], [place], [phone], [facility] 07/08/2023 14:53:52
--- OUTSIDE RECORDS SUMMARY | 2024-10-04 12:44 | XMS_ITS ---
Author Name Interface, [id number] lity Address [address] [place] [address] [address] [place] [address] [facility] Address [facility] [address] [place] [address] Allergies and Adverse Reactions Medication/Group Name Reaction [...]
[2024-10-04 13:00] VITALS: BP 104/68; PULSE 73; RESP 18; TEMP 36.3; O2SAT 96; BMI 23813.6
--- NOTE | 2024-10-04 13:23 | CRLHL7_ITS ---
For Patients: As a result of the Century Cures Act, medical imaging exams and procedure reports are released immediately into your electronic medical record. You may view this report before your referring provider. If you have questions, please contact your health care provider. INDICATION: Fall. COMPARISON: None available. TECHNIQUE: Bilateral AP, sunrise patellar and lateral knee radiographs (three views of each knee; 4 images). FINDINGS: As discussed below: IMPRESSION: 1. Right knee: No joint effusion or focal periarticular soft tissue swelling. Nonspecific anterior periarticular soft tissue thickening of undetermined clinical significance. Correlation clinical exam is recommended. No fracture or dislocation. 2. Left knee: No joint effusion or focal periarticular soft tissue swelling. Nonspecific anterior periarticular soft tissue thickening of undetermined clinical significance. Correlation clinical exam is recommended. No fracture or dislocation. Dictated by Michael Acevedo MD @ 10/04/2024 3:38:46 PM (Electronically Signed)
--- NOTE | 2024-10-04 13:23 | CRLHL7_ITS ---
For Patients: As a result of the Century Cures Act, medical imaging exams and procedure reports are released immediately into your electronic medical record. You may view this report before your referring provider. If you have questions, please contact your health care provider. INDICATION: Fall. COMPARISON: None available. TECHNIQUE: Three views of the right elbow. FINDINGS: Mineralization: Normal. Alignment: Normal. Bones and Joints: No fracture is identified. Lateral humeral epicondylar and olecranon enthesophytes. Soft Tissues: Joint effusion. IMPRESSION: Joint effusion. No fracture is identified. In an adult patient an elbow effusion is suspicious for a radiographically occult fracture of the radial head/neck until proven otherwise. Orthopedic referral and short interval follow-up radiographs in 7-10 days are recommended. Dictated by Michael Acevedo MD @ 10/04/2024 3:37:13 PM (Electronically Signed)
--- NOTE | 2024-10-04 13:23 | CRLHL7_ITS ---
For Patients: As a result of the Century Cures Act, medical imaging exams and procedure reports are released immediately into your electronic medical record. You may view this report before your referring provider. If you have questions, please contact your health care provider. INDICATION: FALLS/DEMENTIA. (Sic) COMPARISON: None available. TECHNIQUE: CT of the head without intravenous contrast. Please note that all CT scans at this facility use dose modulation, iterative reconstruction, and/or weight-based dosing when appropriate to reduce radiation dose to as low as reasonably achievable. FINDINGS: No acute infarct. No intracranial mass or mass effect. No intracranial hemorrhage. No hydrocephalus. Intact skull base and cranial vault. Visualized orbits are without significant incidental findings. Bilateral lens implants. Visualized paranasal sinuses and mastoid air cells are clear. Unremarkable soft tissues. IMPRESSION: No acute findings. Incidental findings described in the body of the report. Please note that all CT scans at this facility use dose modulation, iterative reconstruction, and/or weight-based dosing when appropriate to reduce radiation dose to as low as reasonably achievable. Dictated by Michael Acevedo MD @ 10/04/2024 3:35:18 PM (Electronically Signed)
--- OUTSIDE RECORDS SUMMARY | 2024-10-04 13:36 | XMS_ITS | CCD ---
Author Name Interface, [id number] lity Address [address] [place] [address] [address] [address] Organization [facility] Address [address] [facility] [address] [address] Care Team Providers Care Wage Adjuster Name Role Phone Jama ALONZO, Eladio Unavailable [...]
--- OUTSIDE RECORDS SUMMARY | 2024-10-04 13:36 | XMS_ITS ---
Author Name Interface, [id number] lity Address [address] [place] [address] [address] [place] [address] [facility] Address [facility] [address] [place] [address] Allergies and Adverse Reactions Medication/Group Name Reaction [...]
--- OUTSIDE RECORDS SUMMARY | 2024-10-04 13:36 | XMS_ITS | CCD ---
Author Name Interface, [id number] lity Address [address] [place] [address] [address] [address] Organization [facility] Address [address] [facility] [address] [address] Care Team Providers Care Field Operations Farm Manager Name Role Phone Jama ALONZO, Eladio Unavailable [...]
--- OUTSIDE RECORDS SUMMARY | 2024-10-04 13:36 | XMS_ITS ---
Author Name Interface, [id number] lity Address [address] [place] [address] [address] [place] [address] [facility] Address [facility] [address] [place] [address] Allergies and Adverse Reactions Medication/Group Name Reaction [...]
--- NOTE | 2024-10-04 13:42 | ED.GENADULT ---
HPI - General Adult General Chief complaint: Fall/Minor Trauma Stated complaint: Fell on Saturday, injuries on elbow and chin Time Seen by Provider: 10/04/24 12:44 History of Present Illness HPI narrative: 78-year-old male with history of dementia and alcoholism and chronic marijuana use who presents with inability to care for self falling, he has injured his knees bilaterally his right elbow and his chin. His son reports his mental status has been worse over the last few days. He does have dementia. His type 2 diabetes as well as marijuana use. Apparently his son checked on the marijuana supplier and it has been a stable supply for him. He denies chest pain breathing problem. He does feel more unstable. No dysuria frequency no chest pain breathing problem or cough or fever. Because of his change in mental status his son brought him to the ED. He has been awake alert answering questions appropriately. He lives independently. Related Data Home Medications ?Medication ?Instructions ?Recorded ?Confirmed cholecalciferol (vitamin D3) 25 1,000 unit PO DAILY 11/21/21 09/08/24 mcg (1,000 unit) tablet Marijuana inhalation 12/05/21 09/08/24 psyllium seed (sugar) oral powder 1 tbsp PO QDAY 02/26/22 09/08/24 (Metamucil (sugar) oral powder) aspirin 325 mg tablet See Rx Instructions PO QDAY 07/23/23 09/08/24 ondansetron HCl 8 mg tablet 8 mg PO BID PRN 09/08/24 Previous Rx's ?Medication ?Instructions ?Recorded lisinopril 40 mg tablet 40 mg PO QDAY #90 tabs 01/14/24 metoprolol succinate 100 mg 100 mg PO QDAY #90 tabs 03/27/24 tablet,extended release 24 hr gabapentin 300 mg capsule 300 mg PO BID #60 caps 07/17/24 fluoxetine 20 mg capsule (Prozac) 60 mg (3 x 20 mg) PO QDAY #90 caps 07/27/24 metformin 500 mg tablet,extended 1,500 mg (3 x 500 mg) PO QDAY #270 08/11/24 release 24 hr tabs pantoprazole 40 mg tablet,delayed 40 mg PO QDAY #90 tabs 08/17/24 release (Protonix) famotidine 20 mg tablet 20 mg PO QHS #90 tabs 08/24/24 olanzapine 5 mg tablet 5 mg PO QHS #90 tabs 09/08/24 atorvastatin 40 mg tablet 40 mg PO QPM #90 tabs 09/15/24 lorazepam 0.5 mg tablet 0.5 mg PO BID PRN anxiety #60 tabs 09/21/24 Allergies Allergy/AdvReac Type Severity Reaction Status Date / Time carbidopa (From Sinemet) Allergy Severe Hallucinati Verified 09/08/24 08:05 ng diatrizoate meglumine Allergy Severe Hives Verified 09/08/24 08:05 Iodinated Contrast Media Allergy Severe Hives Verified 09/08/24 08:05 levodopa (From Sinemet) Allergy Severe Hallucinati Verified 09/08/24 08:05 ng Review of Systems Status of ROS: Reports: 6 or more systems reviewed and unremarkable except as noted in History and below [facility] Medical History Marijuana abuse ?F12.10 - Cannabis abuse, uncomplicated (ICD-10) Alcoholism ?F10.20 - Alcohol dependence, uncomplicated (ICD-10) Parkinson's disease ?G20.A1 - Parkinson's 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, without mention of fluctuations (ICD-10) Mixed hyperlipidemia ?E78.2 - Mixed hyperlipidemia (ICD-10) Psoriasis ?L40.9 - Psoriasis, unspecified (ICD-10) Primary hypertension ?I10 - Essential (primary) hypertension (ICD-10) DJD (degenerative joint disease), lumbar ?M47.816 - Spondylosis without myelopathy or radiculopathy, lumbar region (ICD-10) Type 2 diabetes mellitus without complication, with no history of insulin use ?E11.9 - Type 2 diabetes mellitus without complications (ICD-10) Generalized anxiety disorder ?F41.1 - Generalized anxiety disorder (ICD-10) Iron deficiency anemia ?D50.9 - Iron deficiency anemia, unspecified (ICD-10) Chronic constipation ?K59.09 - Other constipation (ICD-10) COVID-19 virus infection ?U07.1 - COVID-19 (ICD-10) Sensorineural hearing loss (SNHL) of both ears ?H90.3 - Sensorineural hearing loss, bilateral (ICD-10) Malignant neoplasm of prostate ?C61 - Malignant neoplasm of prostate (ICD-10) History of vitamin D deficiency ?Z86.39 - Personal history of other endocrine, nutritional and metabolic disease (ICD-10) History of peptic ulcer ?Z87.11 - Personal history of peptic ulcer disease (ICD-10) History of diverticulitis ?Z87.19 - Personal history of other diseases of the digestive system (ICD-10) History of alcohol abuse ?F10.11 - Alcohol abuse, in remission (ICD-10) Herpes zoster (01/09/20) ?B02.9 - Zoster without complications (ICD-10) Gastroesophageal reflux disease with hiatal hernia ?K21.9 - Gastro-esophageal reflux disease without esophagitis (ICD-10) ?K44.9 - Diaphragmatic hernia without obstruction or gangrene (ICD-10) Chronic idiopathic thrombocytopenic purpura (2016) ?D69.3 - Immune thrombocytopenic purpura (ICD-10) Cataract of both eyes ?H26.9 - Unspecified cataract (ICD-10) Alcoholic fatty liver ?K70.0 - Alcoholic fatty liver (ICD-10) Chronic low back pain ?M54.50 - Low back pain, unspecified (ICD-10) ?G89.29 - Other chronic pain (ICD-10) Surgical History History of vasectomy ?Z98.52 - Vasectomy status (ICD-10) History of tonsillectomy and adenoidectomy ?Z90.89 - Acquired absence of other organs (ICD-10) History of radical prostatectomy (10/13/18) ?Z90.79 - Acquired absence of other genital organ(s) (ICD-10) History of hemorrhoidectomy (1993) ?Z98.890 - Other specified postprocedural states (ICD-10) History of esophagogastroduodenoscopy (EGD) (07/01/14) ?Z98.890 - Other specified postprocedural states (ICD-10) Family History Son Thyroid cancer Social History Narrative: - [place], two sons, THC, Moderate EtOH, 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 What is your current living situation?: I presently have a place to live Problems where you live: no known problems In the past 12 months, utilities in danger of being shut off: no In past 12 months, lack of transportation kept you from medical appts, meetings, work, or getting things needed for daily living: no In the past 12 mos, have been you worried that your food would run out before you had money to buy more?: never true In the past 12 mos, the food you bought just didn't last and you didn't have money to buy more?: never true Smoking Status: Current some day smoker How often do you have a drink containing alcohol: 2-3 times a week AUDIT-C Alcohol total score: 3 Non-prescribed substance use: marijuana (any form) How often does anyone, including family, friends and others, physically hurt you: never How often does anyone, including family, friends and others, insult or talk down to you: never How often does anyone, including family, friends and others, threaten you with harm: never How often does anyone, including family, friends and others, scream or curse at you: never Exam Narrative: Exam Narrative: Objective: Vital signs are unremarkable afebrile A he is alert oriented to person place He is conversant answers questions appropriately No facial asymmetry is got a abrasion on his chin. He has got abrasion as right elbow and both knees. He reports his right knee is more tender than his left although the left pre versus pre bursal swelling is little bit worse no open wounds noted HEENT is unremarkable other than the abrasion on the chin Neck supple nontender Chest is clear heart rhythm regular 2/6 soft murmur occasional ectopic beat noted Abdomen benign soft nontender Extremities are no edema neurologic grossly nonfocal. Patient is able to get up and walk with his son guiding his arm. Able to go the bathroom. Const: Vital Signs, click to edit/add: Vital Signs - 24 hr 10/04/24 13:00 10/04/24 15:27 Temperature 97.4 F L Pulse Rate [Pulse Oximeter] 73 62 Respiratory Rate 18 18 Blood Pressure [Le ft Upper Arm] 104/68 146/76 H Pulse Oximetry 96 97 Oxygen Delivery Me thod Room Air Room Air Course Vital Signs Vital signs: Initial Vital Signs Temperature 97.4 F L 10/04/24 13:00 Temperature Source Temporal Artery Scan 10/04/24 13:00 Pulse Rate 73 10/04/24 13:00 Respiratory Rate 18 10/04/24 13:00 Blood Pressure 104/68 10/04/24 13:00 Blood Pressure Mean 80 10/04/24 13:00 Pulse Oximetry 96 10/04/24 13:00 Oxygen Delivery Method Room Air 10/04/24 13:00 Vital Signs Temperature 97.4 F L 10/04/24 13:00 Pulse Rate 73 10/04/24 13:00 Respiratory Rate 18 10/04/24 13:00 Blood Pressure 104/68 10/04/24 13:00 Pulse Oximetry 96 10/04/24 13:00 Oxygen Delivery Method Room Air 10/04/24 13:00 Temperature 97.4 F L 10/04/24 13:00 Pulse Rate 62 10/04/24 15:27 Respiratory Rate 18 10/04/24 15:27 Blood Pressure 146/76 H 10/04/24 15:27 Pulse Oximetry 97 10/04/24 15:27 Oxygen Delivery Method Room Air 10/04/24 15:27 Medications Administered Medications: Discontinued Medications Generic Name Dose Route Start Last Admin Trade Name Freq PRN Reason Stop Dose Admin Sodium Chloride 500 mls @ 500 mls/hr 10/04/24 13:23 10/04/24 15:27 0.9 % Sodium Chloride 500 Ml IV 10/04/24 14:22 500 mls/hr .Q1H ONE Administration Medical Decision Making MDM Narrative Medical decision making narrative: [age] white male with chronic medical issues including Parkinson's alcoholism dementia and marijuana use who presents to the ED with inability care for self. Falls. His son is concerned that he needs 24 hour observation. And someone either to come into the home 247 or needs to be in a more advanced care setting. At this point I think working up his change in mental condition given the patient has been not recognizing his son, telling stories that are not accurate, I think a head CT because of his falls be appropriate as well as a UA, lab studies, IV fluids, disposition pending findings above. Patient may need hospitalization and subsequent long-term placement. Will see and discuss with family based on findings. Addendum 3:30 p.m.: The patient's head CT is read by radiology is negative. His EKG shows normal sinus rhythm right bundle bunch block no acute ST T wave changes. Laboratory studies show normal white count, hemoglobin is normal at 12 platelet count is low low at 42,000 two thousand. INR is 0.97 PTT 26 ER profile is unremarkable. LFTs are normal. CRP is minimally elevated at 2.4. ProBNP is mildly elevated at 323 in an indeterminate range. Urinalysis is negative. Urine tox screen is positive for benzodiazepine and marijuana. His alcohol level is less than 0.01%. Had a great discussion with his son Mike, who we suspect he is Qi he is cleared a lot during his hospital stay, he is positive for benzodiazepine and marijuana which certainly the interaction could cause him some confusion. I would recommend they hold his Klonopin use that very sparingly. They will have appoint with Dr. Verdugo in the next week. If they want to talk about more advanced placement they could start there and talk about other options. Because he has the posterior fat pad sign and his right elbow I put him in a sling and a posterior arm sling and splint, recommend Ortho follow-up in 3-5 days Lab Data Labs: Lab Results 10/04/24 10/04/24 Range/Units 13:39 14:00 WBC 6.60 (4.50-11.00) K/uL RBC 3.77 L (4.30-5.90) m/uL Hgb 12.0 L (13.5-17.5) gm/dL Hct 35.6 L (37.0-53.0) % MCV 94 (80-100) fL MCH 32 (26-34) pg MCHC 34 (32-36) gm/dL RDW Coeff of Floyd 13.9 (11.5-15.5) % Plt Count 42 L* (140-440) K/uL Neut % (Auto) 63.3 (42.0-72.0) % Lymph % (Auto) 23.6 (20-44) % [place] % (Auto) 9.1 (0.0-11.0) % Eos % (Auto) 3.3 (0.0-7.0) % Baso % (Auto) 0.5 (0.0-3.0) % Neut # (Auto) 4.18 (1.7-7.0) K/uL Lymph # (Auto) 1.56 (0.90-2.90) K/uL [place] # (Auto) 0.60 (0.00-0.90) K/UL Eos # (Auto) 0.22 (0.00-0.50) K/uL Baso # (Auto) 0.03 (0.00-0.30) K/uL Abs Immat Gran (auto) 0.01 (0.00-0.30) K/uL Imm/Tot Granulo (auto) 0.2 % Diff Slide Review Acceptable Review (Acceptable) INR 0.97 (0.91-1.10) APTT 26 (23-33) Seconds Sodium 135 (135-149) mmol/L Potassium 4.2 (3.6-5.1) mmol/L Chloride 102 (96-114) mmol/L Carbon Dioxide 27 (20-32) mmol/L Anion Gap 6 L (7-15) mEq/L BUN 9 (7-30) mg/dL Creatinine 0.9 (0.5-1.5) mg/dL Estimated Creat Clear 75.01 Estimated GFR 88 ml/min Glucose 110 (60-115) mg/dL Calcium 8.6 (8.4-10.6) mg/dL Total Bilirubin 0.6 (0.1-1.5) mg/dL Direct Bilirubin 0.1 (0.0-0.5) mg/dL AST 34 (12-35) U/L ALT 20 (4-50) U/L Alkaline Phosphatase 61 (40-150) U/L Troponin I < 0.01 (0.01-0.04) ng/mL C-Reactive Protein 2.4 H (0.5-1.0) mg/dL NT-Pro-B Natriuret Pep 323 H (See Note) pg/mL Total Protein 6.1 (6.0-8.3) g/dL Albumin 3.7 (3.3-5.0) g/dL Urine Color Yellow (Yellow) Urine Appearance Clear (Clear) Urine pH 6.0 (5.0-8.5) Ur Specific [place] 1.010 (1.000-1.030) Urine Protein Negative (Negative) Urine Glucose (UA) Negative (Negative) Urine Ketones Negative (Negative) Urine Blood Negative (Negative) Urine Nitrite Negative (Negative) Urine Bilirubin Negative (Negative) Urine Urobilinogen 0.2 (0.2-1.0) Ur Leukocyte Esterase Negative (Negative) Urine RBC 0-2 (0-2) Urine WBC 0-2 (0-5) Ur Squamous Epith Cells Few (None-Few) Urine Bacteria None (None) Urine Opiates Screen Negative (Negative) Ur Oxycodone Screen Negative (Negative) Urine Methadone Screen Negative (Negative) Ur Barbiturates Screen Negative (Negative) U Tricyclic Antidepress Negative (Negative) Ur Phencyclidine Scrn Negative (Negative) Ur Amphetamines Screen Negative (Negative) U Methamphetamines Scrn Negative (Negative) U Benzodiazepines Scrn POSITIVE A (Negative) Urine Cocaine Screen Negative (Negative) U Marijuana (THC) Screen POSITIVE A (Negative) Ur Drug Screen Comment See Note Ethyl Alcohol < 0.01 (0.01-0.03) % Discharge Plan Discharge Clinical Impression: Dementia, Alcoholism, Marijuana abuse, Falls, Injury of elbow, right Patient Disposition: Home w/ Parent or Adult Condition: Improved Additional Instructions: Sling and splint on the arm, orthopedic followup in 3-5 days, follow-up with Dr. Verdugo this week. Avoid Klonopin for the next couple of days, return as needed. Activity Level: Light activity Discharge Diet: Regular Prescriptions: No Action cholecalciferol (vitamin D3) 25 mcg (1,000 unit) tablet 1,000 unit PO DAILY Marijuana inhalation Metamucil (sugar) Powder 1 tbsp PO QDAY ondansetron HCl 8 mg tablet 8 mg PO BID PRN aspirin 325 mg tablet See Rx Instructions PO QDAY Rx Instructions: 0.5 tab orally every day; lisinopril 40 mg tablet 40 mg PO QDAY Qty: 90 2RF metoprolol succinate 100 mg tablet extended release 24 hr 100 mg PO QDAY Qty: 90 3RF gabapentin 300 mg capsule 300 mg PO BID Qty: 60 5RF fluoxetine [Prozac] 20 mg capsule 60 mg PO QDAY Qty: 90 2RF metformin 500 mg tablet extended release 24 hr 1,500 mg PO QDAY Qty: 270 1RF pantoprazole [Protonix] 40 mg tablet,delayed release (DR/EC) 40 mg PO QDAY Qty: 90 1RF famotidine 20 mg tablet 20 mg PO QHS Qty: 90 1RF olanzapine 5 mg tablet 5 mg PO QHS Qty: 90 1RF atorvastatin 40 mg tablet 40 mg PO QPM Qty: 90 1RF lorazepam 0.5 mg tablet 0.5 mg PO BID PRN (Reason: anxiety) Qty: 60 1RF Follow Up/Referrals: Magan Verdugo MD [Primary Care Provider, Family Practice] Stand Alone Forms: EDUonGo Info Instructions
[2024-10-04 13:49] LABS: Appearance Urine Clear (Clear)
[2024-10-04 13:59] LABS: Cannabinoid Screen Urine POSITIVE (Negative); Methamphetamines Screen Urine Negative (Negative); Tricyclic Antidepressant Urine Negative (Negative)
[2024-10-04 14:17] LABS: Hematocrit 35.6 % (37.0-53.0); Hemoglobin* 12.0 gm/dL (13.5-17.5); Immature Granulocytes Abs Auto 0.01 K/uL (0.00-0.30); Immature Granulocytes Pct Auto 0.2 %; Lymphocytes Absolute Auto 1.56 K/uL (0.90-2.90); Mean Corpuscular HGB Conc 34 gm/dL (32-36); Mean Corpuscular Hemoglobin 32 pg (26-34); Mean Corpuscular Volume 94 fL (80-100); RDW Coefficient of Variation % 13.9 % (11.5-15.5); Red Blood Count 3.77 m/uL (4.30-5.90); White Blood Count* 6.60 K/uL (4.50-11.00)
[2024-10-04 14:30] LABS: Albumin* 3.7 g/dL (3.3-5.0); Chloride* 102 mmol/L (96-114)
[2024-10-04 14:31] LABS: Potassium* 4.2 mmol/L (3.6-5.1); Sodium* 135 mmol/L (135-149)
[2024-10-04 14:33] LABS: Blood Urea Nitrogen* 9 mg/dL (7-30); Creatinine* 0.9 mg/dL (0.5-1.5); Est. Creatinine Clearance* 75.01; Estimated Glomerular Filt Rate 88 ml/min
[2024-10-04 14:34] LABS: Alanine Aminotransferase* 20 U/L (4-50); Alkaline Phosphatase* 61 U/L (40-150); Anion Gap 6 mEq/L (7-15); Aspartate Amino Transferase* 34 U/L (12-35); Bilirubin Direct* 0.1 mg/dL (0.0-0.5); Bilirubin Total* 0.6 mg/dL (0.1-1.5); Calcium* 8.6 mg/dL (8.4-10.6); Carbon Dioxide* 27 mmol/L (20-32); Glucose* 110 mg/dL (60-115); Total Protein* 6.1 g/dL (6.0-8.3)
[2024-10-04 14:35] LABS: INR 0.97 (0.91-1.10); Prothrombin Time 13.7 Seconds
[2024-10-04 14:42] LABS: Ethanol* < 0.01 % (0.01-0.03)
[2024-10-04 15:03] LABS: Slide Review Reflex Yes
[2024-10-04 15:04] LABS: Slide Review Acceptable Review (Acceptable)
[2024-10-04 15:27] VITALS: BP 146/76; PULSE 62; RESP 18; O2SAT 97
[2024-10-04] MEDS: 0.9 % SODIUM CHLORIDE 500 ML 500 ML IV (15:27)
[2024-10-04 15:32] LABS: NT Pro B Type NatriureticPept* 323 pg/mL (See Note)
== END 2024-10-04 15:35 | disposition home or self-care (01) ==
PROVIDERS: Emergency Provider Family Medicine; PCP Family Medicine
DX: M25.521 Pain in right elbow (principal); F03.90 Unspecified dementia, unspecified severity, without behavioral disturbance, psychotic disturbance, mood disturbance, and anxiety; F12.10 Cannabis abuse, uncomplicated; F10.10 Alcohol abuse, uncomplicated
CPT/HCPCS: 29105; 36415; 70450; 73070; 73562; 80048; 80076; 80306; 81001; 82077; 83880; 84484; 85025; 85610; 85730; 86140; 87086; 93005; 99285; J7030

== ENCOUNTER 2024-10-16 11:36 | Emergency (ER) | payer MEDICARE, BC, SELFPAY ==
[2024-10-16] VITALS (7 sets, daily range): BP systolic 145–169; BP diastolic 86–87; PULSE 58–70; RESP 16–20; TEMP 35.9; O2SAT 98–100; BMI 27.7
--- OUTSIDE RECORDS SUMMARY | 2024-10-16 11:39 | XMS_ITS | CCD ---
Author Name Interface, [id number] lity Address [address] [place] [address] [address] [address] Organization [facility] Address [address] [facility] [address] [address] Care Team Providers Care Drum Loader And Unloader Name Role Phone Jama ALONZO, Eladio Unavailable [...]
--- OUTSIDE RECORDS SUMMARY | 2024-10-16 11:39 | XMS_ITS | Clinical Summary ---
Author Organization [facility] Address [address] [place] [address] Care Team Providers Care Strategy Manager Name Role Phone Unavailable Primary Care Provider Unavailabl e Source Comments Patient records contain information from all sites at [facility]. For routine questions regarding patient records, call [phone] during business hours, M-F 8:00 AM - 5:00 PM Central Time. Record requests for emergency care only can be directed to [phone] at any time.[facility] Allergies Active Allergy Reactions Criticality Noted Date [...] Description 08/11/2024 Orders Only Virtual Review in [address] [id number] Regla Guerra 07/16/2024 10:30 AM CDT Diagnostic Department of Otorhinolaryngology in [address] [phone] Nick Wu Au.D., C.C.C.-A Loss Hearing Sensorineural Bilateral (Primary Dx) from Last 3 Months Immunizations Immunization Administration Dates Next Due Influenza Split 01/09/2001 Td, (Adult) Unspecified 03/11/1997 Social History Tobacco Use Types Packs/Day Years Used Date Smoking Tobacco: Never Assessed Sex and Gender Information Value Date Recorded Sex Assigned at Not on file Legal Sex Male 6:04 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 Gender Identity Not on file Sexual Orientation [...] Additional history exists Potassium Level 07/26/2022 07/26/2021, 08/2018, 09/08/2018, Additional history exists Sodium Level 07/26/2022 07/26/2021, 08/2018, 09/08/2018, Additional history exists Depression Screening [...] Procedure Name Priority Date/Time Associated Diagnosis Comments US ABDOMEN LIMITED Routine 03/13/2001 12 :48 PM CORRECTIONAL NURSE from Last 3 Months or Most Recently Relevant to Health Maintenance Results * US Abdomen Limited (03/13/2001 12:48 PM CORRECTIONAL NURSE) Anatomical Region Laterality Modality Abdomen N/A Ultrasound 03/13/2001 12:4 8 PM CORRECTIONAL NURSE Narrative 03/13/2001 1:26 PM CORRECTIONAL NURSE 13-Mar-2001 12:48:00 Exam: US Abdomen Limited Indications: Right upper quadrant pain ORIGINAL REPORT - 13-Mar-2001 13:26:00 Ultrasound examination of the gallbladder is negative. The liver is negative for mass or bile duct dilatation, but there is moderately diffuse fatty infiltration of the liver. *ELECTRONIC IMAGES ONLY--NO FILMS MADE* ([id number]) Ind: [phone] Dia.120 Electronically signed by: Abdon [...] the liver. *ELECTRONIC IMAGES ONLY--NO FILMS MADE* ([id number]) Ind: [phone] Dia.120 Electronically signed by: Abdon Chaudhary MD. [id number] 13-Mar-2001 13:26 Magan Alexander M.D. [facility] [place] US PROCEDURES Final Result from Last 3 Months or Most Recently Relevant to Health Maintenance Insurance MEDICARE
--- OUTSIDE RECORDS SUMMARY | 2024-10-16 11:39 | XMS_ITS | Clinical Summary ---
Author Organization [facility] Address [address] [place] [address] Care Team Providers Care Global Manager Name Role Phone Magan Verdugo MD [...] 3/17/16 Assessment & Plan (04/20/2014 7:24 AM PRACTICAL NURSE): Controlled substance agreement signed 04/19/14 Assessment & Plan (01/19/2013 10:07 AM PRACTICAL NURSE): Pain contract renewed: chronic neck and back pain. 01/19/13 Issue of repeat prescriptions 08/29/2010 05/14/2017 Overview (05/27/2010): Vicodin for neck and back pain Encounters Date Type Department Care Team Description 09/08/2024 Transcribe Orders [facility] [address] [address] Magan Verdugo MD from Last 3 Months [...] on file Legal Sex Male 5:23 AM PRACTICAL NURSE Gender Identity Not on file Sexual [...] ve Non-Reacti ve 12/16/2015 5:07 PM CDT [facility] Blood BLOOD SPECIMEN / Unknown Venipuncture / Unknown 12/16/2015 9:04 AM CDT 12/16/2015 9:04 AM CDT Narrative [facility] - 12/16/2015 5:07 PM CDT Antibodies to HCV not detected; does not exclude the possibility of exposure to HCV. us Svetlana Tenorio MD SEND OUTS Final Re sult [facility] [address] [place] [address], [place] from Last 3 Months or Most Recently Relevant to [place] [id number] [facility] ADVANTAGE MEDICARE PART A HB ONLY [place] [id number] MEDICARE PART A HB ONLY Advance Directives * Full Code (Latest Code Status on File) Date Activated Date Inactivated Comments 10/13/2018 8:46 AM 10/14/2018 3:18 PM * Full Code Date Activated Date Inactivated Comments 09/08/2018 10:16 AM 09/08/2018 5:17 PM Care Teams Global Manager Relationship Specialty Start Date End Date Magan Verdugo MD [address] [place] [address] PCP - General Family Practice 09/04/18
--- OUTSIDE RECORDS SUMMARY | 2024-10-16 11:39 | XMS_ITS ---
Author Name Interface, [id number] lity Address [address] [place] [address] Oncology Address [address] [place] [address] Allergies and Adverse Reactions Plan Reason for Visit Encounters Immunizations Medications Problems Vital Signs
--- OUTSIDE RECORDS SUMMARY | 2024-10-16 11:39 | XMS_ITS | Clinical Summary ---
Author Organization [facility] Address [address] [address] Care Team Providers Care Full Service Vending Driver Name Role Phone Needs Pcp, Assignment Primary Care Provider [phone] Source Comments You are receiving this document as you are listed as the primary care provider,follow-up provider, or the patient has been referred to you for consultation.This is in compliance with the Medicare and[facility] EHR Incentive Program,which states Providers who transition their patient to another setting of careor provider of care or refers their patient to another provider of care shouldprovide summary care record for each transition of care or referral. [facility] Allergies No known active allergies Medications * [...] to complete this topic Insurance [place] [id number] [facility] [place] [place] [id number] MEDICARE PART A [facility] [place] [address] [id number] Care Teams Full Service Vending Driver Relationship Specialty Start Date End Date Needs Pcp, [place] [address] PCP - General 08/08/23
--- OUTSIDE RECORDS SUMMARY | 2024-10-16 11:39 | XMS_ITS | CCD ---
Author Name Interface, [id number] lity Address [address] [place] [address] [address] [address] Organization [facility] Address [address] [facility] [address] [address] Care Team Providers Care Senior Microsoft Net Developer Name Role Phone Jama ALONZO, Eladio Unavailable [...]
--- OUTSIDE RECORDS SUMMARY | 2024-10-16 11:39 | XMS_ITS | Clinical Summary ---
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 [place] [id number] PCP - General Family Medicine 06/04/23
--- OUTSIDE RECORDS SUMMARY | 2024-10-16 11:39 | XMS_ITS ---
Author Name Interface, [id number] lity Address [address] [place] [address] Oncology Address [address] [place] [address] Allergies and Adverse Reactions Plan Reason for Visit Encounters Immunizations Medications Problems Vital Signs
--- NOTE | 2024-10-16 12:03 | CRLHL7_ITS ---
For Patients: As a result of the Century Cures Act, medical imaging exams and procedure reports are released immediately into your electronic medical record. You may view this report before your referring provider. If you have questions, please contact your health care provider. INDICATION: Abdominal pain. TECHNIQUE: CT abdomen and pelvis without contrast. COMPARISON: January 2022. FINDINGS: Lower chest: Atherosclerotic and coronary artery calcifications. Bilateral dependent chronic linear calcifications abutting the pleura. ABDOMEN: Liver: Normal attenuation. Gallbladder and biliary: Normal gallbladder without radiopaque stone. Normal caliber bile ducts. Spleen: Calcified granulomas. Pancreas: The noncontrast pancreas is homogeneous in attenuation without peripancreatic inflammatory changes or ductal dilatation. Adrenal glands: Normal adrenal glands. Kidneys and ureters: Punctate nonobstructing right-sided renal stones. No hydroureteronephrosis. GI tract: Stomach is partially distended with oral debris and air. Normal caliber small and large bowel loops. Normal appendix. Colonic diverticulosis without diverticulitis. Vascular structures: Normal caliber aorta with atherosclerotic calcifications. Lymph nodes: No lymphadenopathy in the abdomen or pelvis by size criteria. Peritoneum: No free air, free fluid, or focal drainable fluid collection. PELVIS: Genitourinary system: Normal urinary bladder. Likely changes of prostatectomy. 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 SKELETAL STRUCTURES AND SOFT TISSUES: Chronic mild stranding along the periumbilical subcutaneous tissues on the right. Multilevel lumbar spondylosis. Chronic height loss of multiple vertebral bodies. IMPRESSION: 1. No discrete acute process in the abdomen or pelvis. No obstruction. No hydroureteronephrosis. 2. Punctate nonobstructing right-sided renal stones. Please note that all CT scans at this facility use dose modulation, iterative reconstruction, and/or weight-based dosing when appropriate to reduce radiation dose to as low as reasonably achievable. Dictated by Magan Sanchez MD @ 10/16/2024 12:33:07 PM (Electronically Signed)
--- NOTE | 2024-10-16 12:03 | ED.ABDPAIN ---
HPI - Abdominal Pain General Chief Complaint: Abdominal Pain Stated Complaint: shortness of breath and abdominal pain Time Seen by Provider: 10/16/24 11:45 History of Present Illness HPI narrative: Patient is a 78-year-old gentleman who comes in today with increased abdominal pain anxious nervous and vomiting. Patient has a known history of anxiety as well as dementia and chronic marijuana use. He has not been drinking much but did have 2 drinks last night. He states that he woke this morning with severe symptoms and became extremely agitated. He has had no fevers no chills no stiff neck no changes bowel or bladder. Patient otherwise has been in his usual state of health. Patient was recently on benzodiazepines but was removed from their use as the patient was having falls at home. Related Data Home Medications ?Medication ?Instructions ?Recorded ?Confirmed cholecalciferol (vitamin D3) 25 1,000 unit PO DAILY 11/21/21 09/08/24 mcg (1,000 unit) tablet Marijuana inhalation 12/05/21 09/08/24 psyllium seed (sugar) oral powder 1 tbsp PO QDAY 02/26/22 09/08/24 (Metamucil (sugar) oral powder) aspirin 325 mg tablet See Rx Instructions PO QDAY 07/23/23 09/08/24 ondansetron HCl 8 mg tablet 8 mg PO BID PRN 09/08/24 Previous Rx's ?Medication ?Instructions ?Recorded metoprolol succinate 100 mg 100 mg PO QDAY #90 tabs 03/27/24 tablet,extended release 24 hr gabapentin 300 mg capsule 300 mg PO BID #60 caps 07/17/24 fluoxetine 20 mg capsule (Prozac) 60 mg (3 x 20 mg) PO QDAY #90 caps 07/27/24 metformin 500 mg tablet,extended 1,500 mg (3 x 500 mg) PO QDAY #270 08/11/24 release 24 hr tabs pantoprazole 40 mg tablet,delayed 40 mg PO QDAY #90 tabs 08/17/24 release (Protonix) famotidine 20 mg tablet 20 mg PO QHS #90 tabs 08/24/24 olanzapine 5 mg tablet 5 mg PO QHS #90 tabs 09/08/24 atorvastatin 40 mg tablet 40 mg PO QPM #90 tabs 09/15/24 lorazepam 0.5 mg tablet 0.5 mg PO BID PRN anxiety #60 tabs 09/21/24 lisinopril 40 mg tablet 40 mg PO QDAY #90 tabs 10/06/24 Allergies Allergy/AdvReac Type Severity Reaction Status Date / Time carbidopa (From Sinemet) Allergy Severe Hallucinati Verified 10/16/24 11:49 ng diatrizoate meglumine Allergy Severe Hives Verified 10/16/24 11:49 Iodinated Contrast Media Allergy Severe Hives Verified 10/16/24 11:49 levodopa (From Sinemet) Allergy Severe Hallucinati Verified 10/16/24 11:49 ng Review of Systems Status of ROS Reports: 10 or more systems reviewed and unremarkable except as noted in History and below [facility] Medical History Marijuana abuse ?F12.10 - Cannabis abuse, uncomplicated (ICD-10) Alcoholism ?F10.20 - Alcohol dependence, uncomplicated (ICD-10) Parkinson's disease ?G20.A1 - Parkinson's 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, without mention of fluctuations (ICD-10) Mixed hyperlipidemia ?E78.2 - Mixed hyperlipidemia (ICD-10) Psoriasis ?L40.9 - Psoriasis, unspecified (ICD-10) Primary hypertension ?I10 - Essential (primary) hypertension (ICD-10) DJD (degenerative joint disease), lumbar ?M47.816 - Spondylosis without myelopathy or radiculopathy, lumbar region (ICD-10) Type 2 diabetes mellitus without complication, with no history of insulin use ?E11.9 - Type 2 diabetes mellitus without complications (ICD-10) Generalized anxiety disorder ?F41.1 - Generalized anxiety disorder (ICD-10) Iron deficiency anemia ?D50.9 - Iron deficiency anemia, unspecified (ICD-10) Chronic constipation ?K59.09 - Other constipation (ICD-10) COVID-19 virus infection ?U07.1 - COVID-19 (ICD-10) Sensorineural hearing loss (SNHL) of both ears ?H90.3 - Sensorineural hearing loss, bilateral (ICD-10) Malignant neoplasm of prostate ?C61 - Malignant neoplasm of prostate (ICD-10) History of vitamin D deficiency ?Z86.39 - Personal history of other endocrine, nutritional and metabolic disease (ICD-10) History of peptic ulcer ?Z87.11 - Personal history of peptic ulcer disease (ICD-10) History of diverticulitis ?Z87.19 - Personal history of other diseases of the digestive system (ICD-10) History of alcohol abuse ?F10.11 - Alcohol abuse, in remission (ICD-10) Herpes zoster (01/09/20) ?B02.9 - Zoster without complications (ICD-10) Gastroesophageal reflux disease with hiatal hernia ?K21.9 - Gastro-esophageal reflux disease without esophagitis (ICD-10) ?K44.9 - Diaphragmatic hernia without obstruction or gangrene (ICD-10) Chronic idiopathic thrombocytopenic purpura (2016) ?D69.3 - Immune thrombocytopenic purpura (ICD-10) Cataract of both eyes ?H26.9 - Unspecified cataract (ICD-10) Alcoholic fatty liver ?K70.0 - Alcoholic fatty liver (ICD-10) Chronic low back pain ?M54.50 - Low back pain, unspecified (ICD-10) ?G89.29 - Other chronic pain (ICD-10) Surgical History History of vasectomy ?Z98.52 - Vasectomy status (ICD-10) History of tonsillectomy and adenoidectomy ?Z90.89 - Acquired absence of other organs (ICD-10) History of radical prostatectomy (10/13/18) ?Z90.79 - Acquired absence of other genital organ(s) (ICD-10) History of hemorrhoidectomy (1993) ?Z98.890 - Other specified postprocedural states (ICD-10) History of esophagogastroduodenoscopy (EGD) (07/01/14) ?Z98.890 - Other specified postprocedural states (ICD-10) Family History Son Thyroid cancer Social History Narrative: - [place], two sons, THC, Moderate 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, 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 [employer] What is your current living situation?: I presently have a place to live Problems where you live: no known problems In the past 12 months, utilities in danger of being shut off: no In past 12 months, lack of transportation kept you from medical appts, meetings, work, or getting things needed for daily living: no In the past 12 mos, have been you worried that your food would run out before you had money to buy more?: never true In the past 12 mos, the food you bought just didn't last and you didn't have money to buy more?: never true Smoking Status: Current some day smoker How often do you have a drink containing alcohol: 4 or more times a week AUDIT-C Alcohol total score: 4 Non-prescribed substance use: marijuana (any form) How often does anyone, including family, friends and others, physically hurt you: never How often does anyone, including family, friends and others, insult or talk down to you: never How often does anyone, including family, friends and others, threaten you with harm: never How often does anyone, including family, friends and others, scream or curse at you: never Exam Narrative: Exam Narrative: EXAM GENERAL: Patient appears extremely anxious. EYES: No scleral icterus. LYMPH: No supraclavicular or cervical lymphadenopathy. SKIN: Visible skin seen during exam normal or with benign process only. EXT: No dependent lower extremity pedal edema. HEART: Regular rate and rhythm with no murmurs, rubs, or gallops. LUNGS: Clear to auscultation bilaterally with no crackles or wheezes. ABD: Soft, non tender, non distended. PSYCH: Good eye contact, speech is not pressured. Const: Vital Signs, click to edit/add: Vital Signs - 24 hr 10/16/24 11:50 10/16/24 11:51 10/16/24 11:52 Temperature 96.6 F L Pulse Rate 58 L 59 L Pulse Rate [Pulse Oximeter] 59 L Respiratory Rate 20 Blood Pressure 169/87 H Blood Pressure [Le ft Upper Arm] 169/87 H Pulse Oximetry 100 100 100 Oxygen Delivery Me thod Room Air 10/16/24 12:00 10/16/24 12:29 10/16/24 12:30 Temperature Pulse Rate 61 62 70 Pulse Rate [Pulse Oximeter] Respiratory Rate Blood Pressure Blood Pressure [Le ft Upper Arm] Pulse Oximetry 100 99 99 Oxygen Delivery Me thod 10/16/24 12:32 Temperature Pulse Rate 64 Pulse Rate [Pulse Oximeter] Respiratory Rate 16 Blood Pressure 145/86 H Blood Pressure [Le ft Upper Arm] Pulse Oximetry 98 Oxygen Delivery Me thod Course Course ED Course: Patient seen and examined. Did give 1 mg of IV Ativan. I am going to complete the workup for his abdominal pain but I suspect his symptoms are due to substance abuse and anxiety. CT of the abdomen pelvis lipase CBC comprehensive metabolic panel UA pending. Vital Signs Vital signs: Initial Vital Signs Temperature 96.6 F L 10/16/24 11:50 Temperature Source Temporal Artery Scan 10/16/24 11:50 Pulse Rate 59 L 10/16/24 11:50 Pulse Rhythm Regular 10/16/24 11:50 Pulse Strength 3+ Normal 10/16/24 11:50 Respiratory Rate 20 10/16/24 11:50 Blood Pressure 169/87 H 10/16/24 11:50 Blood Pressure Mean 114 H 10/16/24 11:50 Blood Pressure Position Supine 10/16/24 11:50 Pulse Oximetry 100 10/16/24 11:50 Oxygen Delivery Method Room Air 10/16/24 11:50 Vital Signs Temperature 96.6 F L 10/16/24 11:50 Pulse Rate 59 L 10/16/24 11:50 Respiratory Rate 20 10/16/24 11:50 Blood Pressure 169/87 H 10/16/24 11:50 Pulse Oximetry 100 10/16/24 11:50 Oxygen Delivery Method Room Air 10/16/24 11:50 Temperature 96.6 F L 10/16/24 11:50 Pulse Rate 64 10/16/24 12:32 Respiratory Rate 16 10/16/24 12:32 Blood Pressure 145/86 H 10/16/24 12:32 Pulse Oximetry 98 10/16/24 12:32 Oxygen Delivery Method Room Air 10/16/24 11:50 Medications Administered Medications: Discontinued Medications Generic Name Dose Route Start Last Admin Trade Name Freq PRN Reason Stop Dose Admin Lorazepam 1 mg 10/16/24 12:02 10/16/24 12:28 Lorazepam 2 Mg/Ml Inj IVP 10/16/24 12:03 1 mg ONCE ONE Administration MDM - Abdominal Pain MDM Narrative Medical decision making narrative: Patient is a 78-year-old gentleman who comes in today very tremulous in with nausea and vomiting. He drink more than normal last night and has history of alcohol abuse. His labs are stable CT is unremarkable. I did given 1 mg of IV Ativan with resolution of his symptoms. Patient is not a good candidate to go home with benzodiazepines as he is a major fall risk. His son will look after him and make sure that alcohol intake is minimal. Patient will be under the care of his son continue his current medications follow-up with his primary physician this coming week. He is to minimize any alcohol intake in the interim. Lab Data Labs: Lab Results 10/16/24 Range/Units 12:32 WBC 7.13 (4.50-11.00) K/uL RBC 4.13 L (4.30-5.90) m/uL Hgb 13.3 L (13.5-17.5) gm/dL Hct 38.4 (37.0-53.0) % MCV 93 (80-100) fL MCH 32 (26-34) pg MCHC 35 (32-36) gm/dL RDW Coeff of Floyd 14.3 (11.5-15.5) % Plt Count 52 L (140-440) K/uL Neut % (Auto) 78.5 H (42.0-72.0) % Lymph % (Auto) 14.0 L (20-44) % [place] % (Auto) 6.7 (0.0-11.0) % Eos % (Auto) 0.3 (0.0-7.0) % Baso % (Auto) 0.4 (0.0-3.0) % Neut # (Auto) 5.60 (1.7-7.0) K/uL Lymph # (Auto) 1.00 (0.90-2.90) K/uL [place] # (Auto) 0.50 (0.00-0.90) K/UL Eos # (Auto) 0.02 (0.00-0.50) K/uL Baso # (Auto) 0.03 (0.00-0.30) K/uL Abs Immat Gran (auto) 0.01 (0.00-0.30) K/uL Imm/Tot Granulo (auto) 0.1 % Sodium 133 L (135-149) mmol/L Potassium 4.4 (3.6-5.1) mmol/L Chloride 102 (96-114) mmol/L Carbon Dioxide 23 (20-32) mmol/L Anion Gap 8 (7-15) mEq/L BUN 10 (7-30) mg/dL Creatinine 0.9 (0.5-1.5) mg/dL Estimated Creat Clear 69.91 Estimated GFR 88 ml/min Glucose 114 (60-115) mg/dL Calcium 9.2 (8.4-10.6) mg/dL Total Bilirubin 1.4 (0.1-1.5) mg/dL AST 46 H (12-35) U/L ALT 28 (4-50) U/L Alkaline Phosphatase 68 (40-150) U/L Total Protein 6.7 (6.0-8.3) g/dL Albumin 4.2 (3.3-5.0) g/dL Lipase 156 (23-300) U/L Discharge Plan Discharge Clinical Impression: Abdominal pain Patient Disposition: Home, Self-Care Condition: Stable Instructions: Abdominal Pain (ED) Additional Instructions: Minimize any alcohol use. Symptomatic treatment. Safety at home Continue current medications Follow-up with your doctor this coming week. Activity Level: No Restrictions Discharge Diet: Regular Prescriptions: No Action cholecalciferol (vitamin D3) 25 mcg (1,000 unit) tablet 1,000 unit PO DAILY Marijuana inhalation Metamucil (sugar) Powder 1 tbsp PO QDAY ondansetron HCl 8 mg tablet 8 mg PO BID PRN aspirin 325 mg tablet See Rx Instructions PO QDAY Rx Instructions: 0.5 tab orally every day; metoprolol succinate 100 mg tablet extended release 24 hr 100 mg PO QDAY Qty: 90 3RF gabapentin 300 mg capsule 300 mg PO BID Qty: 60 5RF fluoxetine [Prozac] 20 mg capsule 60 mg PO QDAY Qty: 90 2RF metformin 500 mg tablet extended release 24 hr 1,500 mg PO QDAY Qty: 270 1RF pantoprazole [Protonix] 40 mg tablet,delayed release (DR/EC) 40 mg PO QDAY Qty: 90 1RF famotidine 20 mg tablet 20 mg PO QHS Qty: 90 1RF olanzapine 5 mg tablet 5 mg PO QHS Qty: 90 1RF atorvastatin 40 mg tablet 40 mg PO QPM Qty: 90 1RF lorazepam 0.5 mg tablet 0.5 mg PO BID PRN (Reason: anxiety) Qty: 60 1RF lisinopril 40 mg tablet 40 mg PO QDAY Qty: 90 2RF Follow Up/Referrals: Magan Verdugo MD [Primary Care Provider, Family Practice] Stand Alone Forms: [facility] Info Instructions
--- OUTSIDE RECORDS SUMMARY | 2024-10-16 12:11 | XMS_ITS ---
Author Name Interface, [id number] lity Address [address] [place] [address] Oncology Address [address] [place] [id number] Allergies and Adverse Reactions Plan Reason for Visit Encounters Immunizations Medications Problems Vital Signs
--- OUTSIDE RECORDS SUMMARY | 2024-10-16 12:11 | XMS_ITS | CCD ---
Author Name Interface, [id number] lity Address [address] [place], [place] [id number] Organization [facility] Address [address] [place] [id number] Care Team Providers Care Deputy Clerk Of [address] Name Role Phone Jama ALONZO, Eladio Unavailable Unavailable Allergies and Adverse Reactions Reason for Visit Medications Problems Social History
--- OUTSIDE RECORDS SUMMARY | 2024-10-16 12:11 | XMS_ITS | CCD ---
Author Name Interface, [id number] lity Address [address] [place], [place] [id number] Organization [facility] Address [address] [place] [id number] Care Team Providers Care Cost Specialist Name Role Phone Jama ALONZO, Eladio Unavailable Unavailable Allergies and Adverse Reactions Reason for Visit Medications Problems Social History
--- OUTSIDE RECORDS SUMMARY | 2024-10-16 12:11 | XMS_ITS ---
Author Name Interface, [id number] lity Address [address] [place] [address] Oncology Address [address] [place] [id number] Allergies and Adverse Reactions Plan Reason for Visit Encounters Immunizations Medications Problems Vital Signs
[2024-10-16 12:37] LABS: Hematocrit 38.4 % (37.0-53.0); Hemoglobin* 13.3 gm/dL (13.5-17.5); Immature Granulocytes Abs Auto 0.01 K/uL (0.00-0.30); Immature Granulocytes Pct Auto 0.1 %; Lymphocytes Absolute Auto 1.00 K/uL (0.90-2.90); Mean Corpuscular HGB Conc 35 gm/dL (32-36); Mean Corpuscular Hemoglobin 32 pg (26-34); Mean Corpuscular Volume 93 fL (80-100); RDW Coefficient of Variation % 14.3 % (11.5-15.5); Red Blood Count 4.13 m/uL (4.30-5.90); White Blood Count* 7.13 K/uL (4.50-11.00)
[2024-10-16 12:39] LABS: Slide Review Reflex No
[2024-10-16 12:49] LABS: Albumin* 4.2 g/dL (3.3-5.0); Chloride* 102 mmol/L (96-114)
[2024-10-16 12:50] LABS: Potassium* 4.4 mmol/L (3.6-5.1); Sodium* 133 mmol/L (135-149)
[2024-10-16 12:52] LABS: Alanine Aminotransferase* 28 U/L (4-50); Anion Gap 8 mEq/L (7-15); Aspartate Amino Transferase* 46 U/L (12-35); Bilirubin Total* 1.4 mg/dL (0.1-1.5); Blood Urea Nitrogen* 10 mg/dL (7-30); Carbon Dioxide* 23 mmol/L (20-32); Creatinine* 0.9 mg/dL (0.5-1.5); Est. Creatinine Clearance* 69.91; Estimated Glomerular Filt Rate 88 ml/min
[2024-10-16 12:53] LABS: Alkaline Phosphatase* 68 U/L (40-150); Calcium* 9.2 mg/dL (8.4-10.6); Glucose* 114 mg/dL (60-115); Total Protein* 6.7 g/dL (6.0-8.3)
[2024-10-16 13:33] LABS: Appearance Urine Clear (Clear)
[2024-10-16 13:41] LABS: Ethanol* < 0.01 % (0.01-0.03)
== END 2024-10-16 13:52 | disposition home or self-care (01) ==
PROVIDERS: Emergency Provider Internal Medicine; PCP Family Medicine
DX: R10.9 Unspecified abdominal pain (principal); F03.911 Unspecified dementia, unspecified severity, with agitation; F41.9 Anxiety disorder, unspecified; F12.90 Cannabis use, unspecified, uncomplicated
CPT/HCPCS: 36415; 74176; 80053; 81003; 82077; 83690; 85025; 96374; 99283; 99284; J2060

== ENCOUNTER 2024-11-12 09:23 | Outpatient (CLI) | payer MEDICARE, BC, SELFPAY | END 2024-11-12 09:24 | disposition home or self-care (01) | LOC: NFLDREF 11-18 08:06 | PROVIDERS: PCP Family Medicine; Referring Provider Family Medicine; Visit Provider Family Medicine | DX: R53.83 Other fatigue (principal) | CPT/HCPCS: 84443 ==